=== PATIENT | female | born 1945 | race Caucasian/White ===

== ENCOUNTER 2017-12-18 07:17 | Emergency (ER) | payer MEDICARE, OTHER, SELFPAY ==
[2017-12-18 07:20] VITALS: BP 142/92; PULSE 97; RESP 18; TEMP 35.6; O2SAT 95; BMI 34.5
--- NOTE | 2017-12-18 07:41 | ED.DCSUM_ITS ---
- ER Visit Summary Date of Service: 12/18/17 Chief Complaint: Itching secondary to allergic reaction to hair care products History of Present Illness: The patient is a 72 F who is diabetic and has had a prior stroke. Patient states that on Monday she had her haircut to use something in her hair she started having itching and irritation in her scalp that day. She states this is happened before. And she was placed on Medrol Dosepak and that is all she wants. Denies other complaints. Physical Examination: Older female no acute distress. Vital signs stable afebrile. H EENT exam unremarkable. She is itching of her scalp. There is no severe rash. Or other abnormalities of her scalp. Neck nontender. Lungs clear to auscultation. Heart regular rate and rhythm. Abdomen is soft and nontender. Normal bowel sounds. Moving all 4 extremities. Neurologically she is awake and alert without focal motor deficits. Test Results: Prior to discharge patient requested her INR to be checked because she has not done for some period in time. It was 1.7 and mildly subtherapeutic. Emergency Department Course and Treatment: Patient treated with p.o. prednisone. Prescription. Treatment Plan: Prescription for prednisone. Disposition: Discharge Impression: Scalp itching secondary allergic reaction to hair care products Subtherapeutic anticoagulation on warfarin History of diabetes This note was generated with [employer] dictation software. It may contain incorrect words, spelling, and punctuation that were not noted in review of the chart prior to signing ED Disposition - Plan for ED Patient: Disposition: Home or Assisted Living Chief Complaint: Med Refill Instructions: ED Dermatitis Contact Prescriptions: Prednisone [Deltasone] 40 mg PO DAILY 7 Days tab Referrals: Sharon Gomez [ALLIED HEALTH PROFESSIONAL] - As Needed Additional Instructions: Prednisone daily for 1 week. Watch blood sugars closely.
--- NOTE | 2017-12-18 07:41 | ED.DEP ---
ED Disposition - Plan for ED Patient: Disposition: Home or Assisted Living Chief Complaint: Med Refill Instructions: ED Dermatitis Contact Prescriptions: Prednisone [Deltasone] 40 mg PO DAILY 7 Days tab Referrals: Sharon Gomez [Primary Care Provider] - As Needed Additional Instructions: Prednisone daily for 1 week. Watch blood sugars closely.
[2017-12-18 08:09] LABS: International Normalized Ratio 1.7; Prothrombin Time (Protime)PT. 19.8 SECONDS (11.7-14.9)
[2017-12-18] MEDS: predniSONE 20 MG Tablet 40 MG PO (08:39)
== END 2017-12-18 09:08 | disposition home or self-care (01) ==
PROVIDERS: Emergency Provider Emergency Medicine
DX: L29.9 Pruritus, unspecified (principal); T49.4X5A Adverse effect of keratolytics, keratoplastics, and other hair treatment drugs and preparations, initial encounter; Y92.9 Unspecified place or not applicable; R79.1 Abnormal coagulation profile; Z79.01 Long term (current) use of anticoagulants; E11.9 Type 2 diabetes mellitus without complications; J45.909 Unspecified asthma, uncomplicated; Z86.73 Personal history of transient ischemic attack (TIA), and cerebral infarction without residual deficits; Z79.84 Long term (current) use of oral hypoglycemic drugs; Z79.82 Long term (current) use of aspirin; Z79.899 Other long term (current) drug therapy
CPT/HCPCS: 85610; 99282

== ENCOUNTER 2018-01-17 16:57 | Emergency (ER) | payer MEDICARE, OTHER, SELFPAY ==
[2018-01-17 16:59] VITALS: BP 168/112; PULSE 111; RESP 20; TEMP 36.1; O2SAT 93; BMI 36.9
--- NOTE | 2018-01-17 17:40 | ED.VISSUMM ---
- ER Visit Summary Date of Service: 01/17/18 Chief Complaint: Prescription refill History of Present Illness: The patient is a 72 F who presents because she will not be able see a physician until February 02. She states she seen a physician at [facility]. She states she needs refill for Cymbalta 60 mg twice daily, levothyroxine 137 micrograms, Coumadin 5 mg and metformin 500 mg twice daily. She states she is a non-smoker. She lives alone. She has actually no complaints. She is not a good informant. Physical Examination: Vital signs are marked for an elevated blood pressure 168/112. Heart rate 111. Head is atraumatic nor cephalic. Pupils equal reactive. Extra muscle intact. TMs normal. Posterior preceptor exudate. Trachea midline. There is no thyromegaly. Heart is regular and rapid without murmur, gallop or rub. Lungs are clear to auscultation. Abdomen soft nontender. Affect is flat. Neuro exam is nonfocal. Test Results: None Emergency Department Course and Treatment: Prescriptions were written for her and she was in instructed to keep appointment with physician at [facility] Treatment Plan: Month supply of medication Disposition: Keep appointment with new physician for January Impression: 1. Medication refilled 2. Medical screening exam This note was generated with [employer] dictation software. It may contain incorrect words, spelling, and punctuation that were not noted in review of the chart prior to signing ED Disposition - Plan for ED Patient: Disposition: Home or Assisted Living Chief Complaint: Med Refill Instructions: Med Refill Prescriptions: Duloxetine Hcl [Cymbalta] 60 mg PO DAILY #30 capsule. Levothyroxine [Synthroid] 137 mcg PO DAILY #30 tab Warfarin [Coumadin (PBKC)] 5 mg PO DAILY #30 tab Metformin HCl 500 mg PO BID #60 tab Referrals: Care Physician,No Primary [Primary Care Provider] -
--- NOTE | 2018-01-17 17:46 | ED.DCSUM_ITS ---
- ER Visit Summary Date of Service: 01/17/18 Chief Complaint: Prescription refill History of Present Illness: The patient is a 72 F who presents because she will not be able see a physician until February 02. She states she seen a physician at [facility]. She states she needs refill for Cymbalta 60 mg twice daily, levothyroxine 137 micrograms, Coumadin 5 mg and metformin 500 mg twice daily. She states she is a non-smoker. She lives alone. She has actually no complaints. She is not a good informant. Physical Examination: Vital signs are marked for an elevated blood pressure 168/ 112. Heart rate 111. Head is atraumatic nor cephalic. Pupils equal reactive. Extra muscle intact. TMs normal. Posterior preceptor exudate. Trachea midline. There is no thyromegaly. Heart is regular and rapid without murmur, gallop or rub. Lungs are clear to auscultation. Abdomen soft nontender. Affect is flat. Neuro exam is nonfocal. Test Results: None Emergency Department Course and Treatment: Prescriptions were written for her and she was in instructed to keep appointment with physician at [facility] Treatment Plan: Month supply of medication Disposition: Keep appointment with new physician for January Impression: 1. Medication refilled 2. Medical screening exam This note was generated with [employer] dictation software. It may contain incorrect words, spelling, and punctuation that were not noted in review of the chart prior to signing ED Disposition - Plan for ED Patient: Disposition: Home or Assisted Living Chief Complaint: Med Refill Instructions: Med Refill Prescriptions: Duloxetine Hcl [Cymbalta] 60 mg PO DAILY #30 capsule. Levothyroxine [Synthroid] 137 mcg PO DAILY #30 tab Warfarin [Coumadin (PBKC)] 5 mg PO DAILY #30 tab Metformin HCl 500 mg PO BID #60 tab Referrals: Care Physician,No Primary [Primary Care Provider] -
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
== END 2018-01-17 18:03 | disposition home or self-care (01) ==
LOC: ED 17:49
PROVIDERS: Emergency Provider Emergency Medicine
DX: Z00.00 Encounter for general adult medical examination without abnormal findings (principal); Z76.0 Encounter for issue of repeat prescription; E66.9 Obesity, unspecified; E11.9 Type 2 diabetes mellitus without complications; E03.9 Hypothyroidism, unspecified; Z86.39 Personal history of other endocrine, nutritional and metabolic disease; Z79.84 Long term (current) use of oral hypoglycemic drugs; Z79.899 Other long term (current) drug therapy
CPT/HCPCS: 99282

== ENCOUNTER → 2018-02-13 13:54 | Outpatient (CLI) | payer MEDICARE, OTHER, SELFPAY ==
[2018-02-13 15:57] LABS: Prothrombin Time (Protime)PT. 13.4 SECONDS (11.7-14.9)
[2018-02-13 16:04] LABS: Cholesterol 154 mg/dL (200); High Density Lipoprotein 47 mg/dL; T4 Free Direct 1.85 ng/dL (0.76-1.46); Thyroid Stim Hormone (TSH) 0.08 uIU/mL (0.358-3.74); Triglycerides 117 mg/dL; Very Low Density Lipoprotein 23 mg/dL (5-40)
[2018-02-13 16:36] LABS: Absolute Lymphocyte Count 1.78 X10^3/ul (0.83-4.51); Absolute Neutrophil Count 4.7 X10^3/uL (2.0-7.7); Basophil# 0.05 X10^3/uL; Basophil% 0.7 % (0-1); Eosinophil# 0.14 X10^3/uL; Eosinophils% 1.9 % (0-5); Hematocrit 42.9 % (37-47); Hemoglobin 13.3 g/dl (12.0-15.0); Lymphocyte # 1.78 X10^3/ul (4.0); Lymphocyte % 24.5 % (19-41); Mean Corpuscular Hgb 24.1 pg (27.0-32.0); Mean Corpuscular Volume 77.7 fL (81-99); Monocyte# 0.56 X10^3/uL; Monocyte% 7.7 % (0-10); Neutrophil # 4.74 X10^3/uL (2.7-7.7); Neutrophil % 65.1 % (47-70); Platelet Count 268 K/mm3 (150-450); RBC Distribution Width CV 18.6 % (11.6-14.6); RBC Distribution Width SD 52.3 fl (35.1-43.9); Red Blood Count 5.52 M/mm3 (4.2-5.4); White Blood Count 7.3 K/mm3 (4.4-11.0)
[2018-02-13 18:18] LABS: Differential Indicated SCAN CRITERIA MET; POSITIVE COUNT YES; POSITIVE DIFFERENTIAL NO; POSITIVE MORPHOLOGY YES
[2018-02-13 18:57] LABS: Anisocytosis RARE; Microcytosis RARE; Platelet Estimate ADEQUATE (ADEQ); Platelet Morphology LARGE
== END ==
PROVIDERS: Family Provider Internal Medicine; PCP Internal Medicine; Visit Provider Internal Medicine
DX: K21.9 Gastro-esophageal reflux disease without esophagitis (principal); E11.40 Type 2 diabetes mellitus with diabetic neuropathy, unspecified; E03.9 Hypothyroidism, unspecified; E11.9 Type 2 diabetes mellitus without complications; Z79.01 Long term (current) use of anticoagulants
CPT/HCPCS: 36415; 80061; 83036; 84439; 84443; 85025; 85610

== ENCOUNTER 2018-04-12 20:29 | Emergency (ER) | payer MEDICARE, OTHER, SELFPAY ==
[2018-04-12 20:33] VITALS: BP 142/94; PULSE 123; RESP 16; TEMP 36.7; O2SAT 93; BMI 35.2
[2018-04-12 20:36] VITALS: O2SAT 93
--- NOTE | 2018-04-12 20:43 | EKG12_ITS ---
Test Reason : FALL Blood Pressure : / mmHG Vent. Rate : 107 BPM Atrial Rate : 107 BPM P-R Int : 184 ms QRS Dur : 086 ms QT Int : 346 ms P-R-T Axes : 053 008 065 degrees QTc Int : 461 ms Sinus tachycardia Septal infarct , age undetermined Inferior infarct , age undetermined Abnormal ECG Confirmed by JUSTIN BOO, BART ([id number]), assignment editor MINA BERNAL ([id number]) on 04/16/2018 3:04:41 PM Referred By: BETTY Confirmed By:BART ANDERSON MD
--- NOTE | 2018-04-12 20:43 | CT_ITS ---
STUDY: CT BRAIN WITHOUT CONTRAST REASON FOR EXAM: Female, 72 years old. Fall RADIATION DOSAGE (If Supplied By Facility): CTDIvol = ( 44.99 ) mGy, DLP = ( 779.24 ) mGycm TECHNIQUE: Transaxial CT imaging of the brain was performed without administration of intravenous contrast material. Individualized dose optimization techniques were used for this CT. COMPARISON: September 27, 2016 FINDINGS: Normal soft tissue structures. Normal calvarium. Normal size ventricles and extra-axial spaces for the patient's age. Stable white matter microangiopathic ischemic changes of the cerebral hemispheres. Normal basal ganglia. Probable old lacunar infarcts of the thalami. Normal brainstem. Normal cerebellum. There is no intracranial hemorrhage. There are no findings of an acute ischemic infarction. Normal visualized paranasal sinuses. CT/Brain/Head without Contrast IMPRESSION: Stable age-related and chronic changes of the brain. Electronically Signed: Zachary Bryant DO at 21:43 EDT Tel [phone], Service support ,
[2018-04-12] MEDS: Acetaminophen 500 MG Tablet 1000 MG PO (20:54)
--- NOTE | 2018-04-12 21:20 | RAD_ITS ---
STUDY: X-RAY - RIGHT WRIST REASON FOR EXAM: Female, 72 years old. Pain TECHNIQUE: 3 view(s) of the wrist were obtained. COMPARISON: None. FINDINGS: Comminuted fracture involving the distal end of the radius. Avulsion involving the tip of the ulnar styloid. Normal radiocarpal articulation. Normal distal radioulnar articulation. Questionable old injury involving the scaphoid tip distally versus accessory ossification. Normal carpal articulations. Degenerative changes at the carpometacarpal articulation of the thumb. Normal second through fifth carpometacarpal articulations. Normal visualized metacarpal bones. Chondrocalcinosis distal to the ulna. RAD/Wrist min 3 Views IMPRESSION: Comminuted fracture involving the distal end of the radius. Avulsion involving the tip of the ulnar styloid. Electronically Signed: Zachary Bryant DO at 21:51 EDT Tel [phone], Service support ,
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
--- NOTE | 2018-04-12 22:15 | DCINST.ED_ITS ---
ED Disposition - Plan for ED Patient: Disposition: Home or Assisted Living Chief Complaint: Fall Instructions: ED Mechanical Fall Prescriptions: Hydrocodone Bitart/Apap 5-325 [[place] 5MG-325MG] 1 tab PO Q6H PRN PRN 3 Days #10 tab PRN Reason: Pain Referrals: Karl Monaco MD [Primary Care Provider] - Contreras Fleming DO [STAFF PHYSICIAN] -
[2018-04-12 22:39] VITALS: BP 151/82; PULSE 106; RESP 15; O2SAT 98
--- NOTE | 2018-04-12 22:40 | ED.RN ---
pt given written and verbal discharge instructions and home going prescriptions. pt verbalizes understanding. educated on care of cast at home, and not to drive when taking narcotic medication. this rn d/c pt iv and covered with 2x2 gauze dressing. pt assisted in dressing by this rn and placed in wheelchair into waiting room. pt awaiting [facility] to pick her up.
== END 2018-04-12 22:42 | disposition home or self-care (01) ==
PROVIDERS: Emergency Provider Emergency Medicine; Family Provider Internal Medicine; PCP Internal Medicine
DX: S52.501A Unspecified fracture of the lower end of right radius, initial encounter for closed fracture (principal); S00.03XA Contusion of scalp, initial encounter; R40.2410 Glasgow coma scale score 13-15, unspecified time; W19.XXXA Unspecified fall, initial encounter; Y93.9 Activity, unspecified; Y92.9 Unspecified place or not applicable; E11.9 Type 2 diabetes mellitus without complications; I10 Essential (primary) hypertension; E03.9 Hypothyroidism, unspecified; Z79.84 Long term (current) use of oral hypoglycemic drugs; Z79.899 Other long term (current) drug therapy
CPT/HCPCS: 29125; 70450; 73110; 93005; 99285; J7030

== ENCOUNTER 2018-04-14 20:58 | Inpatient (IN) | payer MEDICARE, OTHER, SELFPAY ==
[2018-04-14 20:58] VITALS: PULSE 114; RESP 18; TEMP 36.6; O2SAT 94; BMI 33.6
[2018-04-14 21:03] VITALS: BP 188/92
--- NOTE | 2018-04-14 21:48 | RAD_ITS ---
STUDY: X-RAY CHEST REASON FOR EXAM: Female, 72 years old. Weakness. TECHNIQUE: Portable chest. COMPARISON: 07/15/2016. FINDINGS: The lungs are clear and expanded. There is no demonstrated pleural abnormality. Normal size heart. Normal mediastinum and reta. Normal visualized pulmonary arteries. Normal visualized aortic arch and descending thoracic aorta. Degenerative changes of the shoulders are noted. Soft tissues and bony structures are otherwise unremarkable. RAD/Chest 1 View (Portable) IMPRESSION: No acute process. Electronically Signed: Annette Vlila MD at 22:11 EDT Tel , Service support ,
--- NOTE | 2018-04-14 21:48 | EKG12_ITS ---
Test Reason : FALL Blood Pressure : / mmHG Vent. Rate : 088 BPM Atrial Rate : 088 BPM P-R Int : 164 ms QRS Dur : 082 ms QT Int : 382 ms P-R-T Axes : 061 -03 061 degrees QTc Int : 462 ms Normal sinus rhythm Inferior infarct , age undetermined Abnormal ECG Confirmed by JUSTIN BOO, BART ([id number]), content editor MINA BERNAL ([id number]) on 04/16/2018 3:43:11 PM Referred By: HIRA Confirmed By:BART ANDERSON MD
[2018-04-14 22:10] LABS: Absolute Lymphocyte Count 1.18 X10^3/ul (0.83-4.51); Absolute Neutrophil Count 10.6 X10^3/uL (2.0-7.7); Basophil# 0.03 X10^3/uL; Basophil% 0.2 % (0-1); Eosinophil# 0.08 X10^3/uL; Eosinophils% 0.6 % (0-5); Hematocrit 44.6 % (37-47); Hemoglobin 14.1 g/dl (12.0-15.0); Lymphocyte # 1.18 X10^3/ul (4.0); Lymphocyte % 9.3 % (19-41); Mean Corp Hgb Conc 31.6 g/gl (32-36); Mean Corpuscular Volume 79.1 fL (81-99); Monocyte# 0.81 X10^3/uL; Monocyte% 6.4 % (0-10); Neutrophil # 10.57 X10^3/uL (2.7-7.7); Neutrophil % 83.3 % (47-70); POSITIVE COUNT NO; POSITIVE DIFFERENTIAL NO; POSITIVE MORPHOLOGY YES; Platelet Count 306 K/mm3 (150-450); RBC Distribution Width CV 18.2 % (11.6-14.6); RBC Distribution Width SD 51.7 fl (35.1-43.9); Red Blood Count 5.64 M/mm3 (4.2-5.4); White Blood Count 12.7 K/mm3 (4.4-11.0)
[2018-04-14 22:11] LABS: Differential Indicated SCAN CRITERIA MET
[2018-04-14 22:19] LABS: Anion Gap 11 (5-15); BUN 12 mg/dL (7-18); BUN/Creat Ratio 13.4 RATIO (10-20); Calcium,Total 10.1 mg/dL (8.5-10.1); Chloride 106 mmol/L (98-107); EST Glomerular Filtration Rate 65 mL/min (>60); Est Glom Filt Rate - Afr Amer 79 mL/min (>60); Estimated Creatinine Clearance 57.31 ml/min; Glucose 126 mg/dL (74-106); Potassium 4.3 mmol/L (3.5-5.1); Sodium Level 142 mmol/L (136-145)
[2018-04-14 22:28] LABS: Differential Comment SCANNED
[2018-04-14 22:46] LABS: Red Blood Cells-Urine 0 SEEN /hpf (0-5)
[2018-04-14] MEDS: Acetaminophen 500 MG Tablet 1000 MG PO (22:52)
[2018-04-14 22:53] LABS: Color, Urine Yellow (Yellow); Glucose, Dipstick Normal (Normal); Ketone-Dipstick 15 mg/dl (Negative); Leukocyte Esterase-Dipstick 500 /ul (Negative); Nitrite-Dipstick Negative (Negative); Occult Blood-Urine 25 /ul (Negative); Protein-Dipstick 30 mg/dl (Negative); Specific Gravity, Urine 1.025 (1.002-1.030); Urine Bilirubin Dipstick Negative (Negative); Urine Clarity Sl. Cloudy (Clear); Urine Urobilinogen Normal (Normal)
[2018-04-14 23:04] LABS: Hyaline Cast 0-5 SEEN /lpf (0-5); Mucous, Urine 1+ /hpf (<or=2+); Squamous Epithelial Cells - UA 10-25 SEEN /hpf (5-10); White Blood Cells 25-50 SEEN /hpf (0-5)
[2018-04-14 23:05] LABS: Bacteria RARE /hpf (None Seen); Renal Epithelial Cells 0-5 SEEN /hpf (0-5); Transitional Epithelial - Ur 0-5 SEEN /hpf (0-5)
--- NOTE | 2018-04-14 23:32 | ED.DCSUM_ITS ---
- ER Visit Summary Date of Service: 04/14/18 Chief Complaint: Fall History of Present Illness: The patient is a 72 F who presents with generalized weakness. She had a recent fall had a right wrist fracture. She complains of slowly worsening generalized weakness. She states she was unable to get up off of the commode today. She tried for a couple of hours she states. She then slid onto her knees and had to crawl to the phone call EMS. She states that she has known that she has had some difficulty caring for herself but now recognizes that she likely needs to be in a nursing facility. She denies any injury from her fall today. She denies fever chest pain shortness of breath vomiting diarrhea or urinary symptoms. Physical Examination: Initial heart rate 114 vitals otherwise unremarkable Heart rate and rhythm tachycardia Lungs are clear Abdomen soft nontender nondistended Painful limited range of motion of the right upper extremity, right upper extremity wrist is in a splint Normal color Alert Test Results: EKG shows sinus rhythm at a rate of 88 similar to prior. Chest x- ray shows no acute process. Labs notable for white blood cell count 12.7. Urinalysis shows 500 leukocyte esterase, 25-50 WBCs, rare bacteria. This was also sent for culture. Emergency Department Course and Treatment: Patient underwent workup for generalized weakness. There is note of UTI. She will be treated with IV Rocephin. She was discussed with the hospitalist will be admitted. I do feel it is likely that even after treatment of her UTI she will need placement to a nursing facility. Treatment Plan: [] Disposition: Admit Impression: UTI Functional decline This note was generated with [employer] dictation software. It may contain incorrect words, spelling, and punctuation that were not noted in review of the chart prior to signing ED Disposition - Plan for ED Patient: Chief Complaint: Fall Referrals: Karl Monaco MD [Primary Care Provider] -
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
[2018-04-15] VITALS (7 sets, daily range): BP systolic 139–180; BP diastolic 66–115; PULSE 77–94; RESP 16–18; TEMP 36.2–37.2; O2SAT 95–100; BMI 33.5
[2018-04-15] MEDS: Ceftriaxone 1 GM/50 ML BAG IV ×2 (00:16→09:06)
[2018-04-15] MEDS: 0.9% NaCl Peripheral Flush Adult/Peds IV ×2 (01:25→21:34)
[2018-04-15] MEDS: Acetaminophen 500 MG Tablet PO ×2 (03:44→14:05)
[2018-04-15] MEDS: Levothyroxine 125 MCG Tablet PO (06:05)
[2018-04-15 07:34] LABS: Anion Gap 10 (5-15); BUN 13 mg/dL (7-18); BUN/Creat Ratio 17.1 RATIO (10-20); Calcium,Total 9.5 mg/dL (8.5-10.1); Chloride 104 mmol/L (98-107); Creatinine, Serum 0.76 mg/dL (0.55-1.02); EST Glomerular Filtration Rate 79 mL/min (>60); Est Glom Filt Rate - Afr Amer 96 mL/min (>60); Estimated Creatinine Clearance 49.79 ml/min; Glucose 115 mg/dL (74-106); Potassium 2.7 mmol/L (3.5-5.1); Sodium Level 138 mmol/L (136-145); Thyroid Stim Hormone (TSH) 1.09 uIU/mL (0.358-3.74)
[2018-04-15 07:38] LABS: Hematocrit 39.1 % (37-47); Hemoglobin 12.4 g/dl (12.0-15.0); Mean Corp Hgb Conc 31.7 g/gl (32-36); Mean Corpuscular Hgb 25.1 pg (27.0-32.0); Mean Corpuscular Volume 79.1 fL (81-99); Platelet Count 243 K/mm3 (150-450); RBC Distribution Width CV 18.2 % (11.6-14.6); RBC Distribution Width SD 52.4 fl (35.1-43.9); Red Blood Count 4.94 M/mm3 (4.2-5.4); White Blood Count 7.5 K/mm3 (4.4-11.0)
[2018-04-15] MEDS: Aspirin 81 MG TAB.CHEW PO (07:45)
[2018-04-15 07:49] LABS: Absolute Neutrophil Count 5.1 X10^3/uL (2.0-7.7); Basophil% 0.3 % (0-1); Differential Indicated SCAN CRITERIA MET; Eosinophils% 1.6 % (0-5); Lymphocyte # 1.62 X10^3/ul (4.0); Lymphocyte % 21.7 % (19-41); Monocyte% 8.6 % (0-10); Neutrophil # 5.06 X10^3/uL (2.7-7.7); Neutrophil % 67.7 % (47-70); POSITIVE COUNT NO; POSITIVE DIFFERENTIAL NO; POSITIVE MORPHOLOGY YES
[2018-04-15 07:50] LABS: Absolute Lymphocyte Count 1.62 X10^3/ul (0.83-4.51); Basophil# 0.02 X10^3/uL; Eosinophil# 0.12 X10^3/uL; Monocyte# 0.64 X10^3/uL
--- NOTE | 2018-04-15 07:58 | PCM.PN.HOSP ---
Patient Problems: Active and Suspected Problems (Last Reviewed 04/15/18 @ 04:24 by Maximino Norman MD) Multiple falls (Acute) Debility (Acute) Acute cystitis (Acute) Subjective: Patient stating that there has been no marked improvement since initial presentation and she notes ongoing weakness and debility. She states that her right upper extremity is currently comfortable but she has intermittent discomfort and cannot detail whether or not she supposed to be bearing weight. Patient also relays that she has made efforts to lose weight including 35 pounds over unclear timelines but states that she has had poor appetite lately when discussed nutritional importance for wound healing including fractures. Patient denies fevers, chills, nausea, emesis, abdominal pain, chest pain or dyspnea. Objective: Physical Examination: General: awake, alert, oriented x 3 and cooperative, seated upright in bed in no apparent distress. Skin: normal color, turgor, no icterus, cyanosis, R wrist w/ JOSUÉ wrap in place. HEENT: AT/NC, EOMI, PERRLA, MMM. Lungs: Diminished BS BL, > bases, distant BS w/ larger habitus, moderate effort, no rales, ronchi or wheezing. Heart: Regular rate and rhythm; no gallop, rub audible. Abdomen: soft, morbidly obese, NTTP, ND, decreased BS. Extremities: no cyanosis, clubbing, no BL LE edema, RUE w/ splint/JOSUÉ in place, elevated w/ icing currently, mild edema to fingers, sensation intact, able to move fingers. Neurological: patient awake, alert, oriented x 3; cognitive function intact; pupils equally reactive to light and accomodation; cranial nerves II-XII grossly normal, moving all 4 extremities except limited RUE given fx, no focal deficits, strength moderately to severely globally decreased secondary to acute presentation. Psychiatric: affect appears normal, no acute evidence of depressive or anxiety feelings. Vitals/I&O's: Vital Signs Temp Pulse Resp BP Pulse Ox 97.8 F 87 18 139/72 H 96 04/15/18 02:38 04/15/18 02:38 04/15/18 02:38 04/15/18 02:38 04/15/18 02:38 Oxygen Delivery Method Room Air Weight: 226 lb 6.636 oz Body Mass Index (BMI) 33.5 Intake and Output for Last 24 Hours 04/13/18 04/14/18 04/15/18 23:59 23:59 23:59 Intake Total 120 / 120 Balance 120 / 120 Laboratory Results 04/15/18 06:10: Sodium 138, Potassium 2.7 L*, Chloride 104, Carbon Dioxide 24.0, Anion Gap 10, BUN 13, Creatinine 0.76, Estim Creat Clear Calc 49.79, Est GFR (MDRD) Af Amer 96, Est GFR (MDRD) Non-Af 79, BUN/Creatinine Ratio 17.1, Glucose 115 H, Calcium 9.5, TSH 1.09 04/15/18 06:10: Vitamin B12 Pending, Vitamin D 25-Hydroxy Pending 04/15/18 06:10: Vit D 1,25-Dihydroxy Pending 04/15/18 07:10: WBC 7.5, RBC 4.94, Hgb 12.4, Hct 39.1, MCV 79.1 L, MCH 25.1 L, MCHC 31.7 L, RDW 18.2 H, RDW Differential 52.4 H, Plt Count 243, Immature Gran % (Auto) 0.100, Neut % (Auto) 67.7, Lymph % (Auto) 21.7, [place] % (Auto) 8.6, Eos % (Auto) 1.6, Baso % (Auto) 0.3, Absolute Neuts (auto) 5.1, Absolute Lymphs (auto) 1.62, Total Counted Pending Current Medications Acetaminophen (Tylenol) 500 mg PO Q6H PRN PRN PRN Reason: PAIN Last Admin: 04/15/18 03:44 Dose: 500 mg Amlodipine Besylate (Norvasc) 5 mg PO DAILY [facility] Aspirin (Aspirin, Baby) 81 mg PO DAILY@0800 [facility] Last Admin: 04/15/18 07:45 Dose: 81 mg Bisacodyl (Dulcolax) 5 mg PO DAILY PRN PRN PRN Reason: Constipation Cholecalciferol (Vitamin D) 1,000 unit PO DAILY [facility] Duloxetine HCl (Cymbalta) 60 mg PO DAILY [facility] Enoxaparin Sodium (Lovenox) 40 mg SC DAILY@1000 [facility] Ceftriaxone Sodium (Rocephin) 1 gm in 50 mls @ 100 mls/hr IV Q24 [facility] Insulin Human Lispro (Humalog Kwikpen (Bkc)) 0 unit SC ACHS [facility] PRN Reason: Protocol Labetalol HCl (Trandate) 10 mg IV Q4H PRN PRN PRN Reason: SBP > 160 Last Admin: 04/15/18 01:25 Dose: 10 mg Levothyroxine Sodium (Synthroid) 125 mcg PO DAILY@0600 [facility] Last Admin: 04/15/18 06:05 Dose: 125 mcg Magnesium Hydroxide (Milk Of Magnesia) 30 ml PO DAILY PRN PRN PRN Reason: Constipation Nutritional Formula (Lactose Free) (Glucerna Shake) 120 ml PO 4X/DAY [facility] Ondansetron HCl (Zofran) 4 mg IV Q8H PRN PRN PRN Reason: NAUSEA Oxycodone HCl (Oxyir) 5 mg PO Q4H PRN PRN PRN Reason: Moderate Pain (pain scale 4-5) Potassium Bicarb/Potassium Chloride (Potassium Chl 25 Meq Eff (For Liquid)) 50 meq PO X1 ONE Stop: 04/15/18 07:56 Sodium Chloride () 5 - 30 ml IV UD PRN PRN Reason: SALINE FLUSH Last Admin: 04/15/18 01:25 Dose: 10 ml Zolpidem Tartrate (Ambien (Generic)) 5 mg PO QHS PRN PRN PRN Reason: INSOMNIA Medical Necessity - Tobacco Use Smoking Status: Never smoker Assessment/Plan All Active Problems (Last Reviewed 04/15/18 @ 04:24 by Maximino Norman MD) Multiple falls (Acute) Debility (Acute) Acute cystitis (Acute) Tachycardia (Acute) History of stroke (Acute) History of blood clots (Acute) History of ankle fracture (Acute) Frostbite of both buttocks (Acute) Fall (Acute) The patient is a 72 y/o F w/ PMHx: ? Diabetes mellitus type II, Fibromyalgia, Hypothyroidism, GERD, OA, Hx CVA, Hx DVT, HTN, Anxiety and Depression, Obesity who presents to the [facility] ED on 04/14/18 with progressively worsening debility, weakness and falls. (1) Acute Urinary Tract Infection: Admitted to [facility] upon ED evaluation remarkable, pending UCx, admission CBC w/ WBC 12.7 with L shift, continue IVFs, monitor I/Os, continue IV Rocephin w/ transition as able pending sensitivities and speciation. PT, OT, CM for discharge planning, concerns for decline, may necessitate SNF placement. (2) Frequent Falls, Debility, Recent Fx: Vitamin D, B12 ordered, pending, PT, OT, CM for placement. (3) Hypokalemia: Admission K+ 2.7, supplementation given, repeat level thie afternoon and in AM. Mag pending. (4) Recent Prior R Wrist Fracture: Continue immobilization, elevation, icing, PRN pain regimen, PT and OT, NWB given unclear directions per Orthopedic. (5) Anxiety and Depression/Fibromyalgia: Continue home cymbalta regimen. (6) Hypertension: Continue home regimen including Norvasc, PRN hydralazine. (7) ? Diabetes mellitus type II versus prediabetes: Hold oral home regimen, ADA diet, accu checks w/ ISS, HgBA1c pending. (8) Hypothyroidism: Continue home synthroid regimen, TSH normal. (9) Obesity: Weight loss and lifestyle changes encouraged. (10) Hx DVT: Continue prophylaxis. (11) DVT Prophylaxis: SCDs, lovenox. (12) Code Status: DNR-CCA, no intubation. Code Visit Inpatient E&M: 48717 Subs Hosp L2
--- NOTE | 2018-04-15 08:04 | PN_ITS ---
Patient Problems: Active and Suspected Problems (Last Reviewed 04/15/18 @ 04:24 by Maximino Norman MD) Multiple falls (Acute) Debility (Acute) Acute cystitis (Acute) Subjective: Patient stating that there has been no marked improvement since initial presentation and she notes ongoing weakness and debility. She states that her right upper extremity is currently comfortable but she has intermittent discomfort and cannot detail whether or not she supposed to be bearing weight. Patient also relays that she has made efforts to lose weight including 35 pounds over unclear timelines but states that she has had poor appetite lately when discussed nutritional importance for wound healing including fractures. Patient denies fevers, chills, nausea, emesis, abdominal pain, chest pain or dyspnea. Objective: Physical Examination: General: awake, alert, oriented x 3 and cooperative, seated upright in bed in no apparent distress. Skin: normal color, turgor, no icterus, cyanosis, R wrist w/ JOSUÉ wrap in place. HEENT: AT/NC, EOMI, PERRLA, MMM. Lungs: Diminished BS BL, > bases, distant BS w/ larger habitus, moderate effort , no rales, ronchi or wheezing. Heart: Regular rate and rhythm; no gallop, rub audible. Abdomen: soft, morbidly obese, NTTP, ND, decreased BS. Extremities: no cyanosis, clubbing, no BL LE edema, RUE w/ splint/JOSUÉ in place, elevated w/ icing currently, mild edema to fingers, sensation intact, able to move fingers. Neurological: patient awake, alert, oriented x 3; cognitive function intact; pupils equally reactive to light and accomodation; cranial nerves II-XII grossly normal, moving all 4 extremities except limited RUE given fx, no focal deficits, strength moderately to severely globally decreased secondary to acute presentation. Psychiatric: affect appears normal, no acute evidence of depressive or anxiety feelings. Vitals/I&O's: Vital Signs Temp Pulse Resp BP Pulse Ox 97.8 F 87 18 139/72 H 96 04/15/18 02:38 04/15/18 02:38 04/15/18 02:38 04/15/18 02:38 04/15/18 02:38 Oxygen Delivery Method Room Air Weight: 226 lb 6.636 oz Body Mass Index (BMI) 33.5 Intake and Output for Last 24 Hours 04/13/18 04/14/18 04/15/18 23:59 23:59 23:59 Intake Total 120 / 120 Balance 120 / 120 Laboratory Results 04/15/18 06:10: Sodium 138, Potassium 2.7 L*, Chloride 104, Carbon Dioxide 24.0 , Anion Gap 10, BUN 13, Creatinine 0.76, Estim Creat Clear Calc 49.79, Est GFR ( MDRD) Af Amer 96, Est GFR (MDRD) Non-Af 79, BUN/Creatinine Ratio 17.1, Glucose 115 H, Calcium 9.5, TSH 1.09 04/15/18 06:10: Vitamin B12 Pending, Vitamin D 25-Hydroxy Pending 04/15/18 06:10: Vit D 1,25-Dihydroxy Pending 04/15/18 07:10: WBC 7.5, RBC 4.94, Hgb 12.4, Hct 39.1, MCV 79.1 L, MCH 25.1 L, MCHC 31.7 L, RDW 18.2 H, RDW Differential 52.4 H, Plt Count 243, Immature Gran % (Auto) 0.100, Neut % (Auto) 67.7, Lymph % (Auto) 21.7, [place] % (Auto) 8.6, Eos % (Auto) 1.6, Baso % (Auto) 0.3, Absolute Neuts (auto) 5.1, Absolute Lymphs ( auto) 1.62, Total Counted Pending Current Medications Acetaminophen (Tylenol) 500 mg PO Q6H PRN PRN PRN Reason: PAIN Last Admin: 04/15/18 03:44 Dose: 500 mg Amlodipine Besylate (Norvasc) 5 mg PO DAILY [facility] Aspirin (Aspirin, Baby) 81 mg PO DAILY@0800 [facility] Last Admin: 04/15/18 07:45 Dose: 81 mg Bisacodyl (Dulcolax) 5 mg PO DAILY PRN PRN PRN Reason: Constipation Cholecalciferol (Vitamin D) 1,000 unit PO DAILY [facility] Duloxetine HCl (Cymbalta) 60 mg PO DAILY [facility] Enoxaparin Sodium (Lovenox) 40 mg SC DAILY@1000 [facility] Ceftriaxone Sodium (Rocephin) 1 gm in 50 mls @ 100 mls/hr IV Q24 [facility] Insulin Human Lispro (Humalog Kwikpen (Bkc)) 0 unit SC ACHS [facility] PRN Reason: Protocol Labetalol HCl (Trandate) 10 mg IV Q4H PRN PRN PRN Reason: SBP > 160 Last Admin: 04/15/18 01:25 Dose: 10 mg Levothyroxine Sodium (Synthroid) 125 mcg PO DAILY@0600 [facility] Last Admin: 04/15/18 06:05 Dose: 125 mcg Magnesium Hydroxide (Milk Of Magnesia) 30 ml PO DAILY PRN PRN PRN Reason: Constipation Nutritional Formula (Lactose Free) (Glucerna Shake) 120 ml PO 4X/DAY [facility] Ondansetron HCl (Zofran) 4 mg IV Q8H PRN PRN PRN Reason: NAUSEA Oxycodone HCl (Oxyir) 5 mg PO Q4H PRN PRN PRN Reason: Moderate Pain (pain scale 4-5) Potassium Bicarb/Potassium Chloride (Potassium Chl 25 Meq Eff (For Liquid)) 50 meq PO X1 ONE Stop: 04/15/18 07:56 Sodium Chloride () 5 - 30 ml IV UD PRN PRN Reason: SALINE FLUSH Last Admin: 04/15/18 01:25 Dose: 10 ml Zolpidem Tartrate (Ambien (Generic)) 5 mg PO QHS PRN PRN PRN Reason: INSOMNIA Medical Necessity - Tobacco Use Smoking Status: Never smoker Assessment/Plan All Active Problems (Last Reviewed 04/15/18 @ 04:24 by Maximino Norman MD) Multiple falls (Acute) Debility (Acute) Acute cystitis (Acute) Tachycardia (Acute) History of stroke (Acute) History of blood clots (Acute) History of ankle fracture (Acute) Frostbite of both buttocks (Acute) Fall (Acute) The patient is a 72 y/o F w/ PMHx: ? Diabetes mellitus type II, Fibromyalgia, Hypothyroidism, GERD, OA, Hx CVA, Hx DVT, HTN, Anxiety and Depression, Obesity who presents to the [facility] ED on 04/14/18 with progressively worsening debility, weakness and falls. (1) Acute Urinary Tract Infection: Admitted to [facility] upon ED evaluation remarkable, pending UCx, admission CBC w/ WBC 12.7 with L shift, continue IVFs, monitor I/Os, continue IV Rocephin w/ transition as able pending sensitivities and speciation. PT, OT, CM for discharge planning, concerns for decline, may necessitate SNF placement. (2) Frequent Falls, Debility, Recent Fx: Vitamin D, B12 ordered, pending, PT, OT , CM for placement. (3) Hypokalemia: Admission K+ 2.7, supplementation given, repeat level thie afternoon and in AM. Mag pending. (4) Recent Prior R Wrist Fracture: Continue immobilization, elevation, icing, PRN pain regimen, PT and OT, NWB given unclear directions per Orthopedic. (5) Anxiety and Depression/Fibromyalgia: Continue home cymbalta regimen. (6) Hypertension: Continue home regimen including Norvasc, PRN hydralazine. (7) ? Diabetes mellitus type II versus prediabetes: Hold oral home regimen, ADA diet, accu checks w/ ISS, HgBA1c pending. (8) Hypothyroidism: Continue home synthroid regimen, TSH normal. (9) Obesity: Weight loss and lifestyle changes encouraged. (10) Hx DVT: Continue prophylaxis. (11) DVT Prophylaxis: SCDs, lovenox. (12) Code Status: DNR-CCA, no intubation. Code Visit Inpatient E&M: 83749 Subs Hosp L2
[2018-04-15 08:14] LABS: Differential Comment SCANNED
[2018-04-15 08:15] LABS: Platelet Morphology LARGE
[2018-04-15 08:18] LABS: Magnesium 2.1 mg/dL (1.6-2.6)
[2018-04-15 08:25] LABS: Hemoglobin A1c 6.6 % (4.2-6.3)
[2018-04-15] MEDS: amLODIPine 5 MG Tablet PO (09:07)
[2018-04-15] MEDS: DULoxetine Hcl 60 MG Capsule PO (09:07)
[2018-04-15] MEDS: Enoxaparin 40 MG/0.4 ML Syringe SC (09:07)
[2018-04-15] MEDS: Glucerna Shake 120 ML LIQUID PO ×3 (09:09→21:32)
[2018-04-15 11:01] LABS: Bedside Glucose 160 mg/dL (70-110)
[2018-04-15] MEDS: Insulin Lispro 100 UNIT/ML INSULN.PEN SC ×2 (11:03→21:32)
[2018-04-15 14:16] LABS: Anion Gap 8 (5-15); BUN 15 mg/dL (7-18); BUN/Creat Ratio 17.3 RATIO (10-20); Calcium,Total 9.8 mg/dL (8.5-10.1); Chloride 105 mmol/L (98-107); Creatinine, Serum 0.87 mg/dL (0.55-1.02); EST Glomerular Filtration Rate 68 mL/min (>60); Est Glom Filt Rate - Afr Amer 82 mL/min (>60); Estimated Creatinine Clearance 57.23 ml/min; Glucose 152 mg/dL (74-106); Potassium 3.3 mmol/L (3.5-5.1); Sodium Level 140 mmol/L (136-145)
[2018-04-15 16:10] LABS: Bedside Glucose 142 mg/dL (70-110)
[2018-04-15 21:40] LABS: Bedside Glucose 170 mg/dL (70-110)
[2018-04-16 02:15] VITALS: BP 137/73; PULSE 84; RESP 18; TEMP 36.6; O2SAT 97
[2018-04-16] MEDS: Levothyroxine 125 MCG Tablet PO (06:17)
[2018-04-16] MEDS: Acetaminophen 500 MG Tablet PO ×2 (06:17→18:03)
[2018-04-16 07:05] LABS: Bedside Glucose 118 mg/dL (70-110)
[2018-04-16 07:11] LABS: Absolute Lymphocyte Count 1.55 X10^3/ul (0.83-4.51); Absolute Neutrophil Count 3.9 X10^3/uL (2.0-7.7); Basophil# 0.02 X10^3/uL; Basophil% 0.3 % (0-1); Eosinophils% 3.2 % (0-5); Lymphocyte # 1.55 X10^3/ul (4.0); Lymphocyte % 24.6 % (19-41); Mean Corp Hgb Conc 30.8 g/gl (32-36); Mean Corpuscular Hgb 24.6 pg (27.0-32.0); Mean Corpuscular Volume 79.9 fL (81-99); Monocyte# 0.64 X10^3/uL; Monocyte% 10.2 % (0-10); Neutrophil # 3.89 X10^3/uL (2.7-7.7); Neutrophil % 61.7 % (47-70); Platelet Count 232 K/mm3 (150-450); RBC Distribution Width CV 18.5 % (11.6-14.6); RBC Distribution Width SD 54.2 fl (35.1-43.9); Red Blood Count 4.88 M/mm3 (4.2-5.4); White Blood Count 6.3 K/mm3 (4.4-11.0)
[2018-04-16 07:12] LABS: Differential Indicated SCAN CRITERIA MET; POSITIVE COUNT NO; POSITIVE DIFFERENTIAL NO; POSITIVE MORPHOLOGY YES
[2018-04-16 07:24] LABS: Anion Gap 11 (5-15); BUN 12 mg/dL (7-18); BUN/Creat Ratio 18.2 RATIO (10-20); Calcium,Total 9.1 mg/dL (8.5-10.1); Chloride 108 mmol/L (98-107); Creatinine, Serum 0.66 mg/dL (0.55-1.02); EST Glomerular Filtration Rate 93 mL/min (>60); Est Glom Filt Rate - Afr Amer 112 mL/min (>60); Estimated Creatinine Clearance 49.79 ml/min; Glucose 124 mg/dL (74-106); Sodium Level 142 mmol/L (136-145)
[2018-04-16 08:15] VITALS: BP 158/75; PULSE 76; RESP 16; TEMP 36.3; O2SAT 96
[2018-04-16 09:00] LABS: Vitamin B12 792 pg/mL (211-911); Vitamin D,25 Hydroxy 31.7 ng/mL (29.95-100.01)
[2018-04-16] MEDS: amLODIPine 5 MG Tablet PO (09:06)
[2018-04-16] MEDS: 0.9% NaCl Peripheral Flush Adult/Peds IV (09:06)
[2018-04-16] MEDS: DULoxetine Hcl 60 MG Capsule PO (09:06)
[2018-04-16] MEDS: Aspirin 81 MG TAB.CHEW PO (09:11)
[2018-04-16] MEDS: Ceftriaxone 1 GM/50 ML BAG IV (09:11)
[2018-04-16] MEDS: Enoxaparin 40 MG/0.4 ML Syringe SC (09:24)
--- NOTE | 2018-04-16 10:15 | CASEMGMT ---
OMI ENGLISH Face to Face with patient for initial transition planning/care coordination assessment. RN TAMEKA introduced self and role at [facility]. Patient lying in bed, alert and oriented. Patient willing to participate in assessment and is able to answer all questions appropriately. Care providers, pharmacy, and demographics verified. Patient lives alone in 1st floor apartment and is independent at home. Patient states the she either drives self or uses a cab for transportation. Patient states she has a cane and walker at home. Patient has had [facility] in the past. Patient states that she will be unable to care for self at home and is request SNF at discharge. Patient states she has no further needs or concerns at this time. DAYNA Wells updated regarding patient request for placement Disposition Plan: Patient to discharge to SNF. Hoa DAWN, RN, CM
--- NOTE | 2018-04-16 10:45 | CASEMGMT ---
Addendum entered by Eduarda Smith 04/16/18 11:02: Social Work Note Pt made aware that [facility] can accept. No further needs identified at this time. KATIE Arce, CONCR[employer]E [employer]ING SUPERVISOR Original Note: Social Work Note Face to face with pt to discuss discharge planning. Introduced self and role at [facility]. The pt reports to live alone in an apartment that has a large hill to get up to. Reports frequent falls and states that she does use a walker for ambulation. States that she knows she cannot take care of herself at home alone at this time. She is seeking placement and informs SW that she is not from [place]. She has lived here for 5 years. Per chart review pt had [facility] to [facility]. Discussed other area SNFs and pt selects [facility] as her primary choice and [facility] [place] her secondary choice. Pt identified her ex- as her primary support and states that he financially assists her and is very generous. He lives in [place], but they have a good relationship. Pt states that she makes $652/month. Discuss and educate the pt to Medicaid. She declines to complete at she states that they will take control of her money. Discuss that if she cannot return home at discharge from SNF she may need to apply for assistance with payment at [facility] or [facility]. Understanding expressed, but continues to decline to complete application at this time. Placed call to the referral line and spoke with Dina who confirms that they will have a bed for the pt on Monday, 04/18. SW to continue to follow and assist with discharge planning. Plan: [facility] on 04/17. KATIE Arce, CONCRETE P[employer]ING SUPERVISOR
[2018-04-16] MEDS: Insulin Lispro 100 UNIT/ML INSULN.PEN SC ×3 (11:46→20:43)
[2018-04-16 11:51] LABS: Bedside Glucose 186 mg/dL (70-110)
--- NOTE | 2018-04-16 13:44 | PCM.PN.HOSP ---
Patient Problems: Active and Suspected Problems (Last Reviewed 04/15/18 @ 04:24 by Maximion Norman MD) Multiple falls (Acute) Debility (Acute) Acute cystitis (Acute) Subjective: No new issues. Vitals/I&O's: Vital Signs Temp Pulse Resp BP Pulse Ox 36.3 C L 76 16 158/75 H 96 04/16/18 08:15 04/16/18 08:15 04/16/18 08:15 04/16/18 08:15 04/16/18 08:15 Oxygen Delivery Method Room Air Intake and Output for Last 24 Hours 04/14/18 04/15/18 04/16/18 23:59 23:59 23:59 Intake Total 1450 / 1570 200 / 200 Balance 1450 / 1570 200 / 200 General: Alert, No apparent distress HEENT: Atraumatic, Normocephalic Oral: Moist Mucosa, No Gingival or Mucosal Lesions/ Ulcerations Neck: No Nodes, Thyroid Normal Size and Texture Lungs: Clear to auscultation, Normal air movement, No rhonchi, No wheeze Cardiovascular: Regular rate, Regular Rhythm, Normal S1, Normal S2, No murmurs Abdomen: Bowel Sounds Present, Soft, Non Tender, Non-Distended, No Hepato-splenomegaly Extremities: No edema, No Calf Tenderness Psych/Mental Status: Normal Affect, Appropriate Laboratory Results 04/15/18 13:55: Sodium 140, Potassium 3.3 L, Chloride 105, Carbon Dioxide 27.0, Anion Gap 8, BUN 15, Creatinine 0.87, Estim Creat Clear Calc 57.23, Est GFR (MDRD) Af Amer 82, Est GFR (MDRD) Non-Af 68, BUN/Creatinine Ratio 17.3, Glucose 152 H, Calcium 9.8 04/15/18 15:59: POC Glucose 142 H 04/15/18 21:31: POC Glucose 170 H 04/16/18 06:17: POC Glucose 118 H 04/16/18 06:24: WBC 6.3, RBC 4.88, Hgb 12.0, Hct 39.0, MCV 79.9 L, MCH 24.6 L, MCHC 30.8 L, RDW 18.5 H, RDW Differential 54.2 H, Plt Count 232, Immature Gran % (Auto) 0.000, Neut % (Auto) 61.7, Lymph % (Auto) 24.6, [place] % (Auto) 10.2 H, Eos % (Auto) 3.2, Baso % (Auto) 0.3, Absolute Neuts (auto) 3.9, Absolute Lymphs (auto) 1.55, Total Counted Not Reportable, Differential Comment COMMENT 04/16/18 06:24: Sodium 142, Potassium 3.0 L, Chloride 108 H, Carbon Dioxide 23.0, Anion Gap 11, BUN 12, Creatinine 0.66, Estim Creat Clear Calc 49.79, Est GFR (MDRD) Af Amer 112, Est GFR (MDRD) Non-Af 93, BUN/Creatinine Ratio 18.2, Glucose 124 H, Calcium 9.1 04/16/18 11:44: POC Glucose 186 H Current Medications Acetaminophen (Tylenol) 500 mg PO Q6H PRN PRN PRN Reason: PAIN Last Admin: 04/16/18 06:17 Dose: 500 mg Amlodipine Besylate (Norvasc) 5 mg PO DAILY [facility] Last Admin: 04/16/18 09:06 Dose: 5 mg Aspirin (Aspirin, Baby) 81 mg PO DAILY@0800 [facility] Last Admin: 04/16/18 09:11 Dose: 81 mg Bisacodyl (Dulcolax) 5 mg PO DAILY PRN PRN PRN Reason: Constipation Cholecalciferol (Vitamin D) 1,000 unit PO DAILY [facility] Last Admin: 04/16/18 09:06 Dose: 1,000 unit Duloxetine HCl (Cymbalta) 60 mg PO DAILY [facility] Last Admin: 04/16/18 09:06 Dose: 60 mg Enoxaparin Sodium (Lovenox) 40 mg SC DAILY@1000 [facility] Last Admin: 04/16/18 09:24 Dose: 40 mg Ceftriaxone Sodium (Rocephin) 1 gm in 50 mls @ 100 mls/hr IV Q24 [facility] Last Admin: 04/16/18 09:11 Dose: 100 mls/hr Insulin Human Lispro (Humalog Kwikpen (Bkc)) 0 unit SC ACHS [facility] PRN Reason: Protocol Last Admin: 04/16/18 11:46 Dose: 1 u Labetalol HCl (Trandate) 10 mg IV Q4H PRN PRN PRN Reason: SBP > 160 Last Admin: 04/15/18 01:25 Dose: 10 mg Levothyroxine Sodium (Synthroid) 125 mcg PO DAILY@0600 [facility] Last Admin: 04/16/18 06:17 Dose: 125 mcg Magnesium Hydroxide (Milk Of Magnesia) 30 ml PO DAILY PRN PRN PRN Reason: Constipation Nutritional Formula (Lactose Free) (Glucerna Shake) 120 ml PO 4X/DAY [facility] Last Admin: 04/16/18 09:11 Dose: Not Given Ondansetron HCl (Zofran) 4 mg IV Q8H PRN PRN PRN Reason: NAUSEA Oxycodone HCl (Oxyir) 5 mg PO Q4H PRN PRN PRN Reason: Moderate Pain (pain scale 4-5) Sodium Chloride () 5 - 30 ml IV UD PRN PRN Reason: SALINE FLUSH Last Admin: 04/16/18 09:06 Dose: 10 ml Zolpidem Tartrate (Ambien (Generic)) 5 mg PO QHS PRN PRN PRN Reason: INSOMNIA Medical Necessity - Tobacco Use Smoking Status: Never smoker Assessment/Plan All Active Problems (Last Reviewed 04/15/18 @ 04:24 by Maximino Norman MD) Multiple falls (Acute) Debility (Acute) Acute cystitis (Acute) Tachycardia (Acute) History of stroke (Acute) History of blood clots (Acute) History of ankle fracture (Acute) Frostbite of both buttocks (Acute) Fall (Acute) 1. UTI Culture pending continue CTX 2. Debility accepted at TCU, can accept 04/17 3. DVT proph: LMWH. Code Visit Inpatient E&M: 10265 Subs Hosp L2
--- NOTE | 2018-04-16 13:47 | PN_ITS ---
Patient Problems: Active and Suspected Problems (Last Reviewed 04/15/18 @ 04:24 by Maximino Norman MD) Multiple falls (Acute) Debility (Acute) Acute cystitis (Acute) Subjective: No new issues. Vitals/I&O's: Vital Signs Temp Pulse Resp BP Pulse Ox 36.3 C L 76 16 158/75 H 96 04/16/18 08:15 04/16/18 08:15 04/16/18 08:15 04/16/18 08:15 04/16/18 08:15 Oxygen Delivery Method Room Air Intake and Output for Last 24 Hours 04/14/18 04/15/18 04/16/18 23:59 23:59 23:59 Intake Total 1450 / 1570 200 / 200 Balance 1450 / 1570 200 / 200 General: Alert, No apparent distress HEENT: Atraumatic, Normocephalic Oral: Moist Mucosa, No Gingival or Mucosal Lesions/ Ulcerations Neck: No Nodes, Thyroid Normal Size and Texture Lungs: Clear to auscultation, Normal air movement, No rhonchi, No wheeze Cardiovascular: Regular rate, Regular Rhythm, Normal S1, Normal S2, No murmurs Abdomen: Bowel Sounds Present, Soft, Non Tender, Non-Distended, No Hepato- splenomegaly Extremities: No edema, No Calf Tenderness Psych/Mental Status: Normal Affect, Appropriate Laboratory Results 04/15/18 13:55: Sodium 140, Potassium 3.3 L, Chloride 105, Carbon Dioxide 27.0, Anion Gap 8, BUN 15, Creatinine 0.87, Estim Creat Clear Calc 57.23, Est GFR ( MDRD) Af Amer 82, Est GFR (MDRD) Non-Af 68, BUN/Creatinine Ratio 17.3, Glucose 152 H, Calcium 9.8 04/15/18 15:59: POC Glucose 142 H 04/15/18 21:31: POC Glucose 170 H 04/16/18 06:17: POC Glucose 118 H 04/16/18 06:24: WBC 6.3, RBC 4.88, Hgb 12.0, Hct 39.0, MCV 79.9 L, MCH 24.6 L, MCHC 30.8 L, RDW 18.5 H, RDW Differential 54.2 H, Plt Count 232, Immature Gran % (Auto) 0.000, Neut % (Auto) 61.7, Lymph % (Auto) 24.6, [place] % (Auto) 10.2 H, Eos % (Auto) 3.2, Baso % (Auto) 0.3, Absolute Neuts (auto) 3.9, Absolute Lymphs (auto) 1.55, Total Counted Not Reportable, Differential Comment COMMENT 04/16/18 06:24: Sodium 142, Potassium 3.0 L, Chloride 108 H, Carbon Dioxide 23.0 , Anion Gap 11, BUN 12, Creatinine 0.66, Estim Creat Clear Calc 49.79, Est GFR ( MDRD) Af Amer 112, Est GFR (MDRD) Non-Af 93, BUN/Creatinine Ratio 18.2, Glucose 124 H, Calcium 9.1 04/16/18 11:44: POC Glucose 186 H Current Medications Acetaminophen (Tylenol) 500 mg PO Q6H PRN PRN PRN Reason: PAIN Last Admin: 04/16/18 06:17 Dose: 500 mg Amlodipine Besylate (Norvasc) 5 mg PO DAILY [facility] Last Admin: 04/16/18 09:06 Dose: 5 mg Aspirin (Aspirin, Baby) 81 mg PO DAILY@0800 [facility] Last Admin: 04/16/18 09:11 Dose: 81 mg Bisacodyl (Dulcolax) 5 mg PO DAILY PRN PRN PRN Reason: Constipation Cholecalciferol (Vitamin D) 1,000 unit PO DAILY [facility] Last Admin: 04/16/18 09:06 Dose: 1,000 unit Duloxetine HCl (Cymbalta) 60 mg PO DAILY [facility] Last Admin: 04/16/18 09:06 Dose: 60 mg Enoxaparin Sodium (Lovenox) 40 mg SC DAILY@1000 [facility] Last Admin: 04/16/18 09:24 Dose: 40 mg Ceftriaxone Sodium (Rocephin) 1 gm in 50 mls @ 100 mls/hr IV Q24 [facility] Last Admin: 04/16/18 09:11 Dose: 100 mls/hr Insulin Human Lispro (Humalog Kwikpen (Bkc)) 0 unit SC ACHS [facility] PRN Reason: Protocol Last Admin: 04/16/18 11:46 Dose: 1 u Labetalol HCl (Trandate) 10 mg IV Q4H PRN PRN PRN Reason: SBP > 160 Last Admin: 04/15/18 01:25 Dose: 10 mg Levothyroxine Sodium (Synthroid) 125 mcg PO DAILY@0600 [facility] Last Admin: 04/16/18 06:17 Dose: 125 mcg Magnesium Hydroxide (Milk Of Magnesia) 30 ml PO DAILY PRN PRN PRN Reason: Constipation Nutritional Formula (Lactose Free) (Glucerna Shake) 120 ml PO 4X/DAY [facility] Last Admin: 04/16/18 09:11 Dose: Not Given Ondansetron HCl (Zofran) 4 mg IV Q8H PRN PRN PRN Reason: NAUSEA Oxycodone HCl (Oxyir) 5 mg PO Q4H PRN PRN PRN Reason: Moderate Pain (pain scale 4-5) Sodium Chloride () 5 - 30 ml IV UD PRN PRN Reason: SALINE FLUSH Last Admin: 04/16/18 09:06 Dose: 10 ml Zolpidem Tartrate (Ambien (Generic)) 5 mg PO QHS PRN PRN PRN Reason: INSOMNIA Medical Necessity - Tobacco Use Smoking Status: Never smoker Assessment/Plan All Active Problems (Last Reviewed 04/15/18 @ 04:24 by Maximino Norman MD) Multiple falls (Acute) Debility (Acute) Acute cystitis (Acute) Tachycardia (Acute) History of stroke (Acute) History of blood clots (Acute) History of ankle fracture (Acute) Frostbite of both buttocks (Acute) Fall (Acute) 1. UTI * Culture pending * continue CTX 2. Debility * accepted at [facility], can accept 04/17 3. DVT proph: LMWH. Code Visit Inpatient E&M: 18125 Subs Hosp L2
[2018-04-16 14:54] VITALS: BP 143/74; PULSE 82; RESP 18; TEMP 36.4; O2SAT 97
[2018-04-16 16:10] LABS: Bedside Glucose 163 mg/dL (70-110)
[2018-04-16 16:30] VITALS: O2SAT 97
[2018-04-16 20:25] VITALS: BP 160/79; PULSE 84; RESP 18; TEMP 36.6; O2SAT 95
--- NOTE | 2018-04-16 20:32 | NURSING ---
I was called to the room by a call light for patient. Patient visibly distressed and anxious. At first she was yelling at nurse about the brown haired lady sending her to the long-term. With the venting finished she then calmed slightly and she began to voice her concerns: Patient lives alone. She is worried she cannot pay the bills. She is worried about losing her house. She does not want to go to a long-term. Talking about Naveen Jiménez and other authors who have gruesome views on life and how she agrees with their books. Also referencing similar movies. She said if she knew she would not fail she would think about ending her life b/c she feels like she has hit a wall. When asked if patient was suicidal she said no. She said she would not do this but it has crossed her mind before. Patient very exuberant and very anxious. This RN texted MD to notify while sitting @ bedside with patient. I removed objects from reach of the bedside. MD called back, I stepped outside of room in hallway to speak to MD. We will consult mental health. He would like patient to be monitored closely. I came back into room with snacks and magazines. Madyson, tack puller, also offered to call a friend (Rebeka) for the patient on her cell phone. Patient is observed to be more relaxed. While sitting at bedside I again asked the patient if she was feeling suicidal. The patient reports no, just overwhelmed. I notified both battery charger tester and END FRAZER that patient needed frequent monitoring. The patient is close to the desk in room 323. Will continue to monitor and assess situation.
[2018-04-16] MEDS: Glucerna Shake 120 ML LIQUID PO (20:43)
[2018-04-16 21:15] LABS: Bedside Glucose 181 mg/dL (70-110)
[2018-04-17] MEDS: Acetaminophen 500 MG Tablet PO ×2 (02:07→21:00)
[2018-04-17 02:11] VITALS: BP 159/90; PULSE 86; RESP 16; TEMP 36.8; O2SAT 100
[2018-04-17] MEDS: Levothyroxine 125 MCG Tablet PO (05:48)
[2018-04-17 06:51] LABS: Bedside Glucose 148 mg/dL (70-110)
[2018-04-17 07:35] VITALS: O2SAT 96
[2018-04-17 07:46] LABS: Basophil# 0.02 X10^3/uL; Basophil% 0.4 % (0-1); Eosinophil# 0.21 X10^3/uL; Eosinophils% 4.3 % (0-5); Hematocrit 37.9 % (37-47); Hemoglobin 12.2 g/dl (12.0-15.0); Lymphocyte % 24.6 % (19-41); Mean Corp Hgb Conc 32.2 g/gl (32-36); Mean Corpuscular Hgb 25.7 pg (27.0-32.0); Mean Platelet Vol. 12.2 fl (6.2-12.0); Monocyte# 0.43 X10^3/uL; Monocyte% 8.8 % (0-10); Neutrophil % 61.7 % (47-70); POSITIVE COUNT NO; POSITIVE DIFFERENTIAL NO; POSITIVE MORPHOLOGY NO; Platelet Count 232 K/mm3 (150-450); RBC Distribution Width CV 18.7 % (11.6-14.6); RBC Distribution Width SD 54.3 fl (35.1-43.9); Red Blood Count 4.74 M/mm3 (4.2-5.4); White Blood Count 4.9 K/mm3 (4.4-11.0)
[2018-04-17 08:03] VITALS: BP 167/81; PULSE 74; RESP 16; TEMP 36.3; O2SAT 94
[2018-04-17 08:11] LABS: Anion Gap 8 (5-15); BUN 10 mg/dL (7-18); BUN/Creat Ratio 15.1 RATIO (10-20); Calcium,Total 9.1 mg/dL (8.5-10.1); Chloride 107 mmol/L (98-107); Creatinine, Serum 0.66 mg/dL (0.55-1.02); EST Glomerular Filtration Rate 93 mL/min (>60); Est Glom Filt Rate - Afr Amer 112 mL/min (>60); Estimated Creatinine Clearance 49.79 ml/min; Glucose 134 mg/dL (74-106); Potassium 3.3 mmol/L (3.5-5.1); Sodium Level 142 mmol/L (136-145)
[2018-04-17] MEDS: Aspirin 81 MG TAB.CHEW PO (08:14)
--- NOTE | 2018-04-17 09:17 | NURSING ---
Nurse discusses plan for continued need for sitter as MD defers to administration for decision.
[2018-04-17] MEDS: Ceftriaxone 1 GM/50 ML BAG IV (10:03)
--- NOTE | 2018-04-17 10:10 | NURSING ---
Nurse discusses with nurse Andrea torres RN, and charge nurse of DAYNA Jain, is to see patient and evaluate suicide risk.
[2018-04-17] MEDS: amLODIPine 5 MG Tablet PO (10:14)
[2018-04-17] MEDS: DULoxetine Hcl 60 MG Capsule PO (10:14)
[2018-04-17] MEDS: Enoxaparin 40 MG/0.4 ML Syringe SC (10:14)
[2018-04-17] MEDS: Insulin Lispro 100 UNIT/ML INSULN.PEN SC ×2 (11:45→16:18)
--- NOTE | 2018-04-17 11:45 | NURSING ---
DAYNA Sims, at bedside talking with patient.
[2018-04-17 11:51] LABS: Bedside Glucose 162 mg/dL (70-110)
--- NOTE | 2018-04-17 12:10 | NURSING ---
Alix, Social Work, [facility] does not see need for crisis to see patient at this time. Crisis notified.
--- NOTE | 2018-04-17 12:11 | PCM.PN.HOSP ---
Patient Problems: Active and Suspected Problems (Last Reviewed 04/15/18 @ 04:24 by Maximino Norman MD) Multiple falls (Acute) Debility (Acute) Acute cystitis (Acute) Subjective: states, in jest, that she wanted to wrap a telephone cord around her neck. Absolutely denies suicidal ideation. Vitals/I&O's: Vital Signs Temp Pulse Resp BP Pulse Ox 36.3 C L 74 16 167/81 H 94 04/17/18 08:03 04/17/18 08:03 04/17/18 08:03 04/17/18 08:03 04/17/18 08:03 Oxygen Delivery Method Room Air Intake and Output for Last 24 Hours 04/15/18 04/16/18 04/17/18 23:59 23:59 23:59 Intake Total 1450 / 1570 1483 / 1483 1020 / 1020 Balance 1450 / 1570 1483 / 1483 1020 / 1020 General: Alert, No apparent distress HEENT: Atraumatic, Normocephalic Oral: Moist Mucosa, No Gingival or Mucosal Lesions/ Ulcerations Neck: No Nodes, Thyroid Normal Size and Texture Lungs: Clear to auscultation, Normal air movement, No rhonchi, No wheeze Cardiovascular: Regular rate, Regular Rhythm, Normal S1, Normal S2, No murmurs Abdomen: Bowel Sounds Present, Soft, Non Tender, Non-Distended, No Hepato-splenomegaly, Passing Flatus Extremities: No edema, No Calf Tenderness Psych/Mental Status: Normal Affect, Appropriate Laboratory Results 04/16/18 16:03: POC Glucose 163 H 04/16/18 20:42: POC Glucose 181 H 04/17/18 06:45: POC Glucose 148 H 04/17/18 07:28: WBC 4.9, RBC 4.74, Hgb 12.2, Hct 37.9, MCV 80.0 L, MCH 25.7 L, MCHC 32.2, RDW 18.7 H, RDW Differential 54.3 H, Plt Count 232, MPV 12.2 H, Immature Gran % (Auto) 0.200, Neut % (Auto) 61.7, Lymph % (Auto) 24.6, [place] % (Auto) 8.8, Eos % (Auto) 4.3, Baso % (Auto) 0.4, Absolute Neuts (auto) 3.0, Absolute Lymphs (auto) 1.20, Total Counted Not Reportable 04/17/18 07:28: Sodium 142, Potassium 3.3 L, Chloride 107, Carbon Dioxide 27.0, Anion Gap 8, BUN 10, Creatinine 0.66, Estim Creat Clear Calc 49.79, Est GFR (MDRD) Af Amer 112, Est GFR (MDRD) Non-Af 93, BUN/Creatinine Ratio 15.1, Glucose 134 H, Calcium 9.1 04/17/18 11:43: POC Glucose 162 H Current Medications Acetaminophen (Tylenol) 500 mg PO Q6H PRN PRN PRN Reason: PAIN Last Admin: 04/17/18 02:07 Dose: 500 mg Amlodipine Besylate (Norvasc) 5 mg PO DAILY [facility] Last Admin: 04/17/18 10:14 Dose: 5 mg Aspirin (Aspirin, Baby) 81 mg PO DAILY@0800 [facility] Last Admin: 04/17/18 08:14 Dose: 81 mg Bisacodyl (Dulcolax) 5 mg PO DAILY PRN PRN PRN Reason: Constipation Cholecalciferol (Vitamin D) 1,000 unit PO DAILY [facility] Last Admin: 04/17/18 10:15 Dose: 1,000 unit Duloxetine HCl (Cymbalta) 60 mg PO DAILY [facility] Last Admin: 04/17/18 10:14 Dose: 60 mg Enoxaparin Sodium (Lovenox) 40 mg SC DAILY@1000 [facility] Last Admin: 04/17/18 10:14 Dose: 40 mg Ceftriaxone Sodium (Rocephin) 1 gm in 50 mls @ 100 mls/hr IV Q24 [facility] Last Admin: 04/17/18 10:03 Dose: 100 mls/hr Insulin Human Lispro (Humalog Kwikpen (Bkc)) 0 unit SC ACHS [facility] PRN Reason: Protocol Last Admin: 04/17/18 11:45 Dose: 1 u Labetalol HCl (Trandate) 10 mg IV Q4H PRN PRN PRN Reason: SBP > 160 Last Admin: 04/15/18 01:25 Dose: 10 mg Levothyroxine Sodium (Synthroid) 125 mcg PO DAILY@0600 [facility] Last Admin: 04/17/18 05:48 Dose: 125 mcg Magnesium Hydroxide (Milk Of Magnesia) 30 ml PO DAILY PRN PRN PRN Reason: Constipation Nutritional Formula (Lactose Free) (Glucerna Shake) 120 ml PO 4X/DAY [facility] Last Admin: 04/17/18 11:56 Dose: Not Given Ondansetron HCl (Zofran) 4 mg IV Q8H PRN PRN PRN Reason: NAUSEA Oxycodone HCl (Oxyir) 5 mg PO Q4H PRN PRN PRN Reason: Moderate Pain (pain scale 4-5) Sodium Chloride () 5 - 30 ml IV UD PRN PRN Reason: SALINE FLUSH Last Admin: 04/16/18 09:06 Dose: 10 ml Zolpidem Tartrate (Ambien (Generic)) 5 mg PO QHS PRN PRN PRN Reason: INSOMNIA Medical Necessity - Tobacco Use Smoking Status: Never smoker Assessment/Plan All Active Problems (Last Reviewed 04/15/18 @ 04:24 by Maximino Norman MD) Multiple falls (Acute) Debility (Acute) Acute cystitis (Acute) Tachycardia (Acute) History of stroke (Acute) History of blood clots (Acute) History of ankle fracture (Acute) Frostbite of both buttocks (Acute) Fall (Acute) 1. UTI Culture mixed species previously had E. coli that was sensitive to cipro. will change to cipro and treat through 04/21 2. Debility originally was accepted at [facility], but apparently rescinded due to the suicidal statements pt is NOT actively suicidal and no additional work up is necessary 3. DVT proph: LMWH. Greater than 35 minutes of which greater than 50% time was counseling and clarifying the patient about killing herself, which is more off the cuff states ments, but no active plan for suicide. Code Visit Inpatient E&M: 95088 Subs Hosp L3
--- NOTE | 2018-04-17 12:16 | PN_ITS ---
Patient Problems: Active and Suspected Problems (Last Reviewed 04/15/18 @ 04:24 by Maximino Norman MD) Multiple falls (Acute) Debility (Acute) Acute cystitis (Acute) Subjective: states, in jest, that she wanted to wrap a telephone cord around her neck. Absolutely denies suicidal ideation. Vitals/I&O's: Vital Signs Temp Pulse Resp BP Pulse Ox 36.3 C L 74 16 167/81 H 94 04/17/18 08:03 04/17/18 08:03 04/17/18 08:03 04/17/18 08:03 04/17/18 08:03 Oxygen Delivery Method Room Air Intake and Output for Last 24 Hours 04/15/18 04/16/18 04/17/18 23:59 23:59 23:59 Intake Total 1450 / 1570 1483 / 1483 1020 / 1020 Balance 1450 / 1570 1483 / 1483 1020 / 1020 General: Alert, No apparent distress HEENT: Atraumatic, Normocephalic Oral: Moist Mucosa, No Gingival or Mucosal Lesions/ Ulcerations Neck: No Nodes, Thyroid Normal Size and Texture Lungs: Clear to auscultation, Normal air movement, No rhonchi, No wheeze Cardiovascular: Regular rate, Regular Rhythm, Normal S1, Normal S2, No murmurs Abdomen: Bowel Sounds Present, Soft, Non Tender, Non-Distended, No Hepato- splenomegaly, Passing Flatus Extremities: No edema, No Calf Tenderness Psych/Mental Status: Normal Affect, Appropriate Laboratory Results 04/16/18 16:03: POC Glucose 163 H 04/16/18 20:42: POC Glucose 181 H 04/17/18 06:45: POC Glucose 148 H 04/17/18 07:28: WBC 4.9, RBC 4.74, Hgb 12.2, Hct 37.9, MCV 80.0 L, MCH 25.7 L, MCHC 32.2, RDW 18.7 H, RDW Differential 54.3 H, Plt Count 232, MPV 12.2 H, Immature Gran % (Auto) 0.200, Neut % (Auto) 61.7, Lymph % (Auto) 24.6, [place] % ( Auto) 8.8, Eos % (Auto) 4.3, Baso % (Auto) 0.4, Absolute Neuts (auto) 3.0, Absolute Lymphs (auto) 1.20, Total Counted Not Reportable 04/17/18 07:28: Sodium 142, Potassium 3.3 L, Chloride 107, Carbon Dioxide 27.0, Anion Gap 8, BUN 10, Creatinine 0.66, Estim Creat Clear Calc 49.79, Est GFR ( MDRD) Af Amer 112, Est GFR (MDRD) Non-Af 93, BUN/Creatinine Ratio 15.1, Glucose 134 H, Calcium 9.1 04/17/18 11:43: POC Glucose 162 H Current Medications Acetaminophen (Tylenol) 500 mg PO Q6H PRN PRN PRN Reason: PAIN Last Admin: 04/17/18 02:07 Dose: 500 mg Amlodipine Besylate (Norvasc) 5 mg PO DAILY [facility] Last Admin: 04/17/18 10:14 Dose: 5 mg Aspirin (Aspirin, Baby) 81 mg PO DAILY@0800 [facility] Last Admin: 04/17/18 08:14 Dose: 81 mg Bisacodyl (Dulcolax) 5 mg PO DAILY PRN PRN PRN Reason: Constipation Cholecalciferol (Vitamin D) 1,000 unit PO DAILY [facility] Last Admin: 04/17/18 10:15 Dose: 1,000 unit Duloxetine HCl (Cymbalta) 60 mg PO DAILY [facility] Last Admin: 04/17/18 10:14 Dose: 60 mg Enoxaparin Sodium (Lovenox) 40 mg SC DAILY@1000 [facility] Last Admin: 04/17/18 10:14 Dose: 40 mg Ceftriaxone Sodium (Rocephin) 1 gm in 50 mls @ 100 mls/hr IV Q24 [facility] Last Admin: 04/17/18 10:03 Dose: 100 mls/hr Insulin Human Lispro (Humalog Kwikpen (Bkc)) 0 unit SC ACHS [facility] PRN Reason: Protocol Last Admin: 04/17/18 11:45 Dose: 1 u Labetalol HCl (Trandate) 10 mg IV Q4H PRN PRN PRN Reason: SBP > 160 Last Admin: 04/15/18 01:25 Dose: 10 mg Levothyroxine Sodium (Synthroid) 125 mcg PO DAILY@0600 [facility] Last Admin: 04/17/18 05:48 Dose: 125 mcg Magnesium Hydroxide (Milk Of Magnesia) 30 ml PO DAILY PRN PRN PRN Reason: Constipation Nutritional Formula (Lactose Free) (Glucerna Shake) 120 ml PO 4X/DAY [facility] Last Admin: 04/17/18 11:56 Dose: Not Given Ondansetron HCl (Zofran) 4 mg IV Q8H PRN PRN PRN Reason: NAUSEA Oxycodone HCl (Oxyir) 5 mg PO Q4H PRN PRN PRN Reason: Moderate Pain (pain scale 4-5) Sodium Chloride () 5 - 30 ml IV UD PRN PRN Reason: SALINE FLUSH Last Admin: 04/16/18 09:06 Dose: 10 ml Zolpidem Tartrate (Ambien (Generic)) 5 mg PO QHS PRN PRN PRN Reason: INSOMNIA Medical Necessity - Tobacco Use Smoking Status: Never smoker Assessment/Plan All Active Problems (Last Reviewed 04/15/18 @ 04:24 by Maximino Norman MD) Multiple falls (Acute) Debility (Acute) Acute cystitis (Acute) Tachycardia (Acute) History of stroke (Acute) History of blood clots (Acute) History of ankle fracture (Acute) Frostbite of both buttocks (Acute) Fall (Acute) 1. UTI * Culture mixed species * previously had E. coli that was sensitive to cipro. * will change to cipro and treat through 04/21 2. Debility * originally was accepted at [facility], but apparently rescinded due to the suicidal statements * pt is NOT actively suicidal and no additional work up is necessary 3. DVT proph: LMWH. Greater than 35 minutes of which greater than 50% time was counseling and clarifying the patient about killing herself, which is more off the cuff states ments, but no active plan for suicide. Code Visit Inpatient E&M: 03237 Subs Hosp L3
--- NOTE | 2018-04-17 12:23 | PCM.TXEXTCAR ---
- Diet 04/16/18 16:15 Diet: Regular Diet Is pt able to select menu?: Yes - Routine Orders/Code Status Code Status: DNRCC-A - Therapies Weight Bearing: Non weight bearing Extremity Affected:: Right Upper Physical Therapy: Eval and Treat Occupational Therapy: Eval and Treat - Allergies/Procedures Done in Hospital Allergies/Adverse Reactions: Allergies amoxicillin Allergy (Verified 04/14/18 21:09) Unknown Penicillins [PCN] Allergy (Verified 04/14/18 21:09) Unknown Sulfa (Sulfonamide Antibiotics) Allergy (Verified 04/14/18 21:09) Unknown Procedures: None - Type of Care/Length of Stay Estimated LOS: Convalescent Care Less Than 30 days Type of Care Needed: Skilled Rehab Potential: Fair Prognosis: Fair - Additional Orders/Day of Discharge Day of Discharge: 04/17/18 - Dietary and Speech Recommendations Dietitian Recommendations/Changes: Rec diet change to 1800 mark Cardiac - Follow Up Care Primary Care Physician: Karl Monaco MD [Primary Care Provider] - Within 2 Weeks Please Follow Up With: Contreras Fleming DO When: 1-2 weeks
--- NOTE | 2018-04-17 12:31 | DS.PCM_ITS ---
Discharge Date and Diagnosis - Problem List Patient Problems: Active and Suspected Problems (Last Reviewed 04/15/18 @ 04:24 by Maximino Norman MD) Multiple falls (Acute) Debility (Acute) Acute cystitis (Acute) Date of Admission: 04/14/18 Date of Discharge: 04/17/18 - Primary Discharge Diagnosis Active and Suspected Problems (Last Reviewed 04/15/18 @ 04:24 by Maximino Norman MD) Multiple falls (Acute) Debility (Acute) Acute cystitis (Acute) - Secondary Discharge Diagnosis Chronic Problems (Last Reviewed 04/15/18 @ 04:24 by Maximino Norman MD) GERD (gastroesophageal reflux disease) (Chronic) Neuropathy (Chronic) Arthritis (Chronic) Depression (Chronic) Anxiety (Chronic) PAOD (peripheral arterial occlusive disease) (Chronic) Hypothyroidism (Chronic) Hyperlipidemia (Chronic) Hypertension (Chronic) Iron deficiency anemia (Chronic) Diabetic neuropathy (Chronic) Type 2 diabetes mellitus (Chronic) Closed right ankle fracture (Chronic) PAD (peripheral artery disease) (Chronic) Status post stenting of the right lower extremity CVA (cerebral vascular accident) (Chronic) Asthma (Chronic) Fibromyalgia (Chronic) Hospital Course and Treatment Imaging Results: Clinical Impression(s) from Imaging Studies Chest X-Ray 04/14/18 21:48 IMPRESSION: No acute process. Electronically Signed: Annette Villa MD at 22:11 EDT Tel , Service support , Consultations 04/16/18 20:56 Consult: Mental Health/Crisis Routine Reason for consult?: Patient feels she has hit her wall Patient mentioned suicidal thoughts but she states she has no plan, but she would not commit suicide and does not have the means to. She also says she would do it wrong. She lives alone and is very overhelmed. Depressed. Date Notified:: 04/16/18 Time notified:: 21:03 Operations: None Procedures: None Summary of Care Provided: The patient is a 72 year old F presents with debility. 1. UTI * Culture mixed species * previously had E. coli that was sensitive to cipro. * will change to cipro and treat through 04/21 2. Debility * originally was accepted at [facility], but apparently rescinded due to the suicidal statements * pt is NOT actively suicidal and no additional work up is necessary[] Discharge Diet: 1800 Calorie Control Diet Discharge Activity: Return to Normal Activity Weight Bearing Status: No weight bearing Keep extremity elevated above heart level: Right Arm Call your doctor if you observe: Fever of 101 or Higher, Shortness of breath Home Medications: Medications to take at Discharge metformin 500 mg tablet 500 mg PO BID #180 tab 02/01/18 amlodipine 5 mg tablet 5 mg PO QDAY #30 tab 03/05/18 duloxetine 60 mg capsule,delayed release 60 mg PO QDAY #180 cap 03/05/18 levothyroxine 125 mcg tablet 125 mcg PO DAILY #90 tab NS 03/05/18 Aspirin [Aspirin, Baby] 81 mg PO DAILY@0800 04/15/18 Acetaminophen [Tylenol] 500 mg PO Q6H PRN PRN tablet 04/17/18 Cholecalciferol (VIT D3) [Vitamin D3] 1,000 unit PO DAILY tablet 04/17/18 Ciprofloxacin [Cipro] 500 mg PO BID #10 tablet 04/17/18 Glucerna Shake 120 ml PO 4X/DAY liquid 04/17/18 Following Prescrptions Were Given to Patient: Ciprofloxacin [Cipro] 500 mg PO BID #10 tablet Primary Care Physician: Karl Monaco MD [Primary Care Provider] - Within 2 Weeks Please Follow Up With: Contreras Fleming DO When: 1-2 weeks Disposition: [facility] facility Minutes spent on discharge:: 36 Patient Condition:: Fair Medical Necessity - Tobacco Use Smoking Status: Never smoker Meaningful Use Info Meaningful Use Diagnoses (Choose all that apply): None applicable Code Visit Inpatient E&M: 47842 Disch Hosp
[2018-04-17 14:45] VITALS: BP 147/78; PULSE 90; RESP 18; TEMP 36.7; O2SAT 94
--- NOTE | 2018-04-17 15:55 | CASEMGMT ---
Social Work [facility] Date of intervention: 04-17-18 Time of intervention: approximately form [id number] Reason for consult: Patient on suicide precautions; Concern for depression On 04-16-18 patients identified to nursing staff that if knew that would not fail would end her life and identified feeling as though has hit a wall. Patient is on suicide precautions currently. At time of social sciences research scientist presentation to unit to see the patient today, the nursing staff reporting the physician recently in to see patient today and has cleared patient from suicide precautions. Psychosocial History: Family History: Patient is a 72-year-old (times 4) female, first generation immigrant from [place] living in the [place] since the age of 18. Patient reports to have regular contact with most recent Contreras. Patient reports Contreras continues to be supportive to patient emotionally and financially though have been since about 1989. Contreras lives in the [facility]. Patient has a son, Nilo, who is 54 years old and living in the [facility]. Patient has been estranged from Nilo for about 3-4 years now, due to some communication issues around the holidays a few years ago. Patients mother lives in [place]. Physical Problems: Per medical record, Hypothyroidism; Hypertension; fibromyalgia and diabetes who presents with generalized weakness and falls. Patient with a broken arm from recent fall Living Arrangements: lives alone in an apartment in [place] for about 5 years now. 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 Patient reports has been retired for 20 years now at least. Financial: Lives on 652 dollars a month in social security. Patient reports Contreras helps patient monthly to pay expenses and has been doing so for 20 years. Education: Reports ability to read and write, does use glasses to read. Denies learning comprehension issues. Culture/Alevism: does not attend pentecostal but does identify as Zoroastrian and reports to talk daily to God. Primary Support: Limited, as ex-, while a support to patient lives out of town. Patient reports has a lifelong friend named Shikha who lives in [place], [place]. Abuse History: No abuse reported or shared by patient. Patient referenced that her own mother was like momkam ocasio and could be hard and braswell woman. Patient denies that any of her 4 husbands were abusive, though did share some stories about one of the husbands (a hazardous material technician) who drank sometimes and threw patients dog outside in the freezing cold. Patient Identified Stressors: Patient reports frustration with changing health, having cast on arm which patient reports is slowing patient down. Reports worry about Contreras, and his changing health. Patient report to still grieve over the loss of her cat Melinda a year and a half ago. Patient talks about loss of Melinda and several other cats through the years. Patient reflective about the actions of a friend locally, whom patient moved to [place] to be near, and how this person pulled away from patient about 3-4 years ago. Patient reports has had a lot of change in a short amount of time, which patient reports to still trying to absorb. Mental Health History: Patient reports that saw a psychologist soon after immigrated from [place] to the [place] and was reportedly told that depression was in part due to move from one country to another, assimilating to the new culture and having a new baby. Patient denies any other formal treatment, though has been prescribed antidepressants through the years. Patient reports has been on Cymbalta and describes this has been a helpful medication. No inpatient hospitalizations reported. Substance Use History: Denies any illicit drug use. Reports past social alcohol use. Mental Status: Alert and oriented to person, place, year, month, and situation. Memory good. Appearance appropriate to situation as far as neatness and cleanliness. Mood anxious, affect full. Eye contacts normal. Communication spontaneous, tangential at times though easily redirectable, reminiscing on past events and life experiences. Thoughts process preoccupied and sad when thinking about life changes and losses of her cats throughout the years. Insight and Judgement fair. Patient denies any past or present thoughts, plans, or intent to harm others. Patient has identified having passing thoughts of dying since being in the hospital, no plans, intent, nor any past attempts. Patient is future oriented at this time and has identified some protective factors for continued living. PHQ9 assessment: See attached link for details, but patient did score a 14, which is in the moderate range of depression. Patient seems to have loneliness currently and endorses that is thinker and analyzer of life, that when patient has medical changes this does prompt patients tendency to reflect on life, both positives and frustrations. Patient does endorse having loss of interest in things and feeling down and depressed over the last two weeks, nearly every day. Patient reports trouble falling asleep, that tends to sleep during the day, so does feel tired at times. Patient reports sometimes gets off medication routine during the weekends, and this in patients belief adds to difficulty sleeping on a normal schedule. Patient reports when Monday comes around patient realizes that should be taking medication as prescribed and then starts to feel better. Patient reports appetite is poor, more than half days, but does eat daily. Patient reports sometimes has a hard time concentrating, but this is not all the time in the last two weeks. Patient reports over the last two weeks no real change in motor activity, but since being hospitalized has been more fidgety and restless, and talking more as now has an audience of people to talk to. As far as thoughts of being better off or hurting self in some way patient reports for several days has had thoughts, that thoughts tend to surface when patient reflects on life changes and worries. Patient reports that had no suicidal thoughts in the last two weeks, prior to coming to the hospital. Patient reports that although has had thoughts of dying since hospitalization, has not had any thoughts, plans, or intent to complete suicide. Patient describes that it has been more of thoughts of dying in general, rather than a full thought out plan to take own life. Explored with patient intent and plans regarding suicide. Patient reports dont think in detail regarding taking life. Patient reports that often when patient has a moment of thinking of about being better of not being here, this thought is a short fleeing thought and in the next moment patient is thinking about things she must do, such as what patient will be getting in the mail that day or the next. Patient denies any access to firearms, nor any stockpiles of medications at home. Discussed reasons to live, which are protective factors for this patient: When patient is having a bad moment, patient reports to think about her aunt who had many health issues and who continued to live and to fight in life until it was her own time to leave earth. Patient reports that thinking about her aunt keeps patient going forward in life and is a reason not to ever give up. Patient states as well that she is too much of a coward to even try to take her own life. Additionally, Patient identifies her lifelong friend Rebeka as being pissed as hell should patient ever harm herself, and patient does not want to cause pain to another person. Patient feels a strong connection to her ex-, who patient reports to have my back for years now. Patient reports also that per her zoroastrian beliefs that killing oneself is a sin and not something that patient wants to take a chance on. Coping skills identified: Likes to read and likes to feed birds outside her apartment. Summary: Patient has no active thoughts of or dying during social work visit today. Patient denies any active plans or intent to take own life since hospitalization or in the past. Patient is future oriented and wanting to know options for longer term care. Would agree with physician on removal of active suicide precautions, though patient would likely benefit from a referral to outpatient mental health treatment if patient will accept. Patient agreed to at least take some mental health resource information for home going. Patient pleasant and seemingly enjoying social work visit, having someone to talk to as patient did thank this worker for taking the time to listen and let patient talk about life. Patient also expressed thanks for social sciences research scientist answering questions relating to assistant center director plans, as patient identified this was creating some anxiety in patient, not knowing how to move forward in gaining more support (educated patient to applying for medicaid, availability of waivers for the community to provide more support at home, assisted living waivers to offset cost of the assisted living). Patient was preoccupied with how will go to an assisted living, how will move things out of her home, even how will get to her home one last time. Patient voices belief that it may be good for patient to go to an assisted living to increased support and even socialization. Patient also receptive to looking at what supports could be put in place at home to help increase independence and socialization with others, to decrease isolation at home. Patient reports at this time would be willing to pursue a Medicaid application if this means accessing more supports in the community. Patient also reports willingness to consider referral for outpatient mental health but wants to take some time to think about this. Discussed safety plan with patient and patient verbally agrees to talk to staff should thoughts of dying arise, or active plans evolve. Patient also reports to know there is a 24 hour crisis line to call if needed in the future. Plan: social work to follow. Will be returning to see patient and provide mental health resources. Continuing with plan for short term SNF placement for rehab, and then look at longer term options of assisted living versus home with waiver services. -PENELOPE Morrison, TRIP RIDER
[2018-04-17 16:45] LABS: Bedside Glucose 192 mg/dL (70-110)
--- NOTE | 2018-04-17 16:59 | CASEMGMT ---
Social Work Unit - [facility] Reason for intervention: Follow up to PHQ9 depression screen completed by this engineering technical writer today. Summary: Met with patient at length today to discuss depressive symptoms and thoughts of dying, which were identified on 04-16-18. See previous note from this engineering technical writer earlier this date for details of assessment and depression screening. Met with patient at bedside, provided PHQ9 resources packet which includes information on depression, types of treatment options, and options for treatment locally. Provided [facility] brochure as well. Patient was sleeping when nephrology social worker entered, and reported that just feels tired right now. Plan: Informed patient that this engineering technical writer will be back tomorrow, 04-18-18 to review resources packet further. Patient voices agreement with plan. Aftercare Plan: Short term SNF placement for physical rehabilitation after falls at home. Likely to [facility]. -PENELOPE Morrison, ENGINEER GAS PUMPING STATION
--- NOTE | 2018-04-17 17:50 | CASEMGMT ---
Social Work Note SW received message from Orin in TCU stating that she is able to accept pt tomorrow, 04-18-2018. Orin states that she would to see how patient does tonight and if pt is stable and has no active thoughts or comments about suicide then pt will be able to discharge to TCU tomorrow. Plan: TCU tomorrow Hoa Wells CLINICAL DATA SPECIALIST, MAIL SORTER
[2018-04-17 21:05] VITALS: BP 151/88; PULSE 89; RESP 18; TEMP 37.2; O2SAT 94
[2018-04-17 21:25] LABS: Bedside Glucose 126 mg/dL (70-110)
[2018-04-18 03:00] VITALS: BP 156/82; PULSE 88; RESP 18; TEMP 36.8; O2SAT 94
[2018-04-18] MEDS: Levothyroxine 125 MCG Tablet PO (05:31)
[2018-04-18 06:35] LABS: Bedside Glucose 143 mg/dL (70-110)
[2018-04-18] MEDS: Acetaminophen 500 MG Tablet PO (06:36)
[2018-04-18 08:36] VITALS: BP 162/86; PULSE 79; RESP 16; TEMP 36.8; O2SAT 96
[2018-04-18] MEDS: Bisacodyl 5 MG Tablet PO (08:52)
[2018-04-18] MEDS: Aspirin 81 MG TAB.CHEW PO (08:52)
--- NOTE | 2018-04-18 10:37 | CASEMGMT ---
Addendum entered by Hoa Wells 04/18/18 15:09: Transfer to extended care facility and signed medication list/scripts in SNF folder. Pt is to discharge to TCU today. Original Note: Social Work Note SW received message from Orin in TCU stating that she is able to accept pt today. Physician notified. Plan: Discharge to TCU today Hoa Wells PRODUCTION TEAM MEMBER, GROUND PRODUCTS DIRECTOR
[2018-04-18] MEDS: Enoxaparin 40 MG/0.4 ML Syringe SC (10:57)
[2018-04-18] MEDS: DULoxetine Hcl 60 MG Capsule PO (10:57)
[2018-04-18] MEDS: Ceftriaxone 1 GM/50 ML BAG IV (10:57)
[2018-04-18] MEDS: amLODIPine 5 MG Tablet PO (10:58)
[2018-04-18 11:56] LABS: Bedside Glucose 121 mg/dL (70-110)
--- NOTE | 2018-04-18 12:00 | CASEMGMT ---
Social Work Unit - [facility] Summary: Followed up with patient today regarding conversation on 04-17-18. Upon social work manager entering the room, patient smiling and laughing, telling this proposal lead writer that has just had the biggest shock of patient's life. Patient reports belief that patient's exhusband has moved on and now has a girlfriend, based on the response that Contreras gave to patient on the phone. Patient reporting that does not care if Contreras has a girlfriend, that it is bittersweet, as patient feels a twinge of sadness but overall happy that Contreras has someone in his life. This proposal lead writer challenged patient's belief, whether patient has evidence of such information based on conversation (telling patient that will call patient back). Patient acknowledges that often does jump to conclusions. Patient reports that read over the depression packet this proposal lead writer provided yesterday and that information makes sense but patient reports to feel that has so much going on right now that not sure wants to commit to outpatient treatment at this time. Patient also voiced that did feel some relief in being able to talk to someone yesterday, so sees how treatment may be helpful. Discussed with patent that often people do put their mental health on the back burner, but that there can be repercussions from this; attempting to make connections with patient as to how emotional health can impact our physical health, and taking care of the whole person has potential benefit to overall wellness. Patient reports will continue to thinking about the mental health treatment but also wants to focus right now on immediate needs of getting physically stronger and also looking at longer term options for help. Explored with patient as to whether thoughts of suicide, hopelessness, or helplessness have surfaced since social work manager's last visit. Patient denies. Patient reports has been thinking about future and possible assisted living. Assessment: Patient alert and oriented, talkative and tangential but also able to be redirected. Patient continues to indicate that she likes having people to talk to, and that the hospital has been providing patient an outlet to have people to talk to. Patient held good eye contact. Body movements relaxed, mood appearing content at this point though slightly anxious due to not being able to talk to exhusband right away. Affect full. Interventions: Emotional support and reflection offered to patient today. Handoff to usual [facility] social work manager Hoa Kenyon Handoff to Raisa Hamilton, social work manager for TCU regarding patient's emotional health, benefit to have follow up regarding patient's intention for mental health aftercare. Discussed that patient is willing to apply for Medicaid, willing to look at different waiver programs. Discussed that maybe the [facility] as an option for patient, should a waiver not be an option right away, as this facility has in the past taken persons on medicaid that do not have a waivers in place. Plan: Discharge to [facility] for skilled care and treatment. cleaning and maintenance worker for TCU to follow while patient on the TCU. -PENELOPE Morrison, PRESCHOOL DISABILITY TEACHER
--- NOTE | 2018-04-18 12:15 | PN_ITS ---
Patient Problems: Active and Suspected Problems (Last Reviewed 04/15/18 @ 04:24 by Maximino Norman MD) Multiple falls (Acute) Debility (Acute) Acute cystitis (Acute) Subjective: No new complaints. Vitals/I&O's: Vital Signs Temp Pulse Resp BP Pulse Ox 36.8 C 79 16 162/86 H 96 04/18/18 08:36 04/18/18 08:36 04/18/18 08:36 04/18/18 08:36 04/18/18 08:36 Oxygen Delivery Method Room Air Intake and Output for Last 24 Hours 04/16/18 04/17/18 04/18/18 23:59 23:59 23:59 Intake Total 1483 / 1483 1869 Balance 1483 / 1483 1869 General: Alert, No apparent distress HEENT: Atraumatic, Normocephalic Extremities: - - right upper extremity in cast. Laboratory Results 04/17/18 16:15: POC Glucose 192 H 04/17/18 21:00: POC Glucose 126 H 04/18/18 06:32: POC Glucose 143 H 04/18/18 11:02: POC Glucose 121 H Current Medications Acetaminophen (Tylenol) 500 mg PO Q6H PRN PRN PRN Reason: PAIN Last Admin: 04/18/18 06:36 Dose: 500 mg Amlodipine Besylate (Norvasc) 5 mg PO DAILY [facility] Last Admin: 04/18/18 10:58 Dose: 5 mg Aspirin (Aspirin, Baby) 81 mg PO DAILY@0800 [facility] Last Admin: 04/18/18 08:52 Dose: 81 mg Bisacodyl (Dulcolax) 5 mg PO DAILY PRN PRN PRN Reason: Constipation Last Admin: 04/18/18 08:52 Dose: 5 mg Cholecalciferol (Vitamin D) 1,000 unit PO DAILY [facility] Last Admin: 04/18/18 10:58 Dose: 1,000 unit Duloxetine HCl (Cymbalta) 60 mg PO DAILY [facility] Last Admin: 04/18/18 10:57 Dose: 60 mg Enoxaparin Sodium (Lovenox) 40 mg SC DAILY@1000 [facility] Last Admin: 04/18/18 10:57 Dose: 40 mg Ceftriaxone Sodium (Rocephin) 1 gm in 50 mls @ 100 mls/hr IV Q24 [facility] Last Admin: 04/18/18 10:57 Dose: 100 mls/hr Insulin Human Lispro (Humalog Kwikpen (Bkc)) 0 unit SC ACHS [facility] PRN Reason: Protocol Last Admin: 04/18/18 11:02 Dose: Not Given Labetalol HCl (Trandate) 10 mg IV Q4H PRN PRN PRN Reason: SBP > 160 Last Admin: 04/15/18 01:25 Dose: 10 mg Levothyroxine Sodium (Synthroid) 125 mcg PO DAILY@0600 [facility] Last Admin: 04/18/18 05:31 Dose: 125 mcg Magnesium Hydroxide (Milk Of Magnesia) 30 ml PO DAILY PRN PRN PRN Reason: Constipation Nutritional Formula (Lactose Free) (Glucerna Shake) 120 ml PO 4X/DAY [facility] Last Admin: 04/18/18 11:03 Dose: Not Given Ondansetron HCl (Zofran) 4 mg IV Q8H PRN PRN PRN Reason: NAUSEA Oxycodone HCl (Oxyir) 5 mg PO Q4H PRN PRN PRN Reason: Moderate Pain (pain scale 4-5) Sodium Chloride () 5 - 30 ml IV UD PRN PRN Reason: SALINE FLUSH Last Admin: 04/16/18 09:06 Dose: 10 ml Zolpidem Tartrate (Ambien (Generic)) 5 mg PO QHS PRN PRN PRN Reason: INSOMNIA Medical Necessity - Tobacco Use Smoking Status: Never smoker Assessment/Plan All Active Problems (Last Reviewed 04/15/18 @ 04:24 by Maximino Norman MD) Multiple falls (Acute) Debility (Acute) Acute cystitis (Acute) Tachycardia (Acute) History of stroke (Acute) History of blood clots (Acute) History of ankle fracture (Acute) Frostbite of both buttocks (Acute) Fall (Acute) 1. UTI * Culture mixed species * previously had E. coli that was sensitive to cipro. * will change to cipro and treat through 04/21 2. Debility * originally was accepted at TCU, but apparently rescinded due to the suicidal statements * pt is NOT actively suicidal and no additional work up is necessary 3. DVT proph: LMWH. To SNF today. Code Visit Inpatient E&M: [id number] Disch Hosp
[2018-04-18 15:02] LABS: Vitamin D 1,25-Dihydroxy 59.2 pg/mL (19.9-79.3)
[2018-04-18 15:15] VITALS: BP 140/71; PULSE 91; RESP 16; TEMP 37; O2SAT 95
== END 2018-04-18 15:40 | disposition skilled nursing facility (03) | DRG 690 ==
LOC: ED 21:39 → MS3 23:44
PROVIDERS: Family Medicine; Admitting Provider Hospitalist; Emergency Provider Emergency Medicine; Family Provider Internal Medicine; PCP Internal Medicine
DX: N30.00 Acute cystitis without hematuria (principal); S52.501A Unspecified fracture of the lower end of right radius, initial encounter for closed fracture; K21.9 Gastro-esophageal reflux disease without esophagitis; F41.9 Anxiety disorder, unspecified; F32.9 Major depressive disorder, single episode, unspecified; R53.81 Other malaise; I10 Essential (primary) hypertension; E03.9 Hypothyroidism, unspecified; M79.7 Fibromyalgia; E11.40 Type 2 diabetes mellitus with diabetic neuropathy, unspecified; R29.6 Repeated falls; S62.101D Fracture of unspecified carpal bone, right wrist, subsequent encounter for fracture with routine healing; W19.XXXD Unspecified fall, subsequent encounter; E78.5 Hyperlipidemia, unspecified; I73.9 Peripheral vascular disease, unspecified; M19.90 Unspecified osteoarthritis, unspecified site; Z79.84 Long term (current) use of oral hypoglycemic drugs; Z86.73 Personal history of transient ischemic attack (TIA), and cerebral infarction without residual deficits; E87.6 Hypokalemia; S00.03XA Contusion of scalp, initial encounter; R40.2410 Glasgow coma scale score 13-15, unspecified time; W19.XXXA Unspecified fall, initial encounter; Y93.9 Activity, unspecified; Y92.9 Unspecified place or not applicable; E11.9 Type 2 diabetes mellitus without complications; Z79.899 Other long term (current) drug therapy
CPT/HCPCS: 36415; 70450; 71045; 73110; 80048; 81001; 82306; 82607; 82652; 82962; 83036; 83735; 84443; 85025; 87086; 87088; 93005; 97110; 97116; 97162; 97166; 97530; 97535; 97802; 99285; J7030; J7040; A4216

== ENCOUNTER 2018-04-18 15:59 | Inpatient (IN) | payer MEDICARE, OTHER, SELFPAY ==
[2018-04-18 16:12] VITALS: BP 160/92; PULSE 92; RESP 18; TEMP 36; O2SAT 93
[2018-04-18 17:01] LABS: Bedside Glucose 142 mg/dL (70-110)
[2018-04-18 17:02] VITALS: BMI 33.3
[2018-04-18 17:08] VITALS: BMI 33.3
[2018-04-18] MEDS: Ciprofloxacin 500 MG Tablet PO (17:34)
[2018-04-18] MEDS: Glucerna Shake 120 ML LIQUID PO ×2 (17:34→21:13)
--- NOTE | 2018-04-18 18:08 | NURSING ---
pt arrived from [facility] via w/ch
--- NOTE | 2018-04-18 21:06 | PCM.HP.STD ---
Problem List (1) Weakness Status: Acute (2) UTI (urinary tract infection) Status: Acute (3) Right wrist fracture Status: Acute (4) Diabetes mellitus Status: Chronic (5) Debility Status: Acute (6) Depression Status: Chronic (7) Hypothyroidism Status: Chronic (8) Hypertension Status: Chronic (9) Fall Status: Acute (10) Fibromyalgia Status: Chronic History of Present Illness Date of Admission: 04/18/18 Chief Complaint: Here for rehabilitation, strengthening, prior to assisted living placement. The patient is a 72 year old Female with below past medical history presented to [facility] Emergency Department 04/14/2018 with fall. 04/14/2018 Chest X-ray negative. 04/14/2018 EKG normal sinus rhythm, inferior infarct, age undetermined. Weakness, fall. Recent right wrist fracture. Unable to get off toilet, crawled from bathroom to bedroom to get cell phone to call for help. Difficulty caring for self, requesting nursing facility placement. WBC 12.7, UA consistent with UTI. Rocephin IV given. 04/14/2018 Admit to Hospital. Rocephin IV for UTI. Immobilizer for right wrist fracture. Blood pressure controlled. 04/15/2018 PT/OT recommending nursing home facility after hospitalization. K 2.7, supplemented. 04/16/2018 Rocephin transitioned to oral Cipro. No active suicidal ideation. 04/18/2018 Admit to TCU for rehabilitation, strengthening, prior to discharge to [facility]. Past Medical History Past Medical History (Chronic Problems): Chronic Problems (Last Reviewed 04/15/18 @ 04:24 by Maximino Norman MD) Diabetes mellitus (Chronic) GERD (gastroesophageal reflux disease) (Chronic) Neuropathy (Chronic) Arthritis (Chronic) Depression (Chronic) Anxiety (Chronic) PAOD (peripheral arterial occlusive disease) (Chronic) Hypothyroidism (Chronic) Hyperlipidemia (Chronic) Hypertension (Chronic) Iron deficiency anemia (Chronic) Diabetic neuropathy (Chronic) Type 2 diabetes mellitus (Chronic) Closed right ankle fracture (Chronic) PAD (peripheral artery disease) (Chronic) Status post stenting of the right lower extremity CVA (cerebral vascular accident) (Chronic) Asthma (Chronic) Fibromyalgia (Chronic) Medical History: Medical History (Last Reviewed 04/15/18 @ 04:24 by Maximino Norman MD) GERD (gastroesophageal reflux disease) (Chronic) K21.9 Neuropathy (Chronic) G62.9 History of stroke (Acute) Z86.73 History of blood clots (Acute) Z86.718 Arthritis (Chronic) M19.90 History of ankle fracture (Acute) Z87.81 Allergies amoxicillin Allergy (Verified 04/14/18 21:09) Unknown Penicillins [PCN] Allergy (Verified 04/14/18 21:09) Unknown Sulfa (Sulfonamide Antibiotics) Allergy (Verified 04/14/18 21:09) Unknown Home Medications: Ambulatory Orders Medication Instructions Recorded Aspirin [Aspirin, Baby] 81 mg PO DAILY@0800 04/15/18 Acetaminophen [Tylenol] 500 mg PO Q6H PRN PRN tablet 04/17/18 Amlodipine Besylate [Norvasc] 5 mg PO QDAY 04/18/18 Cholecalciferol (VIT D3) [Vitamin 1,000 unit PO DAILY 04/18/18 D3] Ciprofloxacin [Cipro] 500 mg PO BID 04/18/18 Duloxetine HCl [Cymbalta] 60 mg PO QDAY 04/18/18 Glucerna Shake 120 ml PO 4X/DAY 04/18/18 Levothyroxine Sodium [Synthroid] 125 mcg PO DAILY 04/18/18 Metformin HCl 500 mg PO BID 04/18/18 Surgical History: - - Stent right lower extremity, thyroid surgery. 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 Lives: Alone Smoking Status: Never smoker Tobacco Use: Non-smoker Alcohol: None Drugs: None - *Family History Maternal Family History: Family History (Last Reviewed 04/15/18 @ 04:20 by Maximino Norman MD) Grandmother Cancer Aunt Diabetes History Items: - - lung cancer Sibling Family History: Family History (Last Reviewed 04/15/18 @ 04:20 by Maximino Norman MD) Grandmother Cancer Aunt Diabetes History Items: - - diabetes Review of Systems Constitutional: Denies: Chills, Fever, Weight Change HEENT: Denies: Head Aches, Sinus Congestion, Sinus Drainage Cardiovascular: Denies: Chest Pain, Palpitations Respiratory: Denies: Cough, Shortness of breath at rest, Sputum production Gastrointestinal: Denies: Abdominal Pain, Nausea, Vomiting Genitourinary: Denies: Dysuria Musculoskeletal: Denies: Joint Pain, Joint Tenderness Skin: Denies: Rash, Wounds Neurological: Denies: Numbness, Tingling, Focal weakness Psychiatric: Denies: Anxiety, Depression, Homicidal Ideations, Suicidal Ideations Hematologic/ Lymphatic: Denies: Easy Bruising, Easy Bleeding VTE Information - Inpt Only VTE Present on Admission: No VTE Mechan Device Prophylaxis: Knee High JUAN Hose VTE Pharm Prophylaxis ordered?: Yes Patient Problems: Active and Suspected Problems (Last Reviewed 04/15/18 @ 04:24 by Maximino Norman MD) Weakness (Acute) UTI (urinary tract infection) (Acute) Right wrist fracture (Acute) - Physical Exam General: Alert, Oriented x3, Cooperative HEENT: Atraumatic, PERRLA, EOMI, Normocephalic Neck: Supple, No JVD, Negative Carotid Bruits Lungs: Clear to auscultation, Normal air movement Cardiovascular: Regular rate, No murmurs Abdomen: Bowel Sounds Present, Soft, Non Tender Extremities: No edema, Capillary Refill Less than 3 Seconds, - - Right wrist splinted, ACEd. Skin: No rashes, No breakdown Musculoskeletal: No Tenderness to Palpation of Joints or Extremities Neurological: Cranial nerves II-XII grossly intact Psych/Mental Status: Normal Affect, Appropriate Vital Signs Temp Pulse Resp BP Pulse Ox 96.8 F L 92 18 160/92 H 93 04/18/18 16:12 04/18/18 16:12 04/18/18 16:12 04/18/18 16:12 04/18/18 16:12 Oxygen Delivery Method Room Air Weight: 102.4 kg Body Mass Index (BMI) 33.3 Finger Stick Blood Glucose 162 POC Glucose 04/18/18 16:57 POC Glucose 142 H Assessment/Plan All Active Problems (Last Reviewed 04/15/18 @ 04:24 by Maximino Norman MD) Multiple falls (Acute) Debility (Acute) Acute cystitis (Acute) Weakness (Acute) UTI (urinary tract infection) (Acute) Right wrist fracture (Acute) Tachycardia (Acute) History of stroke (Acute) History of blood clots (Acute) History of ankle fracture (Acute) Frostbite of both buttocks (Acute) Fall (Acute) 72 year old female with below past medical history hospitalized for weakness secondary to urinary tract infection, complicated by recent right wrist fracture, admitted to TCU with debility, here for rehabilitation, strengthening, prior to discharge to [facility]. Debility - PT/OT. Pain - Tylenol 1000MG Q8H PRN mild pain. Bowel - Miralax 17GM daily, Senna/colace 1 tablet BID, Dulcolax 10MG PO daily PRN. Pneumonia vaccination - Administer Prevnar 13 and/or Pneumovax 23 as necessary. DVT prophylaxis - Lovenox 40MG SC daily. Hypertension - Amlodipine 5MG daily. CV prophylaxis - Aspirin 81MG daily. Vitamin D deficiency - D3 1000IU daily. UTI - Cipro 500MG BID thru 04/23/2018. Depression - Duloxetine 60MG daily. Nutrition - Glucerna 120ML 4x/day. Hypothyroidism - Levothyroxine 125MG daily. Diabetes Mellitus II - Metformin 500MG BID.
[2018-04-18] MEDS: Acetaminophen 500 MG Tablet PO (21:12)
--- NOTE | 2018-04-18 21:12 | HP.PCM_ITS ---
Problem List (1) Weakness Status: Acute (2) UTI (urinary tract infection) Status: Acute (3) Right wrist fracture Status: Acute (4) Diabetes mellitus Status: Chronic (5) Debility Status: Acute (6) Depression Status: Chronic (7) Hypothyroidism Status: Chronic (8) Hypertension Status: Chronic (9) Fall Status: Acute (10) Fibromyalgia Status: Chronic History of Present Illness Date of Admission: 04/18/18 Chief Complaint: Here for rehabilitation, strengthening, prior to assisted living placement. The patient is a 72 year old Female with below past medical history presented to [facility] Emergency Department 04/14/2018 with fall. 04/14/2018 Chest X-ray negative. 04/14/2018 EKG normal sinus rhythm, inferior infarct, age undetermined. Weakness, fall. Recent right wrist fracture. Unable to get off toilet, crawled from bathroom to bedroom to get cell phone to call for help. Difficulty caring for self, requesting nursing facility placement. WBC 12.7, UA consistent with UTI. Rocephin IV given. 04/14/2018 Admit to Hospital. Rocephin IV for UTI. Immobilizer for right wrist fracture. Blood pressure controlled. 04/15/2018 PT/OT recommending longterm facility after hospitalization. K 2.7, supplemented. 04/16/2018 Rocephin transitioned to oral Cipro. No active suicidal ideation. 04/18/2018 Admit to TCU for rehabilitation, strengthening, prior to discharge to [facility]. Past Medical History Past Medical History (Chronic Problems): Chronic Problems (Last Reviewed 04/15/18 @ 04:24 by Maximino Norman MD) Diabetes mellitus (Chronic) GERD (gastroesophageal reflux disease) (Chronic) Neuropathy (Chronic) Arthritis (Chronic) Depression (Chronic) Anxiety (Chronic) PAOD (peripheral arterial occlusive disease) (Chronic) Hypothyroidism (Chronic) Hyperlipidemia (Chronic) Hypertension (Chronic) Iron deficiency anemia (Chronic) Diabetic neuropathy (Chronic) Type 2 diabetes mellitus (Chronic) Closed right ankle fracture (Chronic) PAD (peripheral artery disease) (Chronic) Status post stenting of the right lower extremity CVA (cerebral vascular accident) (Chronic) Asthma (Chronic) Fibromyalgia (Chronic) Medical History: Medical History (Last Reviewed 04/15/18 @ 04:24 by Maximino Norman MD) GERD (gastroesophageal reflux disease) (Chronic) K21.9 Neuropathy (Chronic) G62.9 History of stroke (Acute) Z86.73 History of blood clots (Acute) Z86.718 Arthritis (Chronic) M19.90 History of ankle fracture (Acute) Z87.81 Allergies amoxicillin Allergy (Verified 04/14/18 21:09) Unknown Penicillins [PCN] Allergy (Verified 04/14/18 21:09) Unknown Sulfa (Sulfonamide Antibiotics) Allergy (Verified 04/14/18 21:09) Unknown Home Medications: Ambulatory Orders Medication Instructions Recorded Aspirin [Aspirin, Baby] 81 mg PO DAILY@0800 04/15/18 Acetaminophen [Tylenol] 500 mg PO Q6H PRN PRN tablet 04/17/18 Amlodipine Besylate [Norvasc] 5 mg PO QDAY 04/18/18 Cholecalciferol (VIT D3) [Vitamin 1,000 unit PO DAILY 04/18/18 D3] Ciprofloxacin [Cipro] 500 mg PO BID 04/18/18 Duloxetine HCl [Cymbalta] 60 mg PO QDAY 04/18/18 Glucerna Shake 120 ml PO 4X/DAY 04/18/18 Levothyroxine Sodium [Synthroid] 125 mcg PO DAILY 04/18/18 Metformin HCl 500 mg PO BID 04/18/18 Surgical History: - - Stent right lower extremity, thyroid surgery. 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 Lives: Alone Smoking Status: Never smoker Tobacco Use: Non-smoker Alcohol: None Drugs: None - *Family History Maternal Family History: Family History (Last Reviewed 04/15/18 @ 04:20 by Maximino Norman MD) Grandmother Cancer Aunt Diabetes History Items: - - lung cancer Sibling Family History: Family History (Last Reviewed 04/15/18 @ 04:20 by Maximino Norman MD) Grandmother Cancer Aunt Diabetes History Items: - - diabetes Review of Systems Constitutional: Denies: Chills, Fever, Weight Change HEENT: Denies: Head Aches, Sinus Congestion, Sinus Drainage Cardiovascular: Denies: Chest Pain, Palpitations Respiratory: Denies: Cough, Shortness of breath at rest, Sputum production Gastrointestinal: Denies: Abdominal Pain, Nausea, Vomiting Genitourinary: Denies: Dysuria Musculoskeletal: Denies: Joint Pain, Joint Tenderness Skin: Denies: Rash, Wounds Neurological: Denies: Numbness, Tingling, Focal weakness Psychiatric: Denies: Anxiety, Depression, Homicidal Ideations, Suicidal Ideations Hematologic/ Lymphatic: Denies: Easy Bruising, Easy Bleeding VTE Information - Inpt Only VTE Present on Admission: No VTE Mechan Device Prophylaxis: Knee High JUAN Hose VTE Pharm Prophylaxis ordered?: Yes Patient Problems: Active and Suspected Problems (Last Reviewed 04/15/18 @ 04:24 by Maximino Norman MD) Weakness (Acute) UTI (urinary tract infection) (Acute) Right wrist fracture (Acute) - Physical Exam General: Alert, Oriented x3, Cooperative HEENT: Atraumatic, PERRLA, EOMI, Normocephalic Neck: Supple, No JVD, Negative Carotid Bruits Lungs: Clear to auscultation, Normal air movement Cardiovascular: Regular rate, No murmurs Abdomen: Bowel Sounds Present, Soft, Non Tender Extremities: No edema, Capillary Refill Less than 3 Seconds, - - Right wrist splinted, ACEd. Skin: No rashes, No breakdown Musculoskeletal: No Tenderness to Palpation of Joints or Extremities Neurological: Cranial nerves II-XII grossly intact Psych/Mental Status: Normal Affect, Appropriate Vital Signs Temp Pulse Resp BP Pulse Ox 96.8 F L 92 18 160/92 H 93 04/18/18 16:12 04/18/18 16:12 04/18/18 16:12 04/18/18 16:12 04/18/18 16:12 Oxygen Delivery Method Room Air Weight: 102.4 kg Body Mass Index (BMI) 33.3 Finger Stick Blood Glucose 162 POC Glucose 04/18/18 16:57 POC Glucose 142 H Assessment/Plan All Active Problems (Last Reviewed 04/15/18 @ 04:24 by Maximino Norman MD) Multiple falls (Acute) Debility (Acute) Acute cystitis (Acute) Weakness (Acute) UTI (urinary tract infection) (Acute) Right wrist fracture (Acute) Tachycardia (Acute) History of stroke (Acute) History of blood clots (Acute) History of ankle fracture (Acute) Frostbite of both buttocks (Acute) Fall (Acute) 72 year old female with below past medical history hospitalized for weakness secondary to urinary tract infection, complicated by recent right wrist fracture , admitted to TCU with debility, here for rehabilitation, strengthening, prior to discharge to [facility] nursing facility. * Debility - PT/OT. * Pain - Tylenol 1000MG Q8H PRN mild pain. * Bowel - Miralax 17GM daily, Senna/colace 1 tablet BID, Dulcolax 10MG PO daily PRN. * Pneumonia vaccination - Administer Prevnar 13 and/or Pneumovax 23 as necessary. * DVT prophylaxis - Lovenox 40MG SC daily. * Hypertension - Amlodipine 5MG daily. * CV prophylaxis - Aspirin 81MG daily. * Vitamin D deficiency - D3 1000IU daily. * UTI - Cipro 500MG BID thru 04/23/2018. * Depression - Duloxetine 60MG daily. * Nutrition - Glucerna 120ML 4x/day. * Hypothyroidism - Levothyroxine 125MG daily. * Diabetes Mellitus II - Metformin 500MG BID.
[2018-04-18 21:36] LABS: Bedside Glucose 117 mg/dL (70-110)
[2018-04-19] MEDS: Glucerna Shake 120 ML LIQUID PO ×2 (04:31→10:51)
[2018-04-19] MEDS: amLODIPine 5 MG Tablet PO (04:31)
[2018-04-19] MEDS: Levothyroxine 125 MCG Tablet PO (04:32)
[2018-04-19] MEDS: DULoxetine Hcl 60 MG Capsule PO (04:32)
[2018-04-19 05:59] LABS: Absolute Neutrophil Count 3.1 X10^3/uL (2.0-7.7); Basophil# 0.02 X10^3/uL; Basophil% 0.4 % (0-1); Eosinophil# 0.19 X10^3/uL; Eosinophils% 3.7 % (0-5); Hematocrit 37.8 % (37-47); Hemoglobin 11.8 g/dl (12.0-15.0); Lymphocyte % 25.4 % (19-41); Mean Corp Hgb Conc 31.2 g/gl (32-36); Mean Corpuscular Hgb 25.4 pg (27.0-32.0); Mean Corpuscular Volume 81.5 fL (81-99); Mean Platelet Vol. 12.9 fl (6.2-12.0); Monocyte% 9.8 % (0-10); Neutrophil % 60.7 % (47-70); Platelet Count 248 K/mm3 (150-450); RBC Distribution Width SD 55.6 fl (35.1-43.9); Red Blood Count 4.64 M/mm3 (4.2-5.4); White Blood Count 5.1 K/mm3 (4.4-11.0)
[2018-04-19 06:11] LABS: POSITIVE COUNT NO; POSITIVE DIFFERENTIAL NO; POSITIVE MORPHOLOGY NO
[2018-04-19 06:20] LABS: Anion Gap 8 (5-15); BUN 14 mg/dL (7-18); BUN/Creat Ratio 18.8 RATIO (10-20); Calcium,Total 9.6 mg/dL (8.5-10.1); Chloride 105 mmol/L (98-107); Creatinine, Serum 0.74 mg/dL (0.55-1.02); EST Glomerular Filtration Rate 81 mL/min (>60); Est Glom Filt Rate - Afr Amer 98 mL/min (>60); Estimated Creatinine Clearance 51.58 ml/min; Glucose 159 mg/dL (74-106); Potassium 3.8 mmol/L (3.5-5.1); Sodium Level 142 mmol/L (136-145)
[2018-04-19] MEDS: Acetaminophen 500 MG Tablet 1000 MG PO (06:56)
[2018-04-19 07:06] LABS: Bedside Glucose 139 mg/dL (70-110)
[2018-04-19] MEDS: Aspirin 81 MG TAB.CHEW PO (08:28)
[2018-04-19] MEDS: Enoxaparin 40 MG/0.4 ML Syringe SC (08:33)
[2018-04-19] MEDS: Ciprofloxacin 500 MG Tablet PO ×2 (10:46→20:55)
[2018-04-19] MEDS: Tuberculin,Purif.prot.deriv. 50 TU/ML Vial 5 ML ID (10:50)
[2018-04-19 11:11] LABS: Bedside Glucose 156 mg/dL (70-110)
[2018-04-19 15:15] VITALS: BP 130/86; PULSE 89; RESP 20; TEMP 36.4; O2SAT 96
[2018-04-19 17:06] LABS: Bedside Glucose 136 mg/dL (70-110)
[2018-04-19 21:30] LABS: Bedside Glucose 142 mg/dL (70-110)
[2018-04-20] MEDS: DULoxetine Hcl 60 MG Capsule PO (04:25)
[2018-04-20] MEDS: Levothyroxine 125 MCG Tablet PO (04:26)
[2018-04-20] MEDS: amLODIPine 5 MG Tablet PO (04:26)
[2018-04-20] MEDS: Acetaminophen 500 MG Tablet 1000 MG PO (05:43)
[2018-04-20 07:10] LABS: Bedside Glucose 151 mg/dL (70-110)
[2018-04-20] MEDS: Enoxaparin 40 MG/0.4 ML Syringe SC (08:43)
[2018-04-20] MEDS: Aspirin 81 MG TAB.CHEW PO (08:43)
[2018-04-20] MEDS: Ciprofloxacin 500 MG Tablet PO ×2 (10:29→19:32)
[2018-04-20 11:55] LABS: Bedside Glucose 97 mg/dL (70-110)
--- NOTE | 2018-04-20 15:11 | PCM.PN.RX ---
<Oscar Irizarry D - Last Filed: 04/20/18 15:11> Progress Note - Pharmacy Subjective: TCU Admission Objective: Allergies amoxicillin Allergy (Verified 04/14/18 21:09) Unknown Penicillins [PCN] Allergy (Verified 04/14/18 21:09) Unknown Sulfa (Sulfonamide Antibiotics) Allergy (Verified 04/14/18 21:09) Unknown Current Medications Generic Name Dose Route Start Last Admin Trade Name Freq PRN Reason Stop Dose Admin Acetaminophen 1,000 mg 04/18/18 21:24 04/20/18 05:43 Tylenol PO 1,000 mg Q8H PRN PRN Administration MILD PAIN (1-310) Amlodipine Besylate 5 mg 04/19/18 06:00 04/20/18 04:26 Norvasc PO 5 mg DAILY ALON Administration Aspirin 81 mg 04/19/18 08:00 04/20/18 08:43 Aspirin, Baby PO 81 mg DAILY@0800 [facility] Administration Bisacodyl 10 mg 04/18/18 21:23 Dulcolax PO DAILY PRN Constipation Cholecalciferol 1,000 unit 04/19/18 06:00 04/20/18 04:26 Vitamin D PO 1,000 unit DAILY ALON Administration Ciprofloxacin HCl 500 mg 04/19/18 10:00 04/20/18 10:29 Cipro PO 04/23/18 23:59 500 mg BID@1000,2200 ALON Administration Duloxetine HCl 60 mg 04/19/18 06:00 04/20/18 04:25 Cymbalta PO 60 mg DAILY ALON Administration Enoxaparin Sodium 40 mg 04/19/18 08:00 04/20/18 08:43 Lovenox SC 40 mg DAILY@0800 [facility] Administration Levothyroxine Sodium 125 mcg 04/19/18 06:00 04/20/18 04:26 Synthroid PO 125 mcg DAILY@0600 [facility] Administration Metformin HCl 500 mg 04/18/18 18:00 04/20/18 08:42 Glucophage PO 500 mg BIDCM [facility] Administration Polyethylene Glycol 17 gm 04/19/18 08:00 04/20/18 08:47 Miralax PO Not Given DAILY@0800 [facility] Senna/Docusate Sodium 1 tablet 04/19/18 08:00 04/20/18 08:47 Senokot-S, Deb-Colace PO Not Given BID@0800,1800 [facility] Tuberculin PPD 5 tu 04/26/18 10:00 Tubersol, Aplisol, Ppd ID 04/26/18 10:01 X1 ONE Problem List (Last Reviewed 04/15/18 @ 04:24 by Maximino Norman MD) Weakness (Acute) UTI (urinary tract infection) (Acute) Right wrist fracture (Acute) Diabetes mellitus (Chronic) Vital Signs Temp Pulse Resp BP Pulse Ox 97.6 F L 89 20 H 130/86 H 96 04/19/18 15:15 04/19/18 15:15 04/19/18 15:15 04/19/18 15:15 04/19/18 15:15 Oxygen Delivery Method Room Air Weight: 102.4 kg Body Mass Index (BMI) 33.3 Finger Stick Blood Glucose 162 Sodium 142 mmol/L (136-145) 04/19/18 05:20 Potassium 3.8 mmol/L (3.5-5.1) 04/19/18 05:20 Chloride 105 mmol/L (98-107) 04/19/18 05:20 Carbon Dioxide 29.0 mmol/L (21.0-32.0) 04/19/18 05:20 Anion Gap 8 (5-15) 04/19/18 05:20 BUN 14 mg/dL (7-18) 04/19/18 05:20 Creatinine 0.74 mg/dL (0.55-1.02) 04/19/18 05:20 Est GFR (MDRD) Af Amer 98 mL/min (>60) 04/19/18 05:20 Est GFR (MDRD) Non-Af 81 mL/min (>60) 04/19/18 05:20 BUN/Creatinine Ratio 18.8 RATIO (10-20) 04/19/18 05:20 Glucose 159 mg/dL (74-106) H 04/19/18 05:20 Assessment/Plan: 1) Pain APAP for mild pain. Continue to monitor prn medication use, daily pain scores. 2) HTN Amlodipine. Continue to monitor BP/HR. 3) DM2 Metformin twice daily, ASA. Continue to monitor BGT, renal function. 4) UTI Ciprofloxacin until 04/23. Continue to monitor s/s infection. 5) DVT PPx Enoxaparin daily. Continue to monitor for bleeding/clot. 6) Hypothyroidism Levothyroxine daily. Continue to monitor s/s hyper/hypothyroidism. Psychotropic Medications: 7) Depression Duloxetine daily. Continue to monitor s/s depression/anxiety. Unnecessary Medications: None Bowel Regimen: 8) Senna/s, PEG, prn bisacodyl. Continue to monitor prn medication use, for constipation/diarrhea. Date of Note:: 04/20/18 - Provider Comments Provider responsibility: Provider responsible to enter orders to implement recommendations <Celio Lynch Chi - Last Filed: 04/20/18 16:05> Progress Note - Pharmacy Subjective: [] Objective: Allergies amoxicillin Allergy (Verified 04/14/18 21:09) Unknown Penicillins [PCN] Allergy (Verified 04/14/18 21:09) Unknown Sulfa (Sulfonamide Antibiotics) Allergy (Verified 04/14/18 21:09) Unknown Current Medications Generic Name Dose Route Start Last Admin Trade Name Freq PRN Reason Stop Dose Admin Acetaminophen 1,000 mg 04/18/18 21:24 04/20/18 05:43 Tylenol PO 1,000 mg Q8H PRN PRN Administration MILD PAIN (1-3/10) Amlodipine Besylate 5 mg 04/19/18 06:00 04/20/18 04:26 Norvasc PO 5 mg DAILY ALON Administration Aspirin 81 mg 04/19/18 08:00 04/20/18 08:43 Aspirin, Baby PO 81 mg DAILY@0800 [facility] Administration Bisacodyl 10 mg 04/18/18 21:23 Dulcolax PO DAILY PRN Constipation Cholecalciferol 1,000 unit 04/19/18 06:00 04/20/18 04:26 Vitamin D PO 1,000 unit DAILY [facility]ON Administration Ciprofloxacin HCl 500 mg 04/19/18 10:00 04/20/18 10:29 Cipro PO 04/23/18 23:59 500 mg BID@1000,2200 [facility] Administration Duloxetine HCl 60 mg 04/19/18 06:00 04/20/18 04:25 Cymbalta PO 60 mg DAILY [facility]ON Administration Enoxaparin Sodium 40 mg 04/19/18 08:00 04/20/18 08:43 Lovenox SC 40 mg DAILY@0800 [facility] Administration Levothyroxine Sodium 125 mcg 04/19/18 06:00 09/21/18 04:26 Synthroid PO 125 mcg DAILY@0600 [facility] Administration Metformin HCl 500 mg 04/18/18 18:00 04/20/18 08:42 Glucophage PO 500 mg BIDCM [facility] Administration Polyethylene Glycol 17 gm 04/19/18 08:00 04/20/18 08:47 Miralax PO Not Given DAILY@0800 [facility] Senna/Docusate Sodium 1 tablet 04/19/18 08:00 04/20/18 08:47 Senokot-S, Deb-Colace PO Not Given BID@0800,1800 [facility] Tuberculin PPD 5 tu 04/26/18 10:00 Tubersol, Aplisol, Ppd ID 04/26/18 10:01 X1 ONE Problem List (Last Reviewed 04/15/18 @ 04:24 by Maximino Norman MD) Weakness (Acute) UTI (urinary tract infection) (Acute) Right wrist fracture (Acute) Diabetes mellitus (Chronic) Vital Signs Temp Pulse Resp BP Pulse Ox 96.1 F L 82 16 127/75 H 93 04/20/18 15:14 04/20/18 15:14 04/20/18 15:14 04/20/18 15:14 04/20/18 15:14 Oxygen Delivery Method Room Air Weight: 102.4 kg Body Mass Index (BMI) 33.3 Finger Stick Blood Glucose 162 Sodium 142 mmol/L (136-145) 04/19/18 05:20 Potassium 3.8 mmol/L (3.5-5.1) 04/19/18 05:20 Chloride 105 mmol/L (98-107) 04/19/18 05:20 Carbon Dioxide 29.0 mmol/L (21.0-32.0) 04/19/18 05:20 Anion Gap 8 (5-15) 04/19/18 05:20 BUN 14 mg/dL (7-18) 04/19/18 05:20 Creatinine 0.74 mg/dL (0.55-1.02) 04/19/18 05:20 Est GFR (MDRD) Af Amer 98 mL/min (>60) 04/19/18 05:20 Est GFR (MDRD) Non-Af 81 mL/min (>60) 04/19/18 05:20 BUN/Creatinine Ratio 18.8 RATIO (10-20) 04/19/18 05:20 Glucose 159 mg/dL (74-106) H 04/19/18 05:20 Assessment/Plan: Psychotropic Medications: Unnecessary Medications: Bowel Regimen: - Provider Comments Provider responsibility: Provider responsible to enter orders to implement recommendations Provider Comments to Recommendations by Pharmacy: Agree
[2018-04-20 15:14] VITALS: BP 127/75; PULSE 82; RESP 16; TEMP 35.6; O2SAT 93
--- NOTE | 2018-04-20 15:16 | PHA.CONS_ITS ---
<Oscar Irizarry D - Last Filed: 04/20/18 15:11> Progress Note - Pharmacy Subjective: TCU Admission Objective: Allergies amoxicillin Allergy (Verified 04/14/18 21:09) Unknown Penicillins [PCN] Allergy (Verified 04/14/18 21:09) Unknown Sulfa (Sulfonamide Antibiotics) Allergy (Verified 04/14/18 21:09) Unknown Current Medications Generic Name Dose Route Start Last Admin Trade Name Freq PRN Reason Stop Dose Admin Acetaminophen 1,000 mg 04/18/18 21:24 04/20/18 05:43 Tylenol PO 1,000 mg Q8H PRN PRN Administration MILD PAIN (1-310) Amlodipine Besylate 5 mg 04/19/18 06:00 04/20/18 04:26 Norvasc PO 5 mg DAILY ALON Administration Aspirin 81 mg 04/19/18 08:00 04/20/18 08:43 Aspirin, Baby PO 81 mg DAILY@0800 [facility] Administration Bisacodyl 10 mg 04/18/18 21:23 Dulcolax PO DAILY PRN Constipation Cholecalciferol 1,000 unit 04/19/18 06:00 04/20/18 04:26 Vitamin D PO 1,000 unit DAILY ALON Administration Ciprofloxacin HCl 500 mg 04/19/18 10:00 04/20/18 10:29 Cipro PO 04/23/18 23:59 500 mg BID@1000,2200 ALON Administration Duloxetine HCl 60 mg 04/19/18 06:00 04/20/18 04:25 Cymbalta PO 60 mg DAILY ALON Administration Enoxaparin Sodium 40 mg 04/19/18 08:00 04/20/18 08:43 Lovenox SC 40 mg DAILY@0800 [facility] Administration Levothyroxine Sodium 125 mcg 04/19/18 06:00 04/20/18 04:26 Synthroid PO 125 mcg DAILY@0600 [facility] Administration Metformin HCl 500 mg 04/18/18 18:00 04/20/18 08:42 Glucophage PO 500 mg BIDCM [facility] Administration Polyethylene Glycol 17 gm 04/19/18 08:00 04/20/18 08:47 Miralax PO Not Given DAILY@0800 [facility] Senna/Docusate Sodium 1 tablet 04/19/18 08:00 04/20/18 08:47 Senokot-S, Deb-Colace PO Not Given BID@0800,1800 ALON Tuberculin PPD 5 tu 04/26/18 10:00 Tubersol, Aplisol, Ppd ID 04/26/18 10:01 X1 ONE Problem List (Last Reviewed 04/15/18 @ 04:24 by Maximino Norman MD) Weakness (Acute) UTI (urinary tract infection) (Acute) Right wrist fracture (Acute) Diabetes mellitus (Chronic) Vital Signs Temp Pulse Resp BP Pulse Ox 97.6 F L 89 20 H 130/86 H 96 04/19/18 15:15 04/19/18 15:15 04/19/18 15:15 04/19/18 15:15 04/19/18 15:15 Oxygen Delivery Method Room Air Weight: 102.4 kg Body Mass Index (BMI) 33.3 Finger Stick Blood Glucose 162 Sodium 142 mmol/L (136-145) 04/19/18 05:20 Potassium 3.8 mmol/L (3.5-5.1) 04/19/18 05:20 Chloride 105 mmol/L (98-107) 04/19/18 05:20 Carbon Dioxide 29.0 mmol/L (21.0-32.0) 04/19/18 05:20 Anion Gap 8 (5-15) 04/19/18 05:20 BUN 14 mg/dL (7-18) 04/19/18 05:20 Creatinine 0.74 mg/dL (0.55-1.02) 04/19/18 05:20 Est GFR (MDRD) Af Amer 98 mL/min (>60) 04/19/18 05:20 Est GFR (MDRD) Non-Af 81 mL/min (>60) 04/19/18 05:20 BUN/Creatinine Ratio 18.8 RATIO (10-20) 04/19/18 05:20 Glucose 159 mg/dL (74-106) H 04/19/18 05:20 Assessment/Plan: 1) Pain APAP for mild pain. Continue to monitor prn medication use, daily pain scores. 2) HTN Amlodipine. Continue to monitor BP/HR. 3) DM2 Metformin twice daily, ASA. Continue to monitor BGT, renal function. 4) UTI Ciprofloxacin until 04/23. Continue to monitor s/s infection. 5) DVT PPx Enoxaparin daily. Continue to monitor for bleeding/clot. 6) Hypothyroidism Levothyroxine daily. Continue to monitor s/s hyper/hypothyroidism. Psychotropic Medications: 7) Depression Duloxetine daily. Continue to monitor s/s depression/anxiety. Unnecessary Medications: None Bowel Regimen: 8) Senna/s, PEG, prn bisacodyl. Continue to monitor prn medication use, for constipation/diarrhea. Date of Note:: 04/20/18 - Provider Comments Provider responsibility: Provider responsible to enter orders to implement recommendations <Celio Lynch Chi - Last Filed: 04/20/18 16:05> Progress Note - Pharmacy Subjective: [] Objective: Allergies amoxicillin Allergy (Verified 04/14/18 21:09) Unknown Penicillins [PCN] Allergy (Verified 04/14/18 21:09) Unknown Sulfa (Sulfonamide Antibiotics) Allergy (Verified 04/14/18 21:09) Unknown Current Medications Generic Name Dose Route Start Last Admin Trade Name Freq PRN Reason Stop Dose Admin Acetaminophen 1,000 mg 04/18/18 21:24 04/20/18 05:43 Tylenol PO 1,000 mg Q8H PRN PRN Administration MILD PAIN (1-3/10) Amlodipine Besylate 5 mg 04/19/18 06:00 04/20/18 04:26 Norvasc PO 5 mg DAILY ALON Administration Aspirin 81 mg 04/19/18 08:00 04/20/18 08:43 Aspirin, Baby PO 81 mg DAILY@0800 ALON Administration Bisacodyl 10 mg 04/18/18 21:23 Dulcolax PO DAILY PRN Constipation Cholecalciferol 1,000 unit 04/19/18 06:00 04/20/18 04:26 Vitamin D PO 1,000 unit DAILY ALON Administration Ciprofloxacin HCl 500 mg 04/19/18 10:00 04/20/18 10:29 Cipro PO 04/23/18 23:59 500 mg BID@1000,2200 ALON Administration Duloxetine HCl 60 mg 04/19/18 06:00 04/20/18 04:25 Cymbalta PO 60 mg DAILY ALON Administration Enoxaparin Sodium 40 mg 04/19/18 08:00 04/20/18 08:43 Lovenox SC 40 mg DAILY@0800 ALON Administration Levothyroxine Sodium 125 mcg 04/19/18 06:00 09/21/18 04:26 Synthroid PO 125 mcg DAILY@0600 [facility] Administration Metformin HCl 500 mg 04/18/18 18:00 04/20/18 08:42 Glucophage PO 500 mg BIDCM [facility] Administration Polyethylene Glycol 17 gm 04/19/18 08:00 04/20/18 08:47 Miralax PO Not Given DAILY@0800 [facility] Senna/Docusate Sodium 1 tablet 04/19/18 08:00 04/20/18 08:47 Senokot-S, Deb-Colace PO Not Given BID@0800,1800 [facility] Tuberculin PPD 5 tu 04/26/18 10:00 Tubersol, Aplisol, Ppd ID 04/26/18 10:01 X1 ONE Problem List (Last Reviewed 04/15/18 @ 04:24 by Maximino Norman MD) Weakness (Acute) UTI (urinary tract infection) (Acute) Right wrist fracture (Acute) Diabetes mellitus (Chronic) Vital Signs Temp Pulse Resp BP Pulse Ox 96.1 F L 82 16 127/75 H 93 04/20/18 15:14 04/20/18 15:14 04/20/18 15:14 04/20/18 15:14 04/20/18 15:14 Oxygen Delivery Method Room Air Weight: 102.4 kg Body Mass Index (BMI) 33.3 Finger Stick Blood Glucose 162 Sodium 142 mmol/L (136-145) 04/19/18 05:20 Potassium 3.8 mmol/L (3.5-5.1) 04/19/18 05:20 Chloride 105 mmol/L (98-107) 04/19/18 05:20 Carbon Dioxide 29.0 mmol/L (21.0-32.0) 04/19/18 05:20 Anion Gap 8 (5-15) 04/19/18 05:20 BUN 14 mg/dL (7-18) 04/19/18 05:20 Creatinine 0.74 mg/dL (0.55-1.02) 04/19/18 05:20 Est GFR (MDRD) Af Amer 98 mL/min (>60) 04/19/18 05:20 Est GFR (MDRD) Non-Af 81 mL/min (>60) 04/19/18 05:20 BUN/Creatinine Ratio 18.8 RATIO (10-20) 04/19/18 05:20 Glucose 159 mg/dL (74-106) H 04/19/18 05:20 Assessment/Plan: Psychotropic Medications: Unnecessary Medications: Bowel Regimen: - Provider Comments Provider responsibility: Provider responsible to enter orders to implement recommendations Provider Comments to Recommendations by Pharmacy: Agree
[2018-04-20 16:56] LABS: Bedside Glucose 135 mg/dL (70-110)
[2018-04-20 21:31] LABS: Bedside Glucose 113 mg/dL (70-110)
[2018-04-21] MEDS: Acetaminophen 500 MG Tablet 1000 MG PO ×2 (01:38→18:39)
[2018-04-21] MEDS: Levothyroxine 125 MCG Tablet PO (06:12)
[2018-04-21] MEDS: DULoxetine Hcl 60 MG Capsule PO (06:12)
[2018-04-21] MEDS: amLODIPine 5 MG Tablet PO (06:12)
[2018-04-21 06:36] LABS: Bedside Glucose 121 mg/dL (70-110)
[2018-04-21] MEDS: Aspirin 81 MG TAB.CHEW PO (09:01)
[2018-04-21] MEDS: Enoxaparin 40 MG/0.4 ML Syringe SC (09:01)
[2018-04-21] MEDS: Ciprofloxacin 500 MG Tablet PO ×2 (09:02→19:56)
[2018-04-21 11:51] LABS: Bedside Glucose 133 mg/dL (70-110)
[2018-04-21 15:34] VITALS: BP 128/72; PULSE 86; RESP 18; TEMP 36.9; O2SAT 96
[2018-04-21 17:25] LABS: Bedside Glucose 83 mg/dL (70-110)
[2018-04-21 21:30] LABS: Bedside Glucose 158 mg/dL (70-110)
[2018-04-22] MEDS: Acetaminophen 500 MG Tablet 1000 MG PO ×3 (02:44→20:00)
[2018-04-22] MEDS: DULoxetine Hcl 60 MG Capsule PO (05:46)
[2018-04-22] MEDS: amLODIPine 5 MG Tablet PO (05:46)
[2018-04-22] MEDS: Levothyroxine 125 MCG Tablet PO (05:46)
[2018-04-22] MEDS: Aspirin 81 MG TAB.CHEW PO (08:01)
[2018-04-22] MEDS: Enoxaparin 40 MG/0.4 ML Syringe SC (08:01)
[2018-04-22 08:05] LABS: Bedside Glucose 126 mg/dL (70-110)
[2018-04-22] MEDS: Ciprofloxacin 500 MG Tablet PO ×2 (10:32→19:58)
[2018-04-22 11:42] LABS: Bedside Glucose 101 mg/dL (70-110)
[2018-04-22 16:00] VITALS: BP 136/83; PULSE 95; RESP 16; TEMP 35.7; O2SAT 94
[2018-04-22 17:11] LABS: Bedside Glucose 145 mg/dL (70-110)
[2018-04-22 21:00] LABS: Bedside Glucose 106 mg/dL (70-110)
[2018-04-23] MEDS: Acetaminophen 500 MG Tablet 1000 MG PO (04:13)
[2018-04-23] MEDS: DULoxetine Hcl 60 MG Capsule PO (04:14)
[2018-04-23] MEDS: Levothyroxine 125 MCG Tablet PO (04:15)
[2018-04-23] MEDS: amLODIPine 5 MG Tablet PO (04:15)
[2018-04-23 06:26] LABS: Bedside Glucose 115 mg/dL (70-110)
[2018-04-23] MEDS: Ciprofloxacin 500 MG Tablet PO ×2 (09:21→20:27)
[2018-04-23] MEDS: Aspirin 81 MG TAB.CHEW PO (09:22)
[2018-04-23] MEDS: Enoxaparin 40 MG/0.4 ML Syringe SC (09:22)
[2018-04-23 09:45] VITALS: PULSE 66; RESP 18; O2SAT 96
[2018-04-23 11:16] LABS: Bedside Glucose 166 mg/dL (70-110)
[2018-04-23 15:31] VITALS: BP 148/82; PULSE 88; RESP 22; TEMP 36.3; O2SAT 94
[2018-04-23 17:11] LABS: Bedside Glucose 106 mg/dL (70-110)
[2018-04-23 21:41] LABS: Bedside Glucose 154 mg/dL (70-110)
--- NOTE | 2018-04-24 05:47 | NURSING ---
Pt reported to RN she wants to leave the hospital. Pt stated, I can not afford to lay here and do nothing why the bills pill up. Pt expressed many concerns about splint to rt wrist. Pt informed this nurse she wants to remove the denae wrap and splint and walk out. Pt reported to nurse multiple people live their whole life with broken wrists and are just fine. VM left with SW. Fresh ice water provided to pt. Pt denies further needs at this time.
[2018-04-24] MEDS: DULoxetine Hcl 60 MG Capsule PO (06:11)
[2018-04-24] MEDS: Levothyroxine 125 MCG Tablet PO (06:11)
[2018-04-24] MEDS: amLODIPine 5 MG Tablet PO (06:11)
[2018-04-24 07:06] LABS: Bedside Glucose 105 mg/dL (70-110)
[2018-04-24] MEDS: Aspirin 81 MG TAB.CHEW PO (08:26)
--- NOTE | 2018-04-24 09:14 | NURSING ---
Pt refusing lovenox injection at this time. Pt very upset stating she wants to discharge home today and she wants she splint off her arm, this nurse tried talking to Pt , Pt not willing to let this nurse speak atating that all we have is excuses and she just wants to go home.
--- NOTE | 2018-04-24 09:30 | CASEMGMT ---
Social Work Nursing staff reporting to this social service assistant that resident is wanting to discharge home. This social service assistant spoke with team, team is reporting that resident is not safe to discharge to home alone at this time. This social service assistant spoke with resident in room. This social service assistant introduced self as well as social work role. Resident reporting to be frustrated with current situation and not being able to take care of self. This social service assistant broached topic of home vs. facility. Resident is able to explain reasons for continuing with stay on the Transitional Care Unit and is open to continuing with stay but is frustrated with the time that this is taking to heal (resident pointed to right wrist). Resident appearing as physically frustrated with current situation as could be seen through facial expressions. Resident open to speaking with this social service assistant and collaborating on a discharge plan. Resident interested in assisted living, but reporting to have limited funds. This social service assistant educated resident on Medicaid waiver programs and how Medicaid application works along with the time that takes for a medicaid application to be processed. Resident reporting to have limited support and to have no one that is able to gather supportive documentation for Medicaid application. Resident is not sure about completing Medicaid application at this time and is wanting to think about things and have social service assistant follow up with resident at a later time. This social service assistant broaching resident mental health status. Resident reporting to have spoken with social work prior about possible mental health concerns. Resident receptive to talking about mental health and how mental health can impact resident current situation. Resident is wanting to primarily focus on getting well in regards to right wrist at this time and is not currently open to any community supports in regards to mental health. Emotional support provided. Will continue to follow up with resident. Thelma PULIDO, ATTENDANT LODGING FACILITIES
[2018-04-24 11:16] LABS: Bedside Glucose 166 mg/dL (70-110)
--- NOTE | 2018-04-24 14:28 | NURSING ---
pt returned from ortho appt with green hard cast to RT Forearm. no new orders.
--- NOTE | 2018-04-24 15:22 | MDS.RN ---
Pain interview for DIANA 04/25/18 completed.
[2018-04-24] MEDS: Acetaminophen 500 MG Tablet 1000 MG PO (15:32)
[2018-04-24 16:00] VITALS: BP 147/89; PULSE 108; RESP 20; TEMP 36.4; O2SAT 96
[2018-04-24 17:10] LABS: Bedside Glucose 121 mg/dL (70-110)
[2018-04-24 21:00] VITALS: RESP 16
[2018-04-24 21:16] LABS: Bedside Glucose 136 mg/dL (70-110)
[2018-04-25] MEDS: DULoxetine Hcl 60 MG Capsule PO (03:25)
[2018-04-25] MEDS: Acetaminophen 500 MG Tablet 1000 MG PO ×2 (03:25→19:47)
[2018-04-25] MEDS: amLODIPine 5 MG Tablet PO (03:25)
[2018-04-25] MEDS: Levothyroxine 125 MCG Tablet PO (03:25)
[2018-04-25 06:56] LABS: Bedside Glucose 109 mg/dL (70-110)
[2018-04-25] MEDS: Aspirin 81 MG TAB.CHEW PO (08:41)
--- NOTE | 2018-04-25 09:11 | CASEMGMT ---
Plan of care meeting held. Resident present, no support person present at this time. Resident reporting to have limited support in the community. Resident plans to be able to return to home alone. Resident is excited about cast being upgraded and able to now use right arm more. Resident expression change significantly from yesterday. Resident reporting to be happy today and hopeful. Resident to continue with further care and treatment on the Transitional Care Unit. Resident is reporting to be interested in assisted living options and completing a medicaid application. This delinquency prevention social worker to follow up with resident on Medicaid application and assisted living information. Support given. Will continue to follow for discharge planning and support. Thelma PULIDO, DIE CAST ENGINEER
--- NOTE | 2018-04-25 10:45 | NURSING ---
Per explosive ordnance handler, change diet to regular with no meats per patient request.
[2018-04-25 11:35] LABS: Bedside Glucose 101 mg/dL (70-110)
--- NOTE | 2018-04-25 13:57 | CASEMGMT ---
Brief interview for mental status (BIMS) and resident mood interview (PHQ-9) completed on this day. BIMS score 15/15. PHQ-9 score
--- NOTE | 2018-04-25 14:39 | CASEMGMT ---
Social Work Met with resident in room to complete medicaid application and discuss assisted living options. Resident is interested in waiver program for assisted living. Resident is open to having a referral made to [facility] to assist with process. Resident is also open to a referral being made to the [facility] for further support within the home prior to resident transition to an assisted living. Medicaid application was completed with resident and submitted to [facility] in [facility]. Resident planning to discharge to home alone and then transition to an assisted living setting if resident qualifies for the wavier program. Support given. Referral made to the [facility] Referral made to the [facility] - Masood Anthony. Will continue to follow. Thelma PULIDO, MARBLE MASON
[2018-04-25 16:00] VITALS: BP 163/81; PULSE 106; RESP 20; TEMP 35.9; O2SAT 93
[2018-04-25 17:21] LABS: Bedside Glucose 143 mg/dL (70-110)
[2018-04-25 21:25] LABS: Bedside Glucose 119 mg/dL (70-110)
[2018-04-26] MEDS: DULoxetine Hcl 60 MG Capsule PO (05:51)
[2018-04-26] MEDS: amLODIPine 5 MG Tablet PO (05:51)
[2018-04-26] MEDS: Levothyroxine 125 MCG Tablet PO (05:51)
[2018-04-26 06:51] LABS: Bedside Glucose 116 mg/dL (70-110)
[2018-04-26] MEDS: Aspirin 81 MG TAB.CHEW PO (08:55)
--- NOTE | 2018-04-26 10:14 | CCN.REFER ---
RE: CCN REFERRAL: THIS NURSE MET WITH PATIENT IN ROOM; INTRODUCED SELF AND ROLE; EXPLAINED CCN SERVICES; PT DECLINES AT PRESENT TIME, I DON'T NEED YOUR SERVICES.; EMAIL TO DAYNA ELLIS TCNguyễn TO UPDATE; WILL ATTEMPT TO CONTACT PT ONCE D/C FROM TCU. ATUL WILLARD
[2018-04-26 11:31] LABS: Bedside Glucose 173 mg/dL (70-110)
--- NOTE | 2018-04-26 14:42 | CASEMGMT ---
Social Work Spoke with resident in room. Resident requesting for discharge date to be set 05/01/18. Spoke with staff/therapy, 05/01/18 is an agreeable date. Resident plans to discharge to home alone. This social work specialist communicating that physical and occupational therapy are recommending for resident to have continued services within the home. Resident is agreeable to home health services. Resident reporting to have all needed durable medical equipment already set up within the home. Resident reporting to need transportation home. Resident does have an [facility] appointment on 05/01/18 at 1:30. Transportation will be set up to get resident to appointment and then to resident home after appointment. Resident reporting that there are no friends or family that need contacted in regards to discharge plan as resident does not have any support. Support given. Will continue to follow to set up discharge services. Proposed discharge date: 05/01/18 PLAN: Discharge to home alone with home health services. Thelma PULIDO, INDUSTRIAL LABORER
[2018-04-26 15:35] VITALS: BP 128/69; PULSE 88; RESP 20; TEMP 36; O2SAT 99
[2018-04-26 16:31] LABS: Bedside Glucose 118 mg/dL (70-110)
--- NOTE | 2018-04-26 20:25 | DCINST_ITS ---
- Discharge Diagnoses Current Active Problems: Current Active and Chronic Problems (Last Reviewed 04/15/18 @ 04:24 by Maximino Norman MD) Weakness (Acute) UTI (urinary tract infection) (Acute) Right wrist fracture (Acute) Diabetes mellitus (Chronic) You will use the following diet at home:: No restrictions, Regular Your food should be the consistency of: Regular Your liquids should be the consistency of: Regular/Thin Discharge Activity: Return to Normal Activity, May Shower, Use Walker Weight Bearing Status: Weight bearing as tolerated Call your doctor if you observe: Fever of 101 or Higher, Inability to urinate, Inability to have a bowel movement, Shortness of breath, Chest pain, Uncontrolled pain Allergies/Adverse Reactions: Allergies amoxicillin Allergy (Verified 04/14/18 21:09) Unknown Penicillins [PCN] Allergy (Verified 04/14/18 21:09) Unknown Sulfa (Sulfonamide Antibiotics) Allergy (Verified 04/14/18 21:09) Unknown Medications to take at Discharge Aspirin [Aspirin, Baby] 81 mg PO DAILY@0800 04/15/18 Amlodipine Besylate [Norvasc] 5 mg PO QDAY 04/18/18 Cholecalciferol (VIT D3) [Vitamin D3] 1,000 unit PO DAILY 04/18/18 Duloxetine HCl [Cymbalta] 60 mg PO QDAY 04/18/18 Levothyroxine Sodium [Synthroid] 125 mcg PO DAILY 04/18/18 Metformin HCl 500 mg PO BID 04/18/18 Acetaminophen [Tylenol] 1,000 mg PO Q8H PRN PRN tablet 04/26/18 Primary Care Physician: Karl Monaco MD [Primary Care Provider] - Please follow up with your Primary Care Physician in: 1 week. Test Results: Test results from this visit will be discussed in further detail at your follow- up appointment, if applicable. Please Follow Up With: Bello WHALEN When: 05/01/2018 Please Follow Up With: Timmy Duran Proposed Discharge Date: 04/01/18
--- NOTE | 2018-04-26 20:27 | DS.PCM_ITS ---
Discharge Date and Diagnosis - Problem List Patient Problems: Active and Suspected Problems (Last Reviewed 04/15/18 @ 04:24 by Maximino Nroman MD) Weakness (Acute) UTI (urinary tract infection) (Acute) Right wrist fracture (Acute) Date of Admission: 04/18/18 Date of Discharge: 05/01/18 - Primary Discharge Diagnosis Active and Suspected Problems (Last Reviewed 04/15/18 @ 04:24 by Maximino Norman MD) Weakness (Acute) UTI (urinary tract infection) (Acute) Right wrist fracture (Acute) - Secondary Discharge Diagnosis Chronic Problems (Last Reviewed 04/15/18 @ 04:24 by Maximino Norman MD) Diabetes mellitus (Chronic) GERD (gastroesophageal reflux disease) (Chronic) Neuropathy (Chronic) Arthritis (Chronic) Depression (Chronic) Anxiety (Chronic) PAOD (peripheral arterial occlusive disease) (Chronic) Hypothyroidism (Chronic) Hyperlipidemia (Chronic) Hypertension (Chronic) Iron deficiency anemia (Chronic) Diabetic neuropathy (Chronic) Type 2 diabetes mellitus (Chronic) Closed right ankle fracture (Chronic) PAD (peripheral artery disease) (Chronic) Status post stenting of the right lower extremity CVA (cerebral vascular accident) (Chronic) Asthma (Chronic) Fibromyalgia (Chronic) Hospital Course and Treatment Imaging Results: 04/25/18 10:44 Diet: Regular Diet Is pt able to select menu?: Yes Diet Comments: NO MEATS Labs (Last 48 Hours) 04/24/18 04/25/18 04/25/18 21:13 06:31 11:28 POC Glucose 136 H 109 101 04/25/18 04/25/18 04/26/18 17:05 21:09 06:40 POC Glucose 143 H 119 H 116 H 04/26/18 04/26/18 11:25 16:21 POC Glucose 173 H 118 H Operations: None Procedures: None Summary of Care Provided: The patient is a 72 year old Female with below past medical history hospitalized for weakness secondary to urinary tract infection, complicated by recent right wrist fracture, admitted to TCU with debility, here for rehabilitation, strengthening, prior to discharge to [facility] nursing facility. Resident changed her mind about going [facility] pen[facility]. Discharge home alone, with Home Health Services. Discharge Diet: No Restrictions Discharge Activity: Return to Normal Activity, May Shower, Use Walker Weight Bearing Status: Weight bearing as tolerated Call your doctor if you observe: Fever of 101 or Higher, Inability to urinate, Inability to have a bowel movement, Shortness of breath, Chest pain, Uncontrolled pain Home Medications: Medications to take at Discharge Aspirin [Aspirin, Baby] 81 mg PO DAILY@0800 04/15/18 Amlodipine Besylate [Norvasc] 5 mg PO QDAY 04/18/18 Cholecalciferol (VIT D3) [Vitamin D3] 1,000 unit PO DAILY 04/18/18 Duloxetine HCl [Cymbalta] 60 mg PO QDAY 04/18/18 Levothyroxine Sodium [Synthroid] 125 mcg PO DAILY 04/18/18 Metformin HCl 500 mg PO BID 04/18/18 Acetaminophen [Tylenol] 1,000 mg PO Q8H PRN PRN tablet 04/26/18 Primary Care Physician: Karl Monaco MD [Primary Care Provider] - Please follow up with your Primary Care Physician in: 1 week. Please Follow Up With: Bello WHALEN When: 05/01/2018 Please Follow Up With: Timmy Duran Disposition: Home with Home Health Minutes spent on discharge:: 35 Patient Condition:: Stable Medical Necessity - Tobacco Use Smoking Status: Never smoker Tobacco Use: Non-smoker Meaningful Use Info Meaningful Use Diagnoses (Choose all that apply): None applicable
--- NOTE | 2018-04-26 20:28 | PCM.PN.HH ---
Home Health Note - Plan Overview of reason of hospitalization: The patient is a 72 year old Female with below past medical history hospitalized for weakness secondary to urinary tract infection, complicated by recent right wrist fracture, admitted to TCU with debility, here for rehabilitation, strengthening, prior to discharge to [facility] facility. Resident changed her mind about going to care home. Discharge home alone, with Home Health Services. Problems: Patient was seen for (Last Reviewed 04/15/18 @ 04:24 by Maximino Norman MD) Weakness (Acute) UTI (urinary tract infection) (Acute) Right wrist fracture (Acute) Diabetes mellitus (Chronic) Complete List of Medical Problems (Last Reviewed 04/15/18 @ 04:24 by Maximino Norman MD) Multiple falls (Acute) Debility (Acute) Acute cystitis (Acute) Weakness (Acute) UTI (urinary tract infection) (Acute) Right wrist fracture (Acute) Diabetes mellitus (Chronic) Tachycardia (Acute) GERD (gastroesophageal reflux disease) (Chronic) Neuropathy (Chronic) History of stroke (Acute) History of blood clots (Acute) Arthritis (Chronic) History of ankle fracture (Acute) Depression (Chronic) Anxiety (Chronic) PAOD (peripheral arterial occlusive disease) (Chronic) Hypothyroidism (Chronic) Hyperlipidemia (Chronic) Hypertension (Chronic) Iron deficiency anemia (Chronic) Diabetic neuropathy (Chronic) Frostbite of both buttocks (Acute) Fall (Acute) Type 2 diabetes mellitus (Chronic) Closed right ankle fracture (Chronic) PAD (peripheral artery disease) (Chronic) CVA (cerebral vascular accident) (Chronic) Asthma (Chronic) Fibromyalgia (Chronic) - Requirements and Reasons Disciplines Needed/Ordered: Physical Therapy Reason for Disciplines: Gait Training, Stair Training, Fall Prevention, Home Safety/Equipment Instruction, Balance and/or Posture Training, Transfer Training Related To: Physical Impairments, Unsteady Gait/Balance, Fall Risk Patient is unable to leave the home: Without Aid of Supportive Devices (crutches, cane, wheelchair, walker), Without the assistance of another person - Additional Disciplines Additional Disciplines Needed/Ordered: Occupational Therapy
[2018-04-26 20:30] VITALS: PULSE 80; RESP 20; O2SAT 98
[2018-04-26 21:21] LABS: Bedside Glucose 118 mg/dL (70-110)
[2018-04-27] MEDS: DULoxetine Hcl 60 MG Capsule PO (05:36)
[2018-04-27] MEDS: amLODIPine 5 MG Tablet PO (05:36)
[2018-04-27] MEDS: Levothyroxine 125 MCG Tablet PO (05:36)
[2018-04-27 06:51] LABS: Bedside Glucose 97 mg/dL (70-110)
[2018-04-27] MEDS: Aspirin 81 MG TAB.CHEW PO (08:36)
[2018-04-27] MEDS: Acetaminophen 500 MG Tablet 1000 MG PO (14:59)
[2018-04-27 15:41] VITALS: BP 143/66; PULSE 84; RESP 18; TEMP 36.6; O2SAT 96
--- NOTE | 2018-04-27 16:32 | CASEMGMT ---
Social Work Spoke with resident in room. Resident is requesting for home health services to be set up through [facility] ([facility]). Resident also reporting to need transportation set up for appointment and then would like the transportation company to drop resident off at home after appointment on 05/01/18. Resident reporting to have all needed durable medical equipment already set up within the home. Support given. [facility] [place] social work nurse making referral for physical and occupational therapy. Order completed. Telephone call to [facility], Transportation set up for 05/01/18 at 1:00pm to [facility] for 1:30 appointment then [facility] will provide transportation for resident to resident's home. Transportation form completed and placed with resident discharge information. Proposed discharge date: 05/01/18 PLAN: Discharge to home with home health services. Pending Care Network Referral. Thelma PULIDO, MACHINE CAGE MAKER
--- NOTE | 2018-04-27 19:47 | NURSING ---
Dr. Lynch notified of patient refusing Lovenox x 3 days. Orders given to d/c Lovenox.
[2018-04-28] MEDS: amLODIPine 5 MG Tablet PO (05:14)
[2018-04-28] MEDS: DULoxetine Hcl 60 MG Capsule PO (05:14)
[2018-04-28] MEDS: Levothyroxine 125 MCG Tablet PO (05:14)
[2018-04-28 07:01] LABS: Bedside Glucose 141 mg/dL (70-110)
[2018-04-28] MEDS: Aspirin 81 MG TAB.CHEW PO (08:44)
[2018-04-28 08:46] VITALS: PULSE 83; O2SAT 94
[2018-04-28 16:00] VITALS: BP 153/84; PULSE 103; RESP 20; TEMP 36.4; O2SAT 95
[2018-04-28] MEDS: Acetaminophen 500 MG Tablet 1000 MG PO (18:40)
[2018-04-29] MEDS: DULoxetine Hcl 60 MG Capsule PO (05:04)
[2018-04-29] MEDS: amLODIPine 5 MG Tablet PO (05:04)
[2018-04-29] MEDS: Acetaminophen 500 MG Tablet 1000 MG PO ×2 (05:04→22:00)
[2018-04-29] MEDS: Levothyroxine 125 MCG Tablet PO (05:04)
[2018-04-29 07:01] LABS: Bedside Glucose 154 mg/dL (70-110)
[2018-04-29] MEDS: Aspirin 81 MG TAB.CHEW PO (08:21)
[2018-04-29 15:23] VITALS: BP 159/76; PULSE 97; RESP 18; TEMP 36.3; O2SAT 94
--- NOTE | 2018-04-29 23:57 | NURSING ---
Pt complaint of headache that she states she has had all day. Tylenol ineffective. Pt demanding Dr. Lynch be called. Dr. Lynch updated. Orders entered.
[2018-04-30] MEDS: traMADol 50 MG Tablet PO (00:05)
[2018-04-30] MEDS: amLODIPine 5 MG Tablet PO (06:03)
[2018-04-30] MEDS: Levothyroxine 125 MCG Tablet PO (06:03)
[2018-04-30] MEDS: DULoxetine Hcl 60 MG Capsule PO (06:03)
[2018-04-30 07:01] LABS: Bedside Glucose 126 mg/dL (70-110)
[2018-04-30] MEDS: Aspirin 81 MG TAB.CHEW PO (08:34)
--- NOTE | 2018-04-30 09:59 | MDS.RN ---
Information for the mds was obtained from review of the clinical record, interview of resident, staff, and direct observation of resident's care.
[2018-04-30 15:27] VITALS: BP 148/75; PULSE 89; RESP 14; TEMP 36.6; O2SAT 97
--- NOTE | 2018-04-30 16:09 | CASEMGMT ---
Social Work Resident now requesting for home health referral to be canceled. Resident reporting to be able to do home exercise program and to have thought about it and to not want people coming into the home. This criminal justice social worker encouraged resident to try the home therapy and maybe see how it goes, resident declining and asking for this criminal justice social worker to cancel referral. Support given. [facility] This criminal justice social worker canceling referral at this time. Proposed discharge date: 05/01/18 PLAN: Discharge to home alone. Thelma PULIDO, JUNIOR MEDIA BUYER
[2018-05-01] MEDS: Acetaminophen 500 MG Tablet 1000 MG PO (00:52)
[2018-05-01] MEDS: amLODIPine 5 MG Tablet PO (04:42)
[2018-05-01] MEDS: DULoxetine Hcl 60 MG Capsule PO (04:42)
[2018-05-01] MEDS: Levothyroxine 125 MCG Tablet PO (04:43)
[2018-05-01 06:00] VITALS: PULSE 70; RESP 18; O2SAT 96
[2018-05-01 06:46] LABS: Bedside Glucose 95 mg/dL (70-110)
[2018-05-01] MEDS: Aspirin 81 MG TAB.CHEW PO (08:37)
[2018-05-01 12:45] VITALS: BP 150/69; PULSE 94; RESP 16; TEMP 36.7; O2SAT 96
--- NOTE | 2018-05-03 16:04 | CASEMGMT ---
Social Work Telephone call from local squad team informing this social media developer that the squad was called by resident today to come and assist resident in getting up from the couch. The squad reported that resident requesting for this social media developer to give resident a call in regards to assistance within the home. Telephone call to resident. Resident is now agreeable to home health services and requesting for this social media developer to make referral to [facility] ([facility]). Resident reporting to believe that home health could assist resident in training on how to get up from the couch and other furniture that is low. Resident reporting to be able to get around the home okay but to only be able to get up from high surfaces. Resident reporting to be feeling well and to also have a question about how to get to primary care appointment through [facility]. This social media developer educating resident on [facility] transportation program and provided resident with the number. Resident planning to call to set up the transportation. Resident thanked this social media developer and plans to call this social media developer if there are any more questions or concerns. Resident reporting to feel safe and to have food at home. Support given. Telephone call to [facility], Ragini. This social media developer making referral for physical and occupational therapy. Ragini to contact this social media developer back in regards to approval. Will continue to follow as needed. Thelma PULIDO, HAND SHOE CUTTER
--- NOTE | 2018-05-03 16:26 | CASEMGMT ---
Social Work Ragini from Home health contacting this social service liaison back. Resident approved and is able to be accepted. No further orders need to be obtained at this time. Ragini reporting that home health plans to start tomorrow. No further needs at this time. Thelma PULIDO, SPACE OPERATIONS
== END 2018-05-01 13:00 | disposition home or self-care (01) | DRG 948 ==
PROVIDERS: Admitting Provider Family Medicine Geriatric Medicine; Family Provider Internal Medicine; PCP Internal Medicine; Visit Provider Family Medicine Geriatric Medicine
DX: R53.81 Other malaise (principal); N39.0 Urinary tract infection, site not specified; S62.101D Fracture of unspecified carpal bone, right wrist, subsequent encounter for fracture with routine healing; W19.XXXD Unspecified fall, subsequent encounter; K21.9 Gastro-esophageal reflux disease without esophagitis; M19.90 Unspecified osteoarthritis, unspecified site; M79.7 Fibromyalgia; E11.51 Type 2 diabetes mellitus with diabetic peripheral angiopathy without gangrene; E78.5 Hyperlipidemia, unspecified; E11.40 Type 2 diabetes mellitus with diabetic neuropathy, unspecified; E03.9 Hypothyroidism, unspecified; I10 Essential (primary) hypertension; F41.9 Anxiety disorder, unspecified; F32.9 Major depressive disorder, single episode, unspecified; J45.909 Unspecified asthma, uncomplicated; Z79.899 Other long term (current) drug therapy; Z79.82 Long term (current) use of aspirin; Z79.84 Long term (current) use of oral hypoglycemic drugs
CPT/HCPCS: 36415; 80048; 82962; 85025; 97110; 97116; 97163; 97166; 97530; 97535; 97802

== ENCOUNTER 2018-06-07 07:01 | Inpatient (IN) | payer MEDICARE, OTHER, SELFPAY ==
[2018-06-07] VITALS (14 sets, daily range): BP systolic 109–155; BP diastolic 53–91; PULSE 75–90; RESP 16–18; TEMP 36.2–36.9; O2SAT 94–100; BMI 40.6; BMI 33.7
[2018-06-07] MEDS: HYDROcodone Bitartrate/Apap 5/325 Tablet PO (07:21)
--- NOTE | 2018-06-07 07:24 | ED.VISSUMM ---
- ER Visit Summary Date of Service: 06/07/18 Chief Complaint: Back pain History of Present Illness: The patient is a 72 F with low back pain. The pain started 6 days ago. She denies any injury or inciting event. She has been trying Biofreeze over the last several days, but it has not been helping. She does have back pain from time to time, and normally it resolves with Biofreeze. She has not tried anything else. It is worse with movement and weightbearing. She has been using a cane for stability. Denies any associated symptoms like abdominal pain, urinary symptoms mild loss of bowel or bladder, anesthesia, weakness, paresthesias, fever, or generalized illness. Physical Examination: Afebrile and vital signs unremarkable. Patient is alert and oriented. No acute distress. Heart regular rate and rhythm. Lungs clear. Abdomen soft and nontender. Back has right paraspinal lumbar tenderness but is otherwise unremarkable. Straight leg raise is negative. Good strength and sensation. Normal skin. No edema. Normal pulses. Test Results: Lumbar x-rays and urinalysis pending. Emergency Department Course and Treatment: Patient treated with [place] while awaiting results. I have low suspicion for fracture, but because of her age and increasing pain, I did check an x-ray series. I also have low suspicion for UTI however given her unilateral back pain and history of UTIs, I did want to check. There is nothing to suggest vascular, GI, , or ATMOSPHERIC PHYSICS PROFESSOR pathology otherwise. Urinalysis shows signs of infection. Her x-rays show no acute spinal abnormalities, but she does have a right side calcification concerning for ureteral calculus versus bowel content. Will check a CT as this could possibly be the source of her right side back pain if it is a stone. Patient did have a stone, 8 x 7 mm at the right UVJ with hydronephrosis and hydroureter. Patient is still having intermittent pain. She was not doing well at home with the amount of pain she was having and does not feel comfortable going home. I spoke with the urologist, Dr. Costa and she will be admitted. CBC and BMP are pending at the time of this dictation. Treatment Plan: As above Disposition: Admission Impression: 1. Right ureteral colic This note was generated with [employer] software. It may contain incorrect words, spelling, and punctuation that were not noted in review of the chart prior to signing ED Disposition - Plan for ED Patient: Chief Complaint: Back Referrals: Karl Monaco MD [STAFF PHYSICIAN] -
--- NOTE | 2018-06-07 07:28 | ED.DCSUM_ITS ---
- ER Visit Summary Date of Service: 06/07/18 Chief Complaint: Back pain History of Present Illness: The patient is a 72 F with low back pain. The pain started 6 days ago. She denies any injury or inciting event. She has been trying Biofreeze over the last several days, but it has not been helping. She d oes have back pain from time to time, and normally it resolves with Biofreeze. She has not tried anything else. It is worse with movement and weightbearing. She has been using a cane for stability. Denies any associated symptoms like abdominal pain, urinary symptoms mild loss of bowel or bladder, anesthesia, weakness, paresthesias, fever, or generalized illness. Physical Examination: Afebrile and vital signs unremarkable. Patient is alert and oriented. No acute distress. Heart regular rate and rhythm. Lungs clear. Abdomen soft and nontender. Back has right paraspinal lumbar tenderness but is otherwise unremarkable. Straight leg raise is negative. Good strength and sensation. Normal skin. No edema. Normal pulses. Test Results: Lumbar x-rays and urinalysis pending. Emergency Department Course and Treatment: Patient treated with [place] while awaiting results. I have low suspicion for fracture, but because of her age and increasing pain, I did check an x-ray series. I also have low suspicion for UTI however given her unilateral back pain and history of UTIs, I did want to check. There is nothing to suggest vascular, GI, , or LABORER CONCRETE PLANT pathology otherwise. Urinalysis shows signs of infection. Her x-rays show no acute spinal abnormalities, but she does have a right side calcification concerning for ureteral calculus versus bowel content. Will check a CT as this could possibly be the source of her right side back pain if it is a stone. Patient did have a stone, 8 x 7 mm at the right UVJ with hydronephrosis and hydroureter. Patient is still having intermittent pain. She was not doing well at home with the amount of pain she was having and does not feel comfortable going home. I spoke with the urologist, Dr. Costa and she will be admitted. CBC and BMP are pending at the time of this dictation. Treatment Plan: As above Disposition: Admission Impression: 1. Right ureteral colic This note was generated with [employer] software. It may contain incorrect words, spelling, and punctuation that were not noted in review of the chart prior to signing ED Disposition - Plan for ED Patient: Chief Complaint: Back Referrals: Karl Monaco MD [STAFF PHYSICIAN] -
--- NOTE | 2018-06-07 07:34 | RAD_ITS ---
STUDY: X-RAY - LUMBAR SPINE REASON FOR EXAM: Female, 72 years old. Low back pain. TECHNIQUE: 3 view(s) of the lumbar spine were obtained. COMPARISON: None FINDINGS: Normal lumbar lordosis. There is no substantial scoliosis. There is a normal alignment of the vertebrae. Normal vertebral bodies and endplates. Normal disc space heights. Amorphic calcification below the right L2 transverse process is uncertain for ureteral calculus or bowel related content. RAD/Lumbar Spine 2 or 3 Views IMPRESSION: 1. Normal x-ray examination of the lumbar spine. 2. 10 mm amorphic calcific density below the right L2 transverse process. Right ureteral calculus versus bowel wall related content. Electronically Signed: Thiago Payne MD at 8:27 EST , Service support ,
[2018-06-07 08:17] LABS: Mucous, Urine 0 SEEN /hpf (<or=2+); Red Blood Cells-Urine 0 SEEN /hpf (0-5)
[2018-06-07 08:24] LABS: Glucose, Dipstick Normal (Normal); Ketone-Dipstick 5 mg/dl (Negative); Leukocyte Esterase-Dipstick 500 /ul (Negative); Nitrite-Dipstick Negative (Negative); Occult Blood-Urine 10 /ul (Negative); Protein-Dipstick 30 mg/dl (Negative); Specific Gravity, Urine 1.025 (1.002-1.030); Urine Bilirubin Dipstick Negative (Negative); Urine Urobilinogen 1 mg/dl (Normal)
[2018-06-07 08:32] LABS: Color, Urine Yellow (Yellow); Urine Clarity Clear (Clear)
[2018-06-07 08:35] LABS: Calcium Oxalate Crystals Ur RARE /hpf (<or=2+)
[2018-06-07 08:36] LABS: Bacteria RARE /hpf (None Seen); Squamous Epithelial Cells - UA 0-5 SEEN /hpf (5-10); White Blood Cells 5-10 SEEN /hpf (0-5)
--- NOTE | 2018-06-07 09:24 | CT_ITS ---
STUDY: CT ABDOMEN AND PELVIS WITHOUT CONTRAST REASON FOR EXAM: Female, 72 years old. Right flank pain. RADIATION DOSAGE (If Supplied By Facility): CTDIvol = ( 19.78 ) mGy, DLP = ( 1062.58 ) mGycm TECHNIQUE: Transaxial images were obtained from the dome of the diaphragm to the symphysis pubis without oral contrast, and without intravenous contrast. Sagittal and coronal images were reconstructed. Individualized dose optimization techniques were used for this CT. COMPARISON: None. FINDINGS: Mild degree of increased markings at the lung bases more prominent at the left lung base suggestive of scarring. Coronary artery calcification. Normal liver. Normal gallbladder and extrahepatic biliary system. Normal spleen. Normal pancreas. Normal bilateral adrenal glands. Mild to moderate degree of right hydronephrosis and proximal right hydroureter with perinephric and periureteric stranding due to a 8.2 mm x 7.4 mm calculus at the right ureteropelvic junction. A 3 mm calculus is also seen in the lower pole calyx of the right kidney. Normal left kidney. Normal visualized stomach. Normal small intestine. Moderate amount of fecal material is seen in the colon. The appendix is visualized and appears normal. There is diffuse atherosclerotic calcification of the abdominal aorta, without a demonstrated aneurysm. Normal inferior vena cava. Normal retroperitoneum. Normal urinary bladder. Fibroid uterus. I suspect endometrial thickening measuring 1.6 cm. Clinical correlation is recommended. Normal abdominal wall. Normal osseous structures. CT/Abdomen/Pelvis without Cont IMPRESSION: 8.2 mm x 7.4 mm calculus at the right ureteropelvic junction with right hydronephrosis and hydroureter. Fibroid uterus and endometrial thickening. Electronically Signed: Partha Roth MD at 10:34 EST Tel [phone], Service support ,
[2018-06-07] MEDS: 0.9% Normal Saline 1,000 ML 1000 ML IV (12:02)
[2018-06-07 12:12] LABS: Absolute Neutrophil Count 7.6 X10^3/uL (2.0-7.7); Basophil# 0.02 X10^3/uL; Basophil% 0.2 % (0-1); Eosinophil# 0.06 X10^3/uL; Eosinophils% 0.6 % (0-5); Hematocrit 41.7 % (37-47); Hemoglobin 13.3 g/dl (12.0-15.0); Mean Corp Hgb Conc 31.9 g/gl (32-36); Mean Corpuscular Hgb 26.4 pg (27.0-32.0); Mean Corpuscular Volume 82.7 fL (81-99); Monocyte# 1.26 X10^3/uL; Monocyte% 11.8 % (0-10); Neutrophil # 7.57 X10^3/uL (2.7-7.7); Neutrophil % 71.1 % (47-70); Platelet Count 362 K/mm3 (150-450); RBC Distribution Width CV 17.9 % (11.6-14.6); RBC Distribution Width SD 53.8 fl (35.1-43.9); Red Blood Count 5.04 M/mm3 (4.2-5.4); White Blood Count 10.6 K/mm3 (4.4-11.0)
[2018-06-07 12:13] LABS: POSITIVE COUNT NO; POSITIVE DIFFERENTIAL NO; POSITIVE MORPHOLOGY NO
--- NOTE | 2018-06-07 12:19 | ED.RN ---
REPORT OMI CHU.
--- NOTE | 2018-06-07 12:21 | ED.RN ---
APOLOGIZED MULTIPLE TIMES TO OMI CHU, I MISS UNDERSTOOD. I THOUGHT THE PT WAS GOING THE THE FLOOR THE TO OR.
[2018-06-07 12:24] LABS: Anion Gap 10 (5-15); BUN 18 mg/dL (7-18); BUN/Creat Ratio 16.1 RATIO (10-20); Calcium,Total 10.1 mg/dL (8.5-10.1); Chloride 99 mmol/L (98-107); Creatinine, Serum 1.12 mg/dL (0.55-1.02); EST Glomerular Filtration Rate 50 mL/min (>60); Est Glom Filt Rate - Afr Amer 61 mL/min (>60); Estimated Creatinine Clearance 46.05 ml/min; Glucose 111 mg/dL (74-106); Potassium 3.3 mmol/L (3.5-5.1); Sodium Level 137 mmol/L (136-145)
--- NOTE | 2018-06-07 12:42 | PCM.HP.STD ---
History of Present Illness Date of Admission: 06/07/18 Chief Complaint: Right obstructive kidney stone The patient is a 72 year old female who has an obstructing kidney stone presented to the emergency room with severe pain plan to admit the patient today place a stent on the right side and then discharge her when she is stable then we will set her up for an outpatient shockwave lithotripsy of the stone. Past Medical History Past Medical History (Chronic Problems): Chronic Problems (Last Reviewed 04/15/18 @ 04:24 by Maximino Norman MD) Diabetes mellitus (Chronic) GERD (gastroesophageal reflux disease) (Chronic) Neuropathy (Chronic) Arthritis (Chronic) Depression (Chronic) Anxiety (Chronic) PAOD (peripheral arterial occlusive disease) (Chronic) Hypothyroidism (Chronic) Hyperlipidemia (Chronic) Hypertension (Chronic) Iron deficiency anemia (Chronic) Diabetic neuropathy (Chronic) Type 2 diabetes mellitus (Chronic) Closed right ankle fracture (Chronic) PAD (peripheral artery disease) (Chronic) Status post stenting of the right lower extremity CVA (cerebral vascular accident) (Chronic) Asthma (Chronic) Fibromyalgia (Chronic) Medical History: Medical History (Last Reviewed 04/15/18 @ 04:24 by Maximino Norman MD) GERD (gastroesophageal reflux disease) (Chronic) K21.9 Neuropathy (Chronic) G62.9 History of stroke (Acute) Z86.73 History of blood clots (Acute) Z86.718 Arthritis (Chronic) M19.90 History of ankle fracture (Acute) Z87.81 Allergies amoxicillin Allergy (Verified 06/07/18 07:03) Unknown Penicillins [PCN] Allergy (Verified 06/07/18 07:03) Unknown Sulfa (Sulfonamide Antibiotics) Allergy (Verified 06/07/18 07:03) Unknown Home Medications: Ambulatory Orders Medication Instructions Recorded Aspirin [Aspirin, Baby] 81 mg PO DAILY@0800 04/15/18 Amlodipine Besylate [Norvasc] 5 mg PO QDAY 04/18/18 Cholecalciferol (VIT D3) [Vitamin 1,000 unit PO DAILY 04/18/18 D3] Duloxetine HCl [Cymbalta] 60 mg PO QDAY 04/18/18 Levothyroxine Sodium [Synthroid] 125 mcg PO DAILY 04/18/18 Metformin HCl 500 mg PO BID 04/18/18 Acetaminophen [Tylenol] 1,000 mg PO Q8H PRN PRN tablet 04/26/18 Surgical History: noncontributory, - - Stent right lower extremity, thyroid surgery. 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, Depression APPRENTICESHIP REPRESENTATIVE History: No pertinent APPRENTICESHIP REPRESENTATIVE history Lives: Alone Smoking Status: Never smoker Tobacco Use: Non-smoker Alcohol: None Drugs: None - *Family History Maternal Family History: Family History (Last Reviewed 04/15/18 @ 04:20 by Maximino Norman MD) Grandmother Cancer Aunt Diabetes History Items: - - lung cancer Sibling Family History: Family History (Last Reviewed 04/15/18 @ 04:20 by Maximino Norman MD) Grandmother Cancer Aunt Diabetes History Items: - - diabetes Review of Systems Constitutional: Denies: Chills, Fever, Weight Change HEENT: Denies: Head Aches, Sinus Congestion, Sinus Drainage Cardiovascular: Denies: Chest Pain, Palpitations Respiratory: Denies: Cough, Shortness of breath at rest, Sputum production Gastrointestinal: Reports: Abdominal Pain. Denies: Nausea, Vomiting Genitourinary: Denies: Dysuria Musculoskeletal: Denies: Joint Pain, Joint Tenderness Skin: Denies: Rash, Wounds Neurological: Denies: Numbness, Tingling, Focal weakness Psychiatric: Denies: Anxiety, Depression, Homicidal Ideations, Suicidal Ideations Hematologic/ Lymphatic: Denies: Easy Bruising, Easy Bleeding VTE Information - Inpt Only VTE Present on Admission: No VTE Mechan Device Prophylaxis: SCD's - Physical Exam General: Alert, Oriented x3, Cooperative HEENT: Atraumatic, PERRLA, EOMI, Normocephalic Neck: Supple, No JVD, Negative Carotid Bruits Lungs: Clear to auscultation, Normal air movement Cardiovascular: Regular rate, No murmurs Abdomen: Bowel Sounds Present, Soft, Non Tender Extremities: No edema, Capillary Refill Less than 3 Seconds Skin: No rashes, No breakdown Musculoskeletal: No Tenderness to Palpation of Joints or Extremities Neurological: Cranial nerves II-XII grossly intact Psych/Mental Status: Normal Affect, Appropriate Vital Signs Temp Pulse Resp BP Pulse Ox 97.3 F L 82 18 109/80 95 06/07/18 07:03 06/07/18 12:22 06/07/18 07:03 06/07/18 12:22 06/07/18 12:22 Oxygen Delivery Method Room Air Weight: 124.738 kg Body Mass Index (BMI) 40.6 Finger Stick Blood Glucose 162 Laboratory Tests Past 24 Hrs 06/07/18 06/07/18 06/07/18 08:15 12:03 12:03 WBC 10.6 RBC 5.04 Hgb 13.3 Hct 41.7 MCV 82.7 MCH 26.4 L MCHC 31.9 L RDW 17.9 H RDW Differential 53.8 H Plt Count 362 MPV 12.0 Immature Gran % (Auto) 0.300 Neut % (Auto) 71.1 H Lymph % (Auto) 16.0 L [place] % (Auto) 11.8 H Eos % (Auto) 0.6 Baso % (Auto) 0.2 Absolute Neuts (auto) 7.6 Absolute Lymphs (auto) 1.70 Total Counted Not Reportable Sodium 137 Potassium 3.3 L Chloride 99 Carbon Dioxide 28.0 Anion Gap 10 BUN 18 Creatinine 1.12 H Estim Creat Clear Calc 46.05 Est GFR (MDRD) Af Amer 61 Est GFR (MDRD) Non-Af 50 L BUN/Creatinine Ratio 16.1 Glucose 111 H Calcium 10.1 Urine Color Yellow Urine Clarity Clear Urine pH 6.0 Ur Specific [place] 1.025 Urine Protein 30 H Urine Glucose (UA) Normal Urine Ketones 5 H Urine Occult Blood 10 H Urine Nitrite Negative Urine Bilirubin Negative Urine Urobilinogen 1 H Ur Leukocyte Esterase 500 H Urine RBC 0 SEEN Urine WBC 5-10 SEEN Ur Squamous Epith Cells 0-5 SEEN Calcium Oxalate Crystal RARE Urine Bacteria RARE Urine Mucus 0 SEEN Assessment/Plan All Active Problems (Last Reviewed 04/15/18 @ 04:24 by Maximino Norman MD) Multiple falls (Acute) Debility (Acute) Acute cystitis (Acute) Weakness (Acute) UTI (urinary tract infection) (Acute) Right wrist fracture (Acute) Tachycardia (Acute) History of stroke (Acute) History of blood clots (Acute) History of ankle fracture (Acute) Frostbite of both buttocks (Acute) Fall (Acute) Admit for pain control from right large kidney stone plan to place a stent today prior to discharge patient home tomorrow and then we will set her up for outpatient shockwave lithotripsy of the stone.
[2018-06-07] MEDS: Cefazolin 1 GM/50 ML BAG IV (13:00)
[2018-06-07] MEDS: Lidocaine Jelly 2% 20 ML Syringe (URO-JET) 20 APPLIC (13:00)
--- NOTE | 2018-06-07 13:07 | OP.PCM_ITS ---
Report of Operation Date of Procedure: 06/07/18 Pre-Operative Diagnosis: Right obstructive ureteral calculi Post-Operative Diagnosis: Same Surgery/Procedure Performed:: Cystoscopy and right stent placement Description of Surgical Findings:: 72-year-old female taken back to the operating with the smooth induction of MAC local she is placed in dorsal lithotomy position the urethra and vaginal area prepped and draped in usual sterile fashion, went into the bladder with a 21 Turk[place] rigid cystourethroscope cannulated the right ureter orifice with a Glidewire advanced up to the kidney I could see the wire hit the stone and then after the manipulation was able to get the stone out of the way and the wire up into the kidney and then over the wire advanced a stent and I placed a 6 Turkmen by 26 cm stent passed the stone from the stone into the bladder pulled the wire the stent coiled in the kidney and bladder in good position was left in good position drain the bladder the patient anesthetic is currently being reversed plan to admit the patient overnight for pain control and then will discharge her home and plan to set up for ESWL next available date. Type of Anesthesia:: Local MAC Drains: stent right side - Admit VTE Documentation VTE Present on Admission: No VTE Mechan Device Prophylaxis: SCD's
[2018-06-07 14:06] LABS: Bedside Glucose 104 mg/dL (70-110)
[2018-06-07] MEDS: 0.9% Normal Saline 1,000 ML 75 ML IV (14:42)
[2018-06-07] MEDS: DULoxetine Hcl 60 MG Capsule PO (16:56)
[2018-06-07] MEDS: amLODIPine 5 MG Tablet PO (16:56)
[2018-06-07 17:05] LABS: Bedside Glucose 170 mg/dL (70-110)
--- NOTE | 2018-06-07 21:19 | NURSING ---
Pt refused SCDs and took continuious pulse ox off and would not wear. Pt was educated on IS and refused to use it, said she might use it 06/08.
[2018-06-07] MEDS: Ciprofloxacin 500 MG Tablet PO (21:32)
[2018-06-07] MEDS: Acetaminophen 500 MG Tablet PO (22:59)
--- NOTE | 2018-06-07 23:00 | NURSING ---
Per request of Cathy BRAGA, this RN gave patient prn Tylenol for pain. Patient very frustrated when entering room, saying what kind of fucking [facility] establishment is this to not have Tylenol available? Did you have to go make it? This RN informed patient that we, as RN's, cannot give a med without a doctor's order. It took two different pages via carbon dioxide operator to the physician to get the order and then extra time for pharmacy to verify. Pt was not happy with that response and said next time I come in I will be bringing my own Aleve and maybe also a gun. Nursing blood donor recruiter supervisor made aware.
--- NOTE | 2018-06-08 03:01 | NURSING ---
Per request of Cathy BRAGA, this RN gave patient prn Tylenol for pain. Patient very frustrated when entering room, saying what kind of fucking [facility] establishment is this to not have Tylenol available? Did you have to go make it? This RN informed patient that we, as RN's, cannot give a med without a doctor's order. It took two different pages via top bottom attaching machine operator to the physician to get the order and then extra time for pharmacy to verify. Pt was not happy with that response and said next time I come in I will be bringing my own Aleve and maybe also a gun. Nursing instrumentation supervisor made aware.
[2018-06-08 03:30] VITALS: BP 145/75; PULSE 83; RESP 18; TEMP 36.4; O2SAT 97
[2018-06-08] MEDS: 0.9% Normal Saline 1,000 ML 75 ML IV (04:00)
[2018-06-08] MEDS: Acetaminophen 500 MG Tablet PO ×2 (04:15→10:58)
[2018-06-08] MEDS: Levothyroxine 125 MCG Tablet PO (06:54)
[2018-06-08 06:59] LABS: Hematocrit 35.3 % (37-47); Mean Corp Hgb Conc 31.2 g/gl (32-36); Mean Corpuscular Hgb 25.9 pg (27.0-32.0); Mean Corpuscular Volume 83.1 fL (81-99); Mean Platelet Vol. 12.6 fl (6.2-12.0); Platelet Count 254 K/mm3 (150-450); RBC Distribution Width CV 17.5 % (11.6-14.6); RBC Distribution Width SD 52.3 fl (35.1-43.9); Red Blood Count 4.25 M/mm3 (4.2-5.4); White Blood Count 6.4 K/mm3 (4.4-11.0)
[2018-06-08 07:01] LABS: Scan Indicated on CBC? Y/N NO
--- NOTE | 2018-06-08 07:01 | DCINST_ITS ---
Discharge Diet: Light diet - advance as tolerated Discharge Activity: Return to Normal Activity Call your doctor if your incision/area has: Continuous Slow Oozing, Sudden Increased Bleeding, Increased Pain/ Swelling, Increased Redness, Foul Smelling Discharge, Swelling at the incision site Call your doctor if you observe: Fever of 101 or Higher Suture Line Care: Avoid Pulling/Pushing, Avoid Pinching/Bending Allergies/Adverse Reactions: Allergies amoxicillin Allergy (Verified 06/07/18 07:03) Unknown Penicillins [PCN] Allergy (Verified 06/07/18 07:03) Unknown Sulfa (Sulfonamide Antibiotics) Allergy (Verified 06/07/18 07:03) Unknown Medications to take at Discharge Aspirin [Aspirin, Baby] 81 mg PO DAILY@0800 04/15/18 Amlodipine Besylate [Norvasc] 5 mg PO QDAY 04/18/18 Cholecalciferol (VIT D3) [Vitamin D3] 1,000 unit PO DAILY 04/18/18 Duloxetine HCl [Cymbalta] 60 mg PO QDAY 04/18/18 Levothyroxine Sodium [Synthroid] 125 mcg PO DAILY 04/18/18 Metformin HCl 500 mg PO BID 04/18/18 Acetaminophen [Tylenol] 1,000 mg PO Q8H PRN PRN tablet 04/26/18 Ciprofloxacin [Cipro] 500 mg PO BID #6 tab 06/08/18 Ibuprofen 600 mg PO 4X/DAY #20 tab 06/08/18 Primary Care Physician: Karl Monaco MD [STAFF PHYSICIAN] - Test Results: Test results from this visit will be discussed in further detail at your follow- up appointment, if applicable. Please Follow Up With: Dong Costa MD When: call to get set up for surgery for kidney stone and remove stent
[2018-06-08 07:09] LABS: Anion Gap 8 (5-15); BUN 14 mg/dL (7-18); BUN/Creat Ratio 21.3 RATIO (10-20); Calcium,Total 9.1 mg/dL (8.5-10.1); Chloride 109 mmol/L (98-107); Creatinine, Serum 0.66 mg/dL (0.55-1.02); EST Glomerular Filtration Rate 93 mL/min (>60); Est Glom Filt Rate - Afr Amer 113 mL/min (>60); Estimated Creatinine Clearance 51.58 ml/min; Glucose 144 mg/dL (74-106); Potassium 3.3 mmol/L (3.5-5.1); Sodium Level 142 mmol/L (136-145)
[2018-06-08] MEDS: Aspirin 81 MG TAB.CHEW PO (09:06)
[2018-06-08] MEDS: Ciprofloxacin 500 MG Tablet PO (09:07)
[2018-06-08 09:09] VITALS: BP 128/69; PULSE 78; RESP 18; TEMP 36.9; O2SAT 94
[2018-06-08] MEDS: DULoxetine Hcl 60 MG Capsule PO (10:41)
[2018-06-08] MEDS: amLODIPine 5 MG Tablet PO (10:41)
--- NOTE | 2018-06-08 11:29 | NURSING ---
CALLED FOR TRANSPORTATION WITH [facility]. WILL PICK PT UP AT NOON.
[2018-06-08 12:01] VITALS: BP 132/68; PULSE 80; RESP 18; TEMP 36.7; O2SAT 95
--- NOTE | 2018-06-13 13:05 | CM.ED ---
Social Work Note Updated by RN John ENGLISH, that Nilda from Dr. Costa's office had called stating that the pt was not making sense and was saying she has no one to help her. Upon a chart review it appears that the pt was established with [facility] on 05/03 of this year. Placed a call to Ragini Lutz with [facility] who reports that they discharged the pt in mid April after therapy saw her 4x and stated she did not require in home therapy. Jamie ochoa with [facility] had seen the pt and educated to community resources and the pt supposedly declined all services including CCN and expressed frustration with the [facility]. Declining services is not abnormal for the pt. Placed call to Dr. Costa's office at [phone] and pressed option 5 as directed. Left a vm for Belen requesting a return phone call to determine what the intention of the referral was. Will await a return phone call to assist further if necessary. Eduarda Smith, PROCESS IMPROVEMENT CONSULTANT, INDEX CLERK
== END 2018-06-08 11:54 | disposition home or self-care (01) | DRG 661 ==
LOC: ED 11:58 → SDC 12:10 → AC 12:13 → MS2 13:25 → SDC 14:00 → MS2 14:09
PROVIDERS: Admitting Provider Urology; Emergency Provider Emergency Medicine; Family Provider Nurse Practitioner Family; PCP Nurse Practitioner Family; Visit Provider Urology
PROC: 0T768DZ Dilation of Right Ureter with Intraluminal Device, Via Natural or Artificial Opening Endoscopic (ICD-10-PCS; principal; 2018-06-07 07:20)
DX: N13.2 Hydronephrosis with renal and ureteral calculous obstruction (principal); E11.40 Type 2 diabetes mellitus with diabetic neuropathy, unspecified; Z79.84 Long term (current) use of oral hypoglycemic drugs; E03.9 Hypothyroidism, unspecified
CPT/HCPCS: 36415; 72100; 74176; 76000; 80048; 81001; 82962; 85025; 85027; 99285; J7030; C1769; C2617

== ENCOUNTER 2018-06-22 05:08 | Inpatient (IN) | payer MEDICARE, OTHER, SELFPAY ==
[2018-06-22 05:09] VITALS: BP 156/84; PULSE 93; RESP 16; TEMP 36.7; O2SAT 96; BMI 29.5
--- NOTE | 2018-06-22 05:42 | CT_ITS ---
STUDY: CT ABDOMEN AND PELVIS WITHOUT CONTRAST REASON FOR EXAM: Female, 72 years old. Right flank pain RADIATION DOSAGE (If Supplied By Facility): CTDIvol = ( 19.00 ) mGy, DLP = ( 1058.37 ) mGycm TECHNIQUE: Transaxial 2.5 mm images were obtained from the dome of the diaphragm to the symphysis pubis without oral contrast, and without intravenous contrast. Sagittal and coronal images were reconstructed. This examination is limited for the evaluation of gastrointestinal, solid organs and vascular structures due to the lack of intravenous and oral contrast. Individualized dose optimization techniques were used for this CT. COMPARISON: CT abdomen and pelvis 06/07/2018 FINDINGS: Mild stable interstitial changes likely scarring in the lung bases. There is coronary artery calcification. Normal liver. Normal gallbladder and extrahepatic biliary system. Normal spleen. There is stable accessory splenic tissue. Normal pancreas. Normal bilateral adrenal glands. Double-J stent in the right collecting system with the proximal coil in the renal pelvis, distal coil in the urinary bladder with a renal pelvic calculus of 0.5 x 0.8 x 0.9 cm ( AP x width x height ). No further calcification seen along the ureteral course. There is moderate right hydronephrosis. Minimal hyperattenuation layering along the dependent portion of the dilated inferior right collecting system . Previously small calculus in the right inferior renal pole is not visualized There is no hydroureter. There is no left obstructive uropathy, left renal or ureteral calculi. Normal visualized stomach. Normal small intestine. Normal colon. The appendix is visualized and appears normal. There is stable atherosclerosis of the abdominal aorta, greater branches and pelvic arteries without aneurysm or leak. Normal inferior vena cava. Normal retroperitoneum. Normal urinary bladder. Bulky contoured uterus with calcification in the anterior uterine fundus consistent with approximately 1.5 cm fibroid. The region is low attenuated and dilated to 1.7 cm which is abnormal for the patient's age. Normal abdominal wall. There are diffuse degenerative changes of the visualized spine and bilateral hip and sacroiliac joints and lower lumbar facet joints. CT/Abdomen/Pelvis without Cont IMPRESSION: Interval placement of double-J stent with previously seen obstructing right UPJ calculus positioned in the dilated right renal pelvis. The hydronephrosis is mild to moderate in degree, possibly minimally decreased since previous examination. Previously seen nonobstructing small inferior renal pole calculus is not visualized, however there is layering hyperattenuation along the right inferior dilated collecting system which may be granular material or possible residual retained contrast. Abnormal endometrium, not significantly changed, consideration for follow-up pelvic ultrasound recommended if not previously performed. Other nonacute findings as outlined above. Electronically Signed: Keri Caballero MD at 6:53 EST , Service support ,
--- NOTE | 2018-06-22 05:48 | ED.DCSUM_ITS ---
- ER Visit Summary Date of Service: 06/22/18 Chief Complaint: right side pain History of Present Illness: The patient is a 72 F with chronic back pain who presents for one day of right side pain. Patient is a poor historian and is unable to specify exactly where she hurts. She denies any history of injury. She denies any nausea, vomiting, diarrhea, fever, urinary symptoms. She has had similar pain but is unable to explain when or what that was. She has not taken any pain medication at home for her pain. She is not on any blood thinners. Patient is diabetic. She lives alone at home. Physical Examination: Vital signs: afebrile, hemodynamically stable, no hypoxia on room air General: well nourished, well developed, obese, in no distress Skin: warm, dry, no rash, no pallor HEENT: normocephalic and atraumatic; PERRL, EOMI, moist mucous membranes Cardiovascular: regular rate and rhythm without murmurs, no peripheral edema, 2+ pulses all distal extremities Respiratory: No increased work of breathing, lungs are clear to auscultation bilaterally, no rales, rhonchi or wheezing Abdominal: Abdomen is soft, tender in the right lower quadrant and right lower back with normoactive bowel sounds, no guarding or rebound, no masses, no rash MSK: Moves all extremities, no deformities, normal strength, no pain with internal/external rotation of right hip Neuro: Awake and alert, oriented ?4. No facial droop, sensation and motor function intact and symmetric Test Results: Abnormal Lab Results 06/22/18 06/22/18 05:25 05:25 WBC 8.8 RBC 5.09 Hgb 13.0 Hct 40.9 MCV 80.4 L MCH 25.5 L MCHC 31.8 L RDW 17.2 H RDW Differential 50.7 H Plt Count 383 MPV 12.7 H Immature Gran % (Auto) 0.200 Neut % (Auto) 77.0 H Lymph % (Auto) 12.8 L [place] % (Auto) 7.8 Eos % (Auto) 1.9 Baso % (Auto) 0.3 Absolute Neuts (auto) 6.8 Absolute Lymphs (auto) 1.13 Total Counted Not Reportable Sodium 140 Potassium 3.0 L Chloride 104 Carbon Dioxide 25.0 Anion Gap 11 BUN 11 Creatinine 0.76 Estim Creat Clear Calc 48.00 Est GFR (MDRD) Af Amer 95 Est GFR (MDRD) Non-Af 79 BUN/Creatinine Ratio 14.4 Glucose 154 H Calcium 9.2 Clinical Impression(s) from Imaging Studies Abdomen/Pelvis CT 06/22/18 05:42 IMPRESSION: Interval placement of double-J stent with previously seen obstructing right UPJ calculus positioned in the dilated right renal pelvis. The hydronephrosis is mild to moderate in degree, possibly minimally decreased since previous examination. Previously seen nonobstructing small inferior renal pole calculus is not visualized, however there is layering hyperattenuation along the right inferior dilated collecting system which may be granular material or possible residual retained contrast. Abnormal endometrium, not significantly changed, consideration for follow-up pelvic ultrasound recommended if not previously performed. Other nonacute findings as outlined above. Electronically Signed: Keri Caballero MD at 6:53 EST , Service support , Medications Given Discontinued Medications Acetaminophen (Tylenol) 1,000 mg PO X1 ONE Stop: 06/22/18 06:20 Last Admin: 06/22/18 06:25 Dose: 1,000 mg Potassium Chloride (K-Dur) 40 meq PO X1 ONE Stop: 06/22/18 07:08 Emergency Department Course and Treatment: Patient is a poor historian and it is unclear exactly what her complaint is, but she does have tenderness to palpation of the low back in the right lower quadrant. Chart review was performed and shows that earlier this month she had a right ureteral stent placed by Dr. Costa for an obstructing stone. patient was ordered morphine and Zofran for symptomatic relief, however she refused these medications, stating morphine was too strong and she was not nauseated. The Zofran was to prevent nausea secondary to the morphine. Patient was then prescribed Tylenol. Labs showed no leukocytosis, and showed mild hypokalemia, which is an ongoing issue compared to patient's prior labs. She was given oral repletion. CT the abdomen and pelvis was performed and shows the right ureteral stent in place. No acute findings noted that would require emergent intervention. Patient was able to ambulate w ithout any difficulty. Urinalysis is still pending due to patient being uncooperative in providing a urine sample. Patient was discussed with Dr. Costa, who states patient should be on the schedule for lithotripsy and stent removal. He requested patient be started on antibiotics in the meantime with a urine culture pending. Patient states she is scheduled for July 04 for her appointment with Dr. Costa. Urine did return and showed infection. Patient started on cipro for complicated UTI. She is to keep her appointment, and was strongly encouraged to call the office to see if she can get an earlier appointment. Patient was very upset and states she lives at home alone and has no one to take care of her. I asked her if she felt she needed placement in a nursing facility since she does not feel she can take care of herself, and patient became very argumentative and would not answer the question. If she decides she would like assistance, she is to let me know. Otherwise patient will be discharged home with her antibiotic prescription and her follow-up in place with Dr. Costa. Treatment Plan: [] Disposition: [] Impression: complicated UTI, history of right ureteral stent placement This note was generated with [employer] dictation software. It may contain incorrect words, spelling, and punctuation that were not noted in review of the chart prior to signing ED Disposition - Plan for ED Patient: Disposition: Home or Assisted Living Chief Complaint: Flank Pain Instructions: ED Stone Renal W Colic Prescriptions: Ciprofloxacin [Cipro] 250 mg PO BID #14 tab Referrals: Karl Monaco MD [STAFF PHYSICIAN] - Dong Costa MD [STAFF PHYSICIAN] - Keep Hannah appointment Additional Instructions: Take the antibiotic twice daily as prescribed. Use Tylenol as needed for pain. Call Dr. Costa's office today or Monday to confirm when your appointment to have your stent removed is. If you have any worsening of your condition or any new concerning symptoms, please return immediately to the emergency department for another evaluation.
[2018-06-22 05:59] LABS: Absolute Lymphocyte Count 1.13 X10^3/ul (0.83-4.51); Absolute Neutrophil Count 6.8 X10^3/uL (2.0-7.7); Basophil# 0.03 X10^3/uL; Basophil% 0.3 % (0-1); Eosinophil# 0.17 X10^3/uL; Eosinophils% 1.9 % (0-5); Hematocrit 40.9 % (37-47); Lymphocyte # 1.13 X10^3/ul (4.0); Lymphocyte % 12.8 % (19-41); Mean Corp Hgb Conc 31.8 g/gl (32-36); Mean Corpuscular Hgb 25.5 pg (27.0-32.0); Mean Corpuscular Volume 80.4 fL (81-99); Mean Platelet Vol. 12.7 fl (6.2-12.0); Monocyte# 0.69 X10^3/uL; Monocyte% 7.8 % (0-10); Neutrophil # 6.76 X10^3/uL (2.7-7.7); Platelet Count 383 K/mm3 (150-450); RBC Distribution Width CV 17.2 % (11.6-14.6); RBC Distribution Width SD 50.7 fl (35.1-43.9); Red Blood Count 5.09 M/mm3 (4.2-5.4); White Blood Count 8.8 K/mm3 (4.4-11.0)
[2018-06-22 06:00] LABS: Anion Gap 11 (5-15); BUN 11 mg/dL (7-18); BUN/Creat Ratio 14.4 RATIO (10-20); Calcium,Total 9.2 mg/dL (8.5-10.1); Chloride 104 mmol/L (98-107); Creatinine, Serum 0.76 mg/dL (0.55-1.02); EST Glomerular Filtration Rate 79 mL/min (>60); Est Glom Filt Rate - Afr Amer 95 mL/min (>60); Glucose 154 mg/dL (74-106); POSITIVE COUNT NO; POSITIVE DIFFERENTIAL NO; POSITIVE MORPHOLOGY NO; Sodium Level 140 mmol/L (136-145)
--- NOTE | 2018-06-22 06:05 | ED.RN ---
PT YELLED AT [facility] RN WHEN SHE WA TRYING TO PLACE AN IV--UNSUCESSFUL --HOW LONG HAVE YOU BEEN A NURSE? WHEN THE NURSE RESPONDED 8 YEARS,THE PT SAID,NOT LONG ENOUGH!!! PT THEN REFUSED THE BSC WHEN OFFERRED TO HER INSTEAD INSISTED SHE GO TO THE BATHROOM.WHEN THIS NURSE BROUGHT HER A WALKER SHE C/O IT NOT HAVING WHEELS.HELPED PT TO THE BATHROOM AND INSTRUCTED HER ABOUT OBTAINING THE URINE.PT THEN VOIDED IN THE TOILET AND C/O NOT BEING ABLE TO GET OFF THE TOILET.WITH ASSIST OF 2 AND THEN WALKER GOT THE PT OFF THE TOILET.PT THEN STATES,IF YOU GUYS HURT ME I'LL ELYSSA YOU! PT THEN WALKED BACK TO HER BED COMPLAINING ABOUT HOW SHE HAS NEVER HEARD OF A WALKER WITHOUT WHEELS.WENT TO GIVE THE PT MORPHINE AND ZOFRAN AND SHE REFUSED THAT. AWARE.
[2018-06-22] MEDS: Acetaminophen 500 MG Tablet 1000 MG PO (06:25)
--- NOTE | 2018-06-22 06:30 | ED.RN ---
PT CAME BACK FROM CAT SCAN AND STATED,GET THIS SHIT OFF OF ME. REMOVED BLANKETS FROM PT AND PLACED A SHEET ON HER PER HER REQUEST.
[2018-06-22 07:24] LABS: Mucous, Urine 0 SEEN /hpf (<or=2+)
[2018-06-22 07:28] LABS: Color, Urine Yellow (Yellow); Glucose, Dipstick Normal (Normal); Ketone-Dipstick Negative (Negative); Leukocyte Esterase-Dipstick 500 /ul (Negative); Nitrite-Dipstick Negative (Negative); Occult Blood-Urine 250 /ul (Negative); Protein-Dipstick 100 mg/dl (Negative); Specific Gravity, Urine 1.015 (1.002-1.030); Urine Bilirubin Dipstick Negative (Negative); Urine Clarity Cloudy (Clear); Urine Urobilinogen 1 mg/dl (Normal); Urine pH 6.5 (5.0 - 8.0)
[2018-06-22 07:34] LABS: Bacteria 2+ /hpf (None Seen); Hyaline Cast 0-5 SEEN /lpf (0-5); Red Blood Cells-Urine 10-25 SEEN /hpf (0-5); Squamous Epithelial Cells - UA 0-5 SEEN /hpf (5-10); White Blood Cells 10-25 SEEN /hpf (0-5)
--- NOTE | 2018-06-22 07:36 | ED.DEP ---
ED Disposition - Plan for ED Patient: Disposition: Home or Assisted Living Chief Complaint: Flank Pain Instructions: ED Stone Renal W Colic Prescriptions: Ciprofloxacin [Cipro] 250 mg PO BID #14 tab Referrals: Karl Monaco MD [STAFF PHYSICIAN] - Dong Costa MD [STAFF PHYSICIAN] - Keep Hannah appointment Additional Instructions: Take the antibiotic twice daily as prescribed. Use Tylenol as needed for pain. Call Dr. Costa's office today or Monday to confirm when your appointment to have your stent removed is. If you have any worsening of your condition or any new concerning symptoms, please return immediately to the emergency department for another evaluation.
[2018-06-22] MEDS: Ciprofloxacin 250 MG Tablet PO (07:51)
[2018-06-22 07:54] VITALS: BP 138/95; PULSE 82; RESP 14; O2SAT 92
--- NOTE | 2018-06-22 08:18 | HP.PCM_ITS ---
History of Present Illness Date of Admission: 06/22/18 Chief Complaint: right flank pain The patient is a 72 year old F with an extensive past medical history as listed below. She was admitted through the ED on 1120 started 1 day prior to admission. Pain was rated at 8 out of 10. It radiated across her back with no aggravating or relieving factors. She had no stiff fever or chills, dysuria or frequency of urination or offensive urine. She denies any chest pain, shortness of breath, abdominal pain, diarrhea vomiting. She came in the ED and was found to have a UTI by urinalysis. She had recently had a right kidney stent placed on account of kidney stones. Patient was supposed to be discharged after being managed for UTI on outpatient basis; however she stated that she did not have anyone to look after her at home and would want to be placed in a detention. Patient is therefore being admitted to be managed for complicated UTI and for placement. She was started on ciprofloxacin. [] Past Medical History Past Medical History (Chronic Problems): Chronic Problems (Last Reviewed 04/15/18 @ 04:24 by Maximino Norman MD) Diabetes mellitus (Chronic) GERD (gastroesophageal reflux disease) (Chronic) Neuropathy (Chronic) Arthritis (Chronic) Depression (Chronic) Anxiety (Chronic) PAOD (peripheral arterial occlusive disease) (Chronic) Hypothyroidism (Chronic) Hyperlipidemia (Chronic) Hypertension (Chronic) Iron deficiency anemia (Chronic) Diabetic neuropathy (Chronic) Type 2 diabetes mellitus (Chronic) Closed right ankle fracture (Chronic) PAD (peripheral artery disease) (Chronic) Status post stenting of the right lower extremity CVA (cerebral vascular accident) (Chronic) Asthma (Chronic) Fibromyalgia (Chronic) Medical History: Medical History (Last Reviewed 04/15/18 @ 04:24 by Maximino Norman MD) GERD (gastroesophageal reflux disease) (Chronic) K21.9 Neuropathy (Chronic) G62.9 History of stroke (Acute) Z86.73 History of blood clots (Acute) Z86.718 Arthritis (Chronic) M19.90 History of ankle fracture (Acute) Z87.81 Allergies amoxicillin Allergy (Verified 06/22/18 05:12) Unknown Penicillins [PCN] Allergy (Verified 06/22/18 05:12) Unknown Sulfa (Sulfonamide Antibiotics) Allergy (Verified 06/22/18 05:12) Unknown Home Medications: Ambulatory Orders Medication Instructions Recorded Aspirin [Aspirin, Baby] 81 mg PO DAILY@0800 04/15/18 Amlodipine Besylate [Norvasc] 5 mg PO QDAY 04/18/18 Cholecalciferol (VIT D3) [Vitamin 1,000 unit PO DAILY 04/18/18 D3] Duloxetine HCl [Cymbalta] 60 mg PO BID 04/18/18 Levothyroxine Sodium [Synthroid] 125 mcg PO DAILY 04/18/18 Metformin HCl 500 mg PO BID 04/18/18 Acetaminophen [Tylenol] 650 mg PO Q6H PRN PRN 06/22/18 Surgical History: - - Stent right lower extremity, thyroid surgery. 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 Lives: Alone Smoking Status: Never smoker Alcohol: Occasional - *Family History Maternal Family History: Family History (Last Reviewed 04/15/18 @ 04:20 by Maximino Norman MD) Grandmother Cancer Aunt Diabetes History Items: - - lung cancer Sibling Family History: Family History (Last Reviewed 04/15/18 @ 04:20 by Maximino Norman MD) Grandmother Cancer Aunt Diabetes History Items: - - diabetes Review of Systems Constitutional: Denies: Chills, Fever, Malaise, Weakness, Weight Change, Fatigue Eyes: Denies: Blurred vision HEENT: Denies: Head Aches, Sinus Congestion, Sinus Drainage Cardiovascular: Denies: Chest Pain, Palpitations Respiratory: Denies: Cough, Shortness of Breath, Shortness of breath at rest, Sputum production Gastrointestinal: Denies: Abdominal Pain, Nausea, Vomiting Genitourinary: Denies: Dysuria Musculoskeletal: Reports: Back Pain. Denies: Joint Pain, Joint Tenderness Skin: Denies: Rash, Wounds Neurological: Denies: Numbness, Tingling, Focal weakness Psychiatric: Denies: Anxiety, Depression, Homicidal Ideations, Suicidal Ideations Hematologic/ Lymphatic: Denies: Easy Bruising, Easy Bleeding VTE Information - Inpt Only VTE Present on Admission: No VTE Pharm Prophylaxis ordered?: Yes - Physical Exam General: Alert, Oriented x3, Cooperative, No apparent distress HEENT: Atraumatic, PERRLA, EOMI, Normocephalic Oral: Moist Mucosa Neck: Supple, No JVD, Negative Carotid Bruits Lungs: Clear to auscultation, Normal air movement, No rhonchi, No wheeze, No rales Cardiovascular: Regular rate, Regular Rhythm, Normal S1, Normal S2, No murmurs Abdomen: Bowel Sounds Present, Soft, Non Tender, Non-Distended, No Hepato- splenomegaly, - - no costophrenic angle tenderness bilaterally Extremities: No clubbing, No cyanosis, No edema, Capillary Refill Less than 3 Seconds Skin: No rashes, No breakdown Musculoskeletal: No Tenderness to Palpation of Joints or Extremities Lymphatic: No Cervical, Supraclavicular, or Inguinal Adenopathy Neurological: Cranial nerves II-XII grossly intact, Neuro grossly intact, Motor Exam 5/5 strength throughout Psych/Mental Status: Normal Affect, Appropriate, Alert and oriented to time, place, person, mood and affect Vital Signs Temp Pulse Resp BP Pulse Ox 98.0 F 82 14 138/95 H 92 06/22/18 05:09 06/22/18 07:54 06/22/18 07:54 06/22/18 07:54 06/22/18 07:54 Oxygen Delivery Method Room Air Weight: 188 lb 7.924 oz Body Mass Index (BMI) 29.5 Finger Stick Blood Glucose 104 Laboratory Tests Past 24 Hrs 06/22/18 06/22/18 06/22/18 05:25 05:25 07:20 WBC 8.8 RBC 5.09 Hgb 13.0 Hct 40.9 MCV 80.4 L MCH 25.5 L MCHC 31.8 L RDW 17.2 H RDW Differential 50.7 H Plt Count 383 MPV 12.7 H Immature Gran % (Auto) 0.200 Neut % (Auto) 77.0 H Lymph % (Auto) 12.8 L [place] % (Auto) 7.8 Eos % (Auto) 1.9 Baso % (Auto) 0.3 Absolute Neuts (auto) 6.8 Absolute Lymphs (auto) 1.13 Total Counted Not Reportable Sodium 140 Potassium 3.0 L Chloride 104 Carbon Dioxide 25.0 Anion Gap 11 BUN 11 Creatinine 0.76 Estim Creat Clear Calc 48.00 Est GFR (MDRD) Af Amer 95 Est GFR (MDRD) Non-Af 79 BUN/Creatinine Ratio 14.4 Glucose 154 H Calcium 9.2 Urine Color Yellow Urine Clarity Cloudy Urine pH 6.5 Ur Specific [place] 1.015 Urine Protein 100 H Urine Glucose (UA) Normal Urine Ketones Negative Urine Occult Blood 250 H Urine Nitrite Negative Urine Bilirubin Negative Urine Urobilinogen 1 H Ur Leukocyte Esterase 500 H Urine RBC 10-25 SEEN Urine WBC 10-25 SEEN Ur Squamous Epith Cells 0-5 SEEN Urine Bacteria 2+ Hyaline Casts 0-5 SEEN Urine Mucus 0 SEEN Diagnostic Data Abdomen/Pelvis CT 06/22/18 05:42 IMPRESSION: Interval placement of double-J stent with previously seen obstructing right UPJ calculus positioned in the dilated right renal pelvis. The hydronephrosis is mild to moderate in degree, possibly minimally decreased since previous examination. Previously seen nonobstructing small inferior renal pole calculus is not visualized, however there is layering hyperattenuation along the right inferior dilated collecting system which may be granular material or possible residual retained contrast. Abnormal endometrium, not significantly changed, consideration for follow-up pelvic ultrasound recommended if not previously performed. Other nonacute findings as outlined above. Electronically Signed: Keri Caballero MD at 6:53 EST , Service support , Assessment/Plan All Active Problems (Last Reviewed 04/15/18 @ 04:24 by Maximino Norman MD) Multiple falls (Acute) Debility (Acute) Acute cystitis (Acute) Weakness (Acute) UTI (urinary tract infection) (Acute) Right wrist fracture (Acute) Tachycardia (Acute) History of stroke (Acute) History of blood clots (Acute) History of ankle fracture (Acute) Frostbite of both buttocks (Acute) Fall (Acute) 72-year-old female presenting with a complaint of right flank pain. 1. Complicated UTI * has history of right kidney stone with placement of J tube stent a few weeks ago * UA showed evidence of UTI; urine culture pending. * Abdominopelvic CT scan showed double-J stent previously seen obstructing right UPJ calculus in the right distal renal pelvis. Mild to moderate hydronephrosis. * admit to Med surg. * start IV ciprofloxacin 400mg q12. * consult placed to Dr Costa- discussed patient with him, he will place patient on schedule for tomorrow to remove stent 2. Right ureteric calculus: as described under 1. To have stent removal tomorrow. Will keep nPO past midnight. 3. Abnormal endometrium * as picked up per CT scan. Bulky uterus with low attenuation of region, dilated to 1.7cm, which is abnnormal for patients age. Recommend follow up pelvic USG for follow up * 4. Right wrist pain: * says she fractured her right wrist sometime ago. * She still has pain in right wrist, but refuses an xray as she says it wont make any difference, and she has already had it xrayed by her PCP some weeks ago, and she doesnt think there will be any benefit to repeating it. * tylenol for pain * 5. Hypokalemia: Potassium is 3. We will replace and monitor 6. Hypothyroidism: On Synthroid 125 mg daily. We will continue 7. Diabetes mellitus: On metformin. Hold metformin in light of procedure for tomorrow. Insulin sliding scale. Accu-Cheks AC at bedtime. 8. Hypertension: Controlled. On amlodipine 5 mg daily. 9. Vitamin D deficiency: On cholecalciferol thousand milligrams daily. Will continue. DVT prophylaxis: Lovenox CODE STATUS: Patient counseled extensively about different types of CODE STATUS including full code, DNR CCA and DNR CCA. Patient cannot make up her mind about code status now. Total [id number] time 18 mins. Code Visit OBSV E&M: 79718 Initial observation care L3 Procedures: 58337 Advncd Care Plan 30 Min
--- NOTE | 2018-06-22 08:36 | ED.RN ---
CALLED [facility] TO MAKE SURE THEY WERE AWARE THE PT WAS HERE; THEY WERE NOT; [facility] IS GETTING REPORT RIGHT AND WILL GIVE US A CALL WHEN SHE IS HEADED OVER
[2018-06-22 09:53] VITALS: BP 144/69; PULSE 81; RESP 18; TEMP 37.5; O2SAT 95; BMI 32.6; BMI 32.7
--- NOTE | 2018-06-22 11:49 | PCM.CONS.U ---
Reason for Consult Date of Consultation: 06/22/18 Reason for Consultation: Right ureteral calculus status post stent return to hospital with severe pain History of Present Illness: The patient is a 72 year old female who presented with obstructing stone in the proximal right ureter stent was placed she was discharged home she now comes back to the hospital from severe right flank pain. Plan to take her tomorrow to surgery for ureteroscopy laser lithotripsy of the stone and removal of the stent if possible. Past Medical History Past Medical History (Chronic Problems): Chronic Problems (Last Reviewed 04/15/18 @ 04:24 by Maximino Norman MD) Diabetes mellitus (Chronic) GERD (gastroesophageal reflux disease) (Chronic) Neuropathy (Chronic) Arthritis (Chronic) Depression (Chronic) Anxiety (Chronic) PAOD (peripheral arterial occlusive disease) (Chronic) Hypothyroidism (Chronic) Hyperlipidemia (Chronic) Hypertension (Chronic) Iron deficiency anemia (Chronic) Diabetic neuropathy (Chronic) Type 2 diabetes mellitus (Chronic) Closed right ankle fracture (Chronic) PAD (peripheral artery disease) (Chronic) Status post stenting of the right lower extremity CVA (cerebral vascular accident) (Chronic) Asthma (Chronic) Fibromyalgia (Chronic) Medical History: Medical History (Last Reviewed 04/15/18 @ 04:24 by Maximino Norman MD) GERD (gastroesophageal reflux disease) (Chronic) K21.9 Neuropathy (Chronic) G62.9 History of stroke (Acute) Z86.73 History of blood clots (Acute) Z86.718 Arthritis (Chronic) M19.90 History of ankle fracture (Acute) Z87.81 Allergies amoxicillin Allergy (Verified 06/22/18 05:12) Unknown Penicillins [PCN] Allergy (Verified 06/22/18 05:12) Unknown Sulfa (Sulfonamide Antibiotics) Allergy (Verified 06/22/18 05:12) Unknown Home Medications: Ambulatory Orders Medication Instructions Recorded Aspirin [Aspirin, Baby] 81 mg PO DAILY@0800 04/15/18 Amlodipine Besylate [Norvasc] 5 mg PO QDAY 04/18/18 Cholecalciferol (VIT D3) [Vitamin 1,000 unit PO DAILY 04/18/18 D3] Duloxetine HCl [Cymbalta] 60 mg PO BID 04/18/18 Levothyroxine Sodium [Synthroid] 125 mcg PO DAILY 04/18/18 Metformin HCl 500 mg PO BID 04/18/18 Acetaminophen [Tylenol] 650 mg PO PRN PRN 06/22/18 Surgical History: - - Stent right lower extremity, thyroid surgery. 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, Depression SUPPORT SERVICES SPECIALIST History: No pertinent SUPPORT SERVICES SPECIALIST history Lives: Alone Smoking Status: Never smoker Alcohol: Occasional - *Family History Maternal Family History: Family History (Last Reviewed 04/15/18 @ 04:20 by Maximino Norman MD) Grandmother Cancer Aunt Diabetes History Items: - - lung cancer Sibling Family History: Family History (Last Reviewed 04/15/18 @ 04:20 by Maximino Norman MD) Grandmother Cancer Aunt Diabetes History Items: - - diabetes Review of Systems Constitutional: Denies: Chills, Fever, Weight Change HEENT: Denies: Head Aches, Sinus Congestion, Sinus Drainage Cardiovascular: Denies: Chest Pain, Palpitations Respiratory: Denies: Cough, Shortness of breath at rest, Sputum production Gastrointestinal: Denies: Abdominal Pain, Nausea, Vomiting Genitourinary: Denies: Dysuria Musculoskeletal: Denies: Joint Pain, Joint Tenderness Skin: Denies: Rash, Wounds Neurological: Denies: Numbness, Tingling, Focal weakness Psychiatric: Denies: Anxiety, Depression, Homicidal Ideations, Suicidal Ideations Hematologic/ Lymphatic: Denies: Easy Bruising, Easy Bleeding Physical Exam - Physical Exam Vital Signs Temp 99.5 F H 06/22/18 09:53 Pulse 81 06/22/18 09:53 Resp 18 06/22/18 09:53 BP 144/69 H 06/22/18 09:53 Pulse Ox 95 06/22/18 09:53 Intake & Output 06/20/18 06/21/18 06/22/18 23:59 23:59 23:59 Weight: 100.3 kg General: Alert, Oriented x3 HEENT: Atraumatic Oral: Moist Mucosa Neck: Supple Lungs: Normal air movement Laboratory Tests Past 24 Hrs 06/22/18 06/22/18 06/22/18 05:25 05:25 07:20 WBC 8.8 RBC 5.09 Hgb 13.0 Hct 40.9 MCV 80.4 L MCH 25.5 L MCHC 31.8 L RDW 17.2 H RDW Differential 50.7 H Plt Count 383 MPV 12.7 H Immature Gran % (Auto) 0.200 Neut % (Auto) 77.0 H Lymph % (Auto) 12.8 L Clayton % (Auto) 7.8 Eos % (Auto) 1.9 Baso % (Auto) 0.3 Absolute Neuts (auto) 6.8 Absolute Lymphs (auto) 1.13 Total Counted Not Reportable Sodium 140 Potassium 3.0 L Chloride 104 Carbon Dioxide 25.0 Anion Gap 11 BUN 11 Creatinine 0.76 Estim Creat Clear Calc 48.00 Est GFR (MDRD) Af Amer 95 Est GFR (MDRD) Non-Af 79 BUN/Creatinine Ratio 14.4 Glucose 154 H Calcium 9.2 Urine Color Yellow Urine Clarity Cloudy Urine pH 6.5 Ur Specific [place] 1.015 Urine Protein 100 H Urine Glucose (UA) Normal Urine Ketones Negative Urine Occult Blood 250 H Urine Nitrite Negative Urine Bilirubin Negative Urine Urobilinogen 1 H Ur Leukocyte Esterase 500 H Urine RBC 10-25 SEEN Urine WBC 10-25 SEEN Ur Squamous Epith Cells 0-5 SEEN Urine Bacteria 2+ Hyaline Casts 0-5 SEEN Urine Mucus 0 SEEN Assessment/Plan All Active Problems (Last Reviewed 04/15/18 @ 04:24 by Maximino Norman MD) Multiple falls (Acute) Debility (Acute) Acute cystitis (Acute) Weakness (Acute) UTI (urinary tract infection) (Acute) Right wrist fracture (Acute) Tachycardia (Acute) History of stroke (Acute) History of blood clots (Acute) History of ankle fracture (Acute) Frostbite of both buttocks (Acute) Fall (Acute) Patient will be added to the schedule for tomorrow for ureteroscopy laser lithotripsy of stone and stent removal however has signed a consent form n.p.o. for midnight.
--- NOTE | 2018-06-22 12:41 | CASEMGMT ---
Social Work Assessment Referral Date: 06/22 Date of Assessment: 06/22 Reason for Consult: Inability to manage care Informant: Know to staff, self-referral Information obtained from: Medical record and pt. Pt is alert and oriented x4. Presents with flat affect as evidenced by no change in tone of voice or expression. Living Arrangements: Pt lives alone in an apartment. Denies inability to ambulate, bathe or dress independently. Inquire what she feels that she is not able to care for, and she reports meals. States that she does not eat like you do, over here. I am from [place]. Reports that she has not cooked in several years and could not even make scrambled eggs, and reports struggles with grocery shopping. Claims to have spent $500 on take out this last month. Social/Family Support: Reports very limited support. Claims that her ex- lives in [place] and financially supports her some, but is not physically well enough to come down and assist with anything. States that she does not have any supports locally. Social/Family Stressors: Pt identifies loss of independence as a significant stressor. Denies any others at this time. Financial: Pt receives $652/month in , and ex spouse aids financially. She denies having filed for Medicaid. Upon further chart review it appears that Kapil MCINTOSH, completed an application with the pt in March, and requested a [facility] Waiver. Pt unsure. Placed call to [facility] and they are closed this date. Will require f/u on Monday. Mental Health: Pt does not see a counselor, but has a hx of Depression. This is treated with Cymbalta as prescribed through Dr. Monaco. Pt would like to be establish care with KHALIDA Sanchez, at the office instead of Dr. Monaco as she reports she did not even test her for a UTI and she contributes her falls to this. Denies any other MH diagnoses, denies SI or HI. Confirms feelings of depression, but refuses outside community resources at this time. Substance Use: Pt denies substance use hx. ASSESSMENT: Pt's biggest complaint is pain and inability to cook for self. Educate to resources such as [facility] to assist with meals and pt continues to states she does not eat like people in [place] and she cannot cook. States that she would go to SNF, but would not like [facility]. Explain the difference and that at this time based on the pt's report she would be more appropriate for [facility]. Explain that PT/OT is ordered, and we will await their evaluation. Educate to facilities that offer both SNF and [facility]. Pt refuses CC, but states that the others are options. 1. [facility], 2. [facility], 3. [facility]. [facility] does not believe they would have LTC available. Referral faxed to [facility] for review. Pt does have some Medicare days left, but would need to follow-up with [facility] for Medicaid for continued care and waiver. [facility] made aware. Pt is very preoccupied with out to get belongings. States that she will need someone to help her decide and to bring her treasured belongings. Suggest her ex spouse who the pt states is unable. Continues to state she has no other supports. Explain that she may have to discuss with her spouse to see if he would be able to personally assist or pay for someone to assist. Pt states that she will talk with her spouse. Pt will have surgery tomorrow with Dr. Costa. Will not be able to discharge to SNF until Monday d/t insurance delays. PLAN: SNF vs. [facility] at discharge. KATIE Arce, MIRIAM
[2018-06-22] MEDS: DULoxetine Hcl 60 MG Capsule PO ×2 (12:55→22:09)
[2018-06-22] MEDS: Aspirin 81 MG TAB.CHEW PO (12:55)
[2018-06-22] MEDS: amLODIPine 5 MG Tablet PO (12:55)
[2018-06-22] MEDS: Levothyroxine 125 MCG Tablet PO (12:55)
--- NOTE | 2018-06-22 13:05 | NURSING ---
meds given. consent obtained. pt denies pain needs at present. states pain not bad when not moving. denies further needs. call [facility].
--- NOTE | 2018-06-22 13:35 | EKG12_ITS ---
Test Reason : PRE-OP Blood Pressure : / mmHG Vent. Rate : 081 BPM Atrial Rate : 081 BPM P-R Int : 184 ms QRS Dur : 088 ms QT Int : 392 ms P-R-T Axes : 066 020 060 degrees QTc Int : 455 ms Normal sinus rhythm Normal ECG When compared with ECG of 14-APR-2018 21:56, No significant change was found Confirmed by JUSTIN BOO, BART ([id number]), electronic news gathering editor RADHA URRUTIA ([id number]) on 06/25/2018 2:27:25 PM Referred By: JÚNIOR Confirmed By:BART ANDERSON MD
--- NOTE | 2018-06-22 13:35 | CASEMGMT ---
Social Work Note Call from Mei at [facility] [place] stating that she believes they can accept the pt on Monday and will follow-up with the primary SW of this unit, Mat WILSON, REGIONAL TRANSPORTATION MANAGER, this weekend or on Monday. PLAN: [facility] [place] for SNF, then transition to [facility]. Eduarda Smith, WELD LAY OUT WORKER, HOUSEKEEPER HEAD
[2018-06-22] MEDS: Insulin Lispro 100 UNIT/ML INSULN.PEN SQ ×3 (13:46→22:13)
[2018-06-22 13:56] LABS: Bedside Glucose 220 mg/dL (70-110)
[2018-06-22 15:35] VITALS: BP 126/67; PULSE 87; RESP 18; TEMP 36.4; O2SAT 94
[2018-06-22 16:55] LABS: Bedside Glucose 161 mg/dL (70-110)
[2018-06-22 20:15] VITALS: PULSE 103; RESP 20; O2SAT 95
[2018-06-22 20:30] VITALS: BP 146/72; PULSE 95; RESP 20; TEMP 36.4; O2SAT 95
[2018-06-22] MEDS: Acetaminophen 325 MG Tablet 650 MG PO (22:09)
[2018-06-22] MEDS: Ciprofloxacin 400 MG/200 ML BAG 200 MG IV (22:09)
[2018-06-22] MEDS: 0.9% NaCl Peripheral Flush Adult/Peds IV (22:29)
[2018-06-22 22:40] LABS: Bedside Glucose 181 mg/dL (70-110)
[2018-06-23] VITALS (11 sets, daily range): BP systolic 114–148; BP diastolic 62–90; PULSE 70–81; RESP 14–20; TEMP 36.2–37; O2SAT 92–100; BMI 32.6; BMI 32.7
--- NOTE | 2018-06-23 03:45 | NURSING ---
Called Lashay in lab to request that labs be drawn at 0500 since pt is scheduled for OR at 0700 so we can get some early results.
[2018-06-23 05:38] LABS: Absolute Lymphocyte Count 1.14 X10^3/ul (0.83-4.51); Absolute Neutrophil Count 4.5 X10^3/uL (2.0-7.7); Basophil# 0.02 X10^3/uL; Basophil% 0.3 % (0-1); Eosinophil# 0.22 X10^3/uL; Eosinophils% 3.3 % (0-5); Hematocrit 37.9 % (37-47); Hemoglobin 11.4 g/dl (12.0-15.0); Lymphocyte # 1.14 X10^3/ul (4.0); Lymphocyte % 17.2 % (19-41); Mean Corp Hgb Conc 30.1 g/gl (32-36); Mean Corpuscular Hgb 25.2 pg (27.0-32.0); Mean Corpuscular Volume 83.7 fL (81-99); Mean Platelet Vol. 12.4 fl (6.2-12.0); Monocyte# 0.68 X10^3/uL; Monocyte% 10.3 % (0-10); Neutrophil # 4.54 X10^3/uL (2.7-7.7); Neutrophil % 68.7 % (47-70); Platelet Count 313 K/mm3 (150-450); Red Blood Count 4.53 M/mm3 (4.2-5.4); White Blood Count 6.6 K/mm3 (4.4-11.0)
[2018-06-23 05:39] LABS: POSITIVE COUNT NO; POSITIVE DIFFERENTIAL NO; POSITIVE MORPHOLOGY NO
[2018-06-23 05:40] LABS: Anion Gap 8 (5-15); BUN 14 mg/dL (7-18); Calcium,Total 9.3 mg/dL (8.5-10.1); Chloride 107 mmol/L (98-107); Creatinine, Serum 0.78 mg/dL (0.55-1.02); EST Glomerular Filtration Rate 77 mL/min (>60); Est Glom Filt Rate - Afr Amer 93 mL/min (>60); Estimated Creatinine Clearance 51.58 ml/min; Glucose 134 mg/dL (74-106); Potassium 3.3 mmol/L (3.5-5.1); Sodium Level 142 mmol/L (136-145)
[2018-06-23 06:00] LABS: Bedside Glucose 144 mg/dL (70-110)
--- NOTE | 2018-06-23 06:43 | NURSING ---
Report called to OR supercharge repair supervisorRN. Rika HO to take pt down.
--- NOTE | 2018-06-23 08:06 | OP.PCM_ITS ---
Report of Operation Date of Procedure: 06/23/18 Pre-Operative Diagnosis: Right renal calculi Post-Operative Diagnosis: Same Surgery/Procedure Performed:: Cystoscopy, dilation of the right ureter, placement of access sheath, right ureteroscopy laser lithotripsy of stone and stent removal Description of Surgical Findings:: 72-year-old female who was brought to the hospital because severe pain she has kidney stone and stent was in place, plan to take her to surgery today to laser the stone and remove the stent. Procedure note patient was taken back to the operating room after smooth induction of anesthesia she was placed supine on the table and then a dorsolithotomy position the urethra and vaginal area were prepped and draped in usual sterile fashion went into the urethra with a 21 Nigerian rigid cystourethroscope grabbed the existing stent from the right side, I then dilated the ureter, then after this was done then I placed an access sheath up on the right side, after once the access sheath was in place then through the access sheath I went in with the ureteroscope and I found the stone in the midpole of the right kidney I then used a 200 ?m laser fiber and laser the stone little tiny pieces once the stone was fragmented into dust particles then I worked my way down the ureter no major fragments along the course of the ureter no obstruction. Did not leave a stent in she should be on passive low fragments were lasered patient anesthetic was reversed, bladder was drained and she is taken back to PACU good condition. Type of Anesthesia:: General Drains: none - Admit VTE Documentation VTE Present on Admission: No VTE Mechan Device Prophylaxis: SCD's
[2018-06-23 08:45] LABS: Hemoglobin A1c 6.4 % (4.2-6.3)
--- NOTE | 2018-06-23 09:16 | PN_ITS ---
Subjective: Patient seen and examined. She had cystoscopy and dilatation of the right ureter as well as right ureteroscopy and laser lithotripsy of stone and stent removal this morning. She was seen after the procedure and had no complaints. Pain was well controlled. She denied any fever chills, chest pain, shortness of breath, abdominal pain, diarrhea vomiting. Review of systems otherwise negative. The back pain she came in with initially had resolved. Labs and vitals reviewed. Vitals/I&O's: Vital Signs Temp Pulse Resp BP Pulse Ox 97.5 F L 70 18 148/81 H 96 06/23/18 08:45 06/23/18 08:45 06/23/18 08:45 06/23/18 08:45 06/23/18 08:45 Oxygen Delivery Method Room Air Weight: 221 lb 1.978 oz Body Mass Index (BMI) 32.6 Finger Stick Blood Glucose 104 Intake and Output for Last 24 Hours 06/21/18 06/22/18 06/23/18 23:59 23:59 23:59 Intake Total 922 / 922 696 / 696 Output Total 500 / 500 Balance 922 / 922 196 / 196 General: Alert, Oriented x3, Cooperative HEENT: Atraumatic, PERRLA, EOMI, Normocephalic Oral: Moist Mucosa Neck: Supple, No JVD, Negative Carotid Bruits Lungs: Clear to auscultation, Normal air movement, No rhonchi, No wheeze, No rales Cardiovascular: Regular rate, Regular Rhythm, Normal S1, Normal S2, No murmurs Abdomen: Bowel Sounds Present, Soft, Non Tender, Non-Distended, No Hepato- splenomegaly Extremities: No clubbing, No cyanosis, No edema, Capillary Refill Less than 3 Seconds Skin: No rashes, No breakdown Musculoskeletal: No Tenderness to Palpation of Joints or Extremities Lymphatic: No Cervical, Supraclavicular, or Inguinal Adenopathy Neurological: Cranial nerves II-XII grossly intact, Neuro grossly intact, Motor Exam 5/5 strength throughout Psych/Mental Status: Normal Affect, Appropriate, Alert and oriented to time, place, person, mood and affect Laboratory Results 06/22/18 13:40: POC Glucose 220 H 06/22/18 16:26: POC Glucose 161 H 06/22/18 22:06: POC Glucose 181 H 06/23/18 05:00: WBC 6.6, RBC 4.53, Hgb 11.4 L, Hct 37.9, MCV 83.7, MCH 25.2 L, MCHC 30.1 L, RDW 17.0 H, RDW Differential 52.0 H, Plt Count 313, MPV 12.4 H, Immature Gran % (Auto) 0.200, Neut % (Auto) 68.7, Lymph % (Auto) 17.2 L, Zavala % (Auto) 10.3 H, Eos % (Auto) 3.3, Baso % (Auto) 0.3, Absolute Neuts (auto) 4.5, Absolute Lymphs (auto) 1.14, Total Counted Not Reportable 06/23/18 05:00: Sodium 142, Potassium 3.3 L, Chloride 107, Carbon Dioxide 27.0, Anion Gap 8, BUN 14, Creatinine 0.78, Estim Creat Clear Calc 51.58, Est GFR (MDRD) Af Amer 93, Est GFR (MDRD) Non-Af 77, BUN/Creatinine Ratio 18.0, Glucose 134 H, Calcium 9.3 06/23/18 05:00: Hemoglobin A1c 6.4 H 06/23/18 05:46: POC Glucose 144 H Diagnostic Data Abdomen/Pelvis CT 06/22/18 05:42 IMPRESSION: Interval placement of double-J stent with previously seen obstructing right UPJ calculus positioned in the dilated right renal pelvis. The hydronephrosis is mild to moderate in degree, possibly minimally decreased since previous examination. Previously seen nonobstructing small inferior renal pole calculus is not visualized, however there is layering hyperattenuation along the right inferior dilated collecting system which may be granular material or possible residual retained contrast. Abnormal endometrium, not significantly changed, consideration for follow-up pelvic ultrasound recommended if not previously performed. Other nonacute findings as outlined above. Electronically Signed: Keri Caballero MD at 6:53 EST , Service support , Current Medications Acetaminophen (Tylenol) 650 mg PO Q6H PRN PRN PRN Reason: PAIN Last Admin: 06/22/18 22:09 Dose: 650 mg Amlodipine Besylate (Norvasc) 5 mg PO DAILY [facility] Last Admin: 06/22/18 12:55 Dose: 5 mg Aspirin (Aspirin, Baby) 81 mg PO DAILY@0800 [facility] Last Admin: 06/23/18 09:07 Dose: Not Given Cholecalciferol (Vitamin D) 1,000 unit PO DAILY [facility] Last Admin: 06/22/18 12:55 Dose: 1,000 unit Dextrose (D50w Syringe) 0 gm IV X1 PRN; Protocol PRN Reason: Hypoglycemia Duloxetine HCl (Cymbalta) 60 mg PO BID [facility] Last Admin: 06/22/18 22:09 Dose: 60 mg Enoxaparin Sodium (Lovenox) 40 mg SC DAILY@1000 [facility] Glucagon () 1 mg IM .X1 PRN PRN Reason: Hypoglycemia Ciprofloxacin (Cipro) 400 mg in 200 mls @ 200 mls/hr IV Q12 [facility] Last Admin: 06/22/18 22:09 Dose: 200 mls/hr Sodium Chloride () 250 mls @ 15 mls/hr IV .[id number] PRN PRN Reason: SALINE FLUSH Last Admin: 06/22/18 22:09 Dose: 15 mls/hr Potassium Chloride (Kcl 10meq/100ml) 10 meq in 100 mls @ 100 mls/hr IV BOLUS Q1H [facility] Stop: 06/23/18 11:29 Last Admin: 06/23/18 09:07 Dose: 100 mls/hr Insulin Human Lispro (Humalog Kwikpen (Bkc)) 0 unit SQ ACHS [facility]; Protocol Last Admin: 06/23/18 05:56 Dose: Not Given Levothyroxine Sodium (Synthroid) 125 mcg PO DAILY@0600 [facility] Last Admin: 06/23/18 03:43 Dose: Not Given Magnesium Hydroxide (Milk Of Magnesia) 30 ml PO DAILY PRN PRN PRN Reason: Constipation Sodium Chloride () 5 - 30 ml IV UD PRN PRN Reason: SALINE FLUSH Last Admin: 06/22/18 22:29 Dose: 10 ml Medical Necessity - Tobacco Use Smoking Status: Never smoker Assessment/Plan All Active Problems (Last Reviewed 04/15/18 @ 04:24 by Maximino Norman MD) Multiple falls (Acute) Debility (Acute) Acute cystitis (Acute) Weakness (Acute) UTI (urinary tract infection) (Acute) Right wrist fracture (Acute) Tachycardia (Acute) History of stroke (Acute) History of blood clots (Acute) History of ankle fracture (Acute) Frostbite of both buttocks (Acute) Fall (Acute) 72-year-old female presenting with a complaint of right flank pain. 1. Right ureteric calculus s/p ureteroscopy and shockwave lithotripsy and stent removal * today is POD 0 * has no complaints. stent was also removed. * continue iV ciprofloxacin for now. * urology on board * 2,. Complicated UTI * was due to right kidney stone. * had shockwave lithotripsy and stent removal as documented under 1. * urine culture pending. * * 3. Abnormal endometrium * as picked up per CT scan. Bulky uterus with low attenuation of region, dilated to 1.7cm, which is abnnormal for patients age. Recommend follow up pelvic USG for follow up on outpatient basis * 4. Right wrist pain: * says she fractured her right wrist sometime ago. * pain is better today. Refused xrays. * tylenol for pain * 5. Hypokalemia: Potassium is 3.3 today, Will replace and monitor 6. Hypothyroidism: On Synthroid 125 mg daily. 7. Diabetes mellitus: On metformin. Insulin sliding scale. Accu-Cheks AC at bedtime. A1C us 6,4 8. Hypertension: Controlled. On amlodipine 5 mg daily. 9. Vitamin D deficiency: On cholecalciferol thousand milligrams daily. DVT prophylaxis: Lovenox Disposition: awaiting placement. Code Visit Inpatient E&M: [id number] [facility] L3
[2018-06-23] MEDS: Ciprofloxacin 400 MG/200 ML BAG 200 MG IV ×2 (12:18→22:42)
[2018-06-23] MEDS: Enoxaparin 40 MG/0.4 ML Syringe SC (12:19)
[2018-06-23] MEDS: amLODIPine 5 MG Tablet PO (12:19)
[2018-06-23 12:21] LABS: Bedside Glucose 142 mg/dL (70-110)
[2018-06-23] MEDS: DULoxetine Hcl 60 MG Capsule PO ×2 (12:21→22:42)
[2018-06-23] MEDS: Aspirin 81 MG TAB.CHEW PO (15:01)
[2018-06-23] MEDS: Acetaminophen 325 MG Tablet 650 MG PO (16:07)
[2018-06-23] MEDS: Insulin Lispro 100 UNIT/ML INSULN.PEN SQ ×2 (16:12→22:46)
[2018-06-23 23:06] LABS: Bedside Glucose 193 mg/dL (70-110)
[2018-06-24] MEDS: Acetaminophen 325 MG Tablet 650 MG PO ×3 (00:43→21:49)
[2018-06-24 03:48] VITALS: BP 125/68; PULSE 73; RESP 16; TEMP 36.5; O2SAT 100
[2018-06-24 05:45] LABS: Absolute Lymphocyte Count 1.03 X10^3/ul (0.83-4.51); Absolute Neutrophil Count 3.5 X10^3/uL (2.0-7.7); Basophil# 0.02 X10^3/uL; Basophil% 0.4 % (0-1); Eosinophil# 0.26 X10^3/uL; Eosinophils% 4.8 % (0-5); Hematocrit 34.6 % (37-47); Hemoglobin 10.7 g/dl (12.0-15.0); Lymphocyte # 1.03 X10^3/ul (4.0); Lymphocyte % 18.9 % (19-41); Mean Corp Hgb Conc 30.9 g/gl (32-36); Mean Corpuscular Volume 84.2 fL (81-99); Mean Platelet Vol. 12.6 fl (6.2-12.0); Neutrophil # 3.52 X10^3/uL (2.7-7.7); Neutrophil % 64.7 % (47-70); Platelet Count 279 K/mm3 (150-450); RBC Distribution Width CV 16.8 % (11.6-14.6); RBC Distribution Width SD 51.5 fl (35.1-43.9); Red Blood Count 4.11 M/mm3 (4.2-5.4); White Blood Count 5.4 K/mm3 (4.4-11.0)
[2018-06-24 05:46] LABS: POSITIVE COUNT NO; POSITIVE DIFFERENTIAL NO; POSITIVE MORPHOLOGY NO
[2018-06-24 05:53] LABS: Anion Gap 8 (5-15); BUN 13 mg/dL (7-18); BUN/Creat Ratio 16.3 RATIO (10-20); Chloride 107 mmol/L (98-107); EST Glomerular Filtration Rate 75 mL/min (>60); Est Glom Filt Rate - Afr Amer 90 mL/min (>60); Estimated Creatinine Clearance 64.48 ml/min; Glucose 119 mg/dL (74-106); Potassium 3.7 mmol/L (3.5-5.1); Sodium Level 142 mmol/L (136-145)
[2018-06-24] MEDS: Levothyroxine 125 MCG Tablet PO (06:35)
[2018-06-24 07:21] LABS: Bedside Glucose 114 mg/dL (70-110)
[2018-06-24 08:12] VITALS: BP 121/61; PULSE 79; RESP 18; TEMP 36.6; O2SAT 95
[2018-06-24] MEDS: amLODIPine 5 MG Tablet PO (08:16)
[2018-06-24] MEDS: DULoxetine Hcl 60 MG Capsule PO ×2 (08:16→21:50)
[2018-06-24] MEDS: Aspirin 81 MG TAB.CHEW PO (08:16)
[2018-06-24] MEDS: Ciprofloxacin 400 MG/200 ML BAG 200 MG IV (09:42)
--- NOTE | 2018-06-24 09:53 | PCM.PN.HOSP ---
Subjective: Patient seen and examined. She has no complaints and feels well. Today's postop day 1 after having lithotripsy of right kidney stone with stent removal. She denies any fever chills, cough or chest pain, shortness of breath, abdominal pain or flank pain, any diarrhea vomiting. Review of systems otherwise negative. Labs and vitals reviewed. Vitals/I&O's: Vital Signs Temp Pulse Resp BP Pulse Ox 97.8 F 79 18 121/61 H 95 06/24/18 08:12 06/24/18 08:12 06/24/18 08:12 06/24/18 08:12 06/24/18 08:12 Oxygen Delivery Method Room Air Weight: 221 lb 1.978 oz Body Mass Index (BMI) 32.6 Finger Stick Blood Glucose 104 Intake and Output for Last 24 Hours 06/22/18 06/23/18 06/24/18 23:59 23:59 23:59 Intake Total 922 / 922 2269 / 2269 658 / 658 Output Total 700 / 700 Balance 922 / 922 1569 / 1569 658 / 658 General: Alert, Oriented x3, Cooperative, No apparent distress HEENT: Atraumatic, PERRLA, EOMI, Normocephalic Oral: Moist Mucosa Neck: Supple, No JVD, Negative Carotid Bruits Lungs: Clear to auscultation, Normal air movement, No rhonchi, No wheeze, No rales Cardiovascular: Regular rate, Regular Rhythm, Normal S1, Normal S2, No murmurs Abdomen: Bowel Sounds Present, Soft, Non Tender, Non-Distended, No Hepato-splenomegaly Extremities: No clubbing, No cyanosis, No edema, Capillary Refill Less than 3 Seconds Skin: No rashes, No breakdown Musculoskeletal: No Tenderness to Palpation of Joints or Extremities Lymphatic: No Cervical, Supraclavicular, or Inguinal Adenopathy Neurological: Cranial nerves II-XII grossly intact, Neuro grossly intact, Motor Exam 5/5 strength throughout Psych/Mental Status: Normal Affect, Appropriate, Alert and oriented to time, place, person, mood and affect Microbiology Past 72 Hours 06/22/18 07:20 Urine, Clean Catch Urine Culture - Final Culture exhibits no growth. Laboratory Results 06/23/18 12:14: POC Glucose 142 H 06/23/18 22:45: POC Glucose 193 H 06/24/18 04:57: WBC 5.4, RBC 4.11 L, Hgb 10.7 L, Hct 34.6 L, MCV 84.2, MCH 26.0 L, MCHC 30.9 L, RDW 16.8 H, RDW Differential 51.5 H, Plt Count 279, MPV 12.6 H, Immature Gran % (Auto) 0.200, Neut % (Auto) 64.7, Lymph % (Auto) 18.9 L, [place] % (Auto) 11.0 H, Eos % (Auto) 4.8, Baso % (Auto) 0.4, Absolute Neuts (auto) 3.5, Absolute Lymphs (auto) 1.03, Total Counted Not Reportable 06/24/18 04:57: Sodium 142, Potassium 3.7, Chloride 107, Carbon Dioxide 27.0, Anion Gap 8, BUN 13, Creatinine 0.80, Estim Creat Clear Calc 64.48, Est GFR (MDRD) Af Amer 90, Est GFR (MDRD) Non-Af 75, BUN/Creatinine Ratio 16.3, Glucose 119 H, Calcium 9.0 06/24/18 06:33: POC Glucose 114 H Current Medications Acetaminophen (Tylenol) 650 mg PO Q6H PRN PRN PRN Reason: PAIN Last Admin: 06/24/18 00:43 Dose: 650 mg Amlodipine Besylate (Norvasc) 5 mg PO DAILY [facility] Last Admin: 06/24/18 08:16 Dose: 5 mg Aspirin (Aspirin, Baby) 81 mg PO DAILY@0800 [facility] Last Admin: 06/24/18 08:16 Dose: 81 mg Cholecalciferol (Vitamin D) 1,000 unit PO DAILY [facility] Last Admin: 06/24/18 08:16 Dose: 1,000 unit Dextrose (D50w Syringe) 0 gm IV X1 PRN; Protocol PRN Reason: Hypoglycemia Duloxetine HCl (Cymbalta) 60 mg PO BID [facility] Last Admin: 06/24/18 08:16 Dose: 60 mg Enoxaparin Sodium (Lovenox) 40 mg SC DAILY@1000 [facility] Last Admin: 06/24/18 08:15 Dose: Not Given Glucagon () 1 mg IM .X1 PRN PRN Reason: Hypoglycemia Ciprofloxacin (Cipro) 400 mg in 200 mls @ 200 mls/hr IV Q12 [facility] Last Admin: 06/24/18 09:42 Dose: 200 mls/hr Sodium Chloride () 250 mls @ 15 mls/hr IV .[id number] PRN PRN Reason: SALINE FLUSH Last Admin: 06/23/18 15:04 Dose: 15 mls/hr Insulin Human Lispro (Humalog Kwikpen (Bkc)) 0 unit SQ ACHS [facility]; Protocol Last Admin: 06/24/18 06:34 Dose: Not Given Levothyroxine Sodium (Synthroid) 125 mcg PO DAILY@0600 [facility] Last Admin: 06/24/18 06:35 Dose: 125 mcg Magnesium Hydroxide (Milk Of Magnesia) 30 ml PO DAILY PRN PRN PRN Reason: Constipation Sodium Chloride () 5 - 30 ml IV UD PRN PRN Reason: SALINE FLUSH Last Admin: 06/22/18 22:29 Dose: 10 ml Medical Necessity - Tobacco Use Smoking Status: Never smoker Assessment/Plan All Active Problems (Last Reviewed 04/15/18 @ 04:24 by Maximino Norman MD) Multiple falls (Acute) Debility (Acute) Acute cystitis (Acute) Weakness (Acute) UTI (urinary tract infection) (Acute) Right wrist fracture (Acute) Tachycardia (Acute) History of stroke (Acute) History of blood clots (Acute) History of ankle fracture (Acute) Frostbite of both buttocks (Acute) Fall (Acute) 72-year-old female presenting with a complaint of right flank pain. 1. Right ureteric calculus s/p ureteroscopy and shockwave lithotripsy and stent removal today is POD 1 has no complaints. has had 48 hours of IV ciprofloxacin. Will dc and switch to PO ciprofloxacin today urology on board 2,. Complicated UTI was due to right kidney stone. had shockwave lithotripsy and stent removal as documented under 1. urine culture negative will dc IV cipro and start PO cipro as documented above. 3. Abnormal endometrium as picked up per CT scan. Bulky uterus with low attenuation of region, dilated to 1.7cm, which is abnormal for patients age. will order pelvic USG 4. Right wrist pain: says she fractured her right wrist sometime ago. pain has resolved. Patient refused xrays during this admission. tylenol for pain 5. Hypokalemia: resolved. K is 3.7 today 6. Hypothyroidism: On Synthroid 125 mg daily. 7. Diabetes mellitus: On metformin. Insulin sliding scale. Accu-Cheks AC at bedtime. A1C is 6.4 8. Hypertension: Controlled. On amlodipine 5 mg daily. 9. Vitamin D deficiency: On cholecalciferol thousand milligrams daily. DVT prophylaxis: Lovenox Disposition: awaiting placement in SNF. Code Visit Inpatient E&M: 66888 Subs Hosp L2
--- NOTE | 2018-06-24 09:57 | PN_ITS ---
Subjective: Patient seen and examined. She has no complaints and feels well. Today's postop day 1 after having lithotripsy of right kidney stone with stent removal. She denies any fever chills, cough or chest pain, shortness of breath, abdominal pain or flank pain, any diarrhea vomiting. Review of systems otherwise negative. Labs and vitals reviewed. Vitals/I&O's: Vital Signs Temp Pulse Resp BP Pulse Ox 97.8 F 79 18 121/61 H 95 06/24/18 08:12 06/24/18 08:12 06/24/18 08:12 06/24/18 08:12 06/24/18 08:12 Oxygen Delivery Method Room Air Weight: 221 lb 1.978 oz Body Mass Index (BMI) 32.6 Finger Stick Blood Glucose 104 Intake and Output for Last 24 Hours 06/22/18 06/23/18 06/24/18 23:59 23:59 23:59 Intake Total 922 / 922 2269 / 2269 658 / 658 Output Total 700 / 700 Balance 922 / 922 1569 / 1569 658 / 658 General: Alert, Oriented x3, Cooperative, No apparent distress HEENT: Atraumatic, PERRLA, EOMI, Normocephalic Oral: Moist Mucosa Neck: Supple, No JVD, Negative Carotid Bruits Lungs: Clear to auscultation, Normal air movement, No rhonchi, No wheeze, No rales Cardiovascular: Regular rate, Regular Rhythm, Normal S1, Normal S2, No murmurs Abdomen: Bowel Sounds Present, Soft, Non Tender, Non-Distended, No Hepato- splenomegaly Extremities: No clubbing, No cyanosis, No edema, Capillary Refill Less than 3 Seconds Skin: No rashes, No breakdown Musculoskeletal: No Tenderness to Palpation of Joints or Extremities Lymphatic: No Cervical, Supraclavicular, or Inguinal Adenopathy Neurological: Cranial nerves II-XII grossly intact, Neuro grossly intact, Motor Exam 5/5 strength throughout Psych/Mental Status: Normal Affect, Appropriate, Alert and oriented to time, place, person, mood and affect Microbiology Past 72 Hours 06/22/18 07:20 Urine, Clean Catch Urine Culture - Final Culture exhibits no growth. Laboratory Results 06/23/18 12:14: POC Glucose 142 H 06/23/18 22:45: POC Glucose 193 H 06/24/18 04:57: WBC 5.4, RBC 4.11 L, Hgb 10.7 L, Hct 34.6 L, MCV 84.2, MCH 26.0 L, MCHC 30.9 L, RDW 16.8 H, RDW Differential 51.5 H, Plt Count 279, MPV 12.6 H, Immature Gran % (Auto) 0.200, Neut % (Auto) 64.7, Lymph % (Auto) 18.9 L, [place] % (Auto) 11.0 H, Eos % (Auto) 4.8, Baso % (Auto) 0.4, Absolute Neuts (auto) 3.5, Absolute Lymphs (auto) 1.03, Total Counted Not Reportable 06/24/18 04:57: Sodium 142, Potassium 3.7, Chloride 107, Carbon Dioxide 27.0, Anion Gap 8, BUN 13, Creatinine 0.80, Estim Creat Clear Calc 64.48, Est GFR (MDRD) Af Amer 90, Est GFR (MDRD) Non-Af 75, BUN/Creatinine Ratio 16.3, Glucose 119 H, Calcium 9.0 06/24/18 06:33: POC Glucose 114 H Current Medications Acetaminophen (Tylenol) 650 mg PO Q6H PRN PRN PRN Reason: PAIN Last Admin: 06/24/18 00:43 Dose: 650 mg Amlodipine Besylate (Norvasc) 5 mg PO DAILY [facility] Last Admin: 06/24/18 08:16 Dose: 5 mg Aspirin (Aspirin, Baby) 81 mg PO DAILY@0800 [facility] Last Admin: 06/24/18 08:16 Dose: 81 mg Cholecalciferol (Vitamin D) 1,000 unit PO DAILY [facility] Last Admin: 06/24/18 08:16 Dose: 1,000 unit Dextrose (D50w Syringe) 0 gm IV X1 PRN; Protocol PRN Reason: Hypoglycemia Duloxetine HCl (Cymbalta) 60 mg PO BID [facility] Last Admin: 06/24/18 08:16 Dose: 60 mg Enoxaparin Sodium (Lovenox) 40 mg SC DAILY@1000 [facility] Last Admin: 06/24/18 08:15 Dose: Not Given Glucagon () 1 mg IM .X1 PRN PRN Reason: Hypoglycemia Ciprofloxacin (Cipro) 400 mg in 200 mls @ 200 mls/hr IV Q12 [facility] Last Admin: 06/24/18 09:42 Dose: 200 mls/hr Sodium Chloride () 250 mls @ 15 mls/hr IV .[id number] PRN PRN Reason: SALINE FLUSH Last Admin: 06/23/18 15:04 Dose: 15 mls/hr Insulin Human Lispro (Humalog Kwikpen (Bkc)) 0 unit SQ ACHS [facility]; Protocol Last Admin: 06/24/18 06:34 Dose: Not Given Levothyroxine Sodium (Synthroid) 125 mcg PO DAILY@0600 [facility] Last Admin: 06/24/18 06:35 Dose: 125 mcg Magnesium Hydroxide (Milk Of Magnesia) 30 ml PO DAILY PRN PRN PRN Reason: Constipation Sodium Chloride () 5 - 30 ml IV UD PRN PRN Reason: SALINE FLUSH Last Admin: 06/22/18 22:29 Dose: 10 ml Medical Necessity - Tobacco Use Smoking Status: Never smoker Assessment/Plan All Active Problems (Last Reviewed 04/15/18 @ 04:24 by Maximino Norman MD) Multiple falls (Acute) Debility (Acute) Acute cystitis (Acute) Weakness (Acute) UTI (urinary tract infection) (Acute) Right wrist fracture (Acute) Tachycardia (Acute) History of stroke (Acute) History of blood clots (Acute) History of ankle fracture (Acute) Frostbite of both buttocks (Acute) Fall (Acute) 72-year-old female presenting with a complaint of right flank pain. 1. Right ureteric calculus s/p ureteroscopy and shockwave lithotripsy and stent removal * today is POD 1 * has no complaints. * has had 48 hours of IV ciprofloxacin. Will dc and switch to PO ciprofloxacin today * urology on board * 2,. Complicated UTI * was due to right kidney stone. * had shockwave lithotripsy and stent removal as documented under 1. * urine culture negative * will dc IV cipro and start PO cipro as documented above. * 3. Abnormal endometrium * as picked up per CT scan. Bulky uterus with low attenuation of region, dilated to 1.7cm, which is abnormal for patients age. * will order pelvic USG * 4. Right wrist pain: * says she fractured her right wrist sometime ago. * pain has resolved. Patient refused xrays during this admission. * tylenol for pain * 5. Hypokalemia: resolved. K is 3.7 today 6. Hypothyroidism: On Synthroid 125 mg daily. 7. Diabetes mellitus: On metformin. Insulin sliding scale. Accu-Cheks AC at bedtime. A1C is 6.4 8. Hypertension: Controlled. On amlodipine 5 mg daily. 9. Vitamin D deficiency: On cholecalciferol thousand milligrams daily. DVT prophylaxis: Lovenox Disposition: awaiting placement in SNF. Code Visit Inpatient E&M: 58230 Subs Hosp L2
[2018-06-24] MEDS: Insulin Lispro 100 UNIT/ML INSULN.PEN SQ ×3 (11:06→21:50)
[2018-06-24 11:10] LABS: Bedside Glucose 234 mg/dL (70-110)
[2018-06-24 14:20] VITALS: BP 122/53; PULSE 86; RESP 18; TEMP 36.3; O2SAT 94
[2018-06-24 16:21] LABS: Bedside Glucose 162 mg/dL (70-110)
[2018-06-24 19:55] VITALS: BP 132/71; PULSE 102; RESP 18; TEMP 36.7; O2SAT 94
[2018-06-24] MEDS: Ciprofloxacin 500 MG Tablet PO (21:54)
[2018-06-24 22:35] LABS: Bedside Glucose 246 mg/dL (70-110)
[2018-06-25 02:50] VITALS: BP 133/73; PULSE 85; RESP 18; TEMP 37.1; O2SAT 98
[2018-06-25 06:00] LABS: Absolute Neutrophil Count 3.5 X10^3/uL (2.0-7.7); Basophil# 0.03 X10^3/uL; Basophil% 0.6 % (0-1); Eosinophil# 0.28 X10^3/uL; Eosinophils% 5.3 % (0-5); Hematocrit 34.3 % (37-47); Hemoglobin 10.6 g/dl (12.0-15.0); Lymphocyte % 18.8 % (19-41); Mean Corp Hgb Conc 30.9 g/gl (32-36); Mean Corpuscular Hgb 26.2 pg (27.0-32.0); Mean Corpuscular Volume 84.7 fL (81-99); Mean Platelet Vol. 12.1 fl (6.2-12.0); Monocyte# 0.55 X10^3/uL; Monocyte% 10.3 % (0-10); Neutrophil # 3.45 X10^3/uL (2.7-7.7); Neutrophil % 64.8 % (47-70); Platelet Count 280 K/mm3 (150-450); RBC Distribution Width CV 16.9 % (11.6-14.6); RBC Distribution Width SD 51.4 fl (35.1-43.9); Red Blood Count 4.05 M/mm3 (4.2-5.4); White Blood Count 5.3 K/mm3 (4.4-11.0)
[2018-06-25 06:33] LABS: Anion Gap 5 (5-15); BUN 11 mg/dL (7-18); BUN/Creat Ratio 14.7 RATIO (10-20); Calcium,Total 8.8 mg/dL (8.5-10.1); Chloride 108 mmol/L (98-107); Creatinine, Serum 0.75 mg/dL (0.55-1.02); EST Glomerular Filtration Rate 80 mL/min (>60); Est Glom Filt Rate - Afr Amer 97 mL/min (>60); Estimated Creatinine Clearance 51.58 ml/min; Glucose 115 mg/dL (74-106); Potassium 3.8 mmol/L (3.5-5.1); Sodium Level 141 mmol/L (136-145)
[2018-06-25] MEDS: Levothyroxine 125 MCG Tablet PO (06:33)
[2018-06-25 06:37] LABS: POSITIVE COUNT NO; POSITIVE DIFFERENTIAL NO; POSITIVE MORPHOLOGY NO
[2018-06-25 06:41] LABS: Bedside Glucose 118 mg/dL (70-110)
[2018-06-25 07:29] VITALS: BP 137/77; PULSE 87; RESP 16; TEMP 36.8; O2SAT 94
[2018-06-25] MEDS: Aspirin 81 MG TAB.CHEW PO (07:43)
--- NOTE | 2018-06-25 09:47 | PCM.PN.HOSP ---
Subjective: Feels better today, kidney stone pain is improved after the procedure. Vitals/I&O's: Vital Signs Temp Pulse Resp BP Pulse Ox 98.3 F 87 16 137/77 H 94 06/25/18 07:29 06/25/18 07:29 06/25/18 07:29 06/25/18 07:29 06/25/18 07:29 Oxygen Delivery Method Room Air Weight: 221 lb 1.978 oz Body Mass Index (BMI) 32.6 Finger Stick Blood Glucose 104 Intake and Output for Last 24 Hours 06/23/18 06/24/18 06/25/18 23:59 23:59 23:59 Intake Total 2269 / 2269 1580 / 1580 Output Total 700 / 700 Balance 1569 / 1569 1580 / 1580 General: Alert, Oriented x3, Cooperative, No apparent distress HEENT: Atraumatic, EOMI, Normocephalic Oral: Moist Mucosa Neck: Supple, No JVD Lungs: Clear to auscultation, Normal air movement, No rhonchi, No wheeze, No rales Cardiovascular: Regular rate, Regular Rhythm, Normal S1, Normal S2, No murmurs Abdomen: Bowel Sounds Present, Soft, Non Tender, Non-Distended Extremities: No edema, Capillary Refill Less than 3 Seconds Skin: No rashes, No breakdown Neurological: Neuro grossly intact, Sensory exam intact to light touch and pain Psych/Mental Status: Normal Affect, Appropriate Microbiology Past 72 Hours 06/22/18 07:20 Urine, Clean Catch Urine Culture - Final Culture exhibits no growth. Laboratory Results 06/24/18 11:05: POC Glucose 234 H 06/24/18 16:12: POC Glucose 162 H 06/24/18 21:49: POC Glucose 246 H 06/25/18 05:27: WBC 5.3, RBC 4.05 L, Hgb 10.6 L, Hct 34.3 L, MCV 84.7, MCH 26.2 L, MCHC 30.9 L, RDW 16.9 H, RDW Differential 51.4 H, Plt Count 280, MPV 12.1 H, Immature Gran % (Auto) 0.200, Neut % (Auto) 64.8, Lymph % (Auto) 18.8 L, [place] % (Auto) 10.3 H, Eos % (Auto) 5.3 H, Baso % (Auto) 0.6, Absolute Neuts (auto) 3.5, Absolute Lymphs (auto) 1.00, Total Counted Not Reportable 06/25/18 05:27: Sodium 141, Potassium 3.8, Chloride 108 H, Carbon Dioxide 28.0, Anion Gap 5, BUN 11, Creatinine 0.75, Estim Creat Clear Calc 51.58, Est GFR (MDRD) Af Amer 97, Est GFR (MDRD) Non-Af 80, BUN/Creatinine Ratio 14.7, Glucose 115 H, Calcium 8.8 06/25/18 06:31: POC Glucose 118 H Current Medications Acetaminophen (Tylenol) 650 mg PO Q6H PRN PRN PRN Reason: PAIN Last Admin: 06/24/18 21:49 Dose: 650 mg Amlodipine Besylate (Norvasc) 5 mg PO DAILY [facility] Last Admin: 06/24/18 08:16 Dose: 5 mg Aspirin (Aspirin, Baby) 81 mg PO DAILY@0800 [facility] Last Admin: 06/25/18 07:43 Dose: 81 mg Cholecalciferol (Vitamin D) 1,000 unit PO DAILY [facility] Last Admin: 06/24/18 08:16 Dose: 1,000 unit Ciprofloxacin HCl (Cipro) 500 mg PO BID [facility] Stop: 06/26/18 22:01 Last Admin: 06/24/18 21:54 Dose: 500 mg Dextrose (D50w Syringe) 0 gm IV X1 PRN; Protocol PRN Reason: Hypoglycemia Duloxetine HCl (Cymbalta) 60 mg PO BID [facility] Last Admin: 06/24/18 21:50 Dose: 60 mg Enoxaparin Sodium (Lovenox) 40 mg SC DAILY@1000 [facility] Last Admin: 06/24/18 08:15 Dose: Not Given Glucagon () 1 mg IM .X1 PRN PRN Reason: Hypoglycemia Sodium Chloride () 250 mls @ 15 mls/hr IV .[id number] PRN PRN Reason: SALINE FLUSH Last Admin: 06/23/18 15:04 Dose: 15 mls/hr Insulin Human Lispro (Humalog Kwikpen (Bkc)) 0 unit SQ ACHS [facility]; Protocol Last Admin: 06/25/18 06:34 Dose: Not Given Levothyroxine Sodium (Synthroid) 125 mcg PO DAILY@0600 [facility] Last Admin: 06/25/18 06:33 Dose: 125 mcg Magnesium Hydroxide (Milk Of Magnesia) 30 ml PO DAILY PRN PRN PRN Reason: Constipation Oxycodone HCl (Oxyir) 5 mg PO Q6H PRN PRN PRN Reason: SEVERE PAIN (6-10/10) Sodium Chloride () 5 - 30 ml IV UD PRN PRN Reason: SALINE FLUSH Last Admin: 06/22/18 22:29 Dose: 10 ml Medical Necessity - Tobacco Use Smoking Status: Never smoker Assessment/Plan All Active Problems (Last Reviewed 04/15/18 @ 04:24 by Maximino Norman MD) Multiple falls (Acute) Debility (Acute) Acute cystitis (Acute) Weakness (Acute) UTI (urinary tract infection) (Acute) Right wrist fracture (Acute) Tachycardia (Acute) History of stroke (Acute) History of blood clots (Acute) History of ankle fracture (Acute) Frostbite of both buttocks (Acute) Fall (Acute) 1. Right ureteric calculus POD 1 from ureteroscopy and lithotripsy/UTI - c/w PO cipro for 3 days - F/u with urology as an outpatient - Urine cx is negative 2. Abnormal endometrium - Seen on CT - Will need outpatient pelvic US 3. Hypothyroidism - stable - TSH 1.09 in March - C/w home synthroid 4. DM2 - Hold metformin - SSI and accuchecks, BG 115 5. HTN - stable - c/w norvasc 5 mg 6. Vit D deficiency - stable - c/w replacement DVT: Lovenox Dispo to SNF Code Visit Inpatient E&M: 94556 Subs Hosp L2
[2018-06-25] MEDS: DULoxetine Hcl 60 MG Capsule PO ×2 (09:48→22:20)
[2018-06-25] MEDS: Enoxaparin 40 MG/0.4 ML Syringe SC (09:48)
[2018-06-25] MEDS: Ciprofloxacin 500 MG Tablet PO ×2 (09:48→22:20)
[2018-06-25] MEDS: amLODIPine 5 MG Tablet PO (09:49)
--- NOTE | 2018-06-25 09:53 | PN_ITS ---
Subjective: Feels better today, kidney stone pain is improved after the procedure. Vitals/I&O's: Vital Signs Temp Pulse Resp BP Pulse Ox 98.3 F 87 16 137/77 H 94 06/25/18 07:29 06/25/18 07:29 06/25/18 07:29 06/25/18 07:29 06/25/18 07:29 Oxygen Delivery Method Room Air Weight: 221 lb 1.978 oz Body Mass Index (BMI) 32.6 Finger Stick Blood Glucose 104 Intake and Output for Last 24 Hours 06/23/18 06/24/18 06/25/18 23:59 23:59 23:59 Intake Total 2269 / 2269 1580 / 1580 Output Total 700 / 700 Balance 1569 / 1569 1580 / 1580 General: Alert, Oriented x3, Cooperative, No apparent distress HEENT: Atraumatic, EOMI, Normocephalic Oral: Moist Mucosa Neck: Supple, No JVD Lungs: Clear to auscultation, Normal air movement, No rhonchi, No wheeze, No rales Cardiovascular: Regular rate, Regular Rhythm, Normal S1, Normal S2, No murmurs Abdomen: Bowel Sounds Present, Soft, Non Tender, Non-Distended Extremities: No edema, Capillary Refill Less than 3 Seconds Skin: No rashes, No breakdown Neurological: Neuro grossly intact, Sensory exam intact to light touch and pain Psych/Mental Status: Normal Affect, Appropriate Microbiology Past 72 Hours 06/22/18 07:20 Urine, Clean Catch Urine Culture - Final Culture exhibits no growth. Laboratory Results 06/24/18 11:05: POC Glucose 234 H 06/24/18 16:12: POC Glucose 162 H 06/24/18 21:49: POC Glucose 246 H 06/25/18 05:27: WBC 5.3, RBC 4.05 L, Hgb 10.6 L, Hct 34.3 L, MCV 84.7, MCH 26.2 L, MCHC 30.9 L, RDW 16.9 H, RDW Differential 51.4 H, Plt Count 280, MPV 12.1 H, Immature Gran % (Auto) 0.200, Neut % (Auto) 64.8, Lymph % (Auto) 18.8 L, [place] % (Auto) 10.3 H, Eos % (Auto) 5.3 H, Baso % (Auto) 0.6, Absolute Neuts (auto) 3.5, Absolute Lymphs (auto) 1.00, Total Counted Not Reportable 06/25/18 05:27: Sodium 141, Potassium 3.8, Chloride 108 H, Carbon Dioxide 28.0, Anion Gap 5, BUN 11, Creatinine 0.75, Estim Creat Clear Calc 51.58, Est GFR (MDRD) Af Amer 97, Est GFR (MDRD) Non-Af 80, BUN/Creatinine Ratio 14.7, Glucose 115 H, Calcium 8.8 06/25/18 06:31: POC Glucose 118 H Current Medications Acetaminophen (Tylenol) 650 mg PO Q6H PRN PRN PRN Reason: PAIN Last Admin: 06/24/18 21:49 Dose: 650 mg Amlodipine Besylate (Norvasc) 5 mg PO DAILY [facility] Last Admin: 06/24/18 08:16 Dose: 5 mg Aspirin (Aspirin, Baby) 81 mg PO DAILY@0800 [facility] Last Admin: 06/25/18 07:43 Dose: 81 mg Cholecalciferol (Vitamin D) 1,000 unit PO DAILY [facility] Last Admin: 06/24/18 08:16 Dose: 1,000 unit Ciprofloxacin HCl (Cipro) 500 mg PO BID [facility] Stop: 06/26/18 22:01 Last Admin: 06/24/18 21:54 Dose: 500 mg Dextrose (D50w Syringe) 0 gm IV X1 PRN; Protocol PRN Reason: Hypoglycemia Duloxetine HCl (Cymbalta) 60 mg PO BID [facility] Last Admin: 06/24/18 21:50 Dose: 60 mg Enoxaparin Sodium (Lovenox) 40 mg SC DAILY@1000 [facility] Last Admin: 06/24/18 08:15 Dose: Not Given Glucagon () 1 mg IM .X1 PRN PRN Reason: Hypoglycemia Sodium Chloride () 250 mls @ 15 mls/hr IV .[id number] PRN PRN Reason: SALINE FLUSH Last Admin: 06/23/18 15:04 Dose: 15 mls/hr Insulin Human Lispro (Humalog Kwikpen (Bkc)) 0 unit SQ ACHS [facility]; Protocol Last Admin: 06/25/18 06:34 Dose: Not Given Levothyroxine Sodium (Synthroid) 125 mcg PO DAILY@0600 [facility] Last Admin: 06/25/18 06:33 Dose: 125 mcg Magnesium Hydroxide (Milk Of Magnesia) 30 ml PO DAILY PRN PRN PRN Reason: Constipation Oxycodone HCl (Oxyir) 5 mg PO Q6H PRN PRN PRN Reason: SEVERE PAIN (6-10/10) Sodium Chloride () 5 - 30 ml IV UD PRN PRN Reason: SALINE FLUSH Last Admin: 06/22/18 22:29 Dose: 10 ml Medical Necessity - Tobacco Use Smoking Status: Never smoker Assessment/Plan All Active Problems (Last Reviewed 04/15/18 @ 04:24 by Maximino Norman MD) Multiple falls (Acute) Debility (Acute) Acute cystitis (Acute) Weakness (Acute) UTI (urinary tract infection) (Acute) Right wrist fracture (Acute) Tachycardia (Acute) History of stroke (Acute) History of blood clots (Acute) History of ankle fracture (Acute) Frostbite of both buttocks (Acute) Fall (Acute) 1. Right ureteric calculus POD 1 from ureteroscopy and lithotripsy/UTI - c/w PO cipro for 3 days - F/u with urology as an outpatient - Urine cx is negative 2. Abnormal endometrium - Seen on CT - Will need outpatient pelvic US 3. Hypothyroidism - stable - TSH 1.09 in March - C/w home synthroid 4. DM2 - Hold metformin - SSI and accuchecks, BG 115 5. HTN - stable - c/w norvasc 5 mg 6. Vit D deficiency - stable - c/w replacement DVT: Lovenox Dispo to SNF Code Visit Inpatient E&M: 63385 Subs Hosp L2
--- NOTE | 2018-06-25 10:00 | CASEMGMT ---
Social Work Note DAYNA met with pt. SW introduced self and role at [facility]. SW explained that per previous notes, the plan is for pt to go to [facility] for rehabilitation and then transition to [facility]. Pt states I want to go to [facility] not jail. SW explained that [facility] is able to provide both rehabilitation and then will be able to transition pt to [facility]. Pt states she needs to get her belongings at home. SW explained that once pt is at [facility] they will be able to assist her with getting her belongings and they will be able to tell pt what she can have at the jail. Pt states understanding. SW explained that pt will need one more night due to insurance and that pt can discharge to [facility] tomorrow. Pt states understanding. DAYNA updated physician. Plan: [facility] under skilled tomorrow. [place] [employer], [employer]
[2018-06-25 12:06] LABS: Bedside Glucose 134 mg/dL (70-110)
[2018-06-25 14:21] VITALS: BP 132/64; PULSE 96; RESP 16; TEMP 36.6; O2SAT 97
[2018-06-25 16:31] LABS: Bedside Glucose 129 mg/dL (70-110)
[2018-06-25 20:39] VITALS: BP 135/58; PULSE 88; RESP 14; TEMP 36.8; O2SAT 99
--- NOTE | 2018-06-25 20:52 | NURSING ---
Pt very frustrated about going to [facility] States she 'does not want to go to the rehab because she had such a horrible experience at [facility]'. States she is 'pissed that we didn't give her all the information'. This nurse is choosing to step out until pt settle down. Will revisit the conversation when this nurse returns.
--- NOTE | 2018-06-25 21:10 | NURSING ---
Charge nurse requested to go in an appease pt. with further info regarding d/c options. Afterwards charge nurse stated that pt had a clearer understanding.
[2018-06-25] MEDS: Acetaminophen 325 MG Tablet 650 MG PO (22:20)
[2018-06-25] MEDS: Insulin Lispro 100 UNIT/ML INSULN.PEN SQ (22:28)
[2018-06-25 22:41] LABS: Bedside Glucose 174 mg/dL (70-110)
--- NOTE | 2018-06-26 04:00 | NURSING ---
Went in to gather pts vitals and focused assessment. Pt awoke asking 'what's so good about the morning'? Pt actively cursing and saying she doesn't want me to talk anymore. Spoke earlier in the night about a DrRobert appointment that she has with Dr. Castro and then she stated that she wanted us to cancel. This morning pt has had a change of mind, appears more agitated and does not want to be bothered. Pt restless at this time, will continue to monitor.
[2018-06-26] MEDS: Levothyroxine 125 MCG Tablet PO (06:42)
[2018-06-26 07:10] LABS: Bedside Glucose 263 mg/dL (70-110)
[2018-06-26 07:16] LABS: Bedside Glucose 135 mg/dL (70-110)
[2018-06-26 07:17] LABS: Absolute Lymphocyte Count 1.12 X10^3/ul (0.83-4.51); Absolute Neutrophil Count 4.1 X10^3/uL (2.0-7.7); Basophil# 0.02 X10^3/uL; Basophil% 0.3 % (0-1); Eosinophils% 4.8 % (0-5); Hematocrit 35.9 % (37-47); Lymphocyte # 1.12 X10^3/ul (4.0); Lymphocyte % 17.9 % (19-41); Mean Corp Hgb Conc 30.6 g/gl (32-36); Mean Corpuscular Hgb 25.7 pg (27.0-32.0); Mean Corpuscular Volume 83.9 fL (81-99); Mean Platelet Vol. 13.1 fl (6.2-12.0); Monocyte# 0.65 X10^3/uL; Monocyte% 10.4 % (0-10); Neutrophil # 4.14 X10^3/uL (2.7-7.7); Neutrophil % 66.4 % (47-70); Platelet Count 294 K/mm3 (150-450); RBC Distribution Width CV 16.8 % (11.6-14.6); RBC Distribution Width SD 50.7 fl (35.1-43.9); Red Blood Count 4.28 M/mm3 (4.2-5.4); White Blood Count 6.2 K/mm3 (4.4-11.0)
[2018-06-26 07:24] LABS: POSITIVE COUNT NO; POSITIVE DIFFERENTIAL NO; POSITIVE MORPHOLOGY NO
[2018-06-26 07:38] LABS: Anion Gap 10 (5-15); BUN 13 mg/dL (7-18); Calcium,Total 9.4 mg/dL (8.5-10.1); Chloride 106 mmol/L (98-107); Creatinine, Serum 0.82 mg/dL (0.55-1.02); EST Glomerular Filtration Rate 73 mL/min (>60); Est Glom Filt Rate - Afr Amer 88 mL/min (>60); Glucose 126 mg/dL (74-106); Potassium 4.1 mmol/L (3.5-5.1); Sodium Level 143 mmol/L (136-145)
--- NOTE | 2018-06-26 08:58 | PCA ---
Dietary came up to desk and informed me that this patient is upset yelled at her and said she was going to call the police on her. engineering aide said she said we are holding her against her will. The unit aide tech said all she did was ask the patient how she would like her breakfast. The patient got off her cell phone with someone prior to this accounter with the unit aide tech. Shortly after the police department called and said this patient is on the phone with dispatcher and is upset. I told him everything is alright and ill go back to talk to patient. Went to talk to the patient. the [facility] Saskia was in with patient at this time. The patient was yelling at her saying we are all dumb and she wants to go home. We are all holding her against her will and she dont like us at all.. That the doctors are all stupid and dont tell her anything on what they are doing and why she is here. That she wants to talk to her doctor and tell him that she wants to go home. Told her I will contact her doctor and he will be up as soon as possible. She said she will be waiting on him
--- NOTE | 2018-06-26 09:37 | NURSING ---
LIO GEOTECHNICAL DEPARTMENT MANAGER AWARE OF PT CONCERNS. UPDATED THAT PER [facility] POLICE DEPARTMENT PHONED IN AND SPOKE WITH STAFF, IINFORMED THAT PT WAS SPEAKING WITH DISPATCHER.
--- NOTE | 2018-06-26 13:30 | CASEMGMT ---
Social Work Note Physician is discharging pt. SW met with pt to confirm discharge plans. Pt states I don't have a choice, I have to go to SNF. SW explained that pt does have a choice, but that when pt arrived to [facility] she had stated that she didn't have anyone at home to help her and pt wanted placement. Pt confirms that she doesn't have anyone at home to help her. SW explained that it would be beneficial for pt to go to SNF at this time for continued rehabilitation and care. SW informed pt that this worker can set up transportation and that pt would have to go via wheelchair van and pt would get a bill. Pt states understanding. Before this worker entered pt room RN Perla informed this worker that pt had mentioned wanting to kill someone named Betty. This worker asked pt about Betty. 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 Pt states the people here make me so frustrated I just want to kill someone. SW utilized active listening skills and validated pt's feelings. Pt exhibits being frustrated with being at [facility] and for going to [facility]. SW listened to pt's frustration and offered support. Pt then denied any suicidal or homicidal thoughts/plans/ideations. SW informed pt that this worker can set up transportation for her and once pt is at [facility] staff there can assist pt with getting her belongings from pt's home. Pt states understanding. Pt denied additional needs or concerns at this time. VIC Alex updated this worker that pt wants to speak to this worker again. SW in to speak with pt. SW informed pt again that once pt gets to [facility] staff can assist pt with getting her belongings at discharge. Pt asked this worker for name and direct number at [facility]. SW provided pt with this worker's direct number and again informed pt that staff at [facility] will be able to assist pt once she arrives to the facility. Pt states understanding. DAYNA faxed completed discharge paperwork to [facility] including transfer to extended care facility, signed medication list and any scripts. Originals in SNF folder and copy on pt's chart. DAYNA set up transportation through [facility] via wheelchair van for 2:00pm. Transportation form on SNF folder and copy on pt's chart. Mat Bond completed convalescent [facility] in [facility]. DAYNA placed a call to Mei at [facility] and updated her on transportation time. DAYNA also informed Mei of pt's frustration and agitation and threats of wanting to harm others. DAYNA updated RN Perla of transportation time. Plan: Pt to discharge to [facility] today under skilled at 2:00pm with [facility] transporting via wheelchair van [place] BUSINESS SERVICES ASSISTANT, SILVERSMITH APPRENTICE
--- NOTE | 2018-06-26 13:33 | PCM.TXEXTCAR ---
- Diet 06/23/18 12:26 Diet: Regular Diet Is pt able to select menu?: Yes - Wound(s) lower mid back Wound Type: Abrasion - Allergies/Procedures Done in Hospital Allergies/Adverse Reactions: Allergies amoxicillin Allergy (Verified 06/22/18 05:12) Unknown Penicillins [PCN] Allergy (Verified 06/22/18 05:12) Unknown Sulfa (Sulfonamide Antibiotics) Allergy (Verified 06/22/18 05:12) Unknown - Type of Care/Length of Stay Estimated LOS: Convalescent Care Less Than 30 days Type of Care Needed: Skilled Rehab Potential: Good Prognosis: Good - Additional Orders/Day of Discharge Day of Discharge: 06/26/18 - Follow Up Care Primary Care Physician: Karl Monaco MD [STAFF PHYSICIAN] - Dong Costa MD [STAFF PHYSICIAN] - Keep Hannah appointment Please follow up with your Primary Care Physician in: In 3-5 days
--- NOTE | 2018-06-26 13:50 | DS.PCM_ITS ---
Discharge Date and Diagnosis Date of Admission: 06/22/18 Date of Discharge: 06/26/18 - Secondary Discharge Diagnosis Chronic Problems (Last Reviewed 04/15/18 @ 04:24 by Maximino Norman MD) Diabetes mellitus (Chronic) GERD (gastroesophageal reflux disease) (Chronic) Neuropathy (Chronic) Arthritis (Chronic) Depression (Chronic) Anxiety (Chronic) PAOD (peripheral arterial occlusive disease) (Chronic) Hypothyroidism (Chronic) Hyperlipidemia (Chronic) Hypertension (Chronic) Iron deficiency anemia (Chronic) Diabetic neuropathy (Chronic) Type 2 diabetes mellitus (Chronic) Closed right ankle fracture (Chronic) PAD (peripheral artery disease) (Chronic) Status post stenting of the right lower extremity CVA (cerebral vascular accident) (Chronic) Asthma (Chronic) Fibromyalgia (Chronic) Hospital Course and Treatment Imaging Results: CT Abd/Pelvis: IMPRESSION: Interval placement of double-J stent with previously seen obstructing right UPJ calculus positioned in the dilated right renal pelvis. The hydronephrosis is mild to moderate in degree, possibly minimally decreased since previous examination. Previously seen nonobstructing small inferior renal pole calculus is not visualized, however there is layering hyperattenuation along the right inferior dilated collecting system which may be granular material or possible residual retained contrast. Abnormal endometrium, not significantly changed, consideration for follow-up pelvic ultrasound recommended if not previously performed. Other nonacute findings as outlined above. Consults: Urology Operations: - - Cystoscopy: 72-year-old female who was brought to the hospital because severe pain she has kidney stone and stent was in place, plan to take her to surgery today to laser the stone and remove the stent. Procedure note patient was taken back to the operating room after smooth induction of anesthesia she was placed supine on the table and then a dorsolithotomy position the urethra and vaginal area were prepped and draped in usual sterile fashion went into the urethra with a 21 Swazi rigid cystourethroscope grabbed the existing stent from the right side, I then dilated the ureter, then after this was done then I placed an access sheath up on the right side, after once the access sheath was in place then through the access sheath I went in with the ureteroscope and I found the stone in the midpole of the right kidney I then used a 200 ?m laser fiber and laser the stone little tiny pieces once the stone was fragmented into dust particles then I worked my way down the ureter no major fragments along the course of the ureter no obstruction. Did not leave a stent in she should be on passive low fragments were lasered patient anesthetic was reversed, bladder was drained and she is taken back to PACU good condition. Procedures: None Summary of Care Provided: Per HPI: The patient is a 72 year old F with an extensive past medical history as listed below. She was admitted through the ED on 1120 started 1 day prior to admission. Pain was rated at 8 out of 10. It radiated across her back with no aggravating or relieving factors. She had no stiff fever or chills, dysuria or frequency of urination or offensive urine. She denies any chest pain, shortness of breath, abdominal pain, diarrhea vomiting. She came in the ED and was found to have a UTI by urinalysis. She had recently had a right kidney stent placed on account of kidney stones. Patient was supposed to be discharged after being managed for UTI on outpatient basis; however she stated that she did not have anyone to look after her at home and would want to be placed in a long term. Patient is therefore being admitted to be managed for complicated UTI and for placement. She was started on ciprofloxacin. Vital Signs - 24 hr Temp Pulse Resp BP Pulse Ox 06/25/18 20:39 98.2 F 88 14 135/58 H 99 06/25/18 14:21 97.9 F 96 16 132/64 H 97 General: Alert, Oriented x3, Cooperative, No apparent distress HEENT: Atraumatic, EOMI, Normocephalic Oral: Moist Mucosa Neck: Supple, No JVD Lungs: Clear to auscultation, Normal air movement, No rhonchi, No wheeze, No rales Cardiovascular: Regular rate, Regular Rhythm, Normal S1, Normal S2, No murmurs Abdomen: Bowel Sounds Present, Soft, Non Tender, Non-Distended Extremities: No edema, Capillary Refill Less than 3 Seconds Skin: No rashes, No breakdown Neurological: Neuro grossly intact, Sensory exam intact to light touch and pain Psych/Mental Status: Normal Affect, Appropriate Hospital Course: 1. Right ureteric calculus POD 1 from ureteroscopy and lithotripsy/UTI - She presented with flank pain and urology was consulted since they had placed a sent a few days prior to admission and she returned with pain and an obstructing stone. She had lithotripsy and the stent was removed. She was started on Cipro which she should continued on discharge for 2 more days. 2. Abnormal endometrium - During her admission process she had CT abd performed (read is above) and was found to have an abnormal endometrium. While here she refused to have a pelvic US, but she will need one as an outpatient for further evaluation. 3. Her other diagnoses were evaluated and her home medications were continued where appropriate - Physical Exam Vital Signs Temp Pulse Resp BP Pulse Ox 98.2 F 88 14 135/58 H 99 06/25/18 20:39 06/25/18 20:39 06/25/18 20:39 06/25/18 20:39 06/25/18 20:39 Oxygen Delivery Method Room Air Weight: 221 lb 1.978 oz Body Mass Index (BMI) 32.6 Finger Stick Blood Glucose 104 Intake and Output for Last 24 Hours 06/24/18 06/25/18 06/26/18 23:59 23:59 23:59 Intake Total 1580 / 1580 500 / 500 Output Total 500 / 500 Balance 1580 / 1580 0 / 0 Microbiology Past 72 Hours 06/22/18 07:20 Urine Culture - Final Urine, Clean Catch Culture exhibits no growth. Laboratory Tests Past 24 Hrs 06/26/18 06/26/18 05:50 05:50 WBC 6.2 RBC 4.28 Hgb 11.0 L Hct 35.9 L MCV 83.9 MCH 25.7 L MCHC 30.6 L RDW 16.8 H RDW Differential 50.7 H Plt Count 294 MPV 13.1 H Immature Gran % (Auto) 0.200 Neut % (Auto) 66.4 Lymph % (Auto) 17.9 L [place] % (Auto) 10.4 H Eos % (Auto) 4.8 Baso % (Auto) 0.3 Absolute Neuts (auto) 4.1 Absolute Lymphs (auto) 1.12 Total Counted Not Reportable Sodium 143 Potassium 4.1 Chloride 106 Carbon Dioxide 27.0 Anion Gap 10 BUN 13 Creatinine 0.82 Estim Creat Clear Calc 62.90 Est GFR (MDRD) Af Amer 88 Est GFR (MDRD) Non-Af 73 BUN/Creatinine Ratio 16.0 Glucose 126 H Calcium 9.4 POC Glucose 06/26/18 06/25/18 06/25/18 06:46 22:27 16:21 POC Glucose 135 H 174 H 129 H 06/23/18 16:11 POC Glucose 263 H Home Medications: Medications to take at Discharge Aspirin [Aspirin, Baby] 81 mg PO DAILY@0800 04/15/18 Amlodipine Besylate [Norvasc] 5 mg PO QDAY 04/18/18 Cholecalciferol (VIT D3) [Vitamin D3] 1,000 unit PO DAILY 04/18/18 Duloxetine HCl [Cymbalta] 60 mg PO BID 04/18/18 Levothyroxine Sodium [Synthroid] 125 mcg PO DAILY 04/18/18 Metformin HCl 500 mg PO BID 04/18/18 Acetaminophen [Tylenol] 650 mg PO Q6H PRN PRN 06/22/18 Ciprofloxacin [Cipro] 500 mg PO BID tablet 06/26/18 Primary Care Physician: Karl Monaco MD [STAFF PHYSICIAN] - Dong Costa MD [STAFF PHYSICIAN] - Keep Hannah appointment Please follow up with your Primary Care Physician in: In 3-5 days Patient Instructions: ED Stone Renal W Colic Disposition: Assisted facility Minutes spent on discharge:: 35 Patient Condition:: Good Medical Necessity - Tobacco Use Smoking Status: Never smoker Meaningful Use Info Meaningful Use Diagnoses (Choose all that apply): None applicable Code Visit Inpatient E&M: 22187 Disch Hosp
--- NOTE | 2018-07-05 14:13 | CM.ED ---
Social Work Note [facility] will not accept the pt back. Return to pt's room and review alternative options. Pt states that she does not care where she goes as long as it has over a 4 star rating. Placed call to [facility] and left vm with Romy, placed call to [facility] and left vm with Della, and placed a call to the [facility] and left a vm with Violet. Faxed initial referral to all three facilities to review. Will continue to follow and assist with discharge placement. PLAN: ECF at discharge. Eduarda Smith, KATIE, MIRIAM
== END 2018-06-26 14:10 | disposition skilled nursing facility (03) | DRG 661 ==
LOC: ED 08:18 → MS3 09:21
PROVIDERS: Anesthesiology; Emergency Medicine; Urology; Admitting Provider Student in an Organized Health Care Education/Training Program; Emergency Provider Emergency Medicine; Visit Provider Family Medicine
PROC: 0TJ98ZZ Inspection of Ureter, Via Natural or Artificial Opening Endoscopic (ICD-10-PCS; CPT 52352; principal; 2018-06-23 06:50)
DX: N13.6 Pyonephrosis (principal); E03.9 Hypothyroidism, unspecified; E87.6 Hypokalemia; Z79.84 Long term (current) use of oral hypoglycemic drugs; Z79.899 Other long term (current) drug therapy; I10 Essential (primary) hypertension; E55.9 Vitamin D deficiency, unspecified; M25.531 Pain in right wrist; K21.9 Gastro-esophageal reflux disease without esophagitis; M19.90 Unspecified osteoarthritis, unspecified site; F41.9 Anxiety disorder, unspecified; F32.9 Major depressive disorder, single episode, unspecified; E78.5 Hyperlipidemia, unspecified; D50.9 Iron deficiency anemia, unspecified; I73.9 Peripheral vascular disease, unspecified; J45.909 Unspecified asthma, uncomplicated; E11.40 Type 2 diabetes mellitus with diabetic neuropathy, unspecified; M79.7 Fibromyalgia
CPT/HCPCS: 36415; 74176; 80048; 81001; 82962; 83036; 85025; 87086; 93005; 99285; J7050; A4216; J0744; J2405

== ENCOUNTER 2018-07-05 11:24 | Emergency (ER) | payer MEDICARE, OTHER, SELFPAY ==
[2018-06-23 05:49] VITALS: BMI 32.6
[2018-07-05 11:25] VITALS: BP 124/75; PULSE 89; RESP 24; TEMP 37; O2SAT 90; BMI 32.5
--- NOTE | 2018-07-05 11:50 | RAD_ITS ---
STUDY: X-RAY CHEST REASON FOR EXAM: Female, 72 years old. Weakness. Generalized illness. TECHNIQUE: Single AP portable view of the chest. COMPARISON: Comparison is made with prior study dated April 14, 2018. FINDINGS: EKG electrodes are seen. Stable increased linear markings in the right midlung suggestive of scarring. Blunting of the left costophrenic angle. Minimal increased markings at the left lung base. Normal size heart. Normal mediastinum and reta. Normal visualized pulmonary arteries. There is atherosclerotic tortuosity of the aortic arch and descending thoracic aorta. Normal visualized thoracic spine. There is degenerative osteoarthritis of the bilateral shoulders. There is no demonstrated abnormality of the visualized soft tissue structures of the upper abdomen. RAD/Chest 1 View (Portable) IMPRESSION: Stable linear scarring at the right midlung with lingular and left costophrenic angle and minimal increased markings at the left lung base. Electronically Signed: Partha Roth MD at 12:12 EST Tel [phone], Service support ,
--- NOTE | 2018-07-05 11:50 | EKG12_ITS ---
Test Reason : Blood Pressure : / mmHG Vent. Rate : 084 BPM Atrial Rate : 084 BPM P-R Int : 182 ms QRS Dur : 080 ms QT Int : 374 ms P-R-T Axes : 063 006 050 degrees QTc Int : 441 ms Normal sinus rhythm Possible Inferior infarct , age undetermined Abnormal ECG Confirmed by JUSTIN BOO, BART ([id number]), video editor MINA BERNAL ([id number]) on 07/09/2018 2:28:19 PM Referred By: ESME Confirmed By:BART ANDERSON MD
[2018-07-05 12:18] LABS: Absolute Lymphocyte Count 0.76 X10^3/ul (0.83-4.51); Absolute Neutrophil Count 5.3 X10^3/uL (2.0-7.7); Basophil# 0.01 X10^3/uL; Basophil% 0.1 % (0-1); Eosinophil# 0.12 X10^3/uL; Eosinophils% 1.7 % (0-5); Hemoglobin 11.6 g/dl (12.0-15.0); Lymphocyte # 0.76 X10^3/ul (4.0); Mean Corp Hgb Conc 31.4 g/gl (32-36); Mean Corpuscular Hgb 25.5 pg (27.0-32.0); Mean Corpuscular Volume 81.3 fL (81-99); Mean Platelet Vol. 11.9 fl (6.2-12.0); Monocyte# 0.72 X10^3/uL; Monocyte% 10.5 % (0-10); Neutrophil # 5.26 X10^3/uL (2.7-7.7); Neutrophil % 76.6 % (47-70); POSITIVE COUNT NO; POSITIVE DIFFERENTIAL NO; POSITIVE MORPHOLOGY NO; Platelet Count 257 K/mm3 (150-450); RBC Distribution Width CV 16.6 % (11.6-14.6); RBC Distribution Width SD 49.6 fl (35.1-43.9); Red Blood Count 4.55 M/mm3 (4.2-5.4); White Blood Count 6.9 K/mm3 (4.4-11.0)
[2018-07-05 12:29] LABS: BUN 18 mg/dL (7-18); BUN/Creat Ratio 20.9 RATIO (10-20); Creatinine, Serum 0.86 mg/dL (0.55-1.02); EST Glomerular Filtration Rate 68 mL/min (>60); Est Glom Filt Rate - Afr Amer 82 mL/min (>60); Estimated Creatinine Clearance 59.98 ml/min; Glucose 220 mg/dL (74-106); Protein, Total 6.9 g/dL (6.4-8.2)
[2018-07-05 12:30] LABS: ALB/GLOB Ratio 0.6 RATIO (0.9-2.4); AST(SGOT) 21 U/L (15-37); Alanine Aminotransfer ALT/SGPT 19 U/L (13-56); Albumin, Serum 2.6 g/dL (3.2-5.0); Alkaline Phosphatase 148 U/L (45-117); Anion Gap 9 (5-15); Calcium,Total 9.3 mg/dL (8.5-10.1); Chloride 106 mmol/L (98-107); Globulin 4.3 g/dL (2.2-4.2); Potassium 3.2 mmol/L (3.5-5.1); Sodium Level 141 mmol/L (136-145)
[2018-07-05] MEDS: 0.9% Normal Saline 1,000 ML 1000 ML IV (13:00)
[2018-07-05 13:13] LABS: Mucous, Urine 0 SEEN /hpf (<or=2+)
[2018-07-05 13:17] LABS: Color, Urine Yellow (Yellow); Glucose, Dipstick Normal (Normal); Ketone-Dipstick Negative (Negative); Leukocyte Esterase-Dipstick 100 /ul (Negative); Nitrite-Dipstick Negative (Negative); Occult Blood-Urine 10 /ul (Negative); Protein-Dipstick Negative (Negative); Specific Gravity, Urine 1.025 (1.002-1.030); Urine Bilirubin Dipstick Negative (Negative); Urine Clarity Clear (Clear); Urine Urobilinogen Normal (Normal)
[2018-07-05 13:28] LABS: Bacteria RARE /hpf (None Seen); Calcium Oxalate Crystals Ur 1+ /hpf (<or=2+); Red Blood Cells-Urine 0-5 SEEN /hpf (0-5); Squamous Epithelial Cells - UA 0-5 SEEN /hpf (5-10); White Blood Cells 0-5 SEEN /hpf (0-5)
--- NOTE | 2018-07-05 13:34 | CM.ED ---
Social Work Note Referral from Dr. Govea as pt was brought into ED from home with no food and unable to take care of herself. Pt known to from multiple past admissions. Pt was just discharged on 06/26/[address] [facility]. She reports that she bought a taxi and went home. Claims she now knows that she cannot take care of herself. Inquire why she left and she states that she did not like it, and they played music all day and night. She denies that she requested to have is turned down. Also reports that they did not give her enough to eat. Inquire if she indicated that she wanted more and she says no. Educate pt to her responsibility to express needs when she is in a facility. Discuss that the facility is going to do their best to accommodate her. Pt becomes tearful, emotional support provided. She states she does not want to go to [facility]. Inform of other facilities within [facility] and she would like this technical proposal writer to call [facility] and see if they will take her back. Discuss that they very well may not take her back as she left AMA. She expresses understanding. Placed call to Mei, administrative project coordinator, at [facility] and she states it is not her decision, but she will discuss it with their team. Mei to call this technical proposal writer back once a determination is made. PLAN: Place in ECF from ED. Eduarda Smith, SAMPLER FIRST, MIRIAM
[2018-07-05 13:37] VITALS: BP 123/81; PULSE 83; RESP 19; O2SAT 93
--- NOTE | 2018-07-05 14:13 | CM.ED ---
Social Work Note [facility] will not accept the pt back. Return to pt's room and review alternative options. Pt states that she does not care where she goes as long as it has over a 4 star rating. Placed call to [facility] and left vm with Romy, placed call to [facility] and left vm with Della, and placed a call to the [facility] and left a vm with Violet. Faxed initial referral to all three facilities to review. Will continue to follow and assist with discharge placement. PLAN: ECF at discharge. Eduarda Smith, KATIE, MIRIAM
--- NOTE | 2018-07-05 14:38 | ED.VISSUMM ---
- ER Visit Summary Date of Service: 07/05/18 Chief Complaint: Generalized weakness History of Present Illness: The patient is a 72 F presents to the emergency department with weakness. The patient has been seen here multiple times for similar complaints. She was actually just recently admitted for urinary tract infection and obstructive uropathy secondary to kidney stone. She was treated with broad-spectrum antibiotics. She underwent stenting and lithotripsy. She just recently had her stents removed. The patient was actually discharged from here to an extended care facility. Apparently, while there she signed herself out AMA, gotten a cab and just went home. She called [facility] today because she just did not feel well. The patient does have a history of diabetes. [facility] states when they arrived at her house, it was in disarray. She had no food. She states she has not really been eating. She states generally, she just feels weak and that she feels like she cannot stay at home any longer. She denies headache or vision change. She denies any other systemic symptoms. Physical Examination: Vital signs reviewed General: Well-nourished, well-developed Head: Normocephalic, atraumatic Eyes: Pupils equal and reactive, extraocular muscles intact Neck, supple, no lymphadenopathy Heart: Regular rate and rhythm Respiratory: No distress, clear bilaterally Abdomen: Soft, nontender, nondistended, no peritoneal signs Back: Nontender Extremities: Nontender, no edema, no cords Skin: Normal color no rash Neuro: Alert and oriented, no focal or lateralizing deficits Test Results: [] Emergency Department Course and Treatment: Metabolic workup was pursued. Patient's chest x-ray does not show any focal infiltrate. Her labs were unremarkable. Her urine shows no infection. I do feel that this is more of a progressive decline from the patient's chronic comorbidities and her inability to care for herself. At this time, social work has evaluated the patient. We are trying to get the patient placed back at her extended care facility so that way she can be taking care of more appropriately. She is comfortable with this plan of care. Treatment Plan: [] Disposition: [] Impression: 1. Failure to thrive 2. Dizziness This note was generated with [employer] dictation software. It may contain incorrect words, spelling, and punctuation that were not noted in review of the chart prior to signing ED Disposition - Plan for ED Patient: Chief Complaint: General Illness Referrals: Care Physician,No Primary [Primary Care Provider] -
--- NOTE | 2018-07-05 15:05 | CM.ED ---
Social Work Note Call from Della at [facility] stating she received the referral and vm and will review. States that she will contact this real estate underwriter with her determination upon completion of review. Will continue to follow and assist with discharge planning. KATIE Arce, MIRIAM
[2018-07-05 15:27] VITALS: BP 147/73; PULSE 85; RESP 22; O2SAT 96
--- NOTE | 2018-07-05 15:44 | CM.ED ---
Social Work Note Call back from [facility] stating they can accept. Inquires if the pt has any contacts and what date she left [facility]. Inform pt that she has been accepted. She provides this director underwriter sales with her friend, Eneida Redman, as a contact at [phone]. Inquires if she could eventually get closer to Eneida, and inform that she will need to express this want to the facility she will be going to and they can assist. Understanding expressed. Inform that she will be discharged this afternoon, and she reports that she can afford wheelchair ambulette. Call to Mei at [facility] who confirms that the pt had discharged from them on 07/01. Placed call to [facility] via wheelchair ambulette between [phone]. PAS/RR completed and submitted in the HENS. Relayed information to D[facility] and faxed Transfer Summary. Notified of discharge time of [phone]. Updated physician and bedside RN. No further needs at this time. PLAN: Wayne Patel. Eduarda Smith, ANIMAL SKINNER, MIRIAM
--- NOTE | 2018-07-05 16:42 | ED.RN ---
REPORT TO MORGAN NURSE AT [facility].
[2018-07-05 17:08] VITALS: BP 114/88; PULSE 94; RESP 18; O2SAT 96
[2018-07-05 18:01] VITALS: RESP 16
--- NOTE | 2018-07-05 18:03 | ED.RN ---
PT SKIN P/W/D, RESP EVEN AND UNLABORED, PT A&O X 3, NO DISTRESS NOTED. PT ASSISTED TO WHEELCHAIR. OUT OF ED WITH [facility] FOR TRANSPORT TO [facility].
== END 2018-07-05 18:04 | disposition home or self-care (01) ==
LOC: ED 12:28
PROVIDERS: Emergency Provider Emergency Medicine
DX: R62.7 Adult failure to thrive (principal); R42 Dizziness and giddiness; R53.1 Weakness; R11.0 Nausea; E11.9 Type 2 diabetes mellitus without complications; Z87.442 Personal history of urinary calculi; Z87.440 Personal history of urinary (tract) infections; Z79.82 Long term (current) use of aspirin; Z79.84 Long term (current) use of oral hypoglycemic drugs; Z79.899 Other long term (current) drug therapy
CPT/HCPCS: 71045; 80053; 81001; 85025; 93005; 96360; 96361; 99285; J7030

== ENCOUNTER 2018-07-24 08:42 | Inpatient (IN) | payer MEDICARE, OTHER, SELFPAY ==
[2018-07-24 08:44] VITALS: BP 155/80; PULSE 83; RESP 17; TEMP 36.8; O2SAT 98; BMI 32.8
--- NOTE | 2018-07-24 08:53 | CT_ITS ---
STUDY: CT BRAIN WITHOUT CONTRAST REASON FOR EXAM: Female, 72 years old. fell at home laying on floor for 2 days, pain everywhere RADIATION DOSAGE (If Supplied By Facility): CTDIvol = ( 44.99 ) mGy, DLP = ( 779.24 ) mGycm TECHNIQUE: Transaxial CT imaging of the brain was performed without administration of intravenous contrast material. Individualized dose optimization techniques were used for this CT. COMPARISON: April 12, 2018 FINDINGS: There is cerebral atrophy with widening of the extra-axial spaces and ventricular dilatation. There are areas of decreased attenuation within the white matter tracts of the supratentorial brain, consistent with microvascular disease changes. There is chronic left basal ganglia lacunar infarcts. There is no intracranial hemorrhage. There are no findings of an acute ischemic infarction. Normal soft tissue structures. Normal visualized paranasal sinuses. CT/Brain/Head without Contrast IMPRESSION: Chronic involutional changes of the brain. Electronically Signed: Bekah Garcia MD at 10:38 EST Tel , Service support ,
--- NOTE | 2018-07-24 08:53 | EKG12_ITS ---
Test Reason : FALL Blood Pressure : / mmHG Vent. Rate : 085 BPM Atrial Rate : 085 BPM P-R Int : 164 ms QRS Dur : 086 ms QT Int : 396 ms P-R-T Axes : 048 040 063 degrees QTc Int : 471 ms Normal sinus rhythm Low voltage QRS (limb leads) Confirmed by SIMON BOO, AARON ([id number]), editor map MINA BERNAL ([id number]) on 07/27/2018 3:32:31 PM Referred By: JUANI Confirmed By:AARON MONTES MD
--- NOTE | 2018-07-24 08:54 | CT_ITS ---
STUDY: CT CERVICAL SPINE WITHOUT CONTRAST REASON FOR EXAM: Female, 72 years old. fell at home laying on floor for 2 days, pain everywhere RADIATION DOSAGE (If Supplied By Facility): CTDIvol = ( 25.28 ) mGy, DLP = ( 528.83 ) mGycm TECHNIQUE: The patient was scanned in a multi detector CT scanner. High resolution transaxial imaging was performed. Sagittal and coronal images were reconstructed. Individualized dose optimization techniques were used for this CT. COMPARISON: None FINDINGS: There is normal cervical lordosis. There are no fractures of the cervical spine. The atlantoaxial relationships are normal.. Prevertebral soft tissues are within normal limits. There is multilevel endplate spondylosis of the vertebrae. There is multi-level degenerative disc disease with multi-level disc space narrowing. Normal visualized paraspinous soft tissue structures. CT/Spine Cervical without Contras IMPRESSION: No demonstrated fractures. Multilevel degenerative changes. Electronically Signed: Bekah Garcia MD at 10:44 EST Tel , Service support ,
[2018-07-24] MEDS: 0.9% Normal Saline 1,000 ML 1000 ML IV (09:24)
[2018-07-24 09:38] LABS: Bacteria 0 SEEN /hpf (None Seen); Mucous, Urine 0 SEEN /hpf (<or=2+); Red Blood Cells-Urine 0 SEEN /hpf (0-5); Squamous Epithelial Cells - UA 0 SEEN /hpf (5-10)
[2018-07-24 09:40] LABS: Color, Urine Yellow (Yellow); Glucose, Dipstick Normal (Normal); Ketone-Dipstick 5 mg/dl (Negative); Leukocyte Esterase-Dipstick Negative /ul (Negative); Nitrite-Dipstick Negative (Negative); Occult Blood-Urine Negative /ul (Negative); Protein-Dipstick 30 mg/dl (Negative); Specific Gravity, Urine 1.025 (1.002-1.030); Urine Bilirubin Dipstick Negative (Negative); Urine Clarity Clear (Clear); Urine Urobilinogen 1 mg/dl (Normal)
--- NOTE | 2018-07-24 09:40 | RAD_ITS ---
STUDY: X-RAY - PELVIS REASON FOR EXAM: Female, 72 years old. Status post fall 2 days ago TECHNIQUE: One view of the pelvis was obtained. COMPARISON: None. FINDINGS: There is a non-specific bowel gas pattern. Normal visualized soft tissue structures. Normal bilateral iliac wings, sacroiliac joints and visualized sacrum. Normal visualized bilateral superior and inferior pubic rami. Normal pubic symphysis. Normal ischial tuberosities. Normal visualized right femoral head. Normal right acetabulum. Normal right hip joint. Normal visualized left femoral head. Normal left acetabulum. Normal left hip joint. RAD/Pelvis 1 or 2 Views IMPRESSION: No acute findings Electronically Signed: Jonnathan Cannon DO at 10:11 EST Tel , Service support ,
[2018-07-24 09:48] LABS: Absolute Lymphocyte Count 0.62 X10^3/ul (0.83-4.51); Absolute Neutrophil Count 8.8 X10^3/uL (2.0-7.7); Basophil# 0.03 X10^3/uL; Basophil% 0.3 % (0-1); Eosinophil# 0.06 X10^3/uL; Eosinophils% 0.6 % (0-5); Hematocrit 40.1 % (37-47); Hemoglobin 12.8 g/dl (12.0-15.0); Lymphocyte # 0.62 X10^3/ul (4.0); Mean Corp Hgb Conc 31.9 g/gl (32-36); Mean Corpuscular Hgb 26.1 pg (27.0-32.0); Mean Corpuscular Volume 81.8 fL (81-99); Mean Platelet Vol. 12.1 fl (6.2-12.0); Monocyte# 0.75 X10^3/uL; Monocyte% 7.3 % (0-10); Neutrophil % 85.6 % (47-70); POSITIVE COUNT NO; POSITIVE DIFFERENTIAL NO; POSITIVE MORPHOLOGY NO; Platelet Count 303 K/mm3 (150-450); RBC Distribution Width CV 16.9 % (11.6-14.6); White Blood Count 10.3 K/mm3 (4.4-11.0)
[2018-07-24 09:51] LABS: White Blood Cells 0-5 SEEN /hpf (0-5)
[2018-07-24 09:56] LABS: Anion Gap 11 (5-15); BUN 15 mg/dL (7-18); BUN/Creat Ratio 20.1 RATIO (10-20); Calcium,Total 10.1 mg/dL (8.5-10.1); Chloride 106 mmol/L (98-107); Creatinine, Serum 0.75 mg/dL (0.55-1.02); EST Glomerular Filtration Rate 81 mL/min (>60); Est Glom Filt Rate - Afr Amer 98 mL/min (>60); Estimated Creatinine Clearance 51.58 ml/min; Glucose 142 mg/dL (74-106); Potassium 3.8 mmol/L (3.5-5.1); Sodium Level 145 mmol/L (136-145)
[2018-07-24 10:06] LABS: CPK Total, Creatine Kinase 43 U/L (26-192)
--- NOTE | 2018-07-24 11:01 | PCM.HP.STD ---
Problem List (1) Multiple falls Status: Acute (2) Debility Status: Acute (3) Weakness Status: Acute (4) Diabetes mellitus Status: Chronic (5) GERD (gastroesophageal reflux disease) Status: Chronic (6) Neuropathy Status: Chronic (7) History of stroke Status: Chronic (8) Arthritis Status: Chronic (9) Depression Status: Chronic (10) Anxiety Status: Chronic (11) Hypothyroidism Status: Chronic (12) Hypertension Status: Chronic (13) Iron deficiency anemia Status: Chronic (14) Fall Status: Acute History of Present Illness Date of Admission: 07/24/18 Chief Complaint: Fall The patient is a 72 year old F with a past medical history as below who presents after a fall 2 days ago. She states that she was recently in a fdc and they told her that she was good enough to go home where she lives alone. She states that 2 days ago she was using her walker to go to the kitchen to get something to eat and drink when she tripped over an exercise bike and the exercise bike ended up falling on her. She was on the floor for 2 days trying to get around and was unable to. She was finally able to get to her cell phone and call for EMS today to bring her to the hospital. She has peripheral neuropathy and states that the neuropathy in her right leg seems worse the day after she fell. She denies hitting her head and does not remember hitting any other part of her body. She does not remember which side the bike fell on. In the ER CT of the brain, and C-spine were negative for fracture or an acute bleed, x-ray of the pelvis was also negative for fracture. All of her lab work is unremarkable, and it does not appear that she has a UTI. Past Medical History Past Medical History (Chronic Problems): Chronic Problems (Last Reviewed 04/15/18 @ 04:24 by Maximino Norman MD) Diabetes mellitus (Chronic) GERD (gastroesophageal reflux disease) (Chronic) Neuropathy (Chronic) History of stroke (Chronic) Arthritis (Chronic) Depression (Chronic) Anxiety (Chronic) PAOD (peripheral arterial occlusive disease) (Chronic) Hypothyroidism (Chronic) Hyperlipidemia (Chronic) Hypertension (Chronic) Iron deficiency anemia (Chronic) Diabetic neuropathy (Chronic) Type 2 diabetes mellitus (Chronic) Closed right ankle fracture (Chronic) PAD (peripheral artery disease) (Chronic) Status post stenting of the right lower extremity CVA (cerebral vascular accident) (Chronic) Asthma (Chronic) Fibromyalgia (Chronic) Medical History: Medical History (Last Reviewed 04/15/18 @ 04:24 by Maximino Norman MD) GERD (gastroesophageal reflux disease) (Chronic) K21.9 Neuropathy (Chronic) G62.9 History of stroke (Chronic) Z86.73 History of blood clots (Acute) Z86.718 Arthritis (Chronic) M19.90 History of ankle fracture (Acute) Z87.81 Allergies amoxicillin Allergy (Verified 07/24/18 08:44) Unknown Penicillins [PCN] Allergy (Verified 07/24/18 08:44) Unknown Sulfa (Sulfonamide Antibiotics) Allergy (Verified 07/24/18 08:44) Unknown Home Medications: Ambulatory Orders Medication Instructions Recorded Aspirin [Aspirin, Baby] 81 mg PO DAILY@0800 04/15/18 Cholecalciferol (VIT D3) [Vitamin 1,000 unit PO DAILY 04/18/18 D3] Amlodipine [Norvasc] 5 mg PO DAILY 07/05/18 Duloxetine Hcl [Cymbalta] 60 mg PO BID 07/05/18 Levothyroxine [Synthroid] 125 mcg PO DAILY 07/05/18 Metformin HCl [Glucophage] 500 mg PO BIDCM 07/05/18 Surgical History: - - Stent right lower extremity, thyroid surgery. 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 Smoking Status: Never smoker - *Family History Maternal Family History: Family History (Last Reviewed 04/15/18 @ 04:20 by Maximino Norman MD) Grandmother Cancer Aunt Diabetes History Items: - - lung cancer Sibling Family History: Family History (Last Reviewed 04/15/18 @ 04:20 by Maximino Norman MD) Grandmother Cancer Aunt Diabetes History Items: - - diabetes Review of Systems Constitutional: Denies: Chills, Fever, Weight Change HEENT: Denies: Head Aches, Sinus Congestion, Sinus Drainage Cardiovascular: Denies: Chest Pain, Palpitations, Syncope Respiratory: Denies: Cough, Shortness of breath at rest, Sputum production Gastrointestinal: Denies: Abdominal Pain, Nausea, Vomiting Genitourinary: Denies: Dysuria Musculoskeletal: Denies: Joint Pain, Joint Tenderness Skin: Denies: Rash, Wounds Neurological: Denies: Numbness, Tingling, Focal weakness Psychiatric: Denies: Anxiety, Depression Hematologic/ Lymphatic: Denies: Easy Bruising, Easy Bleeding VTE Information - Inpt Only VTE Present on Admission: No - Physical Exam General: Alert, Oriented x3, Cooperative, No apparent distress HEENT: Atraumatic, PERRLA, EOMI, Normocephalic Oral: Dry Mucosa Neck: Supple, No JVD Lungs: Clear to auscultation, Normal air movement, No rhonchi, No wheeze, No rales Cardiovascular: Regular rate, Regular Rhythm, Normal S1, Normal S2, No murmurs Abdomen: Soft, Non Tender, Non-Distended, No Hepato-splenomegaly Skin: No rashes, No breakdown Musculoskeletal: Tenderness - Bilateral hips Neurological: Cranial nerves II-XII grossly intact - Decreased sensation in the right lower extremity compared to the left lower extremity. Strength is 5 out of 5 on bilateral upper extremities, 3 out of 5 bilateral lower extremities Psych/Mental Status: Normal Affect, Appropriate Vital Signs Temp Pulse Resp BP Pulse Ox 98.2 F 83 17 155/80 H 98 07/24/18 08:44 07/24/18 08:44 07/24/18 08:44 07/24/18 08:44 07/24/18 08:44 Oxygen Delivery Method Room Air Weight: 222 lb 10.67 oz Body Mass Index (BMI) 32.8 Finger Stick Blood Glucose 104 Laboratory Tests Past 24 Hrs 07/24/18 07/24/18 07/24/18 09:20 09:25 09:25 WBC 10.3 RBC 4.90 Hgb 12.8 Hct 40.1 MCV 81.8 MCH 26.1 L MCHC 31.9 L RDW 16.9 H RDW Differential 50.0 H Plt Count 303 MPV 12.1 H Immature Gran % (Auto) 0.200 Neut % (Auto) 85.6 H Lymph % (Auto) 6.0 L [place] % (Auto) 7.3 Eos % (Auto) 0.6 Baso % (Auto) 0.3 Absolute Neuts (auto) 8.8 H Absolute Lymphs (auto) 0.62 L Total Counted Not Reportable Sodium 145 Potassium 3.8 Chloride 106 Carbon Dioxide 28.0 Anion Gap 11 BUN 15 Creatinine 0.75 Estim Creat Clear Calc 51.58 Est GFR (MDRD) Af Amer 98 Est GFR (MDRD) Non-Af 81 BUN/Creatinine Ratio 20.1 H Glucose 142 H Calcium 10.1 Total Creatine Kinase Troponin I < 0.015 Urine Color Yellow Urine Clarity Clear Urine pH 6.0 Ur Specific [place] 1.025 Urine Protein 30 H Urine Glucose (UA) Normal Urine Ketones 5 H Urine Occult Blood Negative Urine Nitrite Negative Urine Bilirubin Negative Urine Urobilinogen 1 H Ur Leukocyte Esterase Negative Urine RBC 0 SEEN Urine WBC 0-5 SEEN Ur Squamous Epith Cells 0 SEEN Urine Bacteria 0 SEEN Urine Mucus 0 SEEN 07/24/18 09:25 WBC RBC Hgb Hct MCV MCH MCHC RDW RDW Differential Plt Count MPV Immature Gran % (Auto) Neut % (Auto) Lymph % (Auto) [place] % (Auto) Eos % (Auto) Baso % (Auto) Absolute Neuts (auto) Absolute Lymphs (auto) Total Counted Sodium Potassium Chloride Carbon Dioxide Anion Gap BUN Creatinine Estim Creat Clear Calc Est GFR (MDRD) Af Amer Est GFR (MDRD) Non-Af BUN/Creatinine Ratio Glucose Calcium Total Creatine Kinase 43 Troponin I Urine Color Urine Clarity Urine pH Ur Specific [place] Urine Protein Urine Glucose (UA) Urine Ketones Urine Occult Blood Urine Nitrite Urine Bilirubin Urine Urobilinogen Ur Leukocyte Esterase Urine RBC Urine WBC Ur Squamous Epith Cells Urine Bacteria Urine Mucus Assessment/Plan All Active Problems (Last Reviewed 04/15/18 @ 04:24 by Maximino Norman MD) Multiple falls (Acute) Debility (Acute) Acute cystitis (Acute) Weakness (Acute) UTI (urinary tract infection) (Acute) Right wrist fracture (Acute) Tachycardia (Acute) History of blood clots (Acute) History of ankle fracture (Acute) Frostbite of both buttocks (Acute) Fall (Acute) 1. Fall/weakness/inability to complete ADLs -We will admit to med surg -PT/OT -She denies any low back pain -Stated that she thinks she cannot live alone anymore and if possible would like to transition to an assisted living/fdc closer to her previous home. -Consult to case management discharge planning 2. Hypertension -Currently elevated to systolics of 168 -Continue with her Norvasc 5 mg and will continue to monitor and make adjustments as needed 3. Hypothyroidism -Stable -Continue with Synthroid 4. Depression/anxiety -Stable -Continue with Cymbalta 5. DM 2 -Hold metformin -Accu-Cheks AC at bedtime, SSI DVT: Heparin/SCDs Code Visit Inpatient E&M: 55124 Init Hosp L2
--- NOTE | 2018-07-24 11:05 | ED.VISSUMM ---
- ER Visit Summary Date of Service: 07/24/18 Chief Complaint: [Fall] History of Present Illness: The patient is a 72 F [presents to the emergency department with a fall that occurred 2 days ago. Patient states that she was walking with her walker into the kitchen and on her way back to her bedroom she got hung up against an exercise bike and fell to the ground. Patient states that the bike fell on top of her and it took a day for her to get out from underneath it. Patient also states that she was unable to stand or walk afterwards and was crawling around on the carpet try to find her phone and eventually called for help today. Patient complains of pain everywhere. She does not think she lost consciousness during the fall. She denies any chest pain currently. She denies any shortness of breath. Patient was in a long term until 5 days ago when they discharged her back to home. Patient has a history of diabetes, hypertension, high cholesterol, asthma, stroke history, GERD, neuropathy, and hypothyroidism. Patient believes that they let her go home too soon as she does not feel safe being at home.] Physical Examination: HEENT-PERRLA, EOMI. Cranial nerves II through XII grossly intact. TMs clear. Mucous membranes dry. No adenopathy. Cardiovascular-regular rate and rhythm without murmur or ectopy Lungs-clear to auscultation, chest wall stable without crepitus or subcu emphysema Abdomen-normoactive bowel sounds, soft, nontender, no rebound or rigidity, no peritoneal signs. Extremities-intact ?4, normal range of motion, normal pulses, atraumatic [] Test Results: [CT scan of the brain without contrast showed chronic involutional changes. CT scan of the C-spine showed degenerative changes but no fractures. X-rays of the pelvis were normal. EKG obtained arrival shows sinus rhythm with a ventricular rate of 85 bpm. CBC with differential showed a white count of 10.3, hemoglobin 12.8, hematocrit 40, placed 303. Chemistries unremarkable. Urinalysis was normal. Troponin was less than 0.015. CPK was 43.] Emergency Department Course and Treatment: [Patient was given normal saline] Treatment Plan: [Admit] Disposition: [Admit for possible placement] Impression: [Generalized weakness Fall] This note was generated with [employer] software. It may contain incorrect words, spelling, and punctuation that were not noted in review of the chart prior to signing ED Disposition - Plan for ED Patient: Chief Complaint: Dizziness Referrals: Care Physician,No Primary [Primary Care Provider] -
--- NOTE | 2018-07-24 11:08 | ED.DCSUM_ITS ---
- ER Visit Summary Date of Service: 07/24/18 Chief Complaint: [Fall] History of Present Illness: The patient is a 72 F [presents to the emergency department with a fall that occurred 2 days ago. Patient states that she was walking with her walker into the kitchen and on her way back to her bedroom she got hung up against an exercise bike and fell to the ground. Patient states that the bike fell on top of her and it took a day for her to get out from underneath it. Patient also states that she was unable to stand or walk afterwards and was crawling around on the carpet try to find her phone and eventually called for help today. Patient complains of pain everywhere. She does not think she lost consciousness during the fall. She denies any chest pain currently. She denies any shortness of breath. Patient was in a pen[facility] until 5 days ago when they discharged her back to home. Patient has a history of diabetes, hypertension, high cholesterol, asthma, stroke history, GERD, neuropathy, and hypothyroidism. Patient believes that they let her go home too soon as she does not feel safe being at home.] Physical Examination: HEENT-PERRLA, EOMI. Cranial nerves II through XII grossly intact. TMs clear. Mucous membranes dry. No adenopathy. Cardiovascular-regular rate and rhythm without murmur or ectopy Lungs-clear to auscultation, chest wall stable without crepitus or subcu emphysema Abdomen-normoactive bowel sounds, soft, nontender, no rebound or rigidity, no peritoneal signs. Extremities-intact ?4, normal range of motion, normal pulses, atraumatic [] Test Results: [CT scan of the brain without contrast showed chronic involutional changes. CT scan of the C-spine showed degenerative changes but no fractures. X-rays of the pelvis were normal. EKG obtained arrival shows sinus rhythm with a ventricular rate of 85 bpm. CBC with differential showed a white count of 10.3, hemoglobin 12.8, hematocrit 40, placed 303. Chemistries unremarkable. Urinalysis was normal. Troponin was less than 0.015. CPK was 43.] Emergency Department Course and Treatment: [Patient was given normal saline] Treatment Plan: [Admit] Disposition: [Admit for possible placement] Impression: [Generalized weakness Fall] This note was generated with [employer] software. It may contain incorrect words, spelling, and punctuation that were not noted in review of the chart prior to signing ED Disposition - Plan for ED Patient: Chief Complaint: Dizziness Referrals: Care Physician,No Primary [Primary Care Provider] -
[2018-07-24 11:13] VITALS: BP 168/77; PULSE 82; RESP 23; O2SAT 96
[2018-07-24 12:06] VITALS: BP 170/74; PULSE 82; RESP 16; TEMP 36.5; O2SAT 98; BMI 31.8
[2018-07-24 14:44] VITALS: BP 137/69; PULSE 89; RESP 16; TEMP 36.6; O2SAT 98
[2018-07-24 16:01] LABS: Bedside Glucose 108 mg/dL (70-110)
[2018-07-24] MEDS: Acetaminophen 325 MG Tablet 650 MG PO (18:19)
[2018-07-24 22:30] VITALS: BP 144/81; PULSE 89; RESP 16; TEMP 36.6; O2SAT 92
[2018-07-24] MEDS: amLODIPine 5 MG Tablet PO (22:35)
[2018-07-24] MEDS: Heparin Injection (Vial) 5,000 UNIT/ML VIAL 5000 UNIT SC (22:36)
[2018-07-24] MEDS: DULoxetine Hcl 60 MG Capsule PO (22:36)
[2018-07-24 22:46] LABS: Bedside Glucose 144 mg/dL (70-110)
[2018-07-25 05:30] VITALS: BP 150/73; PULSE 78; RESP 16; TEMP 36.5; O2SAT 93
[2018-07-25] MEDS: Levothyroxine 125 MCG Tablet PO (05:31)
[2018-07-25 06:26] LABS: Bedside Glucose 136 mg/dL (70-110)
[2018-07-25 06:34] LABS: Anion Gap 11 (5-15); BUN 11 mg/dL (7-18); BUN/Creat Ratio 17.7 RATIO (10-20); Calcium,Total 9.4 mg/dL (8.5-10.1); Chloride 108 mmol/L (98-107); Creatinine, Serum 0.62 mg/dL (0.55-1.02); EST Glomerular Filtration Rate 99 mL/min (>60); Est Glom Filt Rate - Afr Amer 120 mL/min (>60); Estimated Creatinine Clearance 51.58 ml/min; Glucose 124 mg/dL (74-106); Potassium 3.4 mmol/L (3.5-5.1); Sodium Level 143 mmol/L (136-145)
[2018-07-25 06:47] LABS: Absolute Lymphocyte Count 1.15 X10^3/ul (0.83-4.51); Absolute Neutrophil Count 3.3 X10^3/uL (2.0-7.7); Basophil# 0.03 X10^3/uL; Basophil% 0.6 % (0-1); Eosinophil# 0.28 X10^3/uL; Eosinophils% 5.1 % (0-5); Hematocrit 38.1 % (37-47); Hemoglobin 11.8 g/dl (12.0-15.0); Lymphocyte # 1.15 X10^3/ul (4.0); Lymphocyte % 21.1 % (19-41); Mean Corpuscular Hgb 25.5 pg (27.0-32.0); Mean Corpuscular Volume 82.3 fL (81-99); Mean Platelet Vol. 12.1 fl (6.2-12.0); Monocyte# 0.67 X10^3/uL; Monocyte% 12.3 % (0-10); Neutrophil % 60.5 % (47-70); Platelet Count 227 K/mm3 (150-450); RBC Distribution Width CV 16.9 % (11.6-14.6); Red Blood Count 4.63 M/mm3 (4.2-5.4); White Blood Count 5.5 K/mm3 (4.4-11.0)
[2018-07-25 06:55] LABS: Differential Indicated SCAN CRITERIA MET; POSITIVE COUNT NO; POSITIVE DIFFERENTIAL NO; POSITIVE MORPHOLOGY YES
--- NOTE | 2018-07-25 07:03 | PCM.PN.HOSP ---
Subjective: Feels ok, today, still feels like her legs are weak but states that her neuropathy which was at her hip is now only below her knee. She would like to go to SNF in the [facility] if possible because her friend lives in that area and could help her if needed Vitals/I&O's: Vital Signs Temp Pulse Resp BP Pulse Ox 97.7 F L 78 16 150/73 H 93 07/25/18 05:30 07/25/18 05:30 07/25/18 05:30 07/25/18 05:30 07/25/18 05:30 Oxygen Delivery Method Room Air Weight: 215 lb 6.266 oz Body Mass Index (BMI) 31.8 Finger Stick Blood Glucose 104 Intake and Output for Last 24 Hours 07/23/18 07/24/18 07/25/18 23:59 23:59 23:59 Intake Total 1000 / 1000 400 / 400 Output Total 450 / 450 800 / 800 Balance 550 / 550 -400 / -400 General: Alert, Oriented x3, Cooperative, No apparent distress HEENT: Atraumatic, PERRLA, EOMI, Normocephalic Oral: Dry Mucosa Neck: Supple, No JVD Lungs: Clear to auscultation, Normal air movement, No rhonchi, No wheeze, No rales Cardiovascular: Regular rate, Regular Rhythm, Normal S1, Normal S2, No murmurs Abdomen: Soft, Non Tender, Non-Distended, No Hepato-splenomegaly Skin: No rashes, No breakdown Musculoskeletal: Tenderness - Bilateral hips Neurological: Cranial nerves II-XII grossly intact - Decreased sensation in the right lower extremity compared to the left lower extremity, but improved. Strength is 5 out of 5 on bilateral upper extremities, 3 out of 5 bilateral lower extremities Psych/Mental Status: Normal Affect, Appropriate Laboratory Results 07/24/18 09:20: Urine Color Yellow, Urine Clarity Clear, Urine pH 6.0, Ur Specific [place] 1.025, Urine Protein 30 H, Urine Glucose (UA) Normal, Urine Ketones 5 H, Urine Occult Blood Negative, Urine Nitrite Negative, Urine Bilirubin Negative, Urine Urobilinogen 1 H, Ur Leukocyte Esterase Negative, Urine RBC 0 SEEN, Urine WBC 0-5 SEEN, Ur Squamous Epith Cells 0 SEEN, Urine Bacteria 0 SEEN, Urine Mucus 0 SEEN 07/24/18 09:25: WBC 10.3, RBC 4.90, Hgb 12.8, Hct 40.1, MCV 81.8, MCH 26.1 L, MCHC 31.9 L, RDW 16.9 H, RDW Differential 50.0 H, Plt Count 303, MPV 12.1 H, Immature Gran % (Auto) 0.200, Neut % (Auto) 85.6 H, Lymph % (Auto) 6.0 L, [place] % (Auto) 7.3, Eos % (Auto) 0.6, Baso % (Auto) 0.3, Absolute Neuts (auto) 8.8 H, Absolute Lymphs (auto) 0.62 L, Total Counted Not Reportable 07/24/18 09:25: Sodium 145, Potassium 3.8, Chloride 106, Carbon Dioxide 28.0, Anion Gap 11, BUN 15, Creatinine 0.75, Estim Creat Clear Calc 51.58, Est GFR (MDRD) Af Amer 98, Est GFR (MDRD) Non-Af 81, BUN/Creatinine Ratio 20.1 H, Glucose 142 H, Calcium 10.1, Troponin I < 0.015 07/24/18 09:25: Total Creatine Kinase 43 07/24/18 15:52: POC Glucose 108 07/24/18 22:35: POC Glucose 144 H 07/25/18 05:17: WBC 5.5, RBC 4.63, Hgb 11.8 L, Hct 38.1, MCV 82.3, MCH 25.5 L, MCHC 31.0 L, RDW 16.9 H, RDW Differential 51.0 H, Plt Count 227, MPV 12.1 H, Immature Gran % (Auto) 0.400, Neut % (Auto) 60.5, Lymph % (Auto) 21.1, [place] % (Auto) 12.3 H, Eos % (Auto) 5.1 H, Baso % (Auto) 0.6, Absolute Neuts (auto) 3.3, Absolute Lymphs (auto) 1.15, Total Counted Pending 07/25/18 05:17: Sodium 143, Potassium 3.4 L, Chloride 108 H, Carbon Dioxide 24.0, Anion Gap 11, BUN 11, Creatinine 0.62, Estim Creat Clear Calc 51.58, Est GFR (MDRD) Af Amer 120, Est GFR (MDRD) Non-Af 99, BUN/Creatinine Ratio 17.7, Glucose 124 H, Calcium 9.4 07/25/18 06:19: POC Glucose 136 H Current Medications Acetaminophen (Tylenol) 650 mg PO Q6H PRN PRN PRN Reason: HEADACHE Last Admin: 07/24/18 18:19 Dose: 650 mg Amlodipine Besylate (Norvasc) 5 mg PO DAILY [facility] Last Admin: 07/24/18 22:35 Dose: 5 mg Aspirin (Aspirin, Baby) 81 mg PO DAILY@0800 [facility] Dextrose (D50w Syringe) 0 gm IV X1 PRN; Protocol PRN Reason: Hypoglycemia Duloxetine HCl (Cymbalta) 60 mg PO BID [facility] Last Admin: 07/24/18 22:36 Dose: 60 mg Glucagon () 1 mg IM .X1 PRN PRN Reason: Hypoglycemia Heparin Sodium (Porcine) (Heparin Na) 5,000 unit SC Q12 [facility] Last Admin: 07/24/18 22:36 Dose: 5,000 unit Insulin Human Lispro (Humalog Kwikpen (Bkc)) 0 unit SQ ACHS [facility]; Protocol Last Admin: 07/25/18 06:25 Dose: Not Given Levothyroxine Sodium (Synthroid) 125 mcg PO DAILY@0600 [facility] Last Admin: 07/25/18 05:31 Dose: 125 mcg Magnesium Hydroxide (Milk Of Magnesia) 30 ml PO DAILY PRN PRN PRN Reason: Constipation Nutritional Formula (Lactose Free) (Glucerna Shake) 120 ml PO TIDCM [facility] Last Admin: 07/24/18 16:51 Dose: Not Given Sodium Chloride () 5 - 15 ml IV UD PRN PRN Reason: SALINE FLUSH Medical Necessity - Tobacco Use Smoking Status: Never smoker Assessment/Plan All Active Problems (Last Reviewed 04/15/18 @ 04:24 by Maximino Norman MD) Multiple falls (Acute) Debility (Acute) Acute cystitis (Acute) Weakness (Acute) UTI (urinary tract infection) (Acute) Right wrist fracture (Acute) Tachycardia (Acute) History of blood clots (Acute) History of ankle fracture (Acute) Frostbite of both buttocks (Acute) Fall (Acute) 1. Fall/weakness/inability to complete ADLs -We will admit to med surg -PT/OT -She denies any low back pain -Stated that she thinks she cannot live alone anymore and if possible would like to transition to an assisted living/mcc closer to her previous home. -Consult to case management discharge planning 2. Hypertension -Currently elevated to systolics of 168 -Continue with her Norvasc 5 mg and will continue to monitor and make adjustments as needed 3. Hypothyroidism -Stable -Continue with Synthroid 4. Depression/anxiety -Stable -Continue with Cymbalta 5. DM 2 -Hold metformin -Accu-Cheks AC at bedtime, SSI DVT: Heparin/SCDs Code Visit Inpatient E&M: 38276 Subs Hosp L2
[2018-07-25] MEDS: Aspirin 81 MG TAB.CHEW PO (09:43)
[2018-07-25] MEDS: DULoxetine Hcl 60 MG Capsule PO ×2 (09:43→21:04)
[2018-07-25] MEDS: amLODIPine 5 MG Tablet PO (09:43)
[2018-07-25] MEDS: Heparin Injection (Vial) 5,000 UNIT/ML VIAL 5000 UNIT SC ×2 (09:43→21:04)
[2018-07-25] MEDS: Acetaminophen 325 MG Tablet 650 MG PO ×2 (09:59→21:09)
[2018-07-25 10:30] VITALS: BP 134/70; PULSE 83; RESP 16; TEMP 36.7; O2SAT 94
--- NOTE | 2018-07-25 11:53 | CASEMGMT ---
Addendum entered by Hoa Wells 07/25/18 12:09: SW placed a call to [facility] at [facility] who states they are able to transport to nursing homes but that [place] is too far of a drive for them to transport. Original Note: Social Work Note SW familiar with pt from recent admissions. SW introduced self and role at [facility]. Pt is alert and orientated x3. Pt states she would like to discharge to SNF and her only preference is that the SNF is around where her friend Debbie lives. Per Pt, Debbie lives around [facility]. Pt provided Debbie number [phone]. Pt gave this worker permission to call her friend if needed. SW explained that this worker will have to search for SNF around that area. Pt states understanding. DAYNA placed a call to [facility] and spoke with DAYNA Gamble. Mavis confirms that pt's friend is Debbie and confirmed her number. Mavis states that Debbie lives around [facility]. DAYNA searched for SNF around [facility]. Michelle NEGRETE spoke with [facility] and [facility] and [facility] won't transport pt that far and [facility] said possibly Monday they would be able to transport pt. [facility] is a $50 base fee and $2.50 per mile, will be around ($250-$350) for transportation. DAYNA in to speak with pt. DAYNA provided pt with list of SNF around [facility]. DAYNA informed pt that transportation is going to be a barrier and that [facility] mentioned they could possibly transport pt that far on Monday. DAYNA informed pt estimate cost of transportation. DAYNA informed pt that [facility] may ask for credit card number from the start as it is lengthy trip. Pt states she will only go to SNF around where her friend Debbie lives. SW informed pt that if transportation is an issue, pt may need to look for SNF around [facility] and she may need to be transferred to a different SNF later on from SNF in [place]. Pt adamant that she will only go to SNF around where her friend lives. DAYNA encouraged pt to review list and that this worker will check back in with pt later on to determine SNF. Pt states understanding. SW updated physician on tentative plan for pt. Plan: SNF in [place] area pending acceptance. Pt won't need three midnight stay as pt has had recent admissions into [facility] and SNF. Hoa Wells MSW, WOODWIND INSTRUMENT REPAIRER
[2018-07-25 14:00] LABS: Bedside Glucose 216 mg/dL (70-110)
--- NOTE | 2018-07-25 14:52 | CASEMGMT ---
Addendum entered by Hoa Wells 07/25/18 15:30: SW received call back from Shikha at [facility], Shikha provided fax number. SW faxed referral to Shikha. Original Note: Social Work Note SW in to meet with pt. Pt has crossed off multiple SNF on list that was provided as pt states she doesn't want to go to a SNF in [facility]. This worker has placed calls to all remaining SNF on list and has faxed referrals to two SNF listed, as the other SNF have not called this worker back to provide fax number. DAYNA attempted to set up transportation for pt through [facility], but Elizabeth at [facility] states she will need SNF that pt is going to before she can schedule transportation. Plan: SNF pending acceptance Hoa Wells RETAIL ACCOUNT EXECUTIVE, BATTERY CHARGER TESTER
[2018-07-25 16:30] VITALS: BP 114/63; PULSE 85; RESP 16; TEMP 36.6; O2SAT 94
[2018-07-25 18:30] LABS: Bedside Glucose 181 mg/dL (70-110)
[2018-07-25 21:00] VITALS: BP 113/58; PULSE 92; RESP 18; TEMP 37.2; O2SAT 94
[2018-07-25] MEDS: 0.9% NaCl Peripheral Flush Adult/Peds IV (21:05)
[2018-07-25 21:40] LABS: Bedside Glucose 164 mg/dL (70-110)
[2018-07-26 03:00] VITALS: BP 126/64; PULSE 74; RESP 18; TEMP 36.7; O2SAT 96
[2018-07-26] MEDS: Levothyroxine 125 MCG Tablet PO (06:16)
[2018-07-26 06:21] LABS: Bedside Glucose 101 mg/dL (70-110)
[2018-07-26 06:50] LABS: Absolute Neutrophil Count 2.3 X10^3/uL (2.0-7.7); Basophil# 0.01 X10^3/uL; Basophil% 0.2 % (0-1); Eosinophil# 0.38 X10^3/uL; Hematocrit 35.6 % (37-47); Lymphocyte % 26.1 % (19-41); Mean Corp Hgb Conc 30.9 g/gl (32-36); Mean Corpuscular Hgb 25.6 pg (27.0-32.0); Mean Corpuscular Volume 82.8 fL (81-99); Mean Platelet Vol. 12.8 fl (6.2-12.0); Monocyte# 0.47 X10^3/uL; Monocyte% 11.2 % (0-10); Neutrophil # 2.25 X10^3/uL (2.7-7.7); Neutrophil % 53.5 % (47-70); Platelet Count 252 K/mm3 (150-450); RBC Distribution Width CV 16.8 % (11.6-14.6); RBC Distribution Width SD 49.6 fl (35.1-43.9); White Blood Count 4.2 K/mm3 (4.4-11.0)
[2018-07-26 06:53] LABS: POSITIVE COUNT NO; POSITIVE DIFFERENTIAL NO; POSITIVE MORPHOLOGY NO
[2018-07-26 07:03] LABS: Anion Gap 10 (5-15); BUN 15 mg/dL (7-18); BUN/Creat Ratio 20.6 RATIO (10-20); Calcium,Total 9.3 mg/dL (8.5-10.1); Chloride 108 mmol/L (98-107); Creatinine, Serum 0.73 mg/dL (0.55-1.02); EST Glomerular Filtration Rate 83 mL/min (>60); Est Glom Filt Rate - Afr Amer 100 mL/min (>60); Estimated Creatinine Clearance 51.58 ml/min; Glucose 133 mg/dL (74-106); Potassium 3.7 mmol/L (3.5-5.1); Sodium Level 142 mmol/L (136-145)
[2018-07-26] MEDS: Aspirin 81 MG TAB.CHEW PO (07:55)
[2018-07-26] MEDS: Acetaminophen 325 MG Tablet 650 MG PO ×2 (07:55→19:40)
[2018-07-26] MEDS: Heparin Injection (Vial) 5,000 UNIT/ML VIAL 5000 UNIT SC ×2 (07:56→19:40)
[2018-07-26] MEDS: DULoxetine Hcl 60 MG Capsule PO ×2 (07:56→19:40)
[2018-07-26] MEDS: amLODIPine 5 MG Tablet PO (07:57)
[2018-07-26 08:10] VITALS: BP 144/78; PULSE 72; RESP 18; TEMP 36.8; O2SAT 96
--- NOTE | 2018-07-26 09:39 | CASEMGMT ---
Addendum entered by Hoa Wells 07/26/18 11:02: DAYNA spoke with Yu at [place] [facility] the [facility]. Yu provided fax number [phone]. DAYNA faxed referral to Yu. Original Note: Social Work Note DAYNA spoke with Mavis at [facility] who states she is unable to accept pt at this time as they don't have many beds. DAYNA waiting to hear from Danish at and [facility] if they are able to accept pt. Plan: SNF pending acceptance Hoa Wells WATERPROOF MATERIAL FOLDER, LAW WRITER
--- NOTE | 2018-07-26 11:15 | PCM.PN.HOSP ---
Subjective: Feels a little better, no SOB or CP. 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, though a little improved since admission Vitals/I&O's: Vital Signs Temp Pulse Resp BP Pulse Ox 98.2 F 72 18 144/78 H 96 07/26/18 08:10 07/26/18 08:10 07/26/18 08:10 07/26/18 08:10 07/26/18 08:10 Oxygen Delivery Method Room Air Weight: 215 lb 6.266 oz Body Mass Index (BMI) 31.8 Finger Stick Blood Glucose 104 Intake and Output for Last 24 Hours 07/24/18 07/25/18 07/26/18 23:59 23:59 23:59 Intake Total 1000 / 1000 400 / 400 1300 / 1300 Output Total 450 / 450 800 / 800 Balance 550 / 550 -400 / -400 1300 / 1300 General: Alert, Oriented x3, Cooperative, No apparent distress HEENT: Atraumatic, EOMI, Normocephalic Oral: Dry Mucosa Neck: Supple, No JVD Lungs: Clear to auscultation, Normal air movement, No rhonchi, No wheeze, No rales Cardiovascular: Regular rate, Regular Rhythm, Normal S1, Normal S2, No murmurs Abdomen: Soft, Non Tender, Non-Distended, No Hepato-splenomegaly Skin: No rashes, No breakdown Musculoskeletal: Tenderness - Bilateral hips Neurological: Cranial nerves II-XII grossly intact - Decreased sensation in the right lower extremity compared to the left lower extremity, but improved. Strength is 5 out of 5 on bilateral upper extremities, 4 out of 5 bilateral lower extremities Psych/Mental Status: Normal Affect, Appropriate Laboratory Results 07/25/18 13:51: POC Glucose 216 H 07/25/18 18:19: POC Glucose 181 H 07/25/18 21:03: POC Glucose 164 H 07/26/18 06:14: WBC 4.2 L, RBC 4.30, Hgb 11.0 L, Hct 35.6 L, MCV 82.8, MCH 25.6 L, MCHC 30.9 L, RDW 16.8 H, RDW Differential 49.6 H, Plt Count 252, MPV 12.8 H, Immature Gran % (Auto) 0.000, Neut % (Auto) 53.5, Lymph % (Auto) 26.1, [place] % (Auto) 11.2 H, Eos % (Auto) 9.0 H, Baso % (Auto) 0.2, Absolute Neuts (auto) 2.3, Absolute Lymphs (auto) 1.10, Total Counted Not Reportable 07/26/18 06:14: Sodium 142, Potassium 3.7, Chloride 108 H, Carbon Dioxide 24.0, Anion Gap 10, BUN 15, Creatinine 0.73, Estim Creat Clear Calc 51.58, Est GFR (MDRD) Af Amer 100, Est GFR (MDRD) Non-Af 83, BUN/Creatinine Ratio 20.6 H, Glucose 133 H, Calcium 9.3 07/26/18 06:16: POC Glucose 101 Current Medications Acetaminophen (Tylenol) 650 mg PO Q6H PRN PRN PRN Reason: HEADACHE Last Admin: 07/26/18 07:55 Dose: 650 mg Amlodipine Besylate (Norvasc) 5 mg PO DAILY [facility] Last Admin: 07/26/18 07:57 Dose: 5 mg Aspirin (Aspirin, Baby) 81 mg PO DAILY@0800 [facility] Last Admin: 07/26/18 07:55 Dose: 81 mg Dextrose (D50w Syringe) 0 gm IV X1 PRN; Protocol PRN Reason: Hypoglycemia Duloxetine HCl (Cymbalta) 60 mg PO BID [facility] Last Admin: 07/26/18 07:56 Dose: 60 mg Glucagon () 1 mg IM .X1 PRN PRN Reason: Hypoglycemia Heparin Sodium (Porcine) (Heparin Na) 5,000 unit SC Q12 [facility] Last Admin: 07/26/18 07:56 Dose: 5,000 unit Insulin Human Lispro (Humalog Kwikpen (Bkc)) 0 unit SQ ACHS [facility]; Protocol Last Admin: 07/26/18 06:16 Dose: Not Given Levothyroxine Sodium (Synthroid) 125 mcg PO DAILY@0600 [facility] Last Admin: 07/26/18 06:16 Dose: 125 mcg Magnesium Hydroxide (Milk Of Magnesia) 30 ml PO DAILY PRN PRN PRN Reason: Constipation Sodium Chloride () 5 - 15 ml IV UD PRN PRN Reason: SALINE FLUSH Last Admin: 07/25/18 21:05 Dose: 10 ml Medical Necessity - Tobacco Use Smoking Status: Never smoker Assessment/Plan All Active Problems (Last Reviewed 04/15/18 @ 04:24 by Maximino Norman MD) Multiple falls (Acute) Debility (Acute) Acute cystitis (Acute) Weakness (Acute) UTI (urinary tract infection) (Acute) Right wrist fracture (Acute) Tachycardia (Acute) History of blood clots (Acute) History of ankle fracture (Acute) Frostbite of both buttocks (Acute) Fall (Acute) 1. Fall/weakness/inability to complete ADLs -PT/OT, need for SNF -Stated that she thinks she cannot live alone anymore and if possible would like to transition to an assisted living/fci closer to her previous home. -Consult to case management discharge planning 2. Hypertension -Improved -Continue with her Norvasc 5 mg and will continue to monitor and make adjustments as needed 3. Hypothyroidism -Stable -Continue with Synthroid 4. Depression/anxiety -Stable -Continue with Cymbalta 5. DM 2 -Hold metformin -Accu-Cheks AC at bedtime, SSI DVT: Heparin/SCDs Code Visit Inpatient E&M: 03583 Subs Hosp L2
--- NOTE | 2018-07-26 11:19 | PN_ITS ---
Subjective: Feels a little better, no SOB or CP. 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, though a little improved since admission Vitals/I&O's: Vital Signs Temp Pulse Resp BP Pulse Ox 98.2 F 72 18 144/78 H 96 07/26/18 08:10 07/26/18 08:10 07/26/18 08:10 07/26/18 08:10 07/26/18 08:10 Oxygen Delivery Method Room Air Weight: 215 lb 6.266 oz Body Mass Index (BMI) 31.8 Finger Stick Blood Glucose 104 Intake and Output for Last 24 Hours 07/24/18 07/25/18 07/26/18 23:59 23:59 23:59 Intake Total 1000 / 1000 400 / 400 1300 / 1300 Output Total 450 / 450 800 / 800 Balance 550 / 550 -400 / -400 1300 / 1300 General: Alert, Oriented x3, Cooperative, No apparent distress HEENT: Atraumatic, EOMI, Normocephalic Oral: Dry Mucosa Neck: Supple, No JVD Lungs: Clear to auscultation, Normal air movement, No rhonchi, No wheeze, No rales Cardiovascular: Regular rate, Regular Rhythm, Normal S1, Normal S2, No murmurs Abdomen: Soft, Non Tender, Non-Distended, No Hepato-splenomegaly Skin: No rashes, No breakdown Musculoskeletal: Tenderness - Bilateral hips Neurological: Cranial nerves II-XII grossly intact - Decreased sensation in the right lower extremity compared to the left lower extremity, but improved. Strength is 5 out of 5 on bilateral upper extremities, 4 out of 5 bilateral lower extremities Psych/Mental Status: Normal Affect, Appropriate Laboratory Results 07/25/18 13:51: POC Glucose 216 H 07/25/18 18:19: POC Glucose 181 H 07/25/18 21:03: POC Glucose 164 H 07/26/18 06:14: WBC 4.2 L, RBC 4.30, Hgb 11.0 L, Hct 35.6 L, MCV 82.8, MCH 25.6 L, MCHC 30.9 L, RDW 16.8 H, RDW Differential 49.6 H, Plt Count 252, MPV 12.8 H, Immature Gran % (Auto) 0.000, Neut % (Auto) 53.5, Lymph % (Auto) 26.1, [place] % (Auto) 11.2 H, Eos % (Auto) 9.0 H, Baso % (Auto) 0.2, Absolute Neuts (auto) 2.3, Absolute Lymphs (auto) 1.10, Total Counted Not Reportable 07/26/18 06:14: Sodium 142, Potassium 3.7, Chloride 108 H, Carbon Dioxide 24.0, Anion Gap 10, BUN 15, Creatinine 0.73, Estim Creat Clear Calc 51.58, Est GFR (MDRD) Af Amer 100, Est GFR (MDRD) Non-Af 83, BUN/Creatinine Ratio 20.6 H, Glucose 133 H, Calcium 9.3 07/26/18 06:16: POC Glucose 101 Current Medications Acetaminophen (Tylenol) 650 mg PO Q6H PRN PRN PRN Reason: HEADACHE Last Admin: 07/26/18 07:55 Dose: 650 mg Amlodipine Besylate (Norvasc) 5 mg PO DAILY [facility] Last Admin: 07/26/18 07:57 Dose: 5 mg Aspirin (Aspirin, Baby) 81 mg PO DAILY@0800 [facility] Last Admin: 07/26/18 07:55 Dose: 81 mg Dextrose (D50w Syringe) 0 gm IV X1 PRN; Protocol PRN Reason: Hypoglycemia Duloxetine HCl (Cymbalta) 60 mg PO BID [facility] Last Admin: 07/26/18 07:56 Dose: 60 mg Glucagon () 1 mg IM .X1 PRN PRN Reason: Hypoglycemia Heparin Sodium (Porcine) (Heparin Na) 5,000 unit SC Q12 [facility] Last Admin: 07/26/18 07:56 Dose: 5,000 unit Insulin Human Lispro (Humalog Kwikpen (Bkc)) 0 unit SQ ACHS [facility]; Protocol Last Admin: 07/26/18 06:16 Dose: Not Given Levothyroxine Sodium (Synthroid) 125 mcg PO DAILY@0600 [facility] Last Admin: 07/26/18 06:16 Dose: 125 mcg Magnesium Hydroxide (Milk Of Magnesia) 30 ml PO DAILY PRN PRN PRN Reason: Constipation Sodium Chloride () 5 - 15 ml IV UD PRN PRN Reason: SALINE FLUSH Last Admin: 07/25/18 21:05 Dose: 10 ml Medical Necessity - Tobacco Use Smoking Status: Never smoker Assessment/Plan All Active Problems (Last Reviewed 04/15/18 @ 04:24 by Maximino Norman MD) Multiple falls (Acute) Debility (Acute) Acute cystitis (Acute) Weakness (Acute) UTI (urinary tract infection) (Acute) Right wrist fracture (Acute) Tachycardia (Acute) History of blood clots (Acute) History of ankle fracture (Acute) Frostbite of both buttocks (Acute) Fall (Acute) 1. Fall/weakness/inability to complete ADLs -PT/OT, need for SNF -Stated that she thinks she cannot live alone anymore and if possible would like to transition to an assisted living/fci closer to her previous home. -Consult to case management discharge planning 2. Hypertension -Improved -Continue with her Norvasc 5 mg and will continue to monitor and make adjustments as needed 3. Hypothyroidism -Stable -Continue with Synthroid 4. Depression/anxiety -Stable -Continue with Cymbalta 5. DM 2 -Hold metformin -Accu-Cheks AC at bedtime, SSI DVT: Heparin/SCDs Code Visit Inpatient E&M: 75702 Subs Hosp L2
[2018-07-26 11:26] LABS: Bedside Glucose 143 mg/dL (70-110)
--- NOTE | 2018-07-26 14:00 | CASEMGMT ---
Social Work Note DAYNA spoke with Shikha at [facility]. Shikha states that clinically they are able to accept pt but Shikha questioned if socially they are able to accept. Shikha asked this worker if this worker had any contact information listed for pt's friends or family. DAYNA informed Shikha that this worker has name and number of pt's friend Debbie that lives in the area around [facility]. DAYNA provided Shikha with name and number of pt's friend. Per Shikha she will call pt's friend to confirm that pt's friend lives around the area and then will give this worker a call back. DAYNA waiting for call back from Shikha at [facility] to confirm if they are able to accept pt. Hoa Wells CHANNEL MAN, SENIOR MATERIALS PLANNER
[2018-07-26 14:10] VITALS: BP 130/78; PULSE 81; RESP 18; TEMP 36.6; O2SAT 97
--- NOTE | 2018-07-26 16:15 | CASEMGMT ---
Social Work Note DAYNA hasn't heard back yet from Shikha at [facility]. DAYNA placed a call to Shikha but Shikha had left for the day. DAYNA left message for [facility] to call this worker RAISA tomorrow if they are able to accept pt so this worker can set up transportation. DAYNA will await call from Shikha at [facility]. Plan: SNF pending acceptance Hoa Wells INSTRUCTIONAL DESIGN CONSULTANT, HEADER OPERATOR
[2018-07-26] MEDS: 0.9% NaCl Peripheral Flush Adult/Peds IV (19:41)
[2018-07-26 19:54] VITALS: BP 108/66; PULSE 73; RESP 18; TEMP 36.9; O2SAT 98
--- NOTE | 2018-07-26 21:31 | NURSING ---
Pt refused PM accucheck @ this time. Education provided.
[2018-07-27 02:00] VITALS: BP 143/75; PULSE 71; RESP 16; TEMP 36.6; O2SAT 98
[2018-07-27] MEDS: Acetaminophen 325 MG Tablet 650 MG PO (02:27)
[2018-07-27] MEDS: Levothyroxine 125 MCG Tablet PO (06:01)
[2018-07-27 08:00] VITALS: BP 141/75; PULSE 84; RESP 18; TEMP 36.7; O2SAT 96
[2018-07-27] MEDS: Heparin Injection (Vial) 5,000 UNIT/ML VIAL 5000 UNIT SC ×2 (09:04→21:03)
[2018-07-27] MEDS: Aspirin 81 MG TAB.CHEW PO (09:04)
[2018-07-27] MEDS: DULoxetine Hcl 60 MG Capsule PO ×2 (09:04→21:03)
[2018-07-27] MEDS: amLODIPine 5 MG Tablet PO (09:04)
--- NOTE | 2018-07-27 10:00 | CASEMGMT ---
Social Work Note SW received message from Shikha at [facility] [place] who states she is unable to accept pt at this time. Shikha states she spoke with pt's friend Debbie and pt doesn't have a good discharge plan and not a lot of support. DAYNA waiting to hear back from Yu [facility] [place] [facility] the [place]. Plan: SNF pending acceptance Hoa Wells MIXING ROLL OPERATOR, CREPE BOX TENDER
--- NOTE | 2018-07-27 10:38 | PN_ITS ---
Subjective: Doing well, her neuropathy is improved today. Denies any chest pain or shortness of breath. Vitals/I&O's: Vital Signs Temp Pulse Resp BP Pulse Ox 98.1 F 84 18 141/75 H 96 07/27/18 08:00 07/27/18 08:00 07/27/18 08:00 07/27/18 08:00 07/27/18 08:00 Oxygen Delivery Method Room Air Weight: 215 lb 6.266 oz Body Mass Index (BMI) 31.8 Finger Stick Blood Glucose 104 Intake and Output for Last 24 Hours 07/25/18 07/26/18 07/27/18 23:59 23:59 23:59 Intake Total 400 / 400 1300 / 1300 Output Total 800 / 800 Balance -400 / -400 1300 / 1300 General: Alert, Oriented x3, Cooperative, No apparent distress HEENT: Atraumatic, EOMI, Normocephalic Oral: Dry Mucosa Neck: Supple, No JVD Lungs: Clear to auscultation, Normal air movement, No rhonchi, No wheeze, No rales Cardiovascular: Regular rate, Regular Rhythm, Normal S1, Normal S2, No murmurs Abdomen: Soft, Non Tender, Non-Distended, No Hepato-splenomegaly Skin: No rashes, No breakdown Musculoskeletal: Tenderness - Bilateral hips Neurological: Cranial nerves II-XII grossly intact - Decreased sensation in the right lower extremity compared to the left lower extremity, but improved. Strength is 5 out of 5 on bilateral upper extremities, 4 out of 5 bilateral lower extremities Psych/Mental Status: Normal Affect, Appropriate Laboratory Results 07/26/18 11:17: POC Glucose 143 H Current Medications Acetaminophen (Tylenol) 650 mg PO Q6H PRN PRN PRN Reason: HEADACHE Last Admin: 07/27/18 02:27 Dose: 650 mg Amlodipine Besylate (Norvasc) 5 mg PO DAILY [facility] Last Admin: 07/27/18 09:04 Dose: 5 mg Aspirin (Aspirin, Baby) 81 mg PO DAILY@0800 [facility] Last Admin: 07/27/18 09:04 Dose: 81 mg Dextrose (D50w Syringe) 0 gm IV X1 PRN; Protocol PRN Reason: Hypoglycemia Duloxetine HCl (Cymbalta) 60 mg PO BID [facility] Last Admin: 07/27/18 09:04 Dose: 60 mg Glucagon () 1 mg IM .X1 PRN PRN Reason: Hypoglycemia Heparin Sodium (Porcine) (Heparin Na) 5,000 unit SC Q12 [facility] Last Admin: 07/27/18 09:04 Dose: 5,000 unit Insulin Human Lispro (Humalog Dorind[place]en (Bkc)) 0 unit SQ ACHS [facility]; Protocol Last Admin: 07/27/18 06:27 Dose: Not Given Levothyroxine Sodium (Synthroid) 125 mcg PO DAILY@0600 [facility] Last Admin: 07/27/18 06:01 Dose: 125 mcg Magnesium Hydroxide (Milk Of Magnesia) 30 ml PO DAILY PRN PRN PRN Reason: Constipation Sodium Chloride () 5 - 15 ml IV UD PRN PRN Reason: SALINE FLUSH Last Admin: 07/26/18 19:41 Dose: 10 ml Medical Necessity - Tobacco Use Smoking Status: Never smoker Assessment/Plan All Active Problems (Last Reviewed 04/15/18 @ 04:24 by Maximino Norman MD) Multiple falls (Acute) Debility (Acute) Acute cystitis (Acute) Weakness (Acute) UTI (urinary tract infection) (Acute) Right wrist fracture (Acute) Tachycardia (Acute) History of blood clots (Acute) History of ankle fracture (Acute) Frostbite of both buttocks (Acute) Fall (Acute) 1. Fall/weakness/inability to complete ADLs -PT/OT, need for SNF -Stated that she thinks she cannot live alone anymore and if possible would like to transition to an assisted living/long term closer to her previous home. -Consult to case management discharge planning -Fall and weakness is likely combination of debility and neuropathy from diabetes. 2. Hypertension -Improved -Continue with her Norvasc 5 mg and will continue to monitor and make adjustments as needed 3. Hypothyroidism -Stable -Continue with Synthroid 4. Depression/anxiety -Stable -Continue with Cymbalta 5. DM 2 with neuropathy -Hold metformin -Accu-Cheks AC at bedtime, SSI DVT: Heparin/SCDs Code Visit Inpatient E&M: 42463 Subs Hosp L2
[2018-07-27 14:00] VITALS: PULSE 89
--- NOTE | 2018-07-27 14:53 | CASEMGMT ---
Social Work Clinical information faxed to Anthony Nieves at [facility]. Pending approval at this time. ANNIE PerezW, BARROW WORKER
[2018-07-27 15:12] VITALS: BP 155/87; PULSE 89; RESP 18; TEMP 36.7; O2SAT 96
--- NOTE | 2018-07-27 17:55 | CASEMGMT ---
Social Work Note DAYNA had spoke with Yu at [place] [facility] [place] earlier today. Per Josefa Nicholas CM was reviewing pt's referral and provided this worker with Josefa's number ([phone]). DAYNA placed a call twice to Josefa and per Josefa she doesn't have any beds available. DAYNA placed a call to Liza at [facility] Per Liza DON and crystal machining coordinator is out of the office already. Per Josefa she is unsure if she will be able to accept pt without pt beginning the Medicaid process. Josefa states that crystal machining coordinator will call this worker on Monday to discuss referral. DAYNA placed a call to [facility], again, and left a message for staff to give this worker a call back with a fax number. SW waiting for call back from [facility] [facility]. DAYNA met with pt and updated pt that this worker is still trying to find a facility for pt. SW spent much time with pt as pt reflected on her life. DAYNA provided emotional support to pt. DAYNA asked pt if she has completed a Medicaid application and per pt she is unsure. DAYNA informed pt that this worker will call [facility] on Monday to determine if pt had completed Medicaid Application. DAYNA will continue to follow along to assist with discharging pt to SNF around [facility]. DAYNA will call [facility] Monday to determine if pt has applied for Medicaid. Plan: SNF pending acceptance Hoa Wells MSW, CAMPUS EXECUTIVE DIRECTOR
[2018-07-27 20:49] VITALS: BP 146/85; PULSE 83; RESP 16; TEMP 36.8; O2SAT 98
[2018-07-27] MEDS: Insulin Lispro 100 UNIT/ML INSULN.PEN SQ (21:05)
[2018-07-27 22:25] LABS: Bedside Glucose 198 mg/dL (70-110)
[2018-07-28 03:02] VITALS: BP 151/93; PULSE 76; RESP 16; TEMP 36.2; O2SAT 100
[2018-07-28] MEDS: Levothyroxine 125 MCG Tablet PO (06:10)
[2018-07-28] MEDS: Insulin Lispro 100 UNIT/ML INSULN.PEN SQ ×2 (06:14→21:41)
[2018-07-28 06:26] LABS: Bedside Glucose 155 mg/dL (70-110)
[2018-07-28] MEDS: Aspirin 81 MG TAB.CHEW PO (07:48)
[2018-07-28 09:04] VITALS: BP 134/68; PULSE 73; RESP 18; TEMP 36.4; O2SAT 100
[2018-07-28] MEDS: Heparin Injection (Vial) 5,000 UNIT/ML VIAL 5000 UNIT SC ×2 (09:28→21:41)
[2018-07-28] MEDS: DULoxetine Hcl 60 MG Capsule PO ×2 (09:28→21:40)
[2018-07-28] MEDS: amLODIPine 5 MG Tablet PO (09:28)
--- NOTE | 2018-07-28 10:33 | PCM.PN.HOSP ---
Subjective: Did not sleep well last night so is tired today. Otherwise no chest pain or shortness of breath, and the neuropathy is chronic and stable Vitals/I&O's: Vital Signs Temp Pulse Resp BP Pulse Ox 97.6 F L 73 18 134/68 H 100 07/28/18 09:04 07/28/18 09:04 07/28/18 09:04 07/28/18 09:04 07/28/18 09:04 Oxygen Delivery Method Room Air Weight: 215 lb 6.266 oz Body Mass Index (BMI) 31.8 Finger Stick Blood Glucose 104 Intake and Output for Last 24 Hours 07/26/18 07/27/18 07/28/18 23:59 23:59 23:59 Intake Total 1300 / 1300 900 / 900 Balance 1300 / 1300 900 / 900 General: Alert, Oriented x3, Cooperative, No apparent distress HEENT: Atraumatic, EOMI, Normocephalic Oral: Dry Mucosa Neck: Supple, No JVD Lungs: Clear to auscultation, Normal air movement, No rhonchi, No wheeze, No rales Cardiovascular: Regular rate, Regular Rhythm, Normal S1, Normal S2, No murmurs Abdomen: Soft, Non Tender, Non-Distended, No Hepato-splenomegaly Skin: No rashes, No breakdown Musculoskeletal: Tenderness - Bilateral hips Neurological: Cranial nerves II-XII grossly intact - Decreased sensation in the right lower extremity compared to the left lower extremity, stable. Strength is 5 out of 5 on bilateral upper extremities, 4 out of 5 bilateral lower extremities Psych/Mental Status: Normal Affect, Appropriate Laboratory Results 07/27/18 21:01: POC Glucose 198 H 07/28/18 06:13: POC Glucose 155 H Current Medications Acetaminophen (Tylenol) 650 mg PO Q6H PRN PRN PRN Reason: HEADACHE Last Admin: 07/27/18 02:27 Dose: 650 mg Amlodipine Besylate (Norvasc) 5 mg PO DAILY [facility] Last Admin: 07/28/18 09:28 Dose: 5 mg Aspirin (Aspirin, Baby) 81 mg PO DAILY@0800 [facility] Last Admin: 07/28/18 07:48 Dose: 81 mg Dextrose (D50w Syringe) 0 gm IV X1 PRN; Protocol PRN Reason: Hypoglycemia Duloxetine HCl (Cymbalta) 60 mg PO BID [facility] Last Admin: 07/28/18 09:28 Dose: 60 mg Glucagon () 1 mg IM .X1 PRN PRN Reason: Hypoglycemia Heparin Sodium (Porcine) (Heparin Na) 5,000 unit SC Q12 [facility] Last Admin: 07/28/18 09:28 Dose: 5,000 unit Insulin Human Lispro (Humalog Kwikpen (Bkc)) 0 unit SQ ACHS [facility]; Protocol Last Admin: 07/28/18 06:14 Dose: 1 units Levothyroxine Sodium (Synthroid) 125 mcg PO DAILY@0600 [facility] Last Admin: 07/28/18 06:10 Dose: 125 mcg Magnesium Hydroxide (Milk Of Magnesia) 30 ml PO DAILY PRN PRN PRN Reason: Constipation Sodium Chloride () 5 - 15 ml IV UD PRN PRN Reason: SALINE FLUSH Last Admin: 07/26/18 19:41 Dose: 10 ml Medical Necessity - Tobacco Use Smoking Status: Never smoker Assessment/Plan All Active Problems (Last Reviewed 04/15/18 @ 04:24 by Maximino Norman MD) Multiple falls (Acute) Debility (Acute) Acute cystitis (Acute) Weakness (Acute) UTI (urinary tract infection) (Acute) Right wrist fracture (Acute) Tachycardia (Acute) History of blood clots (Acute) History of ankle fracture (Acute) Frostbite of both buttocks (Acute) Fall (Acute) 1. Fall/weakness/inability to complete ADLs -PT/OT, need for SNF -Stated that she thinks she cannot live alone anymore and if possible would like to transition to an assisted living/[place] facility closer to her previous home. -Consult to case management discharge planning -Fall and weakness is likely combination of debility and neuropathy from diabetes. 2. Hypertension -Stable -Continue with her Norvasc 5 mg and will continue to monitor and make adjustments as needed 3. Hypothyroidism -Stable -Continue with Synthroid 4. Depression/anxiety -Stable -Continue with Cymbalta 5. DM 2 with neuropathy -Hold metformin -Accu-Cheks AC at bedtime, SSI DVT: Heparin/SCDs Code Visit Inpatient E&M: 23167 Subs Hosp L2
[2018-07-28 12:20] LABS: Bedside Glucose 104 mg/dL (70-110)
[2018-07-28] MEDS: Acetaminophen 325 MG Tablet 650 MG PO ×2 (15:13→21:41)
--- NOTE | 2018-07-28 16:30 | CASEMGMT ---
Social Work Unit - MS3 Met with patient today and assisted with completion of Medicaid application. Patient states that does not have glasses so would appreciate assist from social service agency director. Informed patient that would fax application to [facility] [employer] [facility] on Monday when the office opens back up. Patient talked of being in agreement for fdc placement, reports that is willing for residential care and has done a lot of thinking about this matter. Patient reflective about past life, loss of support system, and current situation. Patient tearful. Supportive encouragement offered. Patient talked of wanting to be close to friend in the [facility]. Discussed with patient that patient crossed out a lot of options in the [facility]. Patient reports has never been to [place]. Encouraged patient to think about, if no facilities in the [facility] are not viable options, would patient prefer to be in [facility] or go to [place], which is closer to patient's friend. Patient agreed to think about this. Plan: Social work continuing to follow and assist with fdc placement. Medicaid application to be faxed. -PENELOPE Morrison, FIELD SERVICER
[2018-07-28 16:51] LABS: Bedside Glucose 89 mg/dL (70-110)
[2018-07-28 17:04] VITALS: BP 121/81; PULSE 81; RESP 18; TEMP 36.8; O2SAT 100
[2018-07-28 21:19] VITALS: BP 154/74; PULSE 80; RESP 18; TEMP 36.4; O2SAT 96
[2018-07-28 22:15] LABS: Bedside Glucose 175 mg/dL (70-110)
[2018-07-29 03:01] VITALS: BP 147/84; PULSE 81; RESP 18; TEMP 36.4; O2SAT 97
[2018-07-29] MEDS: Levothyroxine 125 MCG Tablet PO (06:13)
--- NOTE | 2018-07-29 06:49 | PCM.PN.HOSP ---
Subjective: Doing about the same today as she was yesterday, no chest pain or shortness of breath. She continues to have varying degrees of neuropathy, which she states comes and goes. Vitals/I&O's: Vital Signs Temp Pulse Resp BP Pulse Ox 97.5 F L 81 18 147/84 H 97 07/29/18 03:01 07/29/18 03:01 07/29/18 03:01 07/29/18 03:01 07/29/18 03:01 Oxygen Delivery Method Room Air Weight: 215 lb 6.266 oz Body Mass Index (BMI) 31.8 Finger Stick Blood Glucose 104 Intake and Output for Last 24 Hours 07/27/18 07/28/18 07/29/18 23:59 23:59 23:59 Intake Total 2099 340 / 340 Output Total 750 / 750 Balance 2099 -410 / -410 General: Alert, Oriented x3, Cooperative, No apparent distress HEENT: Atraumatic, EOMI, Normocephalic Oral: Dry Mucosa Neck: Supple, No JVD Lungs: Clear to auscultation, Normal air movement, No rhonchi, No wheeze, No rales Cardiovascular: Regular rate, Regular Rhythm, Normal S1, Normal S2, No murmurs Abdomen: Soft, Non Tender, Non-Distended, No Hepato-splenomegaly Skin: No rashes, No breakdown Musculoskeletal: Tenderness - Bilateral hips Neurological: Cranial nerves II-XII grossly intact - Decreased sensation in the right lower extremity compared to the left lower extremity, stable. Strength is 5 out of 5 on bilateral upper extremities, 4 out of 5 bilateral lower extremities Psych/Mental Status: Normal Affect, Appropriate Laboratory Results 07/28/18 12:13: POC Glucose 104 07/28/18 16:45: POC Glucose 89 07/28/18 21:35: POC Glucose 175 H Current Medications Acetaminophen (Tylenol) 650 mg PO Q6H PRN PRN PRN Reason: HEADACHE Last Admin: 07/28/18 21:41 Dose: 650 mg Amlodipine Besylate (Norvasc) 5 mg PO DAILY [facility] Last Admin: 07/28/18 09:28 Dose: 5 mg Aspirin (Aspirin, Baby) 81 mg PO DAILY@0800 [facility] Last Admin: 07/28/18 07:48 Dose: 81 mg Dextrose (D50w Syringe) 0 gm IV X1 PRN; Protocol PRN Reason: Hypoglycemia Duloxetine HCl (Cymbalta) 60 mg PO BID [facility] Last Admin: 07/28/18 21:40 Dose: 60 mg Glucagon () 1 mg IM .X1 PRN PRN Reason: Hypoglycemia Heparin Sodium (Porcine) (Heparin Na) 5,000 unit SC Q12 [facility] Last Admin: 07/28/18 21:41 Dose: 5,000 unit Insulin Human Lispro (Humalog Kwikpen (Bkc)) 0 unit SQ ACHS [facility]; Protocol Last Admin: 07/29/18 06:40 Dose: Not Given Levothyroxine Sodium (Synthroid) 125 mcg PO DAILY@0600 [facility] Last Admin: 07/29/18 06:13 Dose: 125 mcg Magnesium Hydroxide (Milk Of Magnesia) 30 ml PO DAILY PRN PRN PRN Reason: Constipation Sodium Chloride () 5 - 15 ml IV UD PRN PRN Reason: SALINE FLUSH Last Admin: 07/26/18 19:41 Dose: 10 ml Medical Necessity - Tobacco Use Smoking Status: Never smoker Assessment/Plan All Active Problems (Last Reviewed 04/15/18 @ 04:24 by Maximino Norman MD) Multiple falls (Acute) Debility (Acute) Acute cystitis (Acute) Weakness (Acute) UTI (urinary tract infection) (Acute) Right wrist fracture (Acute) Tachycardia (Acute) History of blood clots (Acute) History of ankle fracture (Acute) Frostbite of both buttocks (Acute) Fall (Acute) 1. Fall/weakness/inability to complete ADLs -PT/OT, need for SNF -Stated that she thinks she cannot live alone anymore and if possible would like to transition to an assisted living/long term closer to her previous home, and [place], currently pending acceptance into a facility other -Consult to case management discharge planning -Fall and weakness is likely combination of debility and neuropathy from diabetes. 2. Hypertension -Stable -Continue with her Norvasc 5 mg and will continue to monitor and make adjustments as needed 3. Hypothyroidism -Stable -Continue with Synthroid 4. Depression/anxiety -Stable -Continue with Cymbalta 5. DM 2 with neuropathy -Hold metformin -Accu-Cheks AC at bedtime, SSI DVT: Heparin/SCDs Code Visit Inpatient E&M: 57814 Subs Hosp L2
[2018-07-29 06:56] LABS: Bedside Glucose 127 mg/dL (70-110)
[2018-07-29] MEDS: Aspirin 81 MG TAB.CHEW PO (08:22)
[2018-07-29 09:42] VITALS: BP 128/70; PULSE 74; RESP 18; TEMP 36.8; O2SAT 97
[2018-07-29] MEDS: DULoxetine Hcl 60 MG Capsule PO ×2 (10:49→21:37)
[2018-07-29] MEDS: amLODIPine 5 MG Tablet PO (10:49)
[2018-07-29] MEDS: Heparin Injection (Vial) 5,000 UNIT/ML VIAL 5000 UNIT SC ×2 (10:49→21:34)
[2018-07-29 11:50] LABS: Bedside Glucose 134 mg/dL (70-110)
[2018-07-29] MEDS: Acetaminophen 325 MG Tablet 650 MG PO (13:23)
[2018-07-29 16:40] LABS: Bedside Glucose 76 mg/dL (70-110)
[2018-07-29 16:42] VITALS: BP 146/71; PULSE 76; RESP 18; TEMP 37.2; O2SAT 98
[2018-07-29 21:21] VITALS: BP 151/77; PULSE 83; RESP 16; TEMP 36.6; O2SAT 98
[2018-07-30 01:21] LABS: Bedside Glucose 116 mg/dL (70-110)
[2018-07-30 04:33] VITALS: BP 136/70; PULSE 76; RESP 14; TEMP 36.9; O2SAT 95
[2018-07-30] MEDS: Acetaminophen 325 MG Tablet 650 MG PO (04:35)
[2018-07-30] MEDS: Levothyroxine 125 MCG Tablet PO (06:40)
[2018-07-30 06:52] LABS: Bedside Glucose 124 mg/dL (70-110)
[2018-07-30] MEDS: Aspirin 81 MG TAB.CHEW PO (10:00)
[2018-07-30] MEDS: Heparin Injection (Vial) 5,000 UNIT/ML VIAL 5000 UNIT SC ×2 (10:00→20:47)
[2018-07-30] MEDS: DULoxetine Hcl 60 MG Capsule PO ×2 (10:00→20:47)
[2018-07-30] MEDS: amLODIPine 5 MG Tablet PO (10:00)
[2018-07-30] MEDS: Insulin Lispro 100 UNIT/ML INSULN.PEN SQ ×2 (10:20→20:48)
[2018-07-30 10:31] LABS: Bedside Glucose 156 mg/dL (70-110)
[2018-07-30 10:33] VITALS: BP 131/69; PULSE 83; RESP 16; TEMP 36.4; O2SAT 94
--- NOTE | 2018-07-30 11:58 | CASEMGMT ---
Social Work Note DAYNA spoke with Candace in admissions at [facility] at [facility] and updated her that pt has completed Medicaid application and it will be faxed today. Candace states that she is waiting to hear from legal office administrator if they are able to accept pt. 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
--- NOTE | 2018-07-30 12:23 | PCM.PN.HOSP ---
Subjective: Patient seen and examined. She has no complaints and feels well. She denies any fever, chills, cough, SOB, chest pain, abdominal pain, diarrhea or vomiting. Review of systems otherwise negative. Labs and vitals reviewed. She is awaiting placement. Vitals/I&O's: Vital Signs Temp Pulse Resp BP Pulse Ox 97.5 F L 83 16 131/69 H 94 07/30/18 10:33 07/30/18 10:33 07/30/18 10:33 07/30/18 10:33 07/30/18 10:33 Oxygen Delivery Method Room Air Weight: 215 lb 6.266 oz Body Mass Index (BMI) 31.8 Finger Stick Blood Glucose 104 Intake and Output for Last 24 Hours 07/28/18 07/29/18 07/30/18 23:59 23:59 23:59 Intake Total 2100 / 2100 1790 / 1790 500 / 500 Output Total 750 / 750 Balance 2099 / 2099 1040 / 1040 500 / 500 General: Alert, Oriented x3, Cooperative, No apparent distress HEENT: Atraumatic, PERRLA, EOMI, Normocephalic Oral: Moist Mucosa Neck: Supple, No JVD, Negative Carotid Bruits Lungs: Clear to auscultation, Normal air movement, No rhonchi, No wheeze, No rales Cardiovascular: Regular rate, Regular Rhythm, Normal S1, Normal S2, No murmurs Abdomen: Bowel Sounds Present, Soft, Non Tender, Non-Distended, No Hepato-splenomegaly Extremities: No clubbing, No cyanosis, No edema, Capillary Refill Less than 3 Seconds Skin: No rashes, No breakdown Musculoskeletal: No Tenderness to Palpation of Joints or Extremities Lymphatic: No Cervical, Supraclavicular, or Inguinal Adenopathy Neurological: Cranial nerves II-XII grossly intact Psych/Mental Status: Normal Affect, Appropriate, Alert and oriented to time, place, person, mood and affect Laboratory Results 07/29/18 16:37: POC Glucose 76 07/29/18 21:33: POC Glucose 116 H 07/30/18 06:42: POC Glucose 124 H 07/30/18 10:17: POC Glucose 156 H Current Medications Acetaminophen (Tylenol) 650 mg PO Q6H PRN PRN PRN Reason: HEADACHE Last Admin: 07/30/18 04:35 Dose: 650 mg Amlodipine Besylate (Norvasc) 5 mg PO DAILY [facility] Last Admin: 07/30/18 10:00 Dose: 5 mg Aspirin (Aspirin, Baby) 81 mg PO DAILY@0800 [facility] Last Admin: 07/30/18 10:00 Dose: 81 mg Dextrose (D50w Syringe) 0 gm IV X1 PRN; Protocol PRN Reason: Hypoglycemia Duloxetine HCl (Cymbalta) 60 mg PO BID [facility] Last Admin: 07/30/18 10:00 Dose: 60 mg Glucagon () 1 mg IM .X1 PRN PRN Reason: Hypoglycemia Heparin Sodium (Porcine) (Heparin Na) 5,000 unit SC Q12 [facility] Last Admin: 07/30/18 10:00 Dose: 5,000 unit Insulin Human Lispro (Humalog Kwikpen (Bkc)) [address] [facility]; Protocol Last Admin: 07/30/18 10:20 Dose: 1 units Levothyroxine Sodium (Synthroid) 125 mcg PO DAILY@0600 [facility] Last Admin: 07/30/18 06:40 Dose: 125 mcg Magnesium Hydroxide (Milk Of Magnesia) 30 ml PO DAILY PRN PRN PRN Reason: Constipation Sodium Chloride () 5 - 15 ml IV UD PRN PRN Reason: SALINE FLUSH Last Admin: 07/26/18 19:41 Dose: 10 ml Medical Necessity - Tobacco Use Smoking Status: Never smoker Assessment/Plan All Active Problems (Last Reviewed 04/15/18 @ 04:24 by Maximino Norman MD) Multiple falls (Acute) Debility (Acute) Acute cystitis (Acute) Weakness (Acute) UTI (urinary tract infection) (Acute) Right wrist fracture (Acute) Tachycardia (Acute) History of blood clots (Acute) History of ankle fracture (Acute) Frostbite of both buttocks (Acute) Fall (Acute) 1. Debility due to mechanical falls stable; feels well and has no complaints awaiting placement in SNF PT/OT on board 2. Hypertension: controlled. On amlodipine 5mg daily. 3. Hypothyroidism: on synthroid 4. Depression and anxiety: on cymbalta 5. 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 Accuchecks ACHS DVT prophylaxis: heparin Code Visit Inpatient E&M: 00773 Subs Hosp L2
--- NOTE | 2018-07-30 12:28 | PN_ITS ---
Subjective: Patient seen and examined. She has no complaints and feels well. She denies any fever, chills, cough, SOB, chest pain, abdominal pain, diarrhea or vomiting. Review of systems otherwise negative. Labs and vitals reviewed. She is awaiting placement. Vitals/I&O's: Vital Signs Temp Pulse Resp BP Pulse Ox 97.5 F L 83 16 131/69 H 94 07/30/18 10:33 07/30/18 10:33 07/30/18 10:33 07/30/18 10:33 07/30/18 10:33 Oxygen Delivery Method Room Air Weight: 215 lb 6.266 oz Body Mass Index (BMI) 31.8 Finger Stick Blood Glucose 104 Intake and Output for Last 24 Hours 07/28/18 07/29/18 07/30/18 23:59 23:59 23:59 Intake Total 2100 / 2100 1790 / 1790 500 / 500 Output Total 750 / 750 Balance 2099 / 2099 1040 / 1040 500 / 500 General: Alert, Oriented x3, Cooperative, No apparent distress HEENT: Atraumatic, PERRLA, EOMI, Normocephalic Oral: Moist Mucosa Neck: Supple, No JVD, Negative Carotid Bruits Lungs: Clear to auscultation, Normal air movement, No rhonchi, No wheeze, No rales Cardiovascular: Regular rate, Regular Rhythm, Normal S1, Normal S2, No murmurs Abdomen: Bowel Sounds Present, Soft, Non Tender, Non-Distended, No Hepato- splenomegaly Extremities: No clubbing, No cyanosis, No edema, Capillary Refill Less than 3 Seconds Skin: No rashes, No breakdown Musculoskeletal: No Tenderness to Palpation of Joints or Extremities Lymphatic: No Cervical, Supraclavicular, or Inguinal Adenopathy Neurological: Cranial nerves II-XII grossly intact Psych/Mental Status: Normal Affect, Appropriate, Alert and oriented to time, place, person, mood and affect Laboratory Results 07/29/18 16:37: POC Glucose 76 07/29/18 21:33: POC Glucose 116 H 07/30/18 06:42: POC Glucose 124 H 07/30/18 10:17: POC Glucose 156 H Current Medications Acetaminophen (Tylenol) 650 mg PO Q6H PRN PRN PRN Reason: HEADACHE Last Admin: 07/30/18 04:35 Dose: 650 mg Amlodipine Besylate (Norvasc) 5 mg PO DAILY [facility] Last Admin: 07/30/18 10:00 Dose: 5 mg Aspirin (Aspirin, Baby) 81 mg PO DAILY@0800 [facility] Last Admin: 07/30/18 10:00 Dose: 81 mg Dextrose (D50w Syringe) 0 gm IV X1 PRN; Protocol PRN Reason: Hypoglycemia Duloxetine HCl (Cymbalta) 60 mg PO BID [facility] Last Admin: 07/30/18 10:00 Dose: 60 mg Glucagon () 1 mg IM .X1 PRN PRN Reason: Hypoglycemia Heparin Sodium (Porcine) (Heparin Na) 5,000 unit SC Q12 [facility] Last Admin: 07/30/18 10:00 Dose: 5,000 unit Insulin Human Lispro (Humalog Kwikpen (Bkc)) 0 unit SQ [facility]; Protocol Last Admin: 07/30/18 10:20 Dose: 1 units Levothyroxine Sodium (Synthroid) 125 mcg PO DAILY@0600 [facility] Last Admin: 07/30/18 06:40 Dose: 125 mcg Magnesium Hydroxide (Milk Of Magnesia) 30 ml PO DAILY PRN PRN PRN Reason: Constipation Sodium Chloride () 5 - 15 ml IV UD PRN PRN Reason: SALINE FLUSH Last Admin: 07/26/18 19:41 Dose: 10 ml Medical Necessity - Tobacco Use Smoking Status: Never smoker Assessment/Plan All Active Problems (Last Reviewed 04/15/18 @ 04:24 by Maximino Norman MD) Multiple falls (Acute) Debility (Acute) Acute cystitis (Acute) Weakness (Acute) UTI (urinary tract infection) (Acute) Right wrist fracture (Acute) Tachycardia (Acute) History of blood clots (Acute) History of ankle fracture (Acute) Frostbite of both buttocks (Acute) Fall (Acute) 1. Debility due to mechanical falls * stable; feels well and has no complaints * awaiting placement in SNF * PT/OT on board * 2. Hypertension: controlled. On amlodipine 5mg daily. 3. Hypothyroidism: on synthroid 4. Depression and anxiety: on cymbalta 5. 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 Accuchecks ACHS DVT prophylaxis: heparin Code Visit Inpatient E&M: 26850 Subs Hosp L2
--- NOTE | 2018-07-30 15:30 | CASEMGMT ---
Social Work Unit - MS3 Faxed medicaid application to confirmed fax at [facility] ([phone]). -PENELOPE Morrison, LARDER COOK
[2018-07-30 16:33] VITALS: BP 138/78; PULSE 92; RESP 16; TEMP 36.5; O2SAT 96
--- NOTE | 2018-07-30 16:46 | CASEMGMT ---
Social Work Note DAYNA met with pt. Pt states that she is doing extremely well but has a concern. Pt states that an old friend Lorena has been calling pt and Lorena has been telling her she is going to pt's apartment on Monday. SW utilized active listening skills and encouraged pt to call her landlord to make sure pt's apartment is locked. Pt state she will do this. SW informed pt that this worker is still trying to find placement for pt. Pt is agreeable that if facility in [place] is unable to accept, she is willing to go to [place], [place]. SW informed pt that this worker will wait to hear from facility in [place] and if they are unable to accept, this worker will send referrals to SNF in [place], [place]. Pt states understanding. 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
[2018-07-30 16:56] LABS: Bedside Glucose 96 mg/dL (70-110)
[2018-07-30 20:27] VITALS: BP 106/65; PULSE 83; RESP 17; TEMP 36.8; O2SAT 97
--- NOTE | 2018-07-30 20:48 | NURSING ---
pt c/o that she is tired. meds given early
[2018-07-30 20:56] LABS: Bedside Glucose 162 mg/dL (70-110)
[2018-07-31 04:45] VITALS: BP 146/78; PULSE 73; RESP 17; TEMP 36.7; O2SAT 94
[2018-07-31] MEDS: Levothyroxine 125 MCG Tablet PO (04:57)
[2018-07-31 07:01] LABS: Bedside Glucose 118 mg/dL (70-110)
--- NOTE | 2018-07-31 10:24 | PCM.PN.HOSP ---
Subjective: Patient seen and examined. She has no complaints and feels well. She denies any fever chills, cough or chest pain, shortness of breath, abdominal pain, diarrhea vomiting. He has since otherwise negative. [facility]. Labs and vitals reviewed. Vitals/I&O's: Vital Signs Temp Pulse Resp BP Pulse Ox 98.1 F 73 17 146/78 H 94 07/31/18 04:45 07/31/18 04:45 07/31/18 04:45 07/31/18 04:45 07/31/18 04:45 Oxygen Delivery Method Room Air Weight: 215 lb 6.266 oz Body Mass Index (BMI) 31.8 Finger Stick Blood Glucose 104 Intake and Output for Last 24 Hours 07/29/18 07/30/18 07/31/18 23:59 23:59 23:59 Intake Total 1790 / 1790 500 / 500 560 / 560 Output Total 750 / 750 Balance 1040 / 1040 500 / 500 560 / 560 General: Alert, Oriented x3, Cooperative, No apparent distress HEENT: Atraumatic, PERRLA, EOMI, Normocephalic Oral: Moist Mucosa Neck: Supple, No JVD, Negative Carotid Bruits Lungs: Clear to auscultation, Normal air movement, No rhonchi, No wheeze, No rales Cardiovascular: Regular rate, Regular Rhythm, Normal S1, Normal S2, No murmurs Abdomen: Bowel Sounds Present, Soft, Non Tender, Non-Distended, No Hepato-splenomegaly Extremities: No clubbing, No cyanosis, No edema, Capillary Refill Less than 3 Seconds Skin: No rashes, No breakdown Musculoskeletal: No Tenderness to Palpation of Joints or Extremities Lymphatic: No Cervical, Supraclavicular, or Inguinal Adenopathy Neurological: Cranial nerves II-XII grossly intact Psych/Mental Status: Normal Affect, Appropriate, Alert and oriented to time, place, person, mood and affect Laboratory Results 07/30/18 10:17: POC Glucose 156 H 07/30/18 16:47: POC Glucose 96 07/30/18 20:43: POC Glucose 162 H 07/31/18 06:56: POC Glucose 118 H Current Medications Acetaminophen (Tylenol) 650 mg PO Q6H PRN PRN PRN Reason: HEADACHE Last Admin: 07/30/18 04:35 Dose: 650 mg Amlodipine Besylate (Norvasc) 5 mg PO DAILY [facility] Last Admin: 07/30/18 10:00 Dose: 5 mg Aspirin (Aspirin, Baby) 81 mg PO DAILY@0800 [facility] Last Admin: 07/30/18 10:00 Dose: 81 mg Dextrose (D50w Syringe) 0 gm IV X1 PRN; Protocol PRN Reason: Hypoglycemia Duloxetine HCl (Cymbalta) 60 mg PO BID [facility] Last Admin: 07/30/18 20:47 Dose: 60 mg Glucagon () 1 mg IM .X1 PRN PRN Reason: Hypoglycemia Heparin Sodium (Porcine) (Heparin Na) 5,000 unit SC Q12 [facility] Last Admin: 07/30/18 20:47 Dose: 5,000 unit Insulin Human Lispro (Humalog Kwikpen (Bkc)) 0 unit SQ [facility]; Protocol Last Admin: 07/31/18 07:10 Dose: Not Given Levothyroxine Sodium (Synthroid) 125 mcg PO DAILY@0600 [facility] Last Admin: 07/31/18 04:57 Dose: 125 mcg Magnesium Hydroxide (Milk Of Magnesia) 30 ml PO DAILY PRN PRN PRN Reason: Constipation Sodium Chloride () 5 - 15 ml IV UD PRN PRN Reason: SALINE FLUSH Last Admin: 07/26/18 19:41 Dose: 10 ml Medical Necessity - Tobacco Use Smoking Status: Never smoker Assessment/Plan All Active Problems (Last Reviewed 04/15/18 @ 04:24 by Maximino Norman MD) Multiple falls (Acute) Debility (Acute) Acute cystitis (Acute) Weakness (Acute) UTI (urinary tract infection) (Acute) Right wrist fracture (Acute) Tachycardia (Acute) History of blood clots (Acute) History of ankle fracture (Acute) Frostbite of both buttocks (Acute) Fall (Acute) 1. Debility due to mechanical falls stable; feels well and has no complaints awaiting placement in SNF PT/OT on board 2. Hypertension: controlled. On amlodipine 5mg daily. 3. Hypothyroidism: on synthroid 4. Depression and anxiety: on cymbalta 5. 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 Accuchecks ACHS DVT prophylaxis: heparin Disposition: Awaiting placement. Code Visit Inpatient E&M: 85376 Subs Hosp L2
[2018-07-31 10:45] VITALS: BP 133/64; PULSE 74; RESP 18; TEMP 36.7; O2SAT 94
[2018-07-31] MEDS: DULoxetine Hcl 60 MG Capsule PO ×2 (11:01→22:00)
[2018-07-31] MEDS: Aspirin 81 MG TAB.CHEW PO (11:01)
[2018-07-31] MEDS: amLODIPine 5 MG Tablet PO (11:02)
[2018-07-31] MEDS: Heparin Injection (Vial) 5,000 UNIT/ML VIAL 5000 UNIT SC ×2 (11:02→22:00)
[2018-07-31 11:57] VITALS: PULSE 74
[2018-07-31 16:11] VITALS: BP 128/73; PULSE 86; RESP 16; TEMP 36.6; O2SAT 97
[2018-07-31 16:37] LABS: Bedside Glucose 122 mg/dL (70-110)
--- NOTE | 2018-07-31 19:45 | NURSING ---
ELYSSA GRAY BUILD AND DEPLOYMENT ENGINEER WENT TO THE PTS HOUSE PER HER REQUEST, PT WAS FEARFUL THAT SOMEONE STOLE SOME OF HER THINGS, ELYSSA RETURNED TO THE PTS ROOM WITH HER WALLET WITH CREDIT CARDS, CHECK BOOK AND KEYS, WHICH IS WHAT SHE THOUGH MAY HAVE BEEN STOLEN. PT VALUABLES LIST FILLED OUT, WITH ALL THE PAPERS AND CARDS DETAILED, WITNESS TO THE CONTENTS, SEALED AND TAKEN TO SECURITY BY ELYSSA FROM [facility]. PT DID GET A COPY OF THE VALUABLES LIST.
[2018-07-31 21:00] VITALS: PULSE 85; RESP 16; O2SAT 98
[2018-07-31 22:00] VITALS: BP 139/75; PULSE 85; RESP 16; TEMP 36.7; O2SAT 98
[2018-07-31] MEDS: Acetaminophen 325 MG Tablet 650 MG PO (22:07)
[2018-07-31] MEDS: Insulin Lispro 100 UNIT/ML INSULN.PEN SQ (22:17)
[2018-07-31 22:26] LABS: Bedside Glucose 173 mg/dL (70-110)
--- NOTE | 2018-08-01 02:04 | NURSING ---
pt c/o still having a valverde, rating it a 8/10, called the hospitalist, order for maxsalt obtained
[2018-08-01] MEDS: Rizatriptan Benzoate 10 MG Tablet PO (02:15)
[2018-08-01 04:00] VITALS: BP 132/87; PULSE 74; RESP 16; TEMP 36.6; O2SAT 96
[2018-08-01] MEDS: Levothyroxine 125 MCG Tablet PO (07:01)
[2018-08-01 07:25] LABS: Bedside Glucose 117 mg/dL (70-110)
[2018-08-01] MEDS: amLODIPine 5 MG Tablet PO (09:43)
[2018-08-01] MEDS: Heparin Injection (Vial) 5,000 UNIT/ML VIAL 5000 UNIT SC ×2 (09:43→21:09)
[2018-08-01] MEDS: DULoxetine Hcl 60 MG Capsule PO ×2 (09:43→21:09)
[2018-08-01] MEDS: Aspirin 81 MG TAB.CHEW PO (09:43)
[2018-08-01 10:00] VITALS: BP 130/74; PULSE 80; RESP 16; TEMP 36.6; O2SAT 97
--- NOTE | 2018-08-01 11:36 | CASEMGMT ---
Social Work Note SW has faxed five referrals to multiple SNF for pt. SW also has a call out to additional SNF for fax number for facilities. SW waiting to hear from SNF. 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
[2018-08-01 12:36] LABS: Bedside Glucose 101 mg/dL (70-110)
--- NOTE | 2018-08-01 13:42 | PCM.PN.HOSP ---
Subjective: Subjective: Patient seen and examined. She has no complaints and feels well. She denies any fever chills, cough or chest pain, shortness of breath, abdominal pain, diarrhea vomiting. He has since otherwise negative. She is awaiting placement. Vitals/I&O's: Vital Signs Temp Pulse Resp BP Pulse Ox 97.9 F 80 16 130/74 H 97 08/01/18 10:00 08/01/18 10:00 08/01/18 10:00 08/01/18 10:00 08/01/18 10:00 Oxygen Delivery Method Room Air Weight: 215 lb 6.266 oz Body Mass Index (BMI) 31.8 Finger Stick Blood Glucose 104 Intake and Output for Last 24 Hours 07/30/18 07/31/18 08/01/18 23:59 23:59 23:59 Intake Total 500 / 500 560 / 560 Balance 500 / 500 560 / 560 General: Alert, Oriented x3, Cooperative, No apparent distress HEENT: Atraumatic, PERRLA, EOMI, Normocephalic Oral: Moist Mucosa Neck: Supple, No JVD, Negative Carotid Bruits Lungs: Clear to auscultation, Normal air movement, No rhonchi, No wheeze, No rales Cardiovascular: Regular rate, Regular Rhythm, Normal S1, Normal S2, No murmurs Abdomen: Bowel Sounds Present, Soft, Non Tender, Non-Distended, No Hepato-splenomegaly Extremities: No clubbing, No cyanosis, No edema, Capillary Refill Less than 3 Seconds Skin: No rashes, No breakdown Musculoskeletal: No Tenderness to Palpation of Joints or Extremities Lymphatic: No Cervical, Supraclavicular, or Inguinal Adenopathy Neurological: Cranial nerves II-XII grossly intact Psych/Mental Status: Normal Affect, Appropriate, Alert and oriented to time, place, person, mood and affect Laboratory Results 07/31/18 16:32: POC Glucose 122 H 07/31/18 22:15: POC Glucose 173 H 08/01/18 07:18: POC Glucose 117 H 08/01/18 12:31: POC Glucose 101 Current Medications Acetaminophen (Tylenol) 650 mg PO Q6H PRN PRN PRN Reason: HEADACHE Last Admin: 07/31/18 22:07 Dose: 650 mg Amlodipine Besylate (Norvasc) 5 mg PO DAILY [facility] Last Admin: 08/01/18 09:43 Dose: 5 mg Aspirin (Aspirin, Baby) 81 mg PO DAILY@0800 [facility] Last Admin: 08/01/18 09:43 Dose: 81 mg Dextrose (D50w Syringe) 0 gm IV X1 PRN; Protocol PRN Reason: Hypoglycemia Duloxetine HCl (Cymbalta) 60 mg PO BID [facility] Last Admin: 08/01/18 09:43 Dose: 60 mg Glucagon () 1 mg IM .X1 PRN PRN Reason: Hypoglycemia Heparin Sodium (Porcine) (Heparin Na) 5,000 unit SC Q12 [facility] Last Admin: 08/01/18 09:43 Dose: 5,000 unit Insulin Human Lispro (Humalog Kwikpen (Bkc)) 0 unit SQ ACHS [facility]; Protocol Last Admin: 08/01/18 12:49 Dose: Not Given Levothyroxine Sodium (Synthroid) 125 mcg PO DAILY@0600 [facility] Last Admin: 08/01/18 07:01 Dose: 125 mcg Magnesium Hydroxide (Milk Of Magnesia) 30 ml PO DAILY PRN PRN PRN Reason: Constipation Sodium Chloride () 5 - 15 ml IV UD PRN PRN Reason: SALINE FLUSH Last Admin: 07/26/18 19:41 Dose: 10 ml Medical Necessity - Tobacco Use Smoking Status: Never smoker Assessment/Plan All Active Problems (Last Reviewed 04/15/18 @ 04:24 by Maximino Norman MD) Multiple falls (Acute) Debility (Acute) Acute cystitis (Acute) Weakness (Acute) UTI (urinary tract infection) (Acute) Right wrist fracture (Acute) Tachycardia (Acute) History of blood clots (Acute) History of ankle fracture (Acute) Frostbite of both buttocks (Acute) Fall (Acute) 1. Debility due to mechanical falls stable; feels well and has no complaints awaiting placement in SNF PT/OT on board 2. Hypertension: controlled. On amlodipine 5mg daily. 3. Hypothyroidism: on synthroid 4. Depression and anxiety: on cymbalta 5. 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 Accuchecks ACHS DVT prophylaxis: heparin Disposition: Awaiting placement. Code Visit Inpatient E&M: 33069 Subs Hosp L2
--- NOTE | 2018-08-01 13:46 | PN_ITS ---
Subjective: Subjective: Patient seen and examined. She has no complaints and feels well. She denies any fever chills, cough or chest pain, shortness of breath, abdominal pain, diarrhea vomiting. He has since otherwise negative. She is awaiting placement. Vitals/I&O's: Vital Signs Temp Pulse Resp BP Pulse Ox 97.9 F 80 16 130/74 H 97 08/01/18 10:00 08/01/18 10:00 08/01/18 10:00 08/01/18 10:00 08/01/18 10:00 Oxygen Delivery Method Room Air Weight: 215 lb 6.266 oz Body Mass Index (BMI) 31.8 Finger Stick Blood Glucose 104 Intake and Output for Last 24 Hours 07/30/18 07/31/18 08/01/18 23:59 23:59 23:59 Intake Total 500 / 500 560 / 560 Balance 500 / 500 560 / 560 General: Alert, Oriented x3, Cooperative, No apparent distress HEENT: Atraumatic, PERRLA, EOMI, Normocephalic Oral: Moist Mucosa Neck: Supple, No JVD, Negative Carotid Bruits Lungs: Clear to auscultation, Normal air movement, No rhonchi, No wheeze, No rales Cardiovascular: Regular rate, Regular Rhythm, Normal S1, Normal S2, No murmurs Abdomen: Bowel Sounds Present, Soft, Non Tender, Non-Distended, No Hepato- splenomegaly Extremities: No clubbing, No cyanosis, No edema, Capillary Refill Less than 3 Seconds Skin: No rashes, No breakdown Musculoskeletal: No Tenderness to Palpation of Joints or Extremities Lymphatic: No Cervical, Supraclavicular, or Inguinal Adenopathy Neurological: Cranial nerves II-XII grossly intact Psych/Mental Status: Normal Affect, Appropriate, Alert and oriented to time, place, person, mood and affect Laboratory Results 07/31/18 16:32: POC Glucose 122 H 07/31/18 22:15: POC Glucose 173 H 08/01/18 07:18: POC Glucose 117 H 08/01/18 12:31: POC Glucose 101 Current Medications Acetaminophen (Tylenol) 650 mg PO Q6H PRN PRN PRN Reason: HEADACHE Last Admin: 07/31/18 22:07 Dose: 650 mg Amlodipine Besylate (Norvasc) 5 mg PO DAILY ALON Last Admin: 08/01/18 09:43 Dose: 5 mg Aspirin (Aspirin, Baby) 81 mg PO DAILY@0800 [facility] Last Admin: 08/01/18 09:43 Dose: 81 mg Dextrose (D50w Syringe) 0 gm IV X1 PRN; Protocol PRN Reason: Hypoglycemia Duloxetine HCl (Cymbalta) 60 mg PO BID [facility] Last Admin: 08/01/18 09:43 Dose: 60 mg Glucagon () 1 mg IM .X1 PRN PRN Reason: Hypoglycemia Heparin Sodium (Porcine) (Heparin Na) 5,000 unit SC Q12 [facility] Last Admin: 08/01/18 09:43 Dose: 5,000 unit Insulin Human Lispro (Humalog Kwikpen (Bkc)) 0 unit SQ ACHS [facility]; Protocol Last Admin: 08/01/18 12:49 Dose: Not Given Levothyroxine Sodium (Synthroid) 125 mcg PO DAILY@0600 [facility] Last Admin: 08/01/18 07:01 Dose: 125 mcg Magnesium Hydroxide (Milk Of Magnesia) 30 ml PO DAILY PRN PRN PRN Reason: Constipation Sodium Chloride () 5 - 15 ml IV UD PRN PRN Reason: SALINE FLUSH Last Admin: 07/26/18 19:41 Dose: 10 ml Medical Necessity - Tobacco Use Smoking Status: Never smoker Assessment/Plan All Active Problems (Last Reviewed 04/15/18 @ 04:24 by Maximino Norman MD) Multiple falls (Acute) Debility (Acute) Acute cystitis (Acute) Weakness (Acute) UTI (urinary tract infection) (Acute) Right wrist fracture (Acute) Tachycardia (Acute) History of blood clots (Acute) History of ankle fracture (Acute) Frostbite of both buttocks (Acute) Fall (Acute) 1. Debility due to mechanical falls * stable; feels well and has no complaints * awaiting placement in SNF * PT/OT on board * 2. Hypertension: controlled. On amlodipine 5mg daily. 3. Hypothyroidism: on synthroid 4. Depression and anxiety: on cymbalta 5. 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 Accuchecks ACHS DVT prophylaxis: heparin Disposition: Awaiting placement. Code Visit Inpatient E&M: 62692 Subs Hosp L2
[2018-08-01 16:00] VITALS: BP 132/80; PULSE 81; RESP 16; TEMP 36.7; O2SAT 97
[2018-08-01] MEDS: Acetaminophen 325 MG Tablet 650 MG PO (16:46)
[2018-08-01 17:01] LABS: Bedside Glucose 166 mg/dL (70-110)
--- NOTE | 2018-08-01 17:07 | CASEMGMT ---
Social Work Note DAYNA received call from Rosalee at [facility] stating she is able to accept pt. DAYNA placed a call to [facility] and the earliest [facility] can transport pt is 2:00pm tomorrow. Per previous conversations, Romaine had told [facility] that they wouldn't transport pt that far. DAYNA placed a call to Rosalee and updated her that transportation has been set up for 2:00pm tomorrow and this worker will fax discharge paperwork once completed and will complete HENS tomorrow. Rosalee states understanding. DAYNA updated pt on acceptance. Pt is still agreeable to go to SNF at discharge. DAYNA informed pt of transportation time tomorrow. Pt states that her friend will be going to her apartment tonight to get her clothes. DAYNA placed a call to other SNF and informed them that pt has been accepted to a different SNF. Plan: Pt to discharge tomorrow to [facility] with [facility] transporting via wheelchair van. Hoa Wells PATCHER WOOD WELDER, JELLY FILTER TENDER
[2018-08-01 21:05] VITALS: BP 137/73; PULSE 96; RESP 18; TEMP 36.6; O2SAT 94
[2018-08-01 21:15] LABS: Bedside Glucose 146 mg/dL (70-110)
[2018-08-02 02:31] VITALS: BP 136/80; PULSE 94; RESP 16; TEMP 36.6; O2SAT 100
[2018-08-02] MEDS: Levothyroxine 125 MCG Tablet PO (05:27)
[2018-08-02 06:20] LABS: Bedside Glucose 132 mg/dL (70-110)
[2018-08-02] MEDS: DULoxetine Hcl 60 MG Capsule PO (08:06)
[2018-08-02] MEDS: amLODIPine 5 MG Tablet PO (08:06)
[2018-08-02] MEDS: Heparin Injection (Vial) 5,000 UNIT/ML VIAL 5000 UNIT SC (08:06)
[2018-08-02] MEDS: Aspirin 81 MG TAB.CHEW PO (08:06)
[2018-08-02 08:30] VITALS: BP 128/72; PULSE 85; RESP 16; TEMP 36.7; O2SAT 98
--- NOTE | 2018-08-02 09:22 | PCM.TXEXTCAR ---
- Diet 07/25/18 10:01 Diet: Regular Diet Food consistency:: Regular Liquid Consistency:: Regular/Thin Is pt able to select menu?: No - Routine Orders/Code Status Enema Type: Fleetz Enema Frequency: Daily PRN Suppository Type: Dulcolax 10mg Suppository Frequency: Daily PRN O2 Frequency: PRN Keep PO Greater than or Equal to (%): 92 - Therapies Physical Therapy: Eval and Treat Occupational Therapy: Eval and Treat - Allergies/Procedures Done in Hospital Allergies/Adverse Reactions: Allergies amoxicillin Allergy (Verified 07/24/18 08:44) Unknown Penicillins [PCN] Allergy (Verified 07/24/18 08:44) Unknown Sulfa (Sulfonamide Antibiotics) Allergy (Verified 07/24/18 08:44) Unknown - Type of Care/Length of Stay Estimated LOS: Convalescent Care Less Than 30 days Type of Care Needed: Skilled Rehab Potential: Fair Prognosis: Fair - Additional Orders/Day of Discharge Day of Discharge: 08/02/18 - Dietary and Speech Recommendations Dietitian Recommendations/Changes: Rec diet change to 1800 mark/cardiac d/t pmhx and BMI. Please obtain current wt - Follow Up Care Primary Care Physician: Care Physician,No Primary [Primary Care Provider] - Please follow up with your Primary Care Physician in: 1-2 weeks
--- NOTE | 2018-08-02 09:23 | PCM.DC.SUM ---
Discharge Date and Diagnosis Date of Admission: 07/24/18 Date of Discharge: 08/02/18 - Primary Discharge Diagnosis mechanical fall - Secondary Discharge Diagnosis Chronic Problems (Last Reviewed 04/15/18 @ 04:24 by Maximino Norman MD) Diabetes mellitus (Chronic) GERD (gastroesophageal reflux disease) (Chronic) Neuropathy (Chronic) History of stroke (Chronic) Arthritis (Chronic) Depression (Chronic) Anxiety (Chronic) PAOD (peripheral arterial occlusive disease) (Chronic) Hypothyroidism (Chronic) Hyperlipidemia (Chronic) Hypertension (Chronic) Iron deficiency anemia (Chronic) Diabetic neuropathy (Chronic) Type 2 diabetes mellitus (Chronic) Closed right ankle fracture (Chronic) PAD (peripheral artery disease) (Chronic) Status post stenting of the right lower extremity CVA (cerebral vascular accident) (Chronic) Asthma (Chronic) Fibromyalgia (Chronic) Hospital Course and Treatment Imaging Results: Diagnostic Data Brain CT 07/24/18 08:53 IMPRESSION: Chronic involutional changes of the brain. Electronically Signed: Bekah Garcia MD at 10:38 EST Tel , Service support , Cervical Spine CT 07/24/18 08:54 IMPRESSION: No demonstrated fractures. Multilevel degenerative changes. Electronically Signed: Bekah Garcia MD at 10:44 EST Tel , Service support , Pelvis X-Ray 07/24/18 09:40 IMPRESSION: No acute findings Electronically Signed: Jonnathan Cannon DO at 10:11 EST Tel , Service support , Operations: None, - - Cystoscopy: 72-year-old female who was brought to the hospital because severe pain she has kidney stone and stent was in place, plan to take her to surgery today to laser the stone and remove the stent. Procedure note patient was taken back to the operating room after smooth induction of anesthesia she was placed supine on the table and then a dorsolithotomy position the urethra and vaginal area were prepped and draped in usual sterile fashion went into the urethra with a 21 Croatian rigid cystourethroscope grabbed the existing stent from the right side, I then dilated the ureter, then after this was done then I placed an access sheath up on the right side, after once the access sheath was in place then through the access sheath I went in with the ureteroscope and I found the stone in the midpole of the right kidney I then used a 200 ?m laser fiber and laser the stone little tiny pieces once the stone was fragmented into dust particles then I worked my way down the ureter no major fragments along the course of the ureter no obstruction. Did not leave a stent in she should be on passive low fragments were lasered patient anesthetic was reversed, bladder was drained and she is taken back to PACU good condition. Procedures: None Summary of Care Provided: The patient is a 72 year old F with past medical history as listed. She was admitted with a complaint of a fall 2 days prior to admission while using her walker to ambulate to the kitchen. She tripped over an exercise bike and was on the floor for 2 days unable to get up. She is finally able to get with cell phone and called the EMS to bring her to the hospital. CT of the brain and cervical spine were negative for any fracture or bleed x-ray of the pelvis was also negative for any fracture. She was managed for mechanical falls due to general debility. She was scheduled for [facility] facility placement. She remained stable and was discharged to the senior living on 08/02/2018. Patient seen and examined prior to discharge. She had no complaints and felt well. 12 point review of systems otherwise negative. Examination Vitals: [] Vital Signs Height 5 ft 9 in Weight: 215 lb 6.266 oz Weight in Pounds 215.4 lbs Pulse Ox 98 Temperature 98.1 F Pulse Rate 85 Respiratory Rate 16 Blood Pressure 128/72 Blood Pressure Position Semi-Fowlers General: Alert, Oriented x3, Cooperative, No apparent distress HEENT: Atraumatic, PERRLA, EOMI, Normocephalic Oral: Moist Mucosa Neck: Supple, No JVD, Negative Carotid Bruits Lungs: Clear to auscultation, Normal air movement, No rhonchi, No wheeze, No rales Cardiovascular: Regular rate, Regular Rhythm, Normal S1, Normal S2, No murmurs Abdomen: Bowel Sounds Present, Soft, Non Tender, Non-Distended, No Hepato-splenomegaly Extremities: No clubbing, No cyanosis, No edema, Capillary Refill Less than 3 Seconds Skin: No rashes, No breakdown Musculoskeletal: No Tenderness to Palpation of Joints or Extremities Lymphatic: No Cervical, Supraclavicular, or Inguinal Adenopathy Neurological: Cranial nerves II-XII grossly intact Psych/Mental Status: Normal Affect, Appropriate, Alert and oriented to time, place, person, mood and affect Plan is as stated above. She is to follow up with her PCP in 1-2 weeks. - Physical Exam Vital Signs Temp Pulse Resp BP Pulse Ox 98 F 94 16 136/80 H 100 08/02/18 02:31 08/02/18 02:31 08/02/18 02:31 08/02/18 02:31 08/02/18 02:31 Oxygen Delivery Method Room Air Weight: 215 lb 6.266 oz Body Mass Index (BMI) 31.8 Finger Stick Blood Glucose 104 Intake and Output for Last 24 Hours 07/31/18 08/01/18 08/02/18 23:59 23:59 23:59 Intake Total 560 / 560 Balance 560 / 560 POC Glucose 08/02/18 08/01/18 08/01/18 06:17 21:11 16:44 POC Glucose 132 H 146 H 166 H 08/01/18 12:31 POC Glucose 101 Discharge Diet: Low fat/ Low Cholesterol Weight Bearing Status: Weight bearing as tolerated Call your doctor if you observe: Fever of 101 or Higher, Fainting spells Home Medications: Medications to take at Discharge Aspirin [Aspirin, Baby] 81 mg PO DAILY@0800 04/15/18 Cholecalciferol (VIT D3) [Vitamin D3] 1,000 unit PO DAILY 04/18/18 Amlodipine [Norvasc] 5 mg PO DAILY 07/05/18 Duloxetine Hcl [Cymbalta] 60 mg PO BID 07/05/18 Levothyroxine [Synthroid] 125 mcg PO DAILY 07/05/18 Metformin HCl [Glucophage] 500 mg PO BIDCM 07/05/18 Primary Care Physician: Care Physician,No Primary [Primary Care Provider] - Please follow up with your Primary Care Physician in: 1-2 weeks Disposition: [facility] facility Minutes spent on discharge:: 33 Patient Condition:: Stable Medical Necessity - Tobacco Use Smoking Status: Never smoker Meaningful Use Info Meaningful Use Diagnoses (Choose all that apply): None applicable Code Visit Inpatient E&M: 69946 Disch Hosp
[2018-08-02 11:21] LABS: Bedside Glucose 132 mg/dL (70-110)
[2018-08-02] MEDS: Acetaminophen 325 MG Tablet 650 MG PO (13:01)
--- NOTE | 2018-08-02 13:30 | CASEMGMT ---
Addendum entered by Hoa Wells 08/02/18 17:04: DAYNA placed a call to [facility] and left a message informing [facility] that pt was transported to [facility] in [place], [place] and to forward Medicaid application to [facility] who covers the county where pt was placed. Original Note: Social Work Note Pt is being discharged today to [facility]. DAYNA faxed completed discharge paperwork to Rosalee at [facility] including transfer to extended care facility, signed medication list and any scripts. Originals in SNF folder and copy on pt's chart. DAYNA completed PAS/RR in HENS and transportation form. Originals in SNF folder and copy on pt's chart. Mat Bond informed this worker that pt's friend Debbie had called requesting update on pt's insurance and insurance at SNF. Pt gave this worker permission to speak to her friend Debbie. SW placed a call to Debbie and left her a message informing her that if she had additional questions regarding insurance to call [facility] and ask to speak to the SW at the facility. Plan: Pt to discharge to [facility] under skilled and then transition to [facility]. [facility] is transporting pt at 2:00pm via wheelchair van. Hoa Wells PAPER FEEDER, HEAD COOK
[2018-08-02 14:00] VITALS: BP 122/68; PULSE 87; RESP 16; TEMP 36.4; O2SAT 94
== END 2018-08-02 13:49 | disposition skilled nursing facility (03) | DRG 74 ==
LOC: ED 11:19 → MS3 11:30
PROVIDERS: Admitting Provider Family Medicine; Emergency Provider Emergency Medicine; Visit Provider Student in an Organized Health Care Education/Training Program
DX: E11.42 Type 2 diabetes mellitus with diabetic polyneuropathy (principal); R53.81 Other malaise; E03.9 Hypothyroidism, unspecified; K21.9 Gastro-esophageal reflux disease without esophagitis; F32.9 Major depressive disorder, single episode, unspecified; F41.9 Anxiety disorder, unspecified; E78.5 Hyperlipidemia, unspecified; D50.9 Iron deficiency anemia, unspecified; I73.9 Peripheral vascular disease, unspecified; J45.909 Unspecified asthma, uncomplicated; M79.7 Fibromyalgia; I10 Essential (primary) hypertension; Z86.73 Personal history of transient ischemic attack (TIA), and cerebral infarction without residual deficits; Z79.84 Long term (current) use of oral hypoglycemic drugs; W19.XXXA Unspecified fall, initial encounter; Y92.009 Unspecified place in unspecified non-institutional (private) residence as the place of occurrence of the external cause
CPT/HCPCS: 36415; 70450; 72125; 72170; 80048; 81001; 82550; 82962; 84484; 85025; 93005; 97110; 97116; 97162; 97165; 97530; 97535; 97802; 99285; J7030; A4216